=== PATIENT | female | born 1960 ===

== ENCOUNTER 2020-05-13 09:03 | Outpatient (REF) | payer OTHER, SELFPAY ==
--- NOTE | 2020-05-13 | PFT_ITS ---
Forced vital capacity, FEV1, ZAB70-49, and MVV are all markedly decreased. Post bronchodilator therapy, there is no significant improvement. Total lung capacity moderately decreased, residual volume is normal. Diffusion capacity slightly decreased. CONCLUSION: These findings are consistent with severe obstructive airway disorder. No significant response to bronchodilator therapy. Also, associated with mild to moderate degree of restrictive pulmonary disorder. MD DANIEL Gregory/KEZIA / [id number]
== END 2020-05-13 09:04 | disposition home or self-care (01) ==
LOC: HO.RESP 09:03
PROVIDERS: PCP Family Medicine; Visit Provider Internal Medicine
DX: J44.9 Chronic obstructive pulmonary disease, unspecified (principal); J45.909 Unspecified asthma, uncomplicated; J30.9 Allergic rhinitis, unspecified
CPT/HCPCS: 94060; 94727; 94729; 99213

== ENCOUNTER 2020-10-16 09:50 | Outpatient (REF) | payer OTHER, SELFPAY | END 2020-10-16 09:51 | disposition home or self-care (01) | LOC: HO.LAB 09:50 | PROVIDERS: Visit Provider Internal Medicine | DX: Z20.822 Contact with and (suspected) exposure to COVID-19 (principal) | CPT/HCPCS: 36415; C9803; U0003; U0005 ==

== ENCOUNTER 2020-10-30 11:42 | Outpatient (REF) | payer OTHER, SELFPAY ==
--- NOTE | ~2020-10-30 | XR_ITS ---
EXAMINATION: XR CHEST CLINICAL INFORMATION: COPD COMPARISON: Chest 04/01/2020 TECHNIQUE: 2 views of the chest were obtained. FINDINGS: The lungs are well-expanded with size left upper lobe pleural-based density measuring 6 cm in craniocaudad length and approximately 2.4 cm wide suspicious for a pleural-based mass or atypical infiltrate. There is increased markings in rest of lungs with no acute process. There is soft tissue mass along the left superior mediastinum question lymph node. No pleural effusion. The heart size and pulmonary vascularity is normal. No gross bony abnormality. XR/XR chest 2V IMPRESSION: Left upper lobe pleural-based masslike density. There is a left paramediastinal soft tissue density question adenopathy. Consider CT chest exam with contrast.
== END 2020-10-30 11:43 | disposition home or self-care (01) ==
LOC: HO.XRAY 11:42
PROVIDERS: PCP Family Medicine; Visit Provider Internal Medicine
DX: J44.9 Chronic obstructive pulmonary disease, unspecified (principal); J30.9 Allergic rhinitis, unspecified; Z79.51 Long term (current) use of inhaled steroids
CPT/HCPCS: 71046; 99212

== ENCOUNTER 2020-11-28 07:56 | Outpatient (REF) | payer OTHER, SELFPAY ==
--- NOTE | ~2020-11-28 | CT_ITS ---
EXAMINATION: CT CHEST WITHOUT CONTRAST CLINICAL INFORMATION: Chronic obstructive pulmonary disease, unspecified. COMPARISON: Radiograph dated 04/01/2020 and 10/30/2020. TECHNIQUE: Multidetector volumetric CT imaging of the chest was done. Axial MIP volume rendering provided. Sagittal and coronal reformatted images were obtained. Additional high resolution images were obtained at the aortic arch, janet, and base of the lung. This CT examination was performed using dose optimization techniques as appropriate, variously including the following: *Automated exposure control. *Adjustment of mA and/or kV according to patient size (this includes techniques or standardized protocols for targeted exams where dose is matched to indication/reason for exam; i.e. extremities or head). *Use of iterative reconstruction technique. DLP: 130 mGy-cm FINDINGS: GAMING CAGE CASHIER: Lungs are borderline hyperexpanded. LUNGS: There is diffuse bronchial wall thickening throughout both lungs with areas of luminal narrowing, more notable in the lower lobes. Superimposed secretions or endoluminal fluid may be present within the bronchi in the left lower lobe, in particular. No areas of dense consolidation are identified. The previously seen pleural-based mass-like density in the left upper lobe on radiograph corresponds to an area of ground-glass attenuation on the current study. Patchy areas of ground-glass attenuation are present in the periphery of the upper lobes most notably, left greater than right. Subtle tree-in-bud clusters of pulmonary micronodules are evident in multiple locations including the left lower lobe and right middle lobe, potentially due to an infectious or inflammatory process. No larger pulmonary nodules are identified. No bronchiectasis. No honeycombing. MEDIASTINUM: Heart is normal in size. No pericardial effusion. Calcific atherosclerosis is present in the coronary arteries. Vascularity is normal in caliber. No appreciable mediastinal or hilar adenopathy on these unenhanced images, though sensitivity is somewhat limited. Thyroid gland is atrophic. PLEURA: No effusion or nodularity. AXILLA: No lymphadenopathy. UPPER ABDOMEN: Unremarkable. OSSEOUS STRUCTURES: Unremarkable. CT/CT chest wo con IMPRESSION: 1. Patchy areas of ground-glass attenuation in both lungs, most notably in the upper lobes, which appear improved relative to the prior radiographs from 10/30/2020. These are nonspecific and may correspond to improving infectious or inflammatory process. Similarly, a few tree-in-bud nodular opacities are noted and also suggests a respiratory infectious or inflammatory process. 2. Diffuse bronchial wall thickening with a few areas of complete endoluminal opacification in the lower lobe, most consistent with changes of reactive airway disease or COPD/chronic bronchitis. A viral/atypical and/or infection could also produce this appearance.
== END 2020-11-28 07:57 | disposition home or self-care (01) ==
LOC: HO.CT 07:56
PROVIDERS: PCP Family Medicine; Visit Provider Internal Medicine
DX: R91.8 Other nonspecific abnormal finding of lung field (principal); J44.9 Chronic obstructive pulmonary disease, unspecified
CPT/HCPCS: 71250

== ENCOUNTER 2021-01-09 12:25 | Outpatient (REF) | payer OTHER, SELFPAY ==
--- NOTE | ~2021-01-09 | CT_ITS ---
EXAMINATION: CT ABDOMEN AND PELVIS WITH CONTRAST CLINICAL INFORMATION: Abnormal weight loss COMPARISON: CT chest noncontrast 11/28/2020 TECHNIQUE: Multidetector volumetric images were obtained from the superior aspect of the liver through the pubic symphysis following administration 85 mL of Omnipaque 350 intravenous contrast. Sagittal and coronal reformatted images were obtained on the technologist's workstation. Oral contrast: No This CT examination was performed using dose optimization techniques as appropriate, variously including the following: *Automated exposure control *Adjustment of mA and/or kV according to patient size (this includes techniques or standardized protocols for targeted exams where dose is matched to indication/reason for exam; i.e. extremities or head) *Use of iterative reconstruction technique DLP: 374 mGy-cm FINDINGS: LUNG BASES: Respiratory motion artifact. There is mild coarsening bronchiolar markings and small patchy airspace opacity versus atelectasis right anterior base. No pleural effusion. LIVER, GALLBLADDER, AND BILIARY TREE: Respiratory motion artifact. Normal in size and smooth in contour. Uniform parenchymal attenuation. No focal hepatic parenchymal lesion or intrahepatic ductal dilatation. The gallbladder is unremarkable with no evidence of radiopaque gallstones, gallbladder wall thickening, or obvious pericholecystic inflammatory changes. PANCREAS: Uniform in attenuation and normal in size. No pancreatic ductal distention or peripancreatic inflammatory changes. SPLEEN: Unremarkable. ADRENAL GLANDS: Unremarkable. KIDNEYS AND URETERS: Respiratory motion artifact. The kidneys enhance symmetrically. There is no hydronephrosis, hydroureter, or visible mass, or perinephric stranding. BLADDER: Unremarkable. GASTROINTESTINAL TRACT: The stomach is dilated and there is retained food contents in the lumen. There is no visible wall thickening or surrounding inflammatory changes. Oral contrast is present in the small and large bowel which are normal caliber and show no obstruction or wall thickening. No ascites or fluid collection. ABDOMINAL WALL: No significant hernia is appreciated. LYMPH NODES: No lymphadenopathy. VASCULAR: Unremarkable. PELVIC VISCERA: Unremarkable. OSSEOUS STRUCTURES: No acute bony abnormality or suspicious bony lesion. Schmorl's node superior endplate T12 with degenerative disc changes T11-T12. CT/CT abdomen pelvis w con IMPRESSION: 1. Gastric dilatation with retained food contents in the lumen. No visible wall thickening or surrounding inflammatory changes. Small and large bowel are unremarkable. No ascites or adenopathy. 2. Liver, pancreas, spleen, and kidneys are unremarkable. 3. Airspace opacity versus atelectasis right anterior base. 4. Respiratory motion artifact.
[2021-01-09 13:39] LABS: Anion Gap 15 (12-20); Blood Urea Nitrogen 17 mg/dL (9-16); Calcium 10.1 mg/dL (8.4-10.2); Carbon Dioxide 29 mmol/L (22-29); Chloride 101 mmol/L (96-108); Estimated Glomerular Filt Rate > 60; Glucose Random 116 mg/dL (60-115); Potassium 4.8 mmol/L (3.3-5.1); Sodium 140 mmol/L (135-145)
[2021-01-09] MEDS: iohexoL 350 MG/ML 100 ML INFUS..BTL IV (15:43)
[2021-01-09] MEDS: Barium Sulfate Oral (Berry) 450 ML ORAL.SUSP 900 ML PO (15:43)
== END 2021-01-09 12:26 | disposition home or self-care (01) ==
LOC: HO.CT 12:25
PROVIDERS: PCP Family Medicine; Visit Provider Family Medicine
DX: R63.4 Abnormal weight loss (principal); R68.81 Early satiety
CPT/HCPCS: 36415; 74177; 80048; Q9967

== ENCOUNTER 2021-02-24 09:33 | Outpatient (REF) | payer OTHER, SELFPAY ==
--- NOTE | ~2021-02-24 | MM_ITS ---
EXAMINATION: MM SCREENING DIGITAL BREAST TOMOSYNTHESIS, BILATERAL CLINICAL INFORMATION: Screening. Asymptomatic. The lifetime risk of breast cancer based on the Tyrer-Cuzick Model is 4%. COMPARISON: Mammography: 08/20/2019, 02/12/2019, 06/02/2018 TECHNIQUE: Digital breast tomosynthesis is performed in both the craniocaudal and mediolateral oblique views along with computer-aided detection (CAD). Synthesized 2D images are generated from the tomosynthesis. Additional left CC view is provided. FINDINGS: There are scattered areas of fibroglandular density (ACR BI-RADS breast composition Category b). There is fine fibronodular parenchymal pattern similar to prior studies. There is no developing density or interval mass or architectural abnormality. There is scattered benign round and rim calcifications. The axilla and skin contours are unremarkable. MM/MM tomosynthesis screening BI IMPRESSION: No mammographic evidence of malignancy. ASSESSMENT: BI-RADS 2: Benign RECOMMENDATION: Routine annual mammography screening. This patient's information was entered into a reminder system with a target due date for their next mammogram.
== END 2021-02-24 09:34 | disposition home or self-care (01) ==
LOC: HO.MAMMO 09:33
PROVIDERS: PCP Family Medicine; Visit Provider Family Medicine
DX: Z12.31 Encounter for screening mammogram for malignant neoplasm of breast (principal)
CPT/HCPCS: 77063; 77067

== ENCOUNTER 2021-03-30 10:31 | Outpatient (REF) | payer OTHER, SELFPAY ==
--- NOTE | ~2021-03-30 | XR_ITS ---
EXAMINATION: XR CHEST CLINICAL INFORMATION: Severe persistent asthma with acute exacerbation. COMPARISON: Chest CT November 28, 2020 and chest x-ray October 30, 2020 TECHNIQUE: 2 views of the chest were obtained. FINDINGS: The cardiac silhouette is normal in size. The lungs are well inflated. There is similar coarsening of the interstitial markings diffusely. No lobar consolidation is present although there is a subtle patchy opacity of the right lung base, nonspecific. No pleural effusion or pneumothorax. Mild degenerative changes of the spine. XR/XR chest 2V IMPRESSION: -Chronic lung changes with possible atelectasis versus early infiltrate of the right lower lung.
== END 2021-03-30 10:32 | disposition home or self-care (01) ==
LOC: HO.XRAY 10:31
PROVIDERS: Absent Provider Family Medicine; PCP Family Medicine; Visit Provider Internal Medicine
DX: J45.51 Severe persistent asthma with (acute) exacerbation (principal)
CPT/HCPCS: 71046

== ENCOUNTER → 2021-03-31 13:26 | Outpatient (BNVA) | payer OTHER, SELFPAY | PROVIDERS: PCP Family Medicine; Visit Provider Internal Medicine | DX: J30.9 Allergic rhinitis, unspecified (principal); J44.9 Chronic obstructive pulmonary disease, unspecified; J45.909 Unspecified asthma, uncomplicated | CPT/HCPCS: 99212 ==

== ENCOUNTER 2021-06-19 13:25 | Outpatient (REF) | payer OTHER, SELFPAY ==
[2021-06-19 14:26] LABS: MANUAL DIFF FLAG NO
[2021-06-19 16:31] LABS: Basophils Absolute Auto 0.1 X10*3/uL (0.0-0.2); Basophils Percent Auto 0.7 % (0-2); Eosinophils Absolute Auto 4.5 X10*3/uL (0.0-0.4); Hematocrit 36.1 % (37.0-47.0); Hemoglobin 11.4 g/dl (12.0-16.0); Imm Gran Abs Auto 0.04 X10*3/uL (0.00-0.03); Imm Gran Pct Auto 0.3 % (0.0-0.4); Lymphocytes Absolute Auto 3.3 X10*3/uL (1.2-4.9); Lymphocytes Percent Auto 23.9 % (20-40); Mean Corpuscular HGB Conc 31.6 g/dl (31.0-35.0); Mean Corpuscular Volume 91.9 fL (80.0-98.0); Mean Platelet Volume 10.5 fL (9.4-12.3); Monocytes Absolute Auto 0.7 X10*3/uL (0.1-1.2); Monocytes Percent Auto 4.8 % (2-11); Neutrophils Absolute Auto 5.1 x10*3/uL (2.0-8.3); Neutrophils Percent Auto 37.3 % (45-73); Platelet Count 411 X10*3/uL (160-400); Red Blood Count 3.93 X10*6/uL (4.20-5.50); Red Cell Distribution Width 13.1 % (11.0-16.0); White Blood Count 13.6 X10*3/uL (4.8-10.8)
[2021-06-19 17:36] LABS: TSH reflex Free T4 0.71 uIU/mL (0.32-4.0)
[2021-06-19 17:43] LABS: Alanine Aminotransferase 13 U/L (0-31); Albumin Level 3.7 g/dL (3.5-5.0); Alkaline Phosphatase 106 U/L (39-117); Anion Gap 11 (12-20); Aspartate Amino Transferase 19 U/L (5-31); Bilirubin Total < 0.2 mg/dL (0.0-1.0); Blood Urea Nitrogen 18 mg/dL (9-16); Calcium 9.3 mg/dL (8.4-10.2); Carbon Dioxide 30 mmol/L (22-29); Chloride 106 mmol/L (96-108); Estimated Glomerular Filt Rate > 60; Glucose Random 65 mg/dL (60-115); Potassium 4.6 mmol/L (3.3-5.1); Sodium 142 mmol/L (135-145); Total Protein 7.8 g/dL (6.5-8.0)
== END 2021-06-19 13:26 | disposition home or self-care (01) ==
LOC: HO.LAB 13:25
PROVIDERS: PCP Family Medicine; Referring Provider Family Medicine; Visit Provider Nurse Practitioner
DX: R63.4 Abnormal weight loss (principal)
CPT/HCPCS: 36415; 80053; 84443; 85025; 99202

== ENCOUNTER 2021-06-28 13:47 | Inpatient (IN) | payer OTHER, SELFPAY ==
--- NOTE | ~2021-06-28 | XR_ITS ---
EXAMINATION: XR CHEST CLINICAL INFORMATION: Dyspnea COMPARISON: 03/30/2021 TECHNIQUE: 2 views of the chest were obtained. FINDINGS: Diffuse mild bronchial wall thickening redemonstrated with likely mucoid impaction within the lower lungs bilaterally as seen on the prior CT. There are patchy airspace opacities as well within the left upper and bilateral lower lungs which may represent a superimposed pneumonitis. Streaky opacity within the middle lobe may represent an infiltrate or subsegmental atelectasis. Normal heart size and pulmonary vascularity. No acute or suspicious osseous abnormalities. XR/XR chest 2V IMPRESSION: * Findings compatible with chronic bronchitis with mucoid impacted bronchioles within the lower lungs bilaterally. * There is a streaky opacity within the middle lobe which isn't a superimposed infiltrate or associated atelectatic changes.
[2021-06-28 13:55] VITALS: BP 151/55; PULSE 119; RESP 18; TEMP 37; O2SAT 91; BMI 18.6
[2021-06-28 14:22] LABS: COVID-19 Test Negative (Negative); IDNOW Serial# 9DD0AD1C
--- NOTE | 2021-06-28 16:31 | ED.SOB ---
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 This episode started 1 week ago Cough Yellow/ Brown phlegm No Fevers Last episode 1 month ago. 2 this year Typical treatment Prednisone. Zithromax No sick contacts vaccinated against covid Related Data Home Medications Medication Instructions Recorded Confirmed albuterol sulfate 90 mcg/actuation 2 puff PO Q4-6H PRN 05/03/20 05/13/20 aerosol inhaler alcohol swabs 0 pad TOPICAL 05/03/20 05/13/20 aspirin 81 mg tablet,delayed 81 mg PO DAILY 05/03/20 05/13/20 release atorvastatin 40 mg tablet mg PO 05/03/20 05/13/20 blood sugar diagnostic #10 ea 05/03/20 05/13/20 cholecalciferol (vitamin D3) 50 50 mcg PO DAILY 05/03/20 05/13/20 mcg (2,000 unit) tablet clonazepam 0.5 mg tablet 0.5 mg PO DAILY PRN 05/03/20 05/13/20 cyanocobalamin (vitamin B-12) 500 500 mcg PO QAM 05/03/20 05/13/20 mcg tablet diltiazem HCl 180 mg 180 mg PO DAILY 05/03/20 05/13/20 capsule,extended release 24 hr fluticasone 250 mcg-salmeterol 50 1 ea PO BID 05/03/20 05/13/20 mcg/dose blistr powdr for inhalation fluticasone propionate 50 0 mcg INTRANASAL 05/03/20 05/13/20 mcg/actuation nasal spray,suspension lancets 33 gauge #100 ea 05/03/20 05/13/20 loratadine 10 mg tablet 10 mg PO DAILY 05/03/20 05/13/20 metformin 500 mg tablet,extended 500 mg PO DAILY 05/03/20 05/13/20 release 24 hr psyllium husk 0.4 gram capsule 0.4 g PO QAM 05/03/20 05/13/20 Previous Rx's Medication Instructions Recorded montelukast 10 mg tablet 10 mg PO DAILY #90 tab 01/23/21 albuterol sulfate 2.5 mg (3 mL) INHALATION Q4-6H PRN 03/25/21 #300 ml umeclidinium 62.5 mcg/actuation 1 inh PO DAILY #30 ea 04/21/21 blister powder for inhalation (Incruse Ellipta) peg 3350-electrolytes 236 240 ml PO Q10M 1 Days #4000 ml 06/19/21 gram-22.74 gram-6.74 gram-5.86 gram solution (Golytely) azithromycin 250 mg tablet 250 mg PO DAILY 4 Days #4 tab 06/28/21 (Zithromax) prednisone 20 mg tablet 40 mg PO DAILY #10 tab 06/28/21 Allergies Allergy/AdvReac Type Severity Reaction Status Date / Time No Known Allergies Allergy Verified 06/28/21 13:55 [No Known Allergies*] Review of Systems Constitutional: Constitutional: Denies fever(s) Cardiovascular: Cardiovascular: Denies chest pain and Reports dyspnea Respiratory: Respiratory: Reports cough, Reports dyspnea and Reports wheezing Gastrointestinal: Gastrointestinal: Denies nausea and Denies vomiting Integumentary/Breasts: Skin/Breast: Denies change in pigmentation Comments: no rash Allergic/Immunologic: Allergic/Immunologic: Reports wheezing [facility] Past Medical History Medical History (Updated 06/28/21 @ 16:36 by Avel Thomas MD) Allergic rhinitis Bronchial asthma COPD (chronic obstructive pulmonary disease) Mass of upper lobe of left lung Surgical History History of tubal ligation Family History Family History Father No problems noted. Mother No problems noted. Social History Social History Alcohol intake: never Patient Tobacco Use Status: Never used Tobacco Use of substances other than those prescribed or required for medical reasons: No Advance Directives: No Patient : No Physical Exam Vital Signs: Vital Signs: Last Vital Signs Temp 98.8 F 06/28/21 18:31 Pulse 148 H 06/28/21 18:31 Resp 18 06/28/21 18:31 BP 118/71 06/28/21 17:21 Pulse Ox 90 L 06/28/21 18:31 Body Mass Index 18.6 Const: Other: Awake No acute distress Resp: Other: no resp distress. Coarse rhochi bilat good air entry Cardio: Other: rrr/ no MRG GI: Other: soft/ NT Skin: Other: no rash Extrem: Other: no calf TTP Course Course Course Narrative: asthma Bronchitis Pneumonia CXR c/w bronchitis Covid 19 negative Prednisone Zithromax Albuterol, Atrovent. 6:55 p.m.. After treatment patient is tachycardic to 146 beats per minute. Will do 12 lead and lab work. IV fluids 8:17 p.m.. Patient still with room air saturation of 88% after treatment. Will hospitalized for further treatment. MDM - SOB/Dyspnea Lab Data Result diagrams: 06/28/21 19:31 06/28/21 19:31 Labs: Lab Results 06/28/21 06/28/21 06/28/21 Range/Units 14:01 19:31 19:31 WBC 15.6 H (4.8-10.8) X10*3/uL RBC 3.93 L (4.20-5.50) X10*6/uL Hgb 11.8 L (12.0-16.0) g/dl Hct 35.3 L (37.0-47.0) % MCV 89.8 (80.0-98.0) fL MCH 30.0 (27.0-33.0) pg MCHC 33.4 (31.0-35.0) g/dl RDW 12.9 (11.0-16.0) % Plt Count 310 (160-400) X10*3/uL MPV 9.7 (9.4-12.3) fL Immature Gran % (Auto) 0.3 (0.0-0.4) % Neut % (Auto) 66.0 (45-73) % Lymph % (Auto) 13.3 L (20-40) % [place] % (Auto) 2.3 (2-11) % Eos % (Auto) 17.6 H (0-4) % Baso % (Auto) 0.5 (0-2) % Lymph # (Auto) 2.1 (1.2-4.9) X10*3/uL [place] # (Auto) 0.4 (0.1-1.2) X10*3/uL Eos # (Auto) 2.7 H (0.0-0.4) X10*3/uL Baso # (Auto) 0.1 (0.0-0.2) X10*3/uL Abs Immat Gran (auto) 0.05 H (0.00-0.03) X10*3/uL Absolute Neuts (auto) 10.3 H (2.0-8.3) x10*3/uL Absolute Nucleated RBC 0.000 (0.0-0.012) X10*3/uL Nucleated RBC % (auto) 0.0 (0.0-0.2) /100WBC Smear Tech's Comments VERIFIED Sodium 137 (135-145) mmol/L Potassium 4.6 (3.3-5.1) mmol/L Chloride 101 (96-108) mmol/L Carbon Dioxide 23 (22-29) mmol/L Anion Gap 18 (12-20) BUN 20 H (9-16) mg/dL Creatinine 0.80 (0.5-1.4) mg/dL Estim Creat Clear Calc 54.1 Estimated GFR > 60 Random Glucose 143 H (60-115) mg/dL Calcium 9.7 (8.4-10.2) mg/dL Total Bilirubin 0.3 (0.0-1.0) mg/dL AST 26 (5-31) U/L ALT 11 (0-31) U/L Alkaline Phosphatase 87 (39-117) U/L Troponin I High Sens (<3.5-17.0) ng/L Total Protein 8.3 H (6.5-8.0) g/dL Albumin 3.5 (3.5-5.0) g/dL COVID-19 (BRIGHT) Negative (Negative) COVID-19 Clin Com See Note 06/28/21 Range/Units 19:31 WBC (4.8-10.8) X10*3/uL RBC (4.20-5.50) X10*6/uL Hgb (12.0-16.0) g/dl Hct (37.0-47.0) % MCV (80.0-98.0) fL MCH (27.0-33.0) pg MCHC (31.0-35.0) g/dl RDW (11.0-16.0) % Plt Count (160-400) X10*3/uL MPV (9.4-12.3) fL Immature Gran % (Auto) (0.0-0.4) % Neut % (Auto) (45-73) % Lymph % (Auto) (20-40) % [place] % (Auto) (2-11) % Eos % (Auto) (0-4) % Baso % (Auto) (0-2) % Lymph # (Auto) (1.2-4.9) X10*3/uL [place] # (Auto) (0.1-1.2) X10*3/uL Eos # (Auto) (0.0-0.4) X10*3/uL Baso # (Auto) (0.0-0.2) X10*3/uL Abs Immat Gran (auto) (0.00-0.03) X10*3/uL Absolute Neuts (auto) (2.0-8.3) x10*3/uL Absolute Nucleated RBC (0.0-0.012) X10*3/uL Nucleated RBC % (auto) (0.0-0.2) /100WBC Smear Tech's Comments Sodium (135-145) mmol/L Potassium (3.3-5.1) mmol/L Chloride (96-108) mmol/L Carbon Dioxide (22-29) mmol/L Anion Gap (12-20) BUN (9-16) mg/dL Creatinine (0.5-1.4) mg/dL Estim Creat Clear Calc Estimated GFR Random Glucose (60-115) mg/dL Calcium (8.4-10.2) mg/dL Total Bilirubin (0.0-1.0) mg/dL AST (5-31) U/L ALT (0-31) U/L Alkaline Phosphatase (39-117) U/L Troponin I High Sens < 3.5 (<3.5-17.0) ng/L Total Protein (6.5-8.0) g/dL Albumin (3.5-5.0) g/dL COVID-19 (BRIGHT) (Negative) COVID-19 Clin Com Discharge Plan Discharge Clinical Impression: Bronchial asthma Patient Disposition: Admitted As Inpatient Interventions: ED Discharge Assessment Last Done: 06/28/21 18:46
[2021-06-28 17:21] VITALS: BP 118/71; PULSE 112; RESP 20; TEMP 37.2; O2SAT 89
[2021-06-28] MEDS: Azithromycin 500 MG TABLET PO (17:28)
[2021-06-28] MEDS: predniSONE 20 MG TABLET 60 MG PO (17:28)
[2021-06-28] MEDS: Albuterol Sulfate (0.083%) 2.5 MG/3 ML VIAL.NEB 7.5 MG INHALE (18:06)
[2021-06-28] MEDS: Albuterol/Iprat 2.5/0.5MG 3 ML AMPUL.NEB INHALE (18:06)
[2021-06-28 18:07] VITALS: PULSE 116; O2SAT 88
[2021-06-28 18:31] VITALS: PULSE 148; RESP 18; TEMP 37.1; O2SAT 90
--- NOTE | 2021-06-28 18:54 | ECG_ITS ---
Test Reason : DYSPENA Blood Pressure : / mmHG Vent. Rate : 133 BPM Atrial Rate : 133 BPM P-R Int : 142 ms QRS Dur : 072 ms QT Int : 284 ms P-R-T Axes : 076 084 049 degrees QTc Int : 422 ms Sinus tachycardia Nonspecific T wave abnormality Abnormal ECG When compared with ECG of 31-MAR-2017 17:08, ST no longer elevated in Inferior leads T wave amplitude has decreased in Inferior leads Referred By: Avel Thomas Electronically Signed By:PEARL MCWILLIAMS MD
[2021-06-28 19:39] LABS: Basophils Absolute Auto 0.1 X10*3/uL (0.0-0.2); Basophils Percent Auto 0.5 % (0-2); Eosinophils Absolute Auto 2.7 X10*3/uL (0.0-0.4); Eosinophils Percent Auto 17.6 % (0-4); Hematocrit 35.3 % (37.0-47.0); Hemoglobin 11.8 g/dl (12.0-16.0); Imm Gran Abs Auto 0.05 X10*3/uL (0.00-0.03); Imm Gran Pct Auto 0.3 % (0.0-0.4); Lymphocytes Absolute Auto 2.1 X10*3/uL (1.2-4.9); Lymphocytes Percent Auto 13.3 % (20-40); MANUAL DIFF FLAG SCAN; Mean Corpuscular HGB Conc 33.4 g/dl (31.0-35.0); Mean Corpuscular Volume 89.8 fL (80.0-98.0); Mean Platelet Volume 9.7 fL (9.4-12.3); Monocytes Absolute Auto 0.4 X10*3/uL (0.1-1.2); Monocytes Percent Auto 2.3 % (2-11); Neutrophils Absolute Auto 10.3 x10*3/uL (2.0-8.3); Platelet Count 310 X10*3/uL (160-400); Red Blood Count 3.93 X10*6/uL (4.20-5.50); Red Cell Distribution Width 12.9 % (11.0-16.0); SCAN SMEAR FLAG 1; White Blood Count 15.6 X10*3/uL (4.8-10.8)
--- NOTE | 2021-06-28 19:42 | PC.NURSE ---
pt a&o, no respiratory distress at this time. labs drawn and Iv placed.
[2021-06-28] MEDS: 0.9 % Sodium Chloride 1,000 ML 999 ML IV (19:47)
[2021-06-28] MEDS: methylPREDNISolone Sod Succ 125 MG/2 ML VIAL 60 MG IVPUSH (19:47)
[2021-06-28 19:56] LABS: SLIDE REVIEW VERIFIED
[2021-06-28 19:57] LABS: Alanine Aminotransferase 11 U/L (0-31); Albumin Level 3.5 g/dL (3.5-5.0); Alkaline Phosphatase 87 U/L (39-117); Anion Gap 18 (12-20); Aspartate Amino Transferase 26 U/L (5-31); Bilirubin Total 0.3 mg/dL (0.0-1.0); Blood Urea Nitrogen 20 mg/dL (9-16); Calcium 9.7 mg/dL (8.4-10.2); Carbon Dioxide 23 mmol/L (22-29); Chloride 101 mmol/L (96-108); Creatinine Clr Calc Pharmacy 54.1; Estimated Glomerular Filt Rate > 60; Glucose Random 143 mg/dL (60-115); Potassium 4.6 mmol/L (3.3-5.1); Sodium 137 mmol/L (135-145); Total Protein 8.3 g/dL (6.5-8.0); Troponin-I High Sensitivity < 3.5 ng/L (<3.5-17.0)
[2021-06-28 20:58] VITALS: BP 112/59; PULSE 114; RESP 17; TEMP 36.7; O2SAT 97
--- NOTE | 2021-06-28 21:47 | PM.IMHP ---
History of Present Illness Date of Service: 06/28/21 Chief Complaint: asthma exacerbation 61-year-old female with past medical history of asthma, hypertension, anxiety, hyperlipidemia, diabetes who presents to the hospital with complaints of difficulty breathing. Patient reports that her symptoms started about 3 days ago, associated with cough, increased sputum production, no fever no chills, her inhalers at home did not improve her symptoms. She is also complaining of left upper quadrant abdominal pain that has now resolved. She denies any chest pain, no nausea or vomiting, no diarrhea constipation, no urinary symptoms and no lower extremity edema. No numbness tingling or weakness. On arrival to the ED patient hemodynamically stable found to be hypoxic with an O2 level of 88-89% on room air. And per ED physician dropped although a to 80% at some point Labs are significant for WBC count of 13.6, hemoglobin of 11.4, labs otherwise unremarkable. Chest x-ray showed chronic bronchitis with mucoid impacted bronchial within the lower lungs bilaterally, a streaky opacity within the middle lobe which isn't a superimposed infection or associated atelectasis changes. Patient will be admitted for further management Review of Systems Review of Systems: Yes all other systems are reviewed and are negative [facility] Medical History (Updated 06/29/21 @ 05:01 by Rosanne Fernandez MD) Allergic rhinitis Anxiety Asthma with COPD with exacerbation Bronchial asthma COPD (chronic obstructive pulmonary disease) Diabetes Hyperlipidemia Hypertension Mass of upper lobe of left lung Family History Father No problems noted. Mother No problems noted. Surgical History (Updated 06/29/21 @ 05:00 by Rosanne Fernandez MD) History of cataract surgery History of tubal ligation Social History Household Members: None Housing: Apartment Do you presently have visiting nurse or other home services: No Alcohol intake: never Patient Tobacco Use Status: Never used Tobacco Use of substances other than those prescribed or required for medical reasons: No Have you been hit, kicked, punched, or otherwise hurt by someone within the past year? If so, by whom?: No Do you feel safe in your current relationship?: No Current Relationship Is there a partner from a previous relationship who is making you feel unsafe now?: No Are you made to feel afraid or neglected: No Advance Directives: No Do you have thoughts of harming others: None Do you have a plan to hurt others: No Plan Recently lost weight without trying: Yes How much weight loss: 34pounds or more Eating poorly because of decreased appetite: Yes Nutrition screen score: 7 Nutrition Risks: No Nutritional Risk Patient : No : No Poor oral hygiene: No Meds Allergies Allergy/AdvReac Type Severity Reaction Status Date / Time No Known Allergies Allergy Verified 06/28/21 13:55 [No Known Allergies*] Active Medications: Current Medications Pharmacy Consult (Consult Rx Perform Med Rec) 1 each MISCELLANE ONCE PRN PRN Reason: Consult order Home Medications Medication Instructions Recorded Confirmed Last Taken Type albuterol sulfate 90 mcg/actuation 2 puff PO Q4-6H PRN 05/03/20 05/13/20 Unknown History aerosol inhaler alcohol swabs 0 pad TOPICAL 05/03/20 05/13/20 Unknown History aspirin 81 mg tablet,delayed 81 mg PO DAILY 05/03/20 06/28/21 06/28/21 History release atorvastatin 40 mg tablet mg PO 05/03/20 05/13/20 Unknown History blood sugar diagnostic #10 ea 05/03/20 05/13/20 Unknown History cholecalciferol (vitamin D3) 50 50 mcg PO DAILY 05/03/20 05/13/20 Unknown History mcg (2,000 unit) tablet clonazepam 0.5 mg tablet 0.5 mg PO DAILY 05/03/20 06/28/21 06/28/21 21:08 History cyanocobalamin (vitamin B-12) 500 500 mcg PO QAM 05/03/20 05/13/20 06/28/21 21:02 History mcg tablet diltiazem HCl 180 mg 180 mg PO DAILY 05/03/20 06/28/21 06/28/21 21:06 History capsule,extended release 24 hr fluticasone 250 mcg-salmeterol 50 1 ea PO BID 05/03/20 05/13/20 Unknown History mcg/dose blistr powdr for inhalation fluticasone propionate 50 0 mcg INTRANASAL 05/03/20 05/13/20 Unknown History mcg/actuation nasal spray,suspension lancets 33 gauge #100 ea 09/26/20 10/06/20 Unknown History loratadine 10 mg tablet 10 mg PO DAILY 05/03/20 06/28/21 06/28/21 21:07 History metformin 500 mg tablet,extended 500 mg PO DAILY 05/03/20 06/28/21 06/28/21 21:07 History release 24 hr psyllium husk 0.4 gram capsule 0.4 g PO QAM 05/03/20 05/13/20 Unknown History Lipitor 40 mcg 06/28/21 06/28/21 History Ventolin HFA 90 mcg 06/28/21 Unknown History baclofen 10 mg PO 06/28/21 06/28/21 21:16 History fluticasone 250 mcg-salmeterol 50 1 puff INHALATION BID 06/28/21 06/28/21 Unknown History mcg/dose blistr powdr for inhalation (Teetee De La Cruz) Physical Exam Vital Signs and Narrative: Vital Signs: Last Vital Signs Temp 98.1 F 06/28/21 20:58 Pulse 114 H 06/28/21 20:58 Resp 17 06/28/21 20:58 BP 112/59 L 06/28/21 20:58 Pulse Ox 97 06/28/21 20:58 Body Mass Index 18.6 Const: General: cooperative and no acute distress Orientation/consciousness: patient oriented x3 Eyes: General: appearance normal, both eyes and all related structures Resp: Other: Mild expiratory wheezing Effort & Inspection: normal respiratory effort Cardio: Rate: regular rate Rhythm: regular rhythm GI: Palpation (GI): Soft to palpation Auscultation: normal bowel sounds Skin: General skin exam: no rashes or lesions noted Neuro: General: patient oriented x3 Cognition (Neuro): normal cognition Extrem: General: Yes normal to inspection and Yes no pedal edema Results Labs CBC and Chem 7: 06/28/21 19:31 06/28/21 19:31 Labs: Laboratory Results - last 24 hr 06/28/21 06/28/21 06/28/21 14:01 19:31 19:31 MCV 89.8 MCH 30.0 MCHC 33.4 RDW 12.9 Plt Count 310 MPV 9.7 Immature Gran % (Auto) 0.3 Neut % (Auto) 66.0 Lymph % (Auto) 13.3 L [place] % (Auto) 2.3 Eos % (Auto) 17.6 H Baso % (Auto) 0.5 Lymph # (Auto) 2.1 [place] # (Auto) 0.4 Eos # (Auto) 2.7 H Baso # (Auto) 0.1 Abs Immat Gran (auto) 0.05 H Absolute Neuts (auto) 10.3 H Absolute Nucleated RBC 0.000 Nucleated RBC % (auto) 0.0 Smear Tech's Comments VERIFIED Anion Gap 18 Estim Creat Clear Calc 54.1 Estimated GFR > 60 Random Glucose 143 H Calcium 9.7 Total Bilirubin 0.3 AST 26 ALT 11 Alkaline Phosphatase 87 Troponin I High Sens Total Protein 8.3 H Albumin 3.5 COVID-19 (BRIGHT) Negative COVID-19 Clin Com See Note 06/28/21 19:31 MCV MCH MCHC RDW Plt Count MPV Immature Gran % (Auto) Neut % (Auto) Lymph % (Auto) [place] % (Auto) Eos % (Auto) Baso % (Auto) Lymph # (Auto) [place] # (Auto) Eos # (Auto) Baso # (Auto) Abs Immat Gran (auto) Absolute Neuts (auto) Absolute Nucleated RBC Nucleated RBC % (auto) Smear Tech's Comments Anion Gap Estim Creat Clear Calc Estimated GFR Random Glucose Calcium Total Bilirubin AST ALT Alkaline Phosphatase Troponin I High Sens < 3.5 Total Protein Albumin COVID-19 (BRIGHT) COVID-19 Clin Com Imaging Radiologist's Impressions: Impressions Chest X-Ray 06/28/21 14:12 IMPRESSION: * Findings compatible with chronic bronchitis with mucoid impacted bronchioles within the lower lungs bilaterally. * There is a streaky opacity within the middle lobe which isn't a superimposed infiltrate or associated atelectatic changes. Assessment and Plan (1) Leukocytosis: Status: Acute (2) Acute respiratory failure with hypoxia: Status: Acute (3) Asthma with COPD with exacerbation: Status: Acute 61-year-old female with past medical history of asthma/COPD, diabetes hypertension presents the hospital with asthma/COPD exacerbation found to be hypoxic # acute hypoxic respiratory failure - secondary to asthma/COPD exacerbation - O2 dropping to the 80s, currently on 2 L of oxygen satting 96% - will continue O2 supplement with an O2 saturation level of 92 % - treatment of COPD and asthma as below # acute asthma/COPD exacerbation - there is some evidence of infiltrate on chest x-ray - will start on IV Solu-Medrol, DuoNeb p.r.n. and scheduled - given the increased sputum production and swell as cough and the infiltrate seen on chest x-ray, will start patient on IV antibiotics - monitor respiratory status - COVID-19 negative # leukocytosis - most likely secondary to above - IV antibiotics started - follow CBC # diabetes - hold oral antihyperglycemics - will start low-dose sliding scale insulin - diabetic diet # hypertension - stable - continue home medication DVT prophylaxis: [place] Quality Stroke Does the patient have a stroke diagnosis?: No VTE Prior VTE?: No VTE Risk Level:: Medical - moderate - high VTE Device Contraindication: Treatment Not Indicated VTE Drug Contraindication: N/A - Med Ordered
[2021-06-28 22:44] VITALS: BP 107/55; PULSE 109; RESP 13; O2SAT 96
[2021-06-29] VITALS (10 sets, daily range): BP systolic 106–130; BP diastolic 54–74; PULSE 69–109; RESP 17–20; TEMP 36.3–37; O2SAT 86–99
[2021-06-29] MEDS: Enoxaparin Sodium 40 MG/0.4 ML SYRINGE SUBCUT (02:05)
[2021-06-29] MEDS: 0.9 % Sodium Chloride Flush 3 ML SYRINGE IVFLUSH ×2 (02:06→09:01)
--- NOTE | 2021-06-29 02:08 | PC.NURSE ---
medicated pt per mar, pt reports she is starting to feel much better.
--- NOTE | 2021-06-29 02:23 | PC.NURSE ---
report given to the receiving unit.
[2021-06-29 02:58] LABS: Glucose, Whole Blood 162 mg/dL (60-115)
[2021-06-29] MEDS: cefTRIAXone sodium 1 GM in 0.9 % Sodium Chloride 50 ML IV (05:18)
[2021-06-29 06:27] LABS: MANUAL DIFF FLAG NO
[2021-06-29 06:49] LABS: Basophils Percent Auto 0.2 % (0-2); Eosinophils Percent Auto 0.2 % (0-4); Hematocrit 35.1 % (37.0-47.0); Hemoglobin 11.4 g/dl (12.0-16.0); Imm Gran Abs Auto 0.01 X10*3/uL (0.00-0.03); Imm Gran Pct Auto 0.2 % (0.0-0.4); Lymphocytes Absolute Auto 1.1 X10*3/uL (1.2-4.9); Lymphocytes Percent Auto 22.5 % (20-40); Mean Corpuscular HGB Conc 32.5 g/dl (31.0-35.0); Mean Corpuscular Hemoglobin 29.5 pg (27.0-33.0); Mean Corpuscular Volume 90.7 fL (80.0-98.0); Mean Platelet Volume 10.4 fL (9.4-12.3); Monocytes Absolute Auto 0.1 X10*3/uL (0.1-1.2); Neutrophils Absolute Auto 3.8 x10*3/uL (2.0-8.3); Neutrophils Percent Auto 75.9 % (45-73); Platelet Count 309 X10*3/uL (160-400); Red Blood Count 3.87 X10*6/uL (4.20-5.50); White Blood Count 4.9 X10*3/uL (4.8-10.8)
[2021-06-29 07:15] LABS: Glucose, Whole Blood 121 mg/dL (60-115)
[2021-06-29 07:26] LABS: Anion Gap 15 (12-20); Blood Urea Nitrogen 20 mg/dL (9-16); Calcium 9.2 mg/dL (8.4-10.2); Carbon Dioxide 25 mmol/L (22-29); Chloride 104 mmol/L (96-108); Creatinine Clr Calc Pharmacy 62.7; Estimated Glomerular Filt Rate > 60; Glucose Random 119 mg/dL (60-115); Potassium 4.9 mmol/L (3.3-5.1); Sodium 139 mmol/L (135-145)
[2021-06-29] MEDS: Albuterol/Iprat 2.5/0.5MG 3 ML AMPUL.NEB INHALE ×2 (07:48→11:19)
[2021-06-29] MEDS: dilTIAZem HCL CD 180 MG CAP.ER.24H PO (08:59)
[2021-06-29] MEDS: Aspirin Enteric Coated 81 MG TABLET.DR PO (08:59)
[2021-06-29] MEDS: Loratadine 10 MG TABLET PO (09:00)
[2021-06-29] MEDS: methylPREDNISolone Sod Succ 40 MG/ML VIAL IVPUSH (09:00)
--- NOTE | 2021-06-29 10:13 | MHC.CM.PN ---
with interpertor met with pt who explins that she lives alone is independent and does not expect to need servceis when dcd her sons will transport home
--- NOTE | 2021-06-29 10:17 | PHA.MEDREC ---
Pharmacy Consult ? Medication Reconciliation Pharmacy has reviewed the medication reconciliation completed by Salena. Med rec was uncompleted with more than half the medications unconfirmed. No inhaler were included on the medication list. Patient was able to confirm all mediations. Anita Saleem, PharmD
[2021-06-29 11:15] LABS: Glucose, Whole Blood 158 mg/dL (60-115)
--- NOTE | 2021-06-29 11:29 | P.DS_ITS ---
DS: Providers Provider Date of Service: 06/29/21 Date of admission: 06/28/21 21:28 Primary care physician: Carmina Iyer DO DS: Diagnosis Discharge Diagnosis (1) Leukocytosis: Status: Acute (2) Acute respiratory failure with hypoxia: Status: Acute (3) Asthma with COPD with exacerbation: Status: Acute DS: Summary Hospital Course Hospital Course: 61-year-old female with past medical history of asthma, hypertension, anxiety, hyperlipidemia, diabetes who presents to the hospital with complaints of difficulty breathing.? Patient reports that her symptoms started about 3 days ag o, associated with cough, increased sputum production, no fever no chills, her inhalers at home did not improve her symptoms.? She is also complaining of left upper quadrant abdominal pain that has now resolved.? She denies any chest pain, no nausea or vomiting, no diarrhea constipation, no urinary symptoms and no lower extremity edema.? No numbness tingling or weakness.? On arrival to the ED patient hemodynamically stable found to be hypoxic with an O2 level of 88-89% on room air.? And per ED physician dropped although a to 80% at some point Labs are significant for WBC count of 13.6, hemoglobin of 11.4, labs otherwise unremarkable. Chest x-ray showed chronic bronchitis with mucoid impacted bronchial within the lower lungs bilaterally, a streaky opacity within the middle lobe which isn't a superimposed infection or associated atelectasis changes. Hospital course: Patient was admitted for acute hypoxemic respiratory failure secondary to COPD exacerbation: Started on nebs, steroids, antibiotics and oxygen support patient seems to be improved significantly going home with p.o. prednisone and azithromycin. Further management outpatient as per PCP. Patient does not qualify for home oxygen. Above management discussed with the patient in detail length she understand and in agreement with the above plan, time spent 50 minutes and 50% time spent on counseling. Significant findings: As above. Procedures performed: None. Treatment and response: As above. Complications: None. Time Spent with Patient Time attestation: Total time spent providing and/or coordinating discharge services: Discharge coordination time: Greater than 30 minutes Quality: Stroke Does the patient have a stroke diagnosis?: No Physical Exam Vital Signs: Vital Signs: Last Vital Signs Temp 97.3 F 06/29/21 11:24 Pulse 100 06/29/21 11:24 Resp 18 06/29/21 11:24 BP 121/74 06/29/21 11:24 Pulse Ox 99 06/29/21 11:24 Body Mass Index 18.6 Physical exam: Appearance: Alert.? Oriented X3.? not in distress.? Eyes: Pupils equal, round and reactive to light.? Sclera nonicteric.? ENT: Pharynx normal.? Moist mucous membranes. cvs: rrr, [id number] , no murmur res: clear to auscultation ,no rhonchii or wheezing abd: no rebound or guarding ,nt, bs present. ext pulses present , no cyanosis. neuro: axo3 , nonfocal. DS: Data Data Completed and Pending Labs on day of discharge: Laboratory Results - last 24 hr 06/28/21 06/28/21 06/28/21 14:01 19:31 19:31 WBC 15.6 H RBC 3.93 L Hgb 11.8 L Hct 35.3 L MCV 89.8 MCH 30.0 MCHC 33.4 RDW 12.9 Plt Count 310 MPV 9.7 Immature Gran % (Auto) 0.3 Neut % (Auto) 66.0 Lymph % (Auto) 13.3 L [place] % (Auto) 2.3 Eos % (Auto) 17.6 H Baso % (Auto) 0.5 Lymph # (Auto) 2.1 [place] # (Auto) 0.4 Eos # (Auto) 2.7 H Baso # (Auto) 0.1 Abs Immat Gran (auto) 0.05 H Absolute Neuts (auto) 10.3 H Absolute Nucleated RBC 0.000 Nucleated RBC % (auto) 0.0 Smear Tech's Comments VERIFIED Sodium 137 Potassium 4.6 Chloride 101 Carbon Dioxide 23 Anion Gap 18 BUN 20 H Creatinine 0.80 Estim Creat Clear Calc 54.1 Estimated GFR > 60 POC Glucose Random Glucose 143 H Calcium 9.7 Total Bilirubin 0.3 AST 26 ALT 11 Alkaline Phosphatase 87 Troponin I High Sens Total Protein 8.3 H Albumin 3.5 COVID-19 (BRIGHT) Negative COVID-19 Clin Com See Note 06/28/21 06/29/21 06/29/21 19:31 02:52 05:51 WBC 4.9 RBC 3.87 L Hgb 11.4 L Hct 35.1 L MCV 90.7 MCH 29.5 MCHC 32.5 RDW 13.0 Plt Count 309 MPV 10.4 Immature Gran % (Auto) 0.2 Neut % (Auto) 75.9 H Lymph % (Auto) 22.5 [place] % (Auto) 1.0 L Eos % (Auto) 0.2 Baso % (Auto) 0.2 Lymph # (Auto) 1.1 L [place] # (Auto) 0.1 Eos # (Auto) 0.0 Baso # (Auto) 0.0 Abs Immat Gran (auto) 0.01 Absolute Neuts (auto) 3.8 Absolute Nucleated RBC 0.000 Nucleated RBC % (auto) 0.0 Smear Tech's Comments Sodium Potassium Chloride Carbon Dioxide Anion Gap BUN Creatinine Estim Creat Clear Calc Estimated GFR POC Glucose 162 H Random Glucose Calcium Total Bilirubin AST ALT Alkaline Phosphatase Troponin I High Sens < 3.5 Total Protein Albumin COVID-19 (BRIGHT) COVID-19 [employer] 06/29/21 06/29/21 06/29/21 05:51 07:04 10:59 WBC RBC Hgb Hct MCV MCH MCHC RDW Plt Count MPV Immature Gran % (Auto) Neut % (Auto) Lymph % (Auto) [place] % (Auto) Eos % (Auto) Baso % (Auto) Lymph # (Auto) [place] # (Auto) Eos # (Auto) Baso # (Auto) Abs Immat Gran (auto) Absolute Neuts (auto) Absolute Nucleated RBC Nucleated RBC % (auto) Smear Tech's Comments Sodium 139 Potassium 4.9 Chloride 104 Carbon Dioxide 25 Anion Gap 15 BUN 20 H Creatinine 0.69 Estim Creat Clear Calc 62.7 Estimated GFR > 60 POC Glucose 121 H 158 H Random Glucose 119 H Calcium 9.2 Total Bilirubin AST ALT Alkaline Phosphatase Troponin I High Sens Total Protein Albumin COVID-19 (BRIGHT) COVID-19 Clin Com Additional Comments Additional comments: IMPRESSION: *? Findings compatible with chronic bronchitis with mucoid impacted bronchioles within the lower lungs bilaterally. *? There is a streaky opacity within the middle lobe which isn't a superimposed infiltrate or associated atelectatic changes. Discharge Plan Discharge Patient Disposition: Home, Self-Care Discharge Diagnosis: COPD exacerbation. Referrals: Carmina Iyer DO [Primary Care Provider] - 1 Week Discharge Medications: New prednisone 20 mg tablet 40 mg PO BID Qty: 8 RF: 0 azithromycin 250 mg tablet 250 mg PO DAILY 6 Days Qty: 6 RF: 0 cefuroxime axetil 500 mg tablet 500 mg PO BID Qty: 12 RF: 0 Continued montelukast 10 mg tablet 10 mg PO DAILY Qty: 90 RF: 0 albuterol sulfate 2.5 mg /3 mL (0.083 %) solution for nebulization 2.5 mg inhalation Q4-6H PRN (Reason: shortness of breath or wheezing) Qty: 300 RF: 2 Incruse Ellipta 62.5 mcg/actuation blister with device 1 inh PO DAILY Qty: 30 RF: 3 acetaminophen [Mapap Arthritis Pain] 650 mg tablet extended release 1 tab PO Q8H PRN (Reason: fever) RF: 0 psyllium husk [Wal-Mucil Fiber] 0.52 gram capsule 0.52 g PO DAILY RF: 0 clonazepam 0.5 mg tablet 0.5 mg PO DAILY RF: 0 fluticasone propion-salmeterol 250-50 mcg/dose blister with device 1 inh PO BID RF: 0 (DME) lancets 33 gauge misc See Rx Instructions ea .ROUTE .MEDSUPPLY Qty: 100 RF: 0 cholecalciferol (vitamin D3) 50 mcg (2,000 unit) tablet 50 mcg PO DAILY RF: 0 loratadine 10 mg tablet 10 mg PO DAILY RF: 0 metformin 500 mg tablet extended release 24 hr 500 mg PO DAILY RF: 0 aspirin 81 mg tablet,delayed release (DR/EC) 81 mg PO DAILY RF: 0 diltiazem HCl 180 mg capsule,extended release 24hr 180 mg PO DAILY RF: 0 atorvastatin 40 mg tablet 40 mg PO BEDTIME RF: 0 cyanocobalamin (vitamin B-12) 500 mcg tablet 500 mcg PO QAM RF: 0 (DME) blood sugar diagnostic Strip See Rx Instructions strip Not Applicable BID Qty: 10 RF: 0 albuterol sulfate 90 mcg/actuation HFA aerosol inhaler 2 puff PO Q4-6H PRN (Reason: wheezing) RF: 0 Discharge Orders: Discharge Order (Routine); Ordered 06/29/21 Ordered By: Sobeida Nguyen Diet: advance to usual diet Activity on Discharge: As tolerated Stand Alone Forms: Patient Portal Discharge page Care Plan Goals: Patient was admitted for acute hypoxemic respiratory failure secondary to COPD exacerbation: Started on nebs, steroids, antibiotics and oxygen support patient seems to be improved significantly going home with p.o. prednisone and azithromycin. Further management outpatient as per PCP. Patient does not qualify for home oxygen. Health Concerns: As above. Plan of Treatment: As above. Assessment: As above. Patient Instructions: Asthma (ED) Discharge Date/Time: 06/29/21 13:26
--- NOTE | 2021-06-29 11:33 | MHC.CM.PN ---
radames petito skilled servceis ordered by
[2021-06-29] MEDS: Insulin Lispro 100 UNIT/ML 3 ML VIAL SUBCUT (11:37)
== END 2021-06-29 13:26 | disposition home or self-care (01) | DRG 190 ==
LOC: HO.ED 20:19 → HO.EDOVER 21:59 → HO.IMC 06-29 02:03
PROVIDERS: Admitting Provider Internal Medicine; Emergency Provider Emergency Medicine; PCP Family Medicine; Visit Provider Internal Medicine
DX: J44.1 Chronic obstructive pulmonary disease with (acute) exacerbation (principal); J96.01 Acute respiratory failure with hypoxia; J45.901 Unspecified asthma with (acute) exacerbation; D72.829 Elevated white blood cell count, unspecified; E78.5 Hyperlipidemia, unspecified; E11.9 Type 2 diabetes mellitus without complications; I10 Essential (primary) hypertension; F41.9 Anxiety disorder, unspecified; Z20.822 Contact with and (suspected) exposure to COVID-19; Z79.51 Long term (current) use of inhaled steroids; Z79.82 Long term (current) use of aspirin; Z79.84 Long term (current) use of oral hypoglycemic drugs; Z79.899 Other long term (current) drug therapy
CPT/HCPCS: 36415; 71046; 80048; 80053; 82947; 84484; 85025; 87635; 93005; 94640; 94644; 99285; J0696; J1650; J2920; J2930

== ENCOUNTER → 2021-07-22 07:47 | Outpatient (REF) | payer OTHER, SELFPAY ==
--- NOTE | ~2021-07-22 | NM_ITS ---
EXAMINATION: [place] RADIONUCLIDE SOLID FOOD GASTRIC EMPTYING 4-HOUR STUDY CLINICAL INFORMATION: Abnormal weight loss COMPARISON: None TECHNIQUE: A standard meal consisting of 4 oz of Egg Beaters brand tagged with 0.96 microcuries Tc-99m Sulfur Colloid, 8 oz water and 2 slices of toast with jelly was administered orally to the patient. Images were obtained using a dual head gamma camera in the anterior and posterior projections over of the stomach immediately post ingestion and at hourly intervals up to 4 hours post ingestion. The anterior and posterior counts at each time interval were averaged using the geometric mean and expressed as percentage of the immediate post ingestion counts. FINDINGS: There is good visualization of activity in the stomach immediately post ingestion. As the study progresses, there is good clearance of activity from the stomach and visualization of progressively increasing small bowel activity. By the end of the study, there is almost no retention noted in the stomach. Retention in the stomach at each time interval was: 1 hour 82% (normal 37%-90%) 2 hours 46% (normal 30%-60%) 3 hours 10% 4 hours 4% (normal 0%-10%) WA/WA gastric emptying study IMPRESSION: Normal 4-hour solid food gastric emptying study.
== END ==
LOC: HO.NUCMED 07:47
PROVIDERS: Visit Provider Family Medicine
DX: R63.4 Abnormal weight loss (principal)
CPT/HCPCS: 78264; A9541

== ENCOUNTER 2021-10-08 09:33 | Outpatient (REF) | payer OTHER, SELFPAY ==
--- NOTE | ~2021-10-08 | XR_ITS ---
EXAMINATION: XR CHEST CLINICAL INFORMATION: Bronchitis 2 days, cough COMPARISON: Chest radiograph from 06/28/2021 TECHNIQUE: 2 views of the chest were obtained. FINDINGS: Patchy radiopacities throughout the bilateral lung hinson with predominance involving the lateral margins of the bilateral mid to upper lung hinson suggesting infectious/inflammatory etiology, increased from prior imaging. Bronchial wall thickening. Biapical pleural parenchymal scarring. No pneumothorax. Trachea is midline. Cardiac mediastinal silhouette is stable. No large pleural effusion. Degenerative changes of the thoracolumbar spine. Soft tissues are unremarkable. XR/XR chest 2V IMPRESSION: 1. Patchy radiopacities throughout the bilateral lung hinson with predominance involving the lateral margins of the bilateral mid to upper lung hinson suggesting infectious/inflammatory etiology, increased from prior imaging. 2. Bronchial wall thickening. 3. Biapical pleural parenchymal scarring.
== END 2021-10-08 09:34 | disposition home or self-care (01) ==
LOC: HO.XRAY 09:33
PROVIDERS: Absent Provider Family Medicine; PCP Family Medicine; Visit Provider Emergency Medicine
DX: J45.51 Severe persistent asthma with (acute) exacerbation (principal); J40 Bronchitis, not specified as acute or chronic
CPT/HCPCS: 71046

== ENCOUNTER → 2021-12-09 10:50 | Day surgery (SDC) | payer OTHER, SELFPAY ==
[2021-12-04 09:38] VITALS: BMI 18.6
--- NOTE | 2021-12-08 12:44 | P.CONAN_ITS ---
HPI - Anesthesia Eval Consult details Narrative: 61yo F for Upper Endoscopy and Colonoscopy [facility] Active Problems Active Problems: All Active Problems (Updated 07/07/21 @ 00:02 by Background Adam) Abnormal weight loss (Acute) Asthma with COPD with exacerbation (Acute) Mass of upper lobe of left lung (Acute) Allergic rhinitis (Acute) COPD (chronic obstructive pulmonary disease) (Acute) Past Medical History Medical History (Updated 07/07/21 @ 00:02 by Background Adam) Acute respiratory failure with hypoxia Allergic rhinitis Anxiety Asthma with COPD with exacerbation Bronchial asthma COPD (chronic obstructive pulmonary disease) Diabetes Hyperlipidemia Hypertension Leukocytosis Mass of upper lobe of left lung Family History Family History Father No problems noted. Mother No problems noted. Surgical History Surgical History (Updated 12/04/21 @ 09:36 by Richelle Carmona RN) H/O colonoscopy History of cataract surgery History of tubal ligation Social History Social History Household Members: None Housing: Apartment Do you presently have visiting nurse or other home services: No Alcohol intake: never Patient Tobacco Use Status: Never used Tobacco service: No Meds Allergies Allergy/AdvReac Type Severity Reaction Status Date / Time No Known Allergies Allergy Verified 06/28/21 13:55 [No Known Allergies*] Home Medications Medication Instructions Recorded Confirmed Last Taken Type albuterol sulfate 90 mcg/actuation 2 puff PO Q4-6H PRN 05/03/20 06/29/21 Unknown History aerosol inhaler aspirin 81 mg tablet,delayed 81 mg PO DAILY 05/03/20 06/28/21 06/28/21 History release atorvastatin 40 mg tablet 40 mg PO BEDTIME 05/03/20 06/29/21 Unknown History blood sugar diagnostic #10 ea 05/03/20 05/13/20 Unknown History cholecalciferol (vitamin D3) 50 50 mcg PO DAILY 05/03/20 06/29/21 Unknown History mcg (2,000 unit) tablet clonazepam 0.5 mg tablet 0.5 mg PO DAILY 05/03/20 06/28/21 06/28/21 21:08 History cyanocobalamin (vitamin B-12) 500 500 mcg PO QAM 05/03/20 06/29/21 06/28/21 21:02 History mcg tablet diltiazem HCl 180 mg 180 mg PO DAILY 05/03/20 06/28/21 06/28/21 21:06 History capsule,extended release 24 hr lancets 33 gauge #100 ea 05/03/20 05/13/20 Unknown History loratadine 10 mg tablet 10 mg PO DAILY 05/03/20 06/28/21 06/28/21 21:07 History metformin 500 mg tablet,extended 500 mg PO DAILY 05/03/20 06/28/21 06/28/21 21:07 History release 24 hr acetaminophen 650 mg 1 tab PO Q8H PRN 06/29/21 06/29/21 Unknown History tablet,extended release (Mapap Arthritis Pain) psyllium husk 0.52 gram capsule 0.52 g PO DAILY 06/29/21 06/29/21 Unknown History (Wal-Mucil Fiber) Exam Exam Date and Time: December 08, 2021 1244 Height,Weight and Vital Signs: Height 5 ft 3 in Weight 47.627 kg Pertinent Lab Results Pertinent Lab Results: Laboratory Tests 06/29/21 06/29/21 05:51 05:51 WBC 4.9 Hgb 11.4 L Hct 35.1 L Plt Count 309 Sodium 139 Potassium 4.9 Carbon Dioxide 25 BUN 20 H Creatinine 0.69 Narrative Narrative: EKG 06/2021 Vent. Rate : 133 BPM ? ? Atrial Rate : 133 BPM ?? P-R Int : 142 ms? QRS Dur : 072 ms ? ? QT Int : 284 ms ? ? ? P-R-T Axes : 076 084 049 degrees ?? QTc Int : 422 ms ? Sinus tachycardia Nonspecific T wave abnormality Abnormal ECG When compared with ECG of 31-MAR-2017 17:08, ST no longer elevated in Inferior leads T wave amplitude has decreased in Inferior leads Assessment and Plan Assessment Anesthesia Assessment: Chart Reviewed
== END ==
PROVIDERS: PCP Family Medicine; Visit Provider Internal Medicine Gastroenterology
DX: R63.4 Abnormal weight loss (principal); Z53.8 Procedure and treatment not carried out for other reasons

== ENCOUNTER 2022-01-07 08:01 | Emergency (ER) | payer OTHER, SELFPAY ==
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
[2022-01-07 08:05] VITALS: BP 127/70; PULSE 117; RESP 18; TEMP 36.9; O2SAT 91; BMI 19.1
--- NOTE | 2022-01-07 08:08 | PC.NURSE ---
pt sat 90% on ra, sts she has hx of low o2 sat. denies any trouble breathing att. rr even/unlabored.
[2022-01-07 08:26] VITALS: BP 137/79; PULSE 111; RESP 14; O2SAT 90
[2022-01-07] MEDS: Acetaminophen 325 MG TABLET 975 MG PO (08:45)
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
== END 2022-01-07 11:03 | disposition home or self-care (01) ==
PROVIDERS: Emergency Provider Emergency Medicine; PCP Family Medicine
DX: S16.1XXA Strain of muscle, fascia and tendon at neck level, initial encounter (principal); S46.912A Strain of unspecified muscle, fascia and tendon at shoulder and upper arm level, left arm, initial encounter; R51.9 Headache, unspecified; I10 Essential (primary) hypertension; E11.9 Type 2 diabetes mellitus without complications; J44.9 Chronic obstructive pulmonary disease, unspecified; Z99.89 Dependence on other enabling machines and devices; V89.2XXA Person injured in unspecified motor-vehicle accident, traffic, initial encounter; Y93.9 Activity, unspecified; Y92.410 Unspecified street and highway as the place of occurrence of the external cause; Y99.9 Unspecified external cause status
CPT/HCPCS: 70450; 70486; 72125; 73030; 99283; 99284

== ENCOUNTER 2022-02-09 15:17 | Outpatient (REF) | payer OTHER, SELFPAY ==
--- NOTE | ~2022-02-09 | XR_ITS ---
EXAMINATION: XR CHEST CLINICAL INFORMATION: Severe asthma and cough. COMPARISON: Chest 10/08/2021. TECHNIQUE: 2 views of the chest were obtained. FINDINGS: The lungs are well expanded with increased interstitial markings in both lungs. The patchy opacity seen in previous chest x-rays have regressed in size but are still present. No large consolidation, pleural effusion or pneumothorax seen. There is bilateral apical pleural thickening. Heart size and pulmonary vascularity are normal. There is mild bronchial wall thickening. There is mild spondylosis dorsal spine. XR/XR chest 2V IMPRESSION: Persistent prominent bilateral interstitial markings throughout the lungs likely chronic interstitial lung disease, infectious or inflammatory changes. Patchy opacity seen previously have regressed but are still present. Other etiologies such as immune deficiency or autoimmune diseases should be excluded.
== END 2022-02-09 15:18 | disposition home or self-care (01) ==
LOC: HO.XRAY 15:17
PROVIDERS: Absent Provider Family Medicine; PCP Family Medicine; Visit Provider Emergency Medicine
DX: J45.41 Moderate persistent asthma with (acute) exacerbation (principal)
CPT/HCPCS: 71046

== ENCOUNTER 2022-03-01 08:10 | Outpatient (REF) | payer OTHER, SELFPAY ==
--- NOTE | ~2022-03-01 | MM_ITS ---
EXAMINATION: MM SCREENING DIGITAL BREAST TOMOSYNTHESIS, BILATERAL CLINICAL INFORMATION: Screening. Asymptomatic. The lifetime risk of breast cancer based on the Tyrer-Cuzick Model is 6%. COMPARISON: Mammography: 02/24/2021, 08/20/2019, 02/12/2019, 06/02/2018, 05/30/2018 TECHNIQUE: Digital breast tomosynthesis is performed in both the craniocaudal and mediolateral oblique views along with computer-aided detection (CAD). Synthesized 2D images are generated from the tomosynthesis. FINDINGS: There are scattered areas of fibroglandular density (ACR BI-RADS breast composition Category b). Fibronodular parenchymal pattern is similar to prior studies. There is no interval dominant nodularity or developing density or architectural abnormality. Again, there are scattered bilateral round and rim calcifications. The axilla and skin contours are unremarkable. No significant changes. MM/MM tomosynthesis screening BI IMPRESSION: There are no significant changes from prior exams. ASSESSMENT: BI-RADS 2: Benign RECOMMENDATION: Routine annual mammography screening. This patient's information was entered into a reminder system with a target due date for their next mammogram.
== END 2022-03-01 08:11 | disposition home or self-care (01) ==
LOC: HO.MAMMO 08:10
PROVIDERS: PCP Family Medicine; Visit Provider Family Medicine
DX: Z12.31 Encounter for screening mammogram for malignant neoplasm of breast (principal)
CPT/HCPCS: 77063; 77067

== ENCOUNTER 2022-04-26 07:32 | Outpatient (REF) | payer OTHER, SELFPAY ==
--- NOTE | ~2022-04-26 | CT_ITS ---
EXAMINATION: CT CHEST WITHOUT CONTRAST CLINICAL INFORMATION: Persistent asthma. Abnormal weight loss. COMPARISON: Chest x-ray 10/08/2021 and 02/09/2022. TECHNIQUE: Multidetector volumetric CT imaging of the chest was done. Axial MIP volume rendering provided. Sagittal and coronal reformatted images were obtained. This CT examination was performed using dose optimization techniques as appropriate, variously including the following: *Automated exposure control *Adjustment of mA and/or kV according to patient size (this includes techniques or standardized protocols for targeted exams where dose is matched to indication/reason for exam; i.e. extremities or head) *Use of iterative reconstruction technique DLP: 117 mGy-cm FINDINGS: The exam is limited due to breathing artifact throughout the exam. NET WASHER: Well-expanded lungs. LUNGS: The lungs are expanded with increased bilateral reticular interstitial markings throughout both lungs with patchy ground-glass opacities in both upper lobes anterior segments and subpleural ground-glass densities in the right lower lobe, right middle lobe, lingular segments. No distinct pulmonary nodule or mass visualized. There is mild bronchial wall thickening but no bronchiectasis visualized. MEDIASTINUM: The thyroid lobes are symmetrical and normal. The central trachea and the bronchi are widely patent. The heart size and the great vessels are normal caliber. No pericardial effusion seen. There are reactive small mediastinal lymph nodes. The largest pretracheal lymph node measures 1.4 x 1.2 cm. CORONARY ARTERY CALCIFICATION: There are trace coronary artery calcifications. PLEURA: There is no pleural effusion. No pleural mass or thickening. AXILLA: No there are reactive mediastinal lymph nodes with the largest precarinal lymph node measuring 1.4 cm axial image 23/4. Also visualized are small shotty prevascular lymph nodes. UPPER ABDOMEN: The visualized liver, spleen, pancreas, and bilateral adrenal glands are unremarkable. OSSEOUS STRUCTURES: No lytic or sclerotic process seen. There is mild ventral spondylosis mid and lower dorsal spine. CT/CT chest wo IV con IMPRESSION: Diffuse bilateral reticular interstitial markings, subpleural patchy ground-glass opacities and bronchial wall thickening suggestive of chronic parenchymal and small airway disease. There is no acute consolidation. There are abnormal reactive mediastinal lymph nodes. Fleischner guidelines were followed.
== END 2022-04-26 07:33 | disposition home or self-care (01) ==
LOC: HO.CT 07:32
PROVIDERS: Visit Provider Family Medicine
DX: J45.50 Severe persistent asthma, uncomplicated (principal); R63.4 Abnormal weight loss
CPT/HCPCS: 71250

== ENCOUNTER 2022-05-14 12:55 | Outpatient (REF) | payer OTHER, SELFPAY ==
--- NOTE | ~2022-05-14 | MR_ITS ---
EXAMINATION: MR BRAIN WITHOUT CONTRAST CLINICAL INFORMATION: Paresthesia of skin. COMPARISON: None available. TECHNIQUE: Multiplanar, multisequence imaging of the brain was performed without intravenous contrast. FINDINGS: There is no acute infarction, mass, hemorrhage, or extra-axial collection. The ventricles, sulci, and basilar cisterns are normal in size and configuration. Moderate patchy T2/FLAIR hyperintensity is seen throughout the bilateral cerebral white matter which is nonspecific but may reflect sequela of chronic microangiopathy. The flow voids of the major intracranial arteries appear intact. The bones and extracranial soft tissues are unremarkable. There are bilateral lens replacements. The bilateral mastoids are opacified with fluid. There is moderate paranasal sinus mucosal thickening and opacification.. MR/MR head/brain wo con IMPRESSION: No acute infarct, mass lesion, intracranial hemorrhage, or evidence of hydrocephalus. Moderate nonspecific T2/FLAIR hyperintensity seen throughout the cerebral white matter, presumably chronic microangiopathy. Bilateral mastoid effusions and moderate paranasal sinus mucosal thickening.
== END 2022-05-14 12:56 | disposition home or self-care (01) ==
LOC: HO.MRI 12:55
PROVIDERS: Visit Provider Family Medicine
DX: R20.2 Paresthesia of skin (principal)
CPT/HCPCS: 70551

== ENCOUNTER 2022-12-01 10:05 | Outpatient (REF) | payer OTHER, SELFPAY ==
--- NOTE | ~2022-12-01 | XR_ITS ---
EXAMINATION: XR LUMBOSACRAL SPINE CLINICAL INFORMATION: Low back pain with sciatica. COMPARISON: Lumbar spine radiographs dated 07/24/2018. TECHNIQUE: Three views of the lumbosacral spine. FINDINGS: Mild to moderate multilevel degenerative changes are seen most pronounced in the superior lumbar spine with disc space narrowing and marginal osteophyte formation. A mild superior plate compression deformity at T12 is again seen without cement change. No overt acute abnormality. The soft tissues are unremarkable. XR/XR lumbar spine 2-3V IMPRESSION: Multilevel degenerative changes appear mildly increased compared to the 2018 study. T12 superior plate compression deformity without significant change. No overt acute fracture.
--- NOTE | ~2022-12-01 | XR_ITS ---
EXAMINATION: XR CERVICAL SPINE CLINICAL INFORMATION: Neck pain status post fall one month ago. COMPARISON: Cervical spine radiographs dated 09/24/2017. TECHNIQUE: 3 views of the cervical spine were obtained. FINDINGS: There is normal cervical lordosis and spinal alignment. The vertebral bodies are intact. Minimal grade 1 anterolisthesis is seen at C5-6. Minimal multilevel anterior osteophyte formation. The odontoid process is intact. The soft tissues are unremarkable. XR/XR cervical spine 3V IMPRESSION: Mild degenerative changes without acute abnormality. This represents interval increase from the 2018 study.
--- NOTE | ~2022-12-01 | XR_ITS ---
EXAMINATION: XR HIP, RIGHT CLINICAL INFORMATION: Right hip pain status post fall. COMPARISON: None available. TECHNIQUE: Two views of the right hip. FINDINGS: Minimal right hip degenerative joint changes. Mild cam femoral acetabular impingement. The right hemipelvis is intact. The soft tissues are unremarkable. XR/XR hip RT min 2V IMPRESSION: Minimal right hip osteoarthritis and mild cam femoral acetabular impingement. No acute fracture.
--- NOTE | ~2022-12-01 | XR_ITS ---
EXAMINATION: XR HIP, LEFT CLINICAL INFORMATION: Left hip pain status post fall one month ago. COMPARISON: None available. TECHNIQUE: Two views of the left hip. FINDINGS: Minimal left hip degenerative joint changes are seen. Benign sclerotic densities overlie the left femoral neck. There is no acute fracture or dislocation. The soft tissues are unremarkable. XR/XR hip LT min 2V IMPRESSION: Minimal left hip degenerative joint changes suggesting osteoarthritis. No acute fracture.
--- NOTE | ~2022-12-01 | XR_ITS ---
EXAMINATION: XR THORACOLUMBAR SPINE CLINICAL INFORMATION: Low back pain with sciatica. COMPARISON: Thoracic spine radiographs dated 07/24/2018. TECHNIQUE: 3 views of the thoracic spine were obtained. FINDINGS: The vertebral alignment is normal. No intrinsic bony abnormality. The disc heights and neural foramina are well maintained. The endplates and posterior elements are normal. Mild marginal osteophyte formation is seen inferiorly. No fracture or subluxation. The surrounding prevertebral soft tissues are unremarkable. XR/XR thoracic spine 2V IMPRESSION: No significant thoracic spine abnormality or change.
== END 2022-12-01 10:06 | disposition home or self-care (01) ==
LOC: HO.XRAY 10:05
PROVIDERS: PCP Family Medicine; Visit Provider Family Medicine
DX: M54.50 Low back pain, unspecified (principal); M25.551 Pain in right hip; Z91.81 History of falling
CPT/HCPCS: 72040; 72070; 72100; 73502

== ENCOUNTER 2023-03-11 12:07 | Outpatient (REF) | payer OTHER, SELFPAY ==
--- NOTE | ~2023-03-11 | MM_ITS ---
EXAMINATION: MM SCREENING DIGITAL BREAST TOMOSYNTHESIS, BILATERAL CLINICAL INFORMATION: Screening. Asymptomatic. The lifetime risk of breast cancer based on the Tyrer-Cuzick Model is 6%. COMPARISON: Mammography: This study is compared with prior exams dating back to 2018. TECHNIQUE: Digital breast tomosynthesis is performed in both the craniocaudal and mediolateral oblique views along with computer-aided detection (CAD). Synthesized 2D images are generated from the tomosynthesis. FINDINGS: There are scattered areas of fibroglandular density (ACR BI-RADS breast composition Category b). There are no significant masses, abnormal calcifications, or other abnormalities. There are scattered, bilateral, benign calcifications. MM/MM tomosynthesis screening BI IMPRESSION: No mammographic evidence of malignancy. ASSESSMENT: BI-RADS BI-RADS 2 - Benign Findings RECOMMENDATION: Routine annual mammography screening. 1 year F/U This examination should not preclude the clinical evaluation of a suspicious palpable abnormality. This patient's information was entered into a reminder system with a target due date for their next mammogram.
== END 2023-03-11 12:08 | disposition home or self-care (01) ==
LOC: HO.MAMMO 12:07
PROVIDERS: PCP Family Medicine; Visit Provider Family Medicine
DX: Z12.31 Encounter for screening mammogram for malignant neoplasm of breast (principal)
CPT/HCPCS: 77063; 77067

== ENCOUNTER → 2023-03-11 13:15 | Outpatient (BNV) | payer OTHER, SELFPAY | PROVIDERS: PCP Family Medicine; Visit Provider Radiology Diagnostic Radiology | DX: Z12.31 Encounter for screening mammogram for malignant neoplasm of breast (principal) | CPT/HCPCS: 77063; 77067 ==

== ENCOUNTER 2023-05-30 10:02 | Outpatient (REF) | payer OTHER, SELFPAY ==
[2023-05-30 11:36] LABS: MANUAL DIFF FLAG NO
[2023-05-30 11:50] LABS: Basophils Percent Auto 0.4 % (0-2); Hematocrit 41.8 % (37.0-47.0); Hemoglobin 13.5 g/dl (12.0-16.0); Imm Gran Abs Auto 0.02 X10*3/uL (0.00-0.03); Imm Gran Pct Auto 0.3 % (0.0-0.4); Lymphocytes Absolute Auto 2.9 X10*3/uL (1.2-4.9); Lymphocytes Percent Auto 39.6 % (20-40); Mean Corpuscular HGB Conc 32.3 g/dl (31.0-35.0); Mean Corpuscular Volume 89.9 fL (80.0-98.0); Mean Platelet Volume 10.5 fL (9.4-12.3); Monocytes Absolute Auto 0.6 X10*3/uL (0.1-1.2); Monocytes Percent Auto 8.5 % (2-11); Neutrophils Absolute Auto 3.7 x10*3/uL (2.0-8.3); Neutrophils Percent Auto 51.2 % (45-73); Platelet Count 287 X10*3/uL (160-400); Red Blood Count 4.65 X10*6/uL (4.20-5.50); Red Cell Distribution Width 13.2 % (11.0-16.0); White Blood Count 7.3 X10*3/uL (4.8-10.8)
[2023-05-30 11:56] LABS: Estimated Average Glucose 114 mg/dL; Hemoglobin A1c % 5.6 % (<6.0)
[2023-05-30 12:00] LABS: Alanine Aminotransferase 18 U/L (0-31); Albumin Level 3.9 g/dL (3.5-5.0); Alkaline Phosphatase 115 U/L (39-117); Anion Gap 12 (12-20); Aspartate Amino Transferase 23 U/L (5-31); Bilirubin Direct 0.1 mg/dL (0.0-0.5); Bilirubin Total 0.3 mg/dL (0.0-1.0); Blood Urea Nitrogen 17 mg/dL (9-16); Calcium 9.6 mg/dL (8.4-10.2); Carbon Dioxide 27 mmol/L (22-29); Chloride 105 mmol/L (96-108); Cholesterol 249 mg/dL (<200); Estimated Glomerular Filt Rate > 60; Glucose Random 99 mg/dL (60-115); HDL Cholesterol 44 mg/dL (>40); LDL Cholesterol Calculated 167 mg/dL (<100); Potassium 4.4 mmol/L (3.3-5.1); Sodium 140 mmol/L (135-145); Total Protein 7.7 g/dL (6.5-8.0); Triglycerides 190 mg/dL (<150)
[2023-05-30 12:18] LABS: Creatinine Urine 101.04 mg/dL; Microalbum/Creatinine Ratio Ur 7.9 ug/mg cr (<30)
[2023-05-30 12:22] LABS: Free T4 (Free Thyroxine) 0.86 ng/dL (0.71-1.85); Thyroid Stimulating Hormone 2.08 uIU/mL (0.32-4.0); Vitamin D 25-OH Total 42.2 ng/mL (>30)
== END 2023-05-30 10:03 | disposition home or self-care (01) ==
LOC: HO.HHCL 10:02
PROVIDERS: Visit Provider Family Medicine
DX: E11.9 Type 2 diabetes mellitus without complications (principal); E55.9 Vitamin D deficiency, unspecified
CPT/HCPCS: 36415; 80048; 80061; 80076; 82043; 82306; 82570; 83036; 84439; 84443; 85025

== ENCOUNTER 2023-06-16 13:15 | Outpatient (AMB) | payer OTHER, SELFPAY ==
--- NOTE | 2023-06-16 13:19 | MHC.OFFVIS ---
Intake Vital Signs 06/16/23 13:25 Height 5 ft 3 in Weight 160 lb 14.999 oz BMI 28.5 BP 140/66 H Blood Pressure Location Lt brachial Position Sitting Pulse 96 Intake Visit Reasons: Unintentional weight loss Intake Note: Patient returns to in office visit today in follow up of weight loss. CC: Patient reports she is eating well and gaining weight now. She c/o constipation and acid reflux some times. She states she did not have last colonoscopy done because she left. Allergies No Known Allergies [No Known Allergies*] Allergy (Verified 06/16/23 13:33) HPI Unintentional weight loss HPI Details Assessment & Plan (1) Abnormal weight loss: ?Code(s): R63.4 - Abnormal weight loss ?Plan: She says that the problem started after she had the COVID vaccine in September of this year. She feels this is because she has rH negative blood and its not good for my system. She has lost 40.bs since September. She is drinking Boost but its too sweet for me. She plans on asking her primary care provider to get her something more appropriate for her diabetes.? She denies abdominal pain etc as she says simply most of the time she is ?not hungry.? She says she already has a colonoscopy scheduled here next month 07/19 (??). Our records show she has a gastric emptying study scheduled 07/24 by her PCP. We verify with the OR that she has not scopes ordered for this location, so I think she is confused about the studies. She absolutely denies any N/V/D/CIC, abdominal pain, etc. She has very bad COPD on examination, and her last still worker helper was Dr. Hoyt - but she says she was unhappy with him and will be seeing a new provider soon.? She does not remember the name of her new provider or where there office may be located.? This could be a reason for her wt loss, as well as her NIDDM. SHe had a CT that seemed to showed retained food, so this is likely what prompted the gastric emptying study. She denies any trouble with anesthesia or sedation. Her asthma is well controlled and she denies any cardiac problems. No ID problems There is no known FHX of crc or polyps but there is a FHX of esophageaal cancer in sister and father - they were non smokers. She is willing to go to the lab after this appt for basic metabolic functions for appropriate medication via anesthesia. ROV after procedures. ? ? ? Orders:?Orders Comprehensive Met. Panel Today R63.4 - Abnormal w eight loss ? TSH reflex Free T4 Today R63.4 - Abnormal w eight loss ? Complete Blood Cou nt Auto Diff Today R63.4 - Abnormal w eight loss ? Medications:?New peg 3350-electroly alphonso 236-22.74-6.74 -5.86 gram (Golyt colt) ?? until feca l effluent is sofia r; do not exceed a total volume of 2 ,000 mL 240 mL? PO Q10M 1 day 4,000 mL 0RF E Z12.11 - Encounter for screening for malignant neoplas m of colon ? COLONOSCOPY/EGD APPEARS TO HAVE BEEN CANCELED BIOPSY GASTRIC EMPTYING STUDY 07/23/21 IMPRESSION: Normal 4-hour solid food gastric emptying study. ? TODAY'S VISIT Patient has been lost follow-up since 2020 She was struggling with her asthma/copd control and all treatments and inhalers did not help until I started going for allergy shots. She says this is the reason for her prior wt loss. She the is not eating well, but does have episodes of dysphagia with food getting stuck at the sternal notch. THis happens with meats and rice. At times it will go down with water, at times she has to vomit it back up. She denies any trouble with anesthesia or sedation. Her asthma/COPD is well controlled and she denies any cardiac problems. She does not have a still worker helper and only sees her PCP DR. Carmina Garcia at [facility]. No ID problems There is no known FHX of crc or polyps but there is a FHX of esophageaal cancer in sister and father - they were non smokers. PFSH Medical History Acute respiratory failure with hypoxia Asthma with COPD with exacerbation Leukocytosis Hyperlipidemia Anxiety Diabetes Hypertension Mass of upper lobe of left lung Allergic rhinitis Bronchial asthma COPD (chronic obstructive pulmonary disease) Surgical History H/O colonoscopy History of cataract surgery History of tubal ligation Family History Father No problems noted. Mother No problems noted. Social History Household Members: None Housing: Apartment Do you presently have visiting nurse or other home services: No Alcohol intake: never Patient Tobacco Use Status: Never used Tobacco service: No Review of Systems Const Denies fatigue, Denies fever(s), Denies night sweats, Reports poor appetite and Reports weight loss ENT Reports Normal hearing present, Denies dental pain, Denies dysphagia, Denies hearing loss, Denies mouth pain, Denies odynophagia, Denies throat swelling, Denies tongue swelling and Reports other (Dentition adequate) Card Reports no additional complaints Resp Reports no additional complaints GI Denies abdominal pain, Denies melena, Denies bloating, Denies hematochezia, Denies constipation, Denies GI cramping, Denies dysphagia, Denies excessive flatus, Denies early satiety, Reports heartburn, Denies diarrhea, Reports nausea, Denies odynophagia, Denies vomiting and Denies hematemesis Skin/Breast Denies pruritus, Denies lesions, Denies rash and Denies jaundice Neuro Reports Normal hearing present and Denies Abnormal speech present Endo Denies fatigue Aller/Immun Denies throat swelling and Denies tongue swelling Physical Exam Vital Signs: Last Vital Signs Pulse 96 06/16/23 13:25 BP 140/66 H 06/16/23 13:25 BMI result Body Mass Index 28.5 Const General: cooperative, no acute distress, well developed and well groomed Nutritional Appearance: average body habitus and well nourished Orientation/consciousness: oriented to person, oriented to place and oriented to time Limitations: No language barrier HEENT Head: Yes normocephalic and Yes atraumatic Eyes General: appearance normal, both eyes and all related structures Pupils: Equal, round and reactive pupils present Neck Neck: Yes normal visual inspection and Yes no lymphadenopathy Thyroid: Thyroid normal Resp Effort & Inspection: normal respiratory effort and able to speak in complete sentences Auscultation: wheezes inspiratory wheezes and throughout and diminished lung sounds (severely) bilateral throughout Cardio Rate: regular rate Rhythm: regular rhythm Heart sounds: Normal, physiologic split S2 sound present Peripheral pulses: radial pulses present and posterior tibial pulses present GI Inspection: No distended, Yes Abdominal panniculus present, Yes obesity and Yes striae Palpation (GI): Soft to palpation, nontender, no guarding, not rigid and No hepatosplenomegaly present Percussion: Yes normal to percussion Auscultation: normal bowel sounds Rectal Exam - Female: deferred Abdomen image: 1. surgical scars 2. Skin General skin exam: no rashes or lesions noted, turgor normal, skin not dry, no jaundice, No spider nevi and no striae Rashes: no rashes Nails: normal Neuro General: oriented to person, oriented to place and oriented to time Cranial nerves: Yes Equal, round and reactive pupils present and Yes Normal hearing present Speech: No Abnormal speech present Extrem General: Yes normal to inspection, No clubbing, No cyanosis and No edema Psych Appearance: grossly normal and well kempt Mental Status: mental status grossly normal Speech and movement: Normal speech and movement present Affect: normal affect Attitude: cooperative Thought process: Normal thought process present and not confabulating Thought content: Normal thought content present Insight: Limited insight present (Psych) Judgement: Limited judgement present (Psych) Results Reviewed Results Reviewed: Laboratory Tests 01/09/21 05/30/23 05/30/23 12:59 10:04 10:06 WBC 7.3 Hgb 13.5 Hct 41.8 Plt Count 287 Estimated GFR > 60 > 60 Total Bilirubin 0.3 Direct Bilirubin 0.1 AST 23 ALT 18 Alkaline Phosphatase 115 TSH 2.08 Free T4 0.86 Assessment & Plan Assessment & Plan (1) Oropharyngeal dysphagia: Code(s): R13.12 - Dysphagia, oropharyngeal phase (2) Pre-op examination: Code(s): Z01.818 - Encounter for other preprocedural examination (3) Asthma with COPD with exacerbation: Code(s): J44.1 - Chronic obstructive pulmonary disease with (acute) exacerbation; J45.901 - Unspecified asthma with (acute) exacerbation (4) COPD (chronic obstructive pulmonary disease): Comment: THE PATIENT DOES HAVE COPD. SHE PROBABLY HAD A RECENT ACUTE EXACERBATION, WHICH SEEMS TO HAVE IMPROVED WITH THE USE OF PREDNISONE AND Z-SUNSHINE. . SHE IS ADVISED TO CONTINUE THE FOLLOWING MEDS. WIXELA 250-50 1 INHALATION B.I.D.. INCRUSE Ellipta 62.5 HER RESTART 1 INHALATION DAILY. PROAIR 2 PUFFS Q 6 HOURS P.R.N.. PATIENT IS RELUCTANT TO COME OF TO OUR OFFICE FOR REGULAR FOLLOW UPS. I ADVISED HER TO CONTINUE REGULAR FOLLOW UPS WITH THE PCP OFFICE, AND WILL BE GLAD TO SEE HER IN THE PULMONARY OFFICE IF AND WHEN REFERRED BY HER PCP. Code(s): J44.9 - Chronic obstructive pulmonary disease, unspecified Plan She says this is the reason for her prior wt loss. She the is not eating well, but does have episodes of dysphagia with food getting stuck at the sternal notch. THis happens with meats and rice. At times it will go down with water, at times she has to vomit it back up. She denies any trouble with anesthesia or sedation. Her asthma/COPD is well controlled and she denies any cardiac problems. She does not have a still worker helper and only sees her PCP DR. Carmina Garcia at [facility]. No ID problems There is no known FHX of crc or polyps but there is a FHX of esophageaal cancer in sister and father - they were non smokers. COLONOSCOPY/EGD BIOPSY Orders: Orders EGD/Otterbein Combo - GI Use Only 06/16/23 Z01.818 - Encounter for other preprocedural examination, R13.12 - Dysphagia, oropharyngeal phase, J44.1 - Chronic obstructive pulmonary disease with (acute) exacerbation, J45.901 - Unspecified asthma with (acute) exacerbation, J44.9 - Chronic obstructive pulmonary disease, unspecified Medications: New peg 3350-electrolytes 236-22.74-6.74 -5.86 gram (Golytely) until fecal effluent is clear; do not exceed a total volume of 2,000 mL 240 mL PO Q10M 4,000 mL 0RF 1 day Z12.11 - Encounter for screening for malignant neoplasm of colon bisacodyl (Dulcolax (bisacodyl)) 10 mg (2 x 5 mg) PO BEDTIME 4 tabs 0RF 2 days Coding Level of Care Code Est Pt Level 4 (14991) Diagnoses Oropharyngeal dysphagia R13.12 Pre-op examination Z01.818 Asthma with COPD with exacerbation J44.1; J45.901 COPD (chronic obstructive pulmonary disease) J44.9
[2023-06-16 13:25] VITALS: BP 140/66; PULSE 96; BMI 28.5
== END 2023-06-16 13:55 | disposition home or self-care (01) ==
PROVIDERS: PCP Family Medicine; Visit Provider Nurse Practitioner
DX: R13.12 Dysphagia, oropharyngeal phase (principal); Z01.818 Encounter for other preprocedural examination; J44.1 Chronic obstructive pulmonary disease with (acute) exacerbation; J45.901 Unspecified asthma with (acute) exacerbation; J44.9 Chronic obstructive pulmonary disease, unspecified
CPT/HCPCS: 99214

== ENCOUNTER → 2023-06-16 13:15 | Outpatient (BNVA) | payer OTHER, SELFPAY | PROVIDERS: PCP Family Medicine; Visit Provider Nurse Practitioner | DX: Z01.818 Encounter for other preprocedural examination (principal); R13.12 Dysphagia, oropharyngeal phase; J44.1 Chronic obstructive pulmonary disease with (acute) exacerbation; J45.901 Unspecified asthma with (acute) exacerbation | CPT/HCPCS: 99212 ==

== ENCOUNTER 2023-07-15 10:16 | Outpatient (REF) | payer MEDICARE, SELFPAY ==
--- NOTE | 2023-07-15 10:21 | EMG_ITS ---
Chief complaint: Chronic back pain, numbness in her feet and tingling, history of diabetes Reason for referral: Evaluate for neuropathy versus radiculopathy Referred by: Dr. Iyer Procedure done: Bilateral lower extremity NCS/EMG Precautions and/or limitations: None The limb temperature was monitored continuously and remained between 32-36 degrees C during the performance of the NCS. Nerve Conduction Studies Anti Sensory Summary Table ?Stim Site NR Onset (ms) Norm Onset (ms) Peak (ms) Norm Peak (ms) O-P Amp (?V) Norm O-P Amp Site1 Site2 Delta-0 (ms) Dist (cm) Jaylan (m/s) Norm Jaylan (m/s) Left Sural Anti Sensory (Lat Mall) Calf ? 3.1 3.7 <4.0 9.7 >5.0 Calf Lat Mall 3.1 14.0 45 Right Sural Anti Sensory (Lat Mall) Calf ? 2.2 3.5 <4.0 12.9 >5.0 Calf Lat Mall 2.2 14.0 64 Motor Summary Table ?Stim Site NR Onset (ms) Norm Onset (ms) O-P Amp (mV) Norm O-P Amp iAmp (mV) Amp (1st) (%) Site1 Site2 Delta-0 (ms) Dist (cm) Jaylan (m/s) Norm Jaylan (m/s) Right Peroneal Motor (Ext Dig Brev) Ankle ? 3.8 <4.0 6.3 >2.5 7.7 100.0 Ankle Ext Dig Brev 3.8 0.0 B Fib ? 10.7 5.4 6.8 85.7 B Fib Ankle 6.9 33.0 48 >40 Poplt ? 11.5 5.3 6.6 84.1 Poplt B Fib 0.8 5.0 62 >40 Left Tibial Motor (Abd Lee Brev) Ankle ? 3.1 <5 8.7 >2.5 12.5 100.0 Ankle Abd Lee Brev 3.1 0.0 Knee ? 10.6 7.5 11.0 86.2 Knee Ankle 7.5 36.0 48 >40 Right Tibial Motor (Abd Lee Brev) Ankle ? 3.1 <5 4.1 >2.5 5.8 100.0 Ankle Abd Lee Brev 3.1 0.0 Knee ? 9.1 2.6 3.3 63.4 Knee Ankle 6.0 35.0 58 >40 EMG ?Side Muscle Nerve Root Ins Act Fibs Psw Amp Dur Poly Recrt Int Pat Comment Right AbdHallucis MedPlantar S1-2 Nml Nml Nml Nml Nml 0 Nml Complete Right AntTibialis Dp Br Peron L4-5 Nml Nml Nml Nml Nml 0 Nml Complete Right PostTibialis Tibial L5, S1 Nml Nml Nml Nml Nml 0 Nml Complete Right MedGastroc Tibial S1-2 Nml Nml Nml Nml Nml 0 Nml Complete Right VastusMed Femoral L2-4 Nml Nml Nml Nml Nml 0 Nml Complete Left AbdHallucis MedPlantar S1-2 Nml Nml Nml Nml Nml 0 Nml Complete Left AntTibialis Dp Br Peron L4-5 Nml Nml Nml Nml Nml 0 Nml Complete Left PostTibialis Tibial L5, S1 Nml Nml Nml Nml Nml 0 Nml Complete Left MedGastroc Tibial S1-2 Nml Nml Nml Nml Nml 0 Nml Complete Left VastusMed Femoral L2-4 Nml Nml Nml Nml Nml 0 Nml Complete FINDINGS: All motor and sensory nerves tested showed normal latencies, amplitudes and conduction velocities. Concentric needle EMG was performed in selected muscles of the bilateral lower extremity. Study did not reveal signs of electric abnormalities as shown in the table below. IMPRESSION: 1. This is a normal study. 2. There is no electrodiagnostic evidence for peroneal neuropathy, tibial neuropathy, lumbosacral plexopathy, lumbar radiculopathy, or peripheral neuropathy. Thank you for your kind referral. Erika Shaffer MD, KYLE Board Certified, [place] [employer] and [employer] (ABPMR) Board Certified, [place] [employer] Electro[employer]ostic [employer] (ABEM) CODIN 48861 x 2 MTDD
== END 2023-07-15 10:17 | disposition home or self-care (01) ==
LOC: HO.NEURO 10:16
PROVIDERS: PCP Family Medicine; Visit Provider Family Medicine
DX: R20.0 Anesthesia of skin (principal); R20.2 Paresthesia of skin; M54.50 Low back pain, unspecified; G89.29 Other chronic pain
CPT/HCPCS: 95886; 95909

== ENCOUNTER → 2023-07-15 10:21 | Outpatient (BNV) | payer MEDICARE, SELFPAY | PROVIDERS: PCP Family Medicine; Visit Provider Physical Medicine & Rehabilitation | DX: R20.2 Paresthesia of skin (principal); R20.0 Anesthesia of skin; M54.50 Low back pain, unspecified | CPT/HCPCS: 95886; 95909 ==

== ENCOUNTER 2023-09-02 11:25 | Outpatient (REF) | payer MEDICARE, SELFPAY ==
[2023-09-02 13:21] LABS: MANUAL DIFF FLAG NO
[2023-09-02 13:29] LABS: Basophils Percent Auto 0.4 % (0-2); Hematocrit 40.2 % (37.0-47.0); Hemoglobin 12.8 g/dl (12.0-16.0); Imm Gran Abs Auto 0.03 X10*3/uL (0.00-0.03); Imm Gran Pct Auto 0.3 % (0.0-0.4); Lymphocytes Absolute Auto 3.1 X10*3/uL (1.2-4.9); Lymphocytes Percent Auto 30.6 % (20-40); Mean Corpuscular HGB Conc 31.8 g/dl (31.0-35.0); Mean Platelet Volume 11.2 fL (9.4-12.3); Monocytes Absolute Auto 0.7 X10*3/uL (0.1-1.2); Monocytes Percent Auto 6.8 % (2-11); Neutrophils Absolute Auto 6.3 x10*3/uL (2.0-8.3); Neutrophils Percent Auto 61.9 % (45-73); Platelet Count 393 X10*3/uL (160-400); Red Blood Count 4.42 X10*6/uL (4.20-5.50); Red Cell Distribution Width 13.5 % (11.0-16.0); White Blood Count 10.2 X10*3/uL (4.8-10.8)
[2023-09-02 13:56] LABS: Anion Gap 17 (12-20); Blood Urea Nitrogen 21 mg/dL (9-16); Calcium 9.7 mg/dL (8.4-10.2); Carbon Dioxide 23 mmol/L (22-29); Chloride 105 mmol/L (96-108); Estimated Glomerular Filt Rate 58; Glucose Random 87 mg/dL (60-115); Potassium 4.4 mmol/L (3.3-5.1); Sodium 141 mmol/L (135-145)
[2023-09-02 14:16] LABS: Folate 6.1 ng/mL (> or = 4.0); Vitamin B12 1169 pg/mL (200-900)
[2023-09-05 14:03] LABS: RPR Rapid Plasma Reagin NON-REACTIVE (NON-REACTIVE)
[2023-09-05 19:48] LABS: Lyme Abs Screen <0.90 index
== END 2023-09-02 11:26 | disposition home or self-care (01) ==
LOC: HO.HHCL 11:25
PROVIDERS: Visit Provider Emergency Medicine
DX: R20.2 Paresthesia of skin (principal)
CPT/HCPCS: 36415; 80048; 82607; 82746; 84443; 85025; 86592; 86617; 86618

== ENCOUNTER 2023-11-07 19:47 | Inpatient (IN) | payer MEDICARE, OTHER, SELFPAY ==
--- NOTE | ~2023-11-07 | CT_ITS ---
EXAMINATION: CT HEAD WITHOUT CONTRAST CLINICAL INFORMATION: New-onset psychosis. COMPARISON: CT head from 11/09/2023. Brain MRI from 05/24/2022. TECHNIQUE: Contiguous axial imaging was performed from the skull base to vertex without intravenous administration of contrast. This CT examination was performed using dose optimization techniques as appropriate, variously including the following: *Automated exposure control. *Adjustment of mA and/or kV according to patient size (this includes techniques or standardized protocols for targeted exams where dose is matched to indication/reason for exam; i.e. extremities or head). *Use of iterative reconstruction technique. DLP: 584 mGy-cm FINDINGS: There is no evidence of acute intracranial hemorrhage or edematous territorial infarction. Ty-white matter differentiation is preserved. Scattered and partially confluent hypoattenuation in the periventricular and deep white matter are consistent with moderate microangiopathy. The ventricles are normal in morphology and size. No evidence for obstructive hydrocephalus. The suprasellar cistern remains widely patent. Normal positioning of the cerebellar tonsils. No abnormal mass effect or midline shift. No extra-axial fluid collections. Calcific atherosclerotic disease of the intracranial internal carotid and vertebral arteries. No hyperdense vessel sign. No acute soft tissue or osseous abnormalities. Mild mucosal thickening of the paranasal sinuses. The mastoid air cells and middle ear cavities are clear. Bilateral lens extractions. CT/CT head/brain wo IV con IMPRESSION: 1. No evidence of acute intracranial hemorrhage or edematous territorial infarction. 2. Moderate underlying microangiopathy and generalized cerebral volume loss.
--- NOTE | ~2023-11-07 | CT_ITS ---
CT HEAD WITHOUT CONTRAST CLINICAL INFORMATION: Cognitive impairment COMPARISON: Brain MRI 05/14/2022. TECHNIQUE: Contiguous axial imaging was performed from the skull base to vertex without intravenous administration of contrast. This CT examination was performed using dose optimization techniques as appropriate, variously including the following: *Automated exposure control *Adjustment of mA and/or kV according to patient size (this includes techniques or standardized protocols for targeted exams where dose is matched to indication/reason for exam; i.e. extremities or head) *Use of iterative reconstruction technique FINDINGS: There is chronic microangiopathy and atherosclerotic calcification throughout the intracranial arterial vasculature. There is no intracranial hemorrhage, hydrocephalus, extra-axial surface collection, midline shift, or other herniation pattern. Ty to white matter differentiation is diffusely maintained without evidence of an evolved acute territorial infarct. The basilar cisterns are preserved. No significant soft tissue abnormality. No acute osseous abnormality. The paranasal sinuses and the mastoid air cells are well aerated. CT/CT head/brain wo IV con IMPRESSION: No acute intracranial abnormality. There is chronic microangiopathy and atherosclerotic calcification throughout the intracranial arterial vasculature.
[2023-11-07 20:04] VITALS: BP 128/92; BP 132/86; PULSE 112; PULSE 122; RESP 18; TEMP 36.5; O2SAT 92; O2SAT 95; BMI 17.6
[2023-11-07 21:06] LABS: MANUAL DIFF FLAG NO
[2023-11-07 21:07] LABS: Appearance Urine Cloudy; Basophils Absolute Auto 0.1 X10*3/uL (0.0-0.2); Color Urine Yellow; Eosinophils Absolute Auto 1.4 X10*3/uL (0.0-0.4); Eosinophils Percent Auto 17.8 % (0-4); Glucose Urine UA Negative (Negative); Hematocrit 35.5 % (37.0-47.0); Hemoglobin 11.9 g/dl (12.0-16.0); Imm Gran Abs Auto 0.01 X10*3/uL (0.00-0.03); Imm Gran Pct Auto 0.1 % (0.0-0.4); Leukocyte Esterase Urine Small (1+) (Negative); Lymphocytes Absolute Auto 3.1 X10*3/uL (1.2-4.9); Lymphocytes Percent Auto 39.4 % (20-40); Mean Corpuscular HGB Conc 33.5 g/dl (31.0-35.0); Mean Corpuscular Hemoglobin 28.5 pg (27.0-33.0); Mean Corpuscular Volume 84.9 fL (80.0-98.0); Mean Platelet Volume 10.2 fL (9.4-12.3); Monocytes Absolute Auto 0.6 X10*3/uL (0.1-1.2); Monocytes Percent Auto 7.9 % (2-11); Neutrophils Absolute Auto 2.6 x10*3/uL (2.0-8.3); Neutrophils Percent Auto 33.8 % (45-73); Nitrite Urine Negative (Negative); Platelet Count 323 X10*3/uL (160-400); Red Blood Count 4.18 X10*6/uL (4.20-5.50); Red Cell Distribution Width 13.9 % (11.0-16.0); Specific Gravity - Urine >= 1.030 (1.005-1.025); UMIC TRIGGER UA YES; Urine Blood Negative (Negative); Urine Ketones Trace mg/dL (Negative); Urine Protein Negative (Neg-Trace); White Blood Count 7.8 X10*3/uL (4.8-10.8)
[2023-11-07 21:17] LABS: Amphetamine Screen Urine Not Detected (Not Detect); Barbiturates, Urine Not Detected (Not Detect); Benzodiazepines Screen Urine Not Detected (Not Detect); Cannabinoid Screen Urine Not Detected (Not Detect); Cocaine Screen Urine Not Detected (Not Detect); Fentanyl, urine Not Detected (Not Detect); Opiate Screen Urine Not Detected (Not Detect); Phencyclidine Screen Urine Not Detected (Not Detect)
[2023-11-07 21:21] LABS: Alanine Aminotransferase 19 U/L (0-31); Albumin Level 3.7 g/dL (3.5-5.0); Alkaline Phosphatase 78 U/L (39-117); Anion Gap 14 (12-20); Aspartate Amino Transferase 26 U/L (5-31); Bilirubin Total 0.2 mg/dL (0.0-1.0); Blood Urea Nitrogen 24 mg/dL (9-16); Calcium 9.5 mg/dL (8.4-10.2); Carbon Dioxide 27 mmol/L (22-29); Chloride 107 mmol/L (96-108); Creatinine Clr Calc Pharmacy 52.4; Estimated Glomerular Filt Rate > 60; Ethanol < 10 mg/dL; Glucose Random 108 mg/dL (60-115); Potassium 3.4 mmol/L (3.3-5.1); Sodium 145 mmol/L (135-145); Total Protein 7.2 g/dL (6.5-8.0)
[2023-11-07 21:21] LABS: COVID-19 Test Negative (Negative); IDNOW Serial# 152EDE1D
[2023-11-07 21:22] LABS: Acetaminophen LAB 10 mcg/mL (<30); Salicylate < 5.0 mg/dL (15-30)
--- NOTE | 2023-11-07 21:28 | ED.GENADULT ---
HPI - General Adult General Chief complaint: Psychiatric Symptoms Stated complaint: s12 crisis Time Seen by Provider: 11/07/23 21:00 Source: patient and EMS Mode of arrival: EMS Limitations: no limitations History of Present Illness HPI narrative: 63-year-old female presents to the emergency department status post being located by [facility], according to patient N has not seen here in awhile since she has been living out of her car with her dog she was at her son's house however her son had her leave her house because his girlfriend does not like his mom. She also reports she was kicked out of [employer]. Alot of new stressors such as housing instability. She reports she is fine. She was placed on a section 12 for safety by [facility] clinician in the community. She has not suicidal or homicidal. No hallucinations. Denies drugs, alcohol and tobacco. No medical complaints at this time. Denies chest pain, shortness breath, nausea, vomiting, abdominal pain headache, vision changes, dizziness weakness. Related Data Home Medications Medication Instructions Recorded Confirmed albuterol sulfate 90 mcg/actuation 2 puff PO Q4-6H PRN wheezing 05/03/20 06/29/21 aerosol inhaler aspirin 81 mg tablet,delayed 81 mg PO DAILY 05/03/20 06/28/21 release atorvastatin 40 mg tablet 40 mg PO BEDTIME 05/03/20 06/29/21 blood sugar diagnostic #10 ea 05/03/20 05/13/20 cholecalciferol (vitamin D3) 50 50 mcg PO DAILY 05/03/20 06/29/21 mcg (2,000 unit) tablet clonazepam 0.5 mg tablet 0.5 mg PO DAILY 05/03/20 06/28/21 cyanocobalamin (vitamin B-12) 500 500 mcg PO QAM 05/03/20 06/29/21 mcg tablet diltiazem HCl 180 mg 180 mg PO DAILY 05/03/20 06/28/21 capsule,extended release 24 hr lancets 33 gauge #100 ea 05/03/20 05/13/20 metformin 500 mg tablet,extended 500 mg PO DAILY 05/03/20 06/28/21 release 24 hr psyllium husk 0.52 gram capsule 0.52 g PO DAILY 06/29/21 06/29/21 (Wal-Mucil Fiber) Previous Rx's Medication Instructions Recorded montelukast 10 mg tablet 10 mg PO DAILY #90 tabs 01/23/21 albuterol sulfate 2.5 mg/3 mL 2.5 mg (3 mL) inhalation Q4-6H PRN 11/05/21 (0.083 %) solution for nebulization for wheezing #300 mL bisacodyl 5 mg tablet,delayed 10 mg (2 x 5 mg) PO BEDTIME 2 days 06/16/23 release (Dulcolax (bisacodyl)) #4 tabs peg 3350-electrolytes 236 240 ml PO Q10M 1 day #4,000 mL 06/16/23 gram-22.74 gram-6.74 gram-5.86 gram solution (Golytely) cefuroxime axetil 250 mg tablet 250 mg PO BID 7 days #14 tabs 11/07/23 Allergies Allergy/AdvReac Type Severity Reaction Status Date / Time No Known Allergies Allergy Verified 06/16/23 13:33 [No Known Allergies*] Review of Systems Review of Systems: Yes all other systems are reviewed and are negative [facility] Past Medical History Attestation statement: The following information was validated with the patient. Source: old records reviewed and nursing notes reviewed Medical History Acute respiratory failure with hypoxia Asthma with COPD with exacerbation Leukocytosis Hyperlipidemia Anxiety Diabetes Hypertension Mass of upper lobe of left lung Allergic rhinitis Bronchial asthma COPD (chronic obstructive pulmonary disease) Surgical History H/O colonoscopy History of cataract surgery History of tubal ligation Family History Family History Father No problems noted. Mother No problems noted. Social History Social History Household Members: None Housing: Apartment Do you presently have visiting nurse or other home services: No Alcohol intake: never Patient Tobacco Use Status: Never used Tobacco Advance Directives: No Advance Directives Information Provided: No service: No Physical Exam ED Vital Signs: Vital Signs - 24 hr 11/07/23 20:04 Temperature 97.7 F Pulse Rate 122 H Respiratory Rate 18 Blood Pressure 128/92 H Pulse Oximetry 92 Oxygen Delivery Method Room Air BMI result Body Mass Index 17.6 vss Patient 92% on room air history of COPD this appears to be her baseline. Tachycardic likely secondary to anxiety. Appearance: Alert.? Oriented X3.? No acute distress.? Head: Normocephalic, atraumatic, no step-offs or deformities Eyes: Pupils equal, round and reactive to light.? ENT: Pharynx normal.? Neck: Normal inspection.? Neck supple.? CVS: Normal heart rate and rhythm.? Pulses normal.? Respiratory: No respiratory distress.? Breath sounds w/ expiratory wheezing throughout.? Abdomen: Soft and nontender.? Skin: Skin warm and dry.? Normal skin color.? Normal skin turgor.? Extremities: No lower extremity edema.? No calf ttp. 5/5 strength to bilateral upper and lower extremities Neuro: Oriented X 3.? No motor deficit.? No sensory deficit. CN 2-12 intact Course Reevaluation(s) Reevaluation #1: CBC appears to be around patient's baseline with a normocytic anemia. No leukocytosis. Chemistry no acute findings requiring intervention. Salicylates, acetaminophen and ethanol negative. Negative urine toxicology. UA with + leukocyte esterase. Pending remainder of urine. Time: 21:32 Reevaluation #2: UA with leukocyte esterases and trace bacteria. Will treat for UTI. Care team is not here tonight, they will come tomorrow to assess patient in the morning as patient did come in on a section 12. At this time patient to be placed into physician observation to allow more time to be evaluated by care team. At time observation started patient common cooperative no acute distress will continue to monitor Time: 21:53 Medications Administered Discontinued Medications Generic Name Dose Route Start Last Admin Trade Name Freq PRN Reason Stop Dose Admin Cefuroxime Axetil 250 mg 11/07/23 21:54 11/07/23 22:34 Cefuroxime Axetil 250 Mg Tablet PO 11/07/23 21:55 250 mg ONCE ONE Administration Medical Decision Making Medical Decision Making [facility] Narrative: 2128 63-year-old female presents with anxiety, depression, poor living conditions over the past few weeks, has been living at her vehicle with her cat and dog. BHN placed on section 12 Physical exam w/ expiratory wheezing throughout History and physical exam anxiety and depression. Unlikely acute psychosis, bipolar schizophrenia. Unlikely suicidal or homicidal ideation. Low suspicion for metabolic derangements, cardiac etiologies. Will rule out urinary tract infection. Wheezing likely secondary to chronic lung disease, unlikely pneumonia, PE, ACS no signs of acute respiratory distress. Plan at this time- labs, care team Differential Diagnosis Differential Diagnoses: The differential diagnosis associated with the presentation includes History and physical exam anxiety and depression. Unlikely acute psychosis, bipolar schizophrenia. Unlikely suicidal or homicidal ideation. Low suspicion for metabolic derangements, cardiac etiologies. Will rule out urinary tract infection.Wheezing likely secondary to chronic lung disease, unlikely pneumonia, PE, ACS no signs of acute respiratory distress. Admission/Observation Consideration of admission/observation: Escalation of care including admission/observation considered Lab Data MDM Lab Attestation statement: I reviewed the patient's lab results. 11/07/23 20:56 11/07/23 20:55 Labs: Lab Results 11/07/23 11/07/23 11/07/23 Range/Units 20:55 20:56 20:59 WBC 7.8 (4.8-10.8) X10*3/uL RBC 4.18 L (4.20-5.50) X10*6/uL Hgb 11.9 L (12.0-16.0) g/dl Hct 35.5 L (37.0-47.0) % MCV 84.9 (80.0-98.0) fL MCH 28.5 (27.0-33.0) pg MCHC 33.5 (31.0-35.0) g/dl RDW 13.9 (11.0-16.0) % Plt Count 323 (160-400) X10*3/uL MPV 10.2 (9.4-12.3) fL Immature Gran % (Auto) 0.1 (0.0-0.4) % Neut % (Auto) 33.8 L (45-73) % Lymph % (Auto) 39.4 (20-40) % [place] % (Auto) 7.9 (2-11) % Eos % (Auto) 17.8 H (0-4) % Baso % (Auto) 1.0 (0-2) % Lymph # (Auto) 3.1 (1.2-4.9) X10*3/uL [place] # (Auto) 0.6 (0.1-1.2) X10*3/uL Eos # (Auto) 1.4 H (0.0-0.4) X10*3/uL Baso # (Auto) 0.1 (0.0-0.2) X10*3/uL Abs Immat Gran (auto) 0.01 (0.00-0.03) X10*3/uL Absolute Neuts (auto) 2.6 (2.0-8.3) x10*3/uL Absolute Nucleated RBC 0.000 (0.0-0.012) X10*3/uL Nucleated RBC % (auto) 0.0 (0.0-0.2) /100WBC Sodium 145 (135-145) mmol/L Potassium 3.4 D (3.3-5.1) mmol/L Chloride 107 (96-108) mmol/L Carbon Dioxide 27 (22-29) mmol/L Anion Gap 14 (12-20) BUN 24 H (9-16) mg/dL Creatinine 0.76 (0.5-1.4) mg/dL Estim Creat Clear Calc 52.4 Estimated GFR > 60 Random Glucose 108 (60-115) mg/dL Calcium 9.5 (8.4-10.2) mg/dL Total Bilirubin 0.2 (0.0-1.0) mg/dL AST 26 (5-31) U/L ALT 19 (0-31) U/L Alkaline Phosphatase 78 (39-117) U/L Total Protein 7.2 (6.5-8.0) g/dL Albumin 3.7 (3.5-5.0) g/dL Urine Color Yellow Urine Appearance Cloudy Urine pH 5.0 (5.0-9.0) Ur Specific [place] >= 1.030 H (1.005-1.025) Urine Protein Negative (Neg-Trace) mg/dL Urine Glucose (UA) Negative (Negative) mg/dL Urine Ketones Trace (Negative) mg/dL Urine Blood Negative (Negative) Urine Nitrite Negative (Negative) Ur Leukocyte Esterase Small (1+) H (Negative) Urine RBC 3-5 H (0-2) /HPF Urine WBC 6-10 (0-5) /HPF Ur Squamous Epith Cells 3-5 (0-2) /HPF Calcium Oxalate Crystal Present Urine Bacteria Trace (None Seen) Hyaline Casts 0-2 (0-2) /LPF Salicylates < 5.0 L (15-30) mg/dL Urine Opiates Screen Not Detected (Not Detect) Urine Fentanyl Screen Not Detected (Not Detect) Acetaminophen 10 (<30) mcg/mL Ur Barbiturates Screen Not Detected (Not Detect) Ur Phencyclidine Scrn Not Detected (Not Detect) Ur Amphetamines Screen Not Detected (Not Detect) U Benzodiazepines Scrn Not Detected (Not Detect) Urine Cocaine Screen Not Detected (Not Detect) U Marijuana (THC) Screen Not Detected (Not Detect) Ethyl Alcohol < 10 mg/dL COVID-19 (BRIGHT) Negative (Negative) COVID-19 Clin Com See Note Independent Interpretation I performed an independent interpretation of an: EKG (Vent. Rate : 112 BPM Atrial Rate : 112 BPM P-R Int : 166 ms QRS Dur : 076 ms QT Int : 312 ms P-R-T Axes : 083 080 045 degrees QTc Int : 425 ms Sinus tachycardia Otherwise normal ECG When compared with ECG of 28-JUN-2021 19:40, Nonspecific T wave abnormality no longer e) and CT Scan Radiology Impression Discussion of test interpretation with radiology: I have reviewed the radiologist's reading. External Record Review External record reviewed: Inpatient record, Office record, Outpatient record, Prior outpatient labs, Prior outpatient radiology, Primary care record and Outside ED record Chronic Conditions Patient?s care impacted by: Other (COPD, asthma, mass of upper lobe of left lung.) Social Determinants Patient?s care significantly limited by Social Determinants of Health including: Inadequate housing, Low income, Problems related to primary support group, Unemployment, Problems related to employment and Other Social Determinant of Health Critical Care Time Critical Care Time Critical Care Time: Yes Total Critical Care Time: 35 Attestation: I attest to this time spent taking care of the patient, obtaining history, physical, reviewing labs, imaging, speaking to my attending, speaking to specialist. Discharge Plan Discharge Clinical Impression: COPD (chronic obstructive pulmonary disease), Homeless, Acute UTI Patient Disposition: Still a Patient Instructions: Urinary Tract Infection in Women (ED) Additional Instructions: Take your medications as prescribed. If you were prescribed antibiotics today, it is important that you take your medication to their entirety, do not skip any doses, do not finish them early. Follow-up with your primary care provider this week. Return to the emergency department with new or worsening symptoms. Such as fevers, chills, chest pain, shortness of breath, nausea, vomiting, dizziness, headache, vision changes, lethargy In case of emergency call 911 Prescriptions: New cefuroxime axetil 250 mg tablet 250 mg PO BID 7 Days Qty: 14 0RF No Action montelukast 10 mg tablet 10 mg PO DAILY Qty: 90 0RF albuterol sulfate 2.5 mg /3 mL (0.083 %) solution for nebulization 2.5 mg inhalation Q4-6H PRN (Reason: for wheezing) Qty: 300 0RF psyllium husk [Wal-Mucil Fiber] 0.52 gram capsule 0.52 g PO DAILY clonazepam 0.5 mg tablet 0.5 mg PO DAILY (DME) lancets 33 gauge misc See Rx Instructions .ROUTE .MEDSUPPLY Qty: 100 Rx Instructions: As directed cholecalciferol (vitamin D3) 50 mcg (2,000 unit) tablet 50 mcg PO DAILY metformin 500 mg tablet extended release 24 hr 500 mg PO DAILY aspirin 81 mg tablet,delayed release (DR/EC) 81 mg PO DAILY diltiazem HCl 180 mg capsule,extended release 24hr 180 mg PO DAILY atorvastatin 40 mg tablet 40 mg PO BEDTIME cyanocobalamin (vitamin B-12) 500 mcg tablet 500 mcg PO QAM (DME) blood sugar diagnostic Strip See Rx Instructions Not Applicable BID Qty: 10 Rx Instructions: As directed albuterol sulfate 90 mcg/actuation HFA aerosol inhaler 2 puff PO Q4-6H PRN (Reason: wheezing) peg 3350-electrolytes [Golytely] 236-22.74-6.74 -5.86 gram recon soln 240 ml PO Q10M 1 Days Qty: 4000 0RF Rx Instructions: until fecal effluent is clear; do not exceed a total volume of 2,000 mL bisacodyl [Dulcolax (bisacodyl)] 5 mg tablet,delayed release (DR/EC) 10 mg PO BEDTIME 2 Days Qty: 4 0RF Referrals: Carmina Iyer DO [Primary Care Provider] - 1 day
--- NOTE | 2023-11-07 21:31 | ECG_ITS ---
Test Reason : MED CLEAR Blood Pressure : / mmHG Vent. Rate : 112 BPM Atrial Rate : 112 BPM P-R Int : 166 ms QRS Dur : 076 ms QT Int : 312 ms P-R-T Axes : 083 080 045 degrees QTc Int : 425 ms Sinus tachycardia Otherwise normal ECG When compared with ECG of 28-JUN-2021 19:40, Nonspecific T wave abnormality no longer evident in Lateral leads Referred By: Radha Fuller Electronically Signed By:RICCO JACOBSEN MD
[2023-11-07 21:46] LABS: Bacteria Urine Trace (None Seen); Calcium Oxalate Crystals Urine Present; Hyaline Casts Urine 0-2 /LPF (0-2)
[2023-11-07] MEDS: cefuroxime axetiL 250 MG TABLET PO (22:34)
[2023-11-07] MEDS: Albuterol Sulfate 90 MCG 8 GM INHALER 4 PUFF INHALE (23:07)
[2023-11-07] MEDS: dexAMETHasone sod phosphate 4 MG/ML VIAL 8 MG IVPUSH (23:08)
[2023-11-08] MEDS: clonazePAM 0.5 MG TABLET PO ×2 (00:05→22:19)
[2023-11-08 06:41] VITALS: RESP 18
--- NOTE | 2023-11-08 07:30 | PC.NURSE ---
Assumed care of patient at 0700, patient up eating breakfast at this time, offering no complaints to this RN. Pt denies SI/HI/AH. Pt is alert and oriented x4, skin pwd, respirations even and unlabored. Continue plan of care for CARE eval
[2023-11-08 07:42] VITALS: BP 130/80; PULSE 111; RESP 16; TEMP 37; O2SAT 91
[2023-11-08] MEDS: Fluticasone/Vilanterol 200/25 BLST.W.DEV 1 PUFF INHALE (08:25)
--- NOTE | 2023-11-08 09:24 | MHC.CARE ---
Mehrdad is a family contact for this patinet, . Betina Win with co-response [facility] is [phone]
--- NOTE | 2023-11-08 13:59 | PC.NURSE ---
Patient has been resting comfortably on bed and ambulating with steady gait around BH pod. Offers no complaints to this RN. Aware of plan of care for inpatient admission
[2023-11-08 14:00] VITALS: RESP 16
[2023-11-08] MEDS: Acetaminophen 325 MG TABLET 650 MG PO ×2 (14:07→22:08)
[2023-11-08 21:59] VITALS: BP 148/80; PULSE 108; RESP 20; TEMP 37.4; O2SAT 93
[2023-11-09 00:05] VITALS: BP 141/67; PULSE 113; RESP 18; TEMP 36.4; O2SAT 91
--- NOTE | 2023-11-09 03:06 | PC.NURSE ---
Patient is a 63 year old female that was admitted from [facility] Ed pod. Patient brought to the hospital because she was living in her truck with several rescued animals and the truck had become unsanitary with dog urine and feces. Patient reports not taking all of her medications for several weeks. Patient was living with her son, but reports the does not like her so she was living in her truck instead. Patient has a history of COPD and asthma. Patient is reporting some foot pain, no lacerations or wounds were visible and might be muscular or nerve in nature. Patient denies any SI/HI or AH/VH. There appears to be some slight paranoia present. Patient reporting mild anxiety and depression. Patient was Covid negative and UTOX was negative. Patient did not want flu shot at this time. Patient focused on pain management for her feet reporting she takes 1,000 mg twice of Tylenol with good effect. Patient signed in CV and was placed on 15 minute safety checks.
[2023-11-09] MEDS: Albuterol Sulfate 90 MCG 8 GM INHALER 2 PUFF INHALE (04:24)
[2023-11-09] MEDS: Acetaminophen 325 MG TABLET 650 MG PO ×2 (04:24→18:09)
--- NOTE | 2023-11-09 04:30 | PC.NURSE ---
Salena was given Tylenol PO prn for foot pain 3/10 and her albuterol inhaler PO prn for some SOB
--- NOTE | 2023-11-09 08:53 | HO.PSYADMNOT ---
HPI Date of Service: 11/09/23 Chief Complaint: s12 crisis Sources of Information: patient interviewed, chart reviewed and crisis/core team assessment reviewed HPI Subjective Notes: Robbins Warning, Conditional Voluntary and 3 Day Narrative: Mrs. Barlow is a 63 year-old woman with unclear psychiatric hx who was assessed by [facility] in the community due to pt presenting as paranoid, lost housing recently in 08/2023 due to making renovations without consent and also appeared paranoid towards housing office. She apparently then moved in with her son and she also became paranoid towards her [id number] stating that she was not cleaning the house and this was causing her and her grandchildren to be infected with fungi. She reports she locked the daughter in law and confronted her and she was asked to leave the house by both her son and [id number] about 3 weeks ago. In the ED, utox is negative. Pt reports this is her first psychiatric admission. On the unit, pt presents as calm. She is also somewhat guarded. Her gait is very unsteady and she seems to easily lose balance. She reports she is okay physically and mentally. She attributes her unsteady gait to foot pain and fungal infection which she tells this news writer was caused by her [id number]. This news writer examined her foot but there is no signs of infection or fungal infection. She reports pain on touch on heel of left foot. She reports she has lost her housing because people are harassing her. She reports she lost her apartment because housing was sending cars of different colors to follow her. She reports no one directly threatened to hurt her but she is convinced that these cars she was seeing on the streets were sent by [employer] to monitor her. 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 She states that she does not trust her [id number] and she is upset with her son for not beeing on her side. She denies SI/HI. She reports she plans to go initially to a group home and then to [place] with her sister.When asked if we could talk with her sister, she declines. Pr crisis report, there has been concern that due to her paranoid, pt is not attending regular appointment with her PCP. I do see on our records that pulmonology and her PCP have reached out to her but she had declined scheduling appointments despite recent exacerbation of COPD. When asked about this pt states I'll do it later, maybe in [place] but does not provide much explanation as to why she has declined scheduling appointment with her home lighting adviser providers. Past Psychiatric History: Inpt: she denies prior admission OP: none Past medication trials: clonazepam Medical Evaluation Reviewed: Yes [facility] Medical History Acute respiratory failure with hypoxia Asthma with COPD with exacerbation Leukocytosis Hyperlipidemia Anxiety Diabetes Hypertension Mass of upper lobe of left lung Allergic rhinitis Bronchial asthma COPD (chronic obstructive pulmonary disease) Surgical History H/O colonoscopy History of cataract surgery History of tubal ligation Family History: unknown Social History: Pt reports having 2 sons. 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 Substance History: None Trauma History: denies Diagnostics Vital Signs (24Hr): Vital Signs - 24 hr 11/08/23 14:00 11/08/23 21:59 11/09/23 00:05 Temperature 99.4 F 97.5 F Pulse Rate 108 H 113 H Respiratory Rate 16 20 18 Blood Pressure 148/80 H 141/67 H Pulse Oximetry 93 91 L Oxygen Delivery Method Room Air Room Air BMI result Body Mass Index 17.6 Labs 11/07/23 20:56 11/07/23 20:55 Labs: Laboratory Results - last 48 hr 11/07/23 11/07/23 11/07/23 20:55 20:56 20:59 WBC 7.8 RBC 4.18 L Hgb 11.9 L Hct 35.5 L MCV 84.9 MCH 28.5 MCHC 33.5 RDW 13.9 Plt Count 323 MPV 10.2 Immature Gran % (Auto) 0.1 Neut % (Auto) 33.8 L Lymph % (Auto) 39.4 [place] % (Auto) 7.9 Eos % (Auto) 17.8 H Baso % (Auto) 1.0 Lymph # (Auto) 3.1 [place] # (Auto) 0.6 Eos # (Auto) 1.4 H Baso # (Auto) 0.1 Abs Immat Gran (auto) 0.01 Absolute Neuts (auto) 2.6 Absolute Nucleated RBC 0.000 Nucleated RBC % (auto) 0.0 Sodium 145 Potassium 3.4 D Chloride 107 Carbon Dioxide 27 Anion Gap 14 BUN 24 H Creatinine 0.76 Estim Creat Clear Calc 52.4 Estimated GFR > 60 Random Glucose 108 Calcium 9.5 Total Bilirubin 0.2 AST 26 ALT 19 Alkaline Phosphatase 78 Total Protein 7.2 Albumin 3.7 Urine Color Yellow Urine Appearance Cloudy Urine pH 5.0 Ur Specific [place] >= 1.030 H Urine Protein Negative Urine Glucose (UA) Negative Urine Ketones Trace Urine Blood Negative Urine Nitrite Negative Ur Leukocyte Esterase Small (1+) H Urine RBC 3-5 H Urine WBC 6-10 Ur Squamous Epith Cells 3-5 Calcium Oxalate Crystal Present Urine Bacteria Trace Hyaline Casts 0-2 Salicylates < 5.0 L Urine Opiates Screen Not Detected Urine Fentanyl Screen Not Detected Acetaminophen 10 Ur Barbiturates Screen Not Detected Ur Phencyclidine Scrn Not Detected Ur Amphetamines Screen Not Detected U Benzodiazepines Scrn Not Detected Urine Cocaine Screen Not Detected U Marijuana (THC) Screen Not Detected Ethyl Alcohol < 10 COVID-19 (BRIGHT) Negative COVID-19 Clin Com See Note Meds/Allergies Meds Home Medications ?Medication ?Instructions ?Recorded ?Confirmed ?Type albuterol sulfate 90 mcg/actuation 2 puff PO Q4-6H PRN wheezing 05/03/20 11/07/23 History aerosol inhaler budesonide-formoterol HFA 160 2 puff inhalation BID 11/07/23 11/07/23 History mcg-4.5 mcg/actuation aerosol inhaler (Symbicort) clonazepam 0.5 mg tablet 0.5 mg PO BEDTIME 11/07/23 11/07/23 History Allergies Allergies Allergy/AdvReac Type Severity Reaction Status Date / Time No Known Allergies Allergy Verified 06/16/23 13:33 [No Known Allergies*] Mental Status Exam Mental Status Exam Narrative: Appearance: wearing casual clothing, fair hygiene, in NAD Behavior: guarded Psychomotor: no agitation or retardation noted Speech: mostly clear, normal rate/rhythm/volume, spontaneous TP: mostly linear, tangential at times but no loose association TC: wanting to leave, upset with son for not supporting her Mood: good Affect: guarded SI: denies HI: denies VH/AH: no overt psychosis Delusions: paranoid delusions Insight/judgment: impaired x 2. memory/cog: alert, oriented x 3. ACL 5.0 Assessment & Plan Assessment & Plan (1) Paranoid delusion: Status: Acute Code(s): F22 - Delusional disorders Plan Ms. Barlow is a 63 year-old woman who was brought via EMS after family member alerted crisis of her current living situation in a truck due to increase paranoid delusions, including ideas that previous housing was sending random cars to follow her and more recently that her daughter in law has been intentionally letting fungi grow in the home to get her and her grandchildren sick. She reports left foot which she attributes to fungal infection, however, when examined there is no signs of fungal infection or any infection. She does report pain on heel when you touch. She also declines making follow up appointment with her PCP or pulmonology, despite recent exacerbation of COPD. It does show from PCP/pulmonology office from our system that they have reached out to her to schedule appointments but she has declined. Today, again she declines to schedule follow up appointments without clear explanation. We discussed risks, benefits and alternative treatment options. we discussed starting seroquel for sleep/mood/paranoid(although may need higher doses for seroquel to have more antipsychotic properties). Collateral information will also heelp with clarifying dx as it is not clear for how long she has had paranoid delusions. PLAN 1. Admit to S1, CV, 3 day notice 2. d/c clonazepam 3. start seroquel 50mg po qhs 4. obtain collateral information 5. aftercare planning. Patient educated on: diagnosis and medication risk/benefits Reason for continued inpatient stay Substantial Risk for: inability to function Statement Statement: I have reviewed the history and physical and performed a pertinent examination on my patient. No changes have occurred unless specified. If the History and Physical was not performed prior to admission, the Hospitalist's service will be consulted for completing the admission physical. Time Spent With Patient Time: Total time managing care of this patient today ____ minutes.
[2023-11-09 09:30] VITALS: BP 135/66; PULSE 130; RESP 18; TEMP 36.3; O2SAT 92
[2023-11-09 09:35] LABS: Estimated Average Glucose 103 mg/dL; Hemoglobin A1c % 5.2 % (<6.0)
[2023-11-09 09:40] LABS: Cholesterol 193 mg/dL (<200); HDL Cholesterol 46 mg/dL (>40); LDL Cholesterol Calculated 108 mg/dL (<100); Triglycerides 196 mg/dL (<150)
[2023-11-09] MEDS: Metoprolol Succinate ER 25 MG TAB.ER.24H PO (12:06)
[2023-11-09 13:30] VITALS: BMI 17.6
[2023-11-09] MEDS: Fluticasone/Vilanterol 200/25 BLST.W.DEV 1 PUFF INHALE (13:53)
[2023-11-09 18:00] VITALS: BP 116/60; PULSE 102; RESP 16; TEMP 37.3; O2SAT 92
[2023-11-09] MEDS: QUEtiapine Fumarate 50 MG TABLET PO (20:35)
[2023-11-09] MEDS: traZODone HCL 50 MG TABLET PO (20:35)
[2023-11-09] MEDS: Atorvastatin Calcium 40 MG TABLET PO (20:35)
[2023-11-10 07:00] VITALS: BMI 27.9
[2023-11-10 08:05] VITALS: BP 120/65; PULSE 95; RESP 18; TEMP 36.6; O2SAT 95
[2023-11-10] MEDS: Metoprolol Succinate ER 25 MG TAB.ER.24H PO (08:15)
[2023-11-10] MEDS: Fluticasone/Vilanterol 200/25 BLST.W.DEV 1 PUFF INHALE (08:16)
--- NOTE | 2023-11-10 11:54 | P.PNPSI_ITS ---
Subjective Subjective Date of Service: 11/10/23 Reason For Visit: s12 crisis Subjective Notes: Conditional Voluntary and 3 Day Interim History: Pt reports she slept better last night. She denies SI/HI. She continues to present with paranoid ideas towards housing and her son. She continues to ask that she wants to leave soon. She has been taking medications. No behavioral concerns. Diagnostics Vital Signs (24Hr): Vital Signs - 24 hr 11/09/23 18:00 11/10/23 08:05 Temperature 99.1 F 97.8 F Pulse Rate 102 H 95 Respiratory Rate 16 18 Blood Pressure 116/60 120/65 Pulse Oximetry 92 95 Oxygen Delivery Method Room Air Room Air BMI result Body Mass Index 17.6 Labs 11/07/23 20:56 11/07/23 20:55 Labs: Laboratory Results - last 48 hr 11/09/23 08:30 Estimat Average Glucose 103 Hemoglobin A1c % 5.2 Triglycerides 196 H Cholesterol 193 LDL Cholesterol, Calc 108 H HDL Cholesterol 46 Imaging Radiology Impressions: ITS Impressions Head CT 11/09/23 13:09 IMPRESSION: No acute intracranial abnormality. There is chronic microangiopathy and atherosclerotic calcification throughout the intracranial arterial vasculature. Medications Medications Current Medications Acetaminophen (Acetaminophen 325 Mg Tablet) 650 mg PO Q6H PRN PRN Reason: Headache/Pain Mild Scale (1-3) Last Admin: 11/09/23 18:09 Dose: 650 mg Al Hydroxide/Mg Hydroxide (Magnesium Hydrox/Alum Hydrox 30 Ml Oral.Susp) 30 ml PO Q6H PRN PRN Reason: Heartburn/Nausea Albuterol Sulfate (Albuterol Sulfate 90 Mcg 8 Gm Inhaler) 2 puff INHALE Q4H PRN PRN Reason: wheezing Last Admin: 11/09/23 04:24 Dose: 2 puff Atorvastatin Calcium (Atorvastatin Calcium 40 Mg Tablet) 40 mg PO BEDTIME CHRISTOPHER Last Admin: 11/09/23 20:35 Dose: 40 mg Fluticasone/Vilanterol (Fluticasone/Vilanterol 200/25 Blst.W.Dev) 1 puff INHALE DAILY [facility] Last Admin: 11/10/23 08:16 Dose: 1 puff Magnesium Hydroxide (Milk Of Magnesia 30 Ml Oral.Susp) 30 ml PO DAILY PRN PRN Reason: Constipation Metoprolol Succinate (Metoprolol Succinate Er 25 Mg Tab.Er.24h) 25 mg PO DAILY [facility]; Protocol Last Admin: 11/10/23 08:15 Dose: 25 mg Nicotine Polacrilex (Nicotine Polacrilex 2 Mg Gum) 4 mg BUCCAL Q2H PRN PRN Reason: Nicotine Cravings Olanzapine (Olanzapine 2.5 Mg Tablet) 2.5 mg PO TID PRN PRN Reason: agitation Quetiapine Fumarate (Quetiapine Fumarate 50 Mg Tablet) 50 mg PO BEDTIME CHRISTOPHER Last Admin: 11/09/23 20:35 Dose: 50 mg Trazodone HCl (Trazodone Hcl 50 Mg Tablet) 50 mg PO BEDTIME PRN PRN Reason: Insomnia Allergies Allergies Allergy/AdvReac Type Severity Reaction Status Date / Time No Known Allergies Allergy Verified 06/16/23 13:33 [No Known Allergies*] Assessment & Plan Assessment & Plan (1) Paranoid delusion: Status: Acute Code(s): F22 - Delusional disorders Plan Ms. Barlow is a 63 year-old woman who was brought via EMS after family member alerted crisis of her current living situation in a truck due to increase paranoid delusions, including ideas that previous housing was sending random cars to follow her and more recently that her daughter in law has been intentionally letting fungi grow in the home to get her and her grandchildren sick. She reports left foot which she attributes to fungal infection, however, when examined there is no signs of fungal infection or any infection. She does report pain on heel when you touch. She also declines making follow up appointment with her PCP or pulmonology, despite recent exacerbation of COPD. It does show from PCP/pulmonology office from our system that they have reached out to her to schedule appointments but she has declined. Today, again she declines to schedule follow up appointments without clear explanation. We discussed risks, benefits and alternative treatment options. we discussed starting seroquel for sleep/mood/paranoid(although may need higher doses for seroquel to have more antipsychotic properties). Collateral information will also help with clarifying dx as it is not clear for how long she has had paranoid delusions. PLAN 1. Admit to S1, CV, 3 day notice 2. continue seroquel 50mg po qhs. 3. pending collateral information from son. Reason for continued inpatient stay Substantial Risk for: inability to function Time Spent With Patient Time: Total time managing care of this patient today ____ minutes.
--- NOTE | 2023-11-10 15:51 | P.CNNE_ITS ---
History of Present Illness Data of Consult Service Date: 11/10/23 Primary Care Provider: DO ADE Mojica Reason for consult: Tremor 63 years old woman with underlying moderate chronic microvascular ischemic changes type of findings on her previous MRI and recent CT scan of brain, family history of tremor affecting many family members, I was asked to see for bilateral hand tremor. She said that she was not particularly affected by it. There was no pain numbness or tingling in hands Review of Systems 2 Review of Systems: Recent behavioral symptoms bringing her to hospital. [facility] Past Medical History Medical History Acute respiratory failure with hypoxia Asthma with COPD with exacerbation Leukocytosis Hyperlipidemia Anxiety Diabetes Hypertension Mass of upper lobe of left lung Allergic rhinitis Bronchial asthma COPD (chronic obstructive pulmonary disease) Family History Family History Father No problems noted. Mother No problems noted. Surgical History Surgical History H/O colonoscopy History of cataract surgery History of tubal ligation Social History Social History Household Members: None Housing: Homeless Do you presently have visiting nurse or other home services: No Alcohol intake: never Patient Tobacco Use Status: Never used Tobacco Smoked in Last 30 Days: No e-Cigarette/Vaping Use: Never Used Patient Interested in Nicotine Replacement: No Patient Given Instructions on How to Stop Smoking: No Second Hand Smoke Exposure: No Use of substances other than those prescribed or required for medical reasons: No Currently Displaying Signs/Symptoms of Drug Intoxication Withdrawal: No Any prior treatment program specific to substance use: No Have you been hit, kicked, punched, or otherwise hurt by someone within the past year? If so, by whom?: No Do you feel safe in your current relationship?: No Current Relationship Is there a partner from a previous relationship who is making you feel unsafe now?: No Are you made to feel afraid or neglected: No Spiritual Healthcare Practices: none reported Christianity Healthcare Practices: none reported Cultural Healthcare Practices: none reported Advance Directives: No Advance Directives Information Provided: No Do you have thoughts of harming others: None Do you have a plan to hurt others: No Plan Recently lost weight without trying: No Eating poorly because of decreased appetite: No Nutrition Risks: No Nutritional Risk Patient : No : No Poor oral hygiene: Yes service: No Meds Allergies Allergy/AdvReac Type Severity Reaction Status Date / Time No Known Allergies Allergy Verified 06/16/23 13:33 [No Known Allergies*] Active Medications: Current Medications Acetaminophen (Acetaminophen 325 Mg Tablet) 650 mg PO Q6H PRN PRN Reason: Headache/Pain Mild Scale (1-3) Last Admin: 11/09/23 18:09 Dose: 650 mg Al Hydroxide/Mg Hydroxide (Magnesium Hydrox/Alum Hydrox 30 Ml Oral.Susp) 30 ml PO Q6H PRN PRN Reason: Heartburn/Nausea Albuterol Sulfate (Albuterol Sulfate 90 Mcg 8 Gm Inhaler) 2 puff INHALE Q4H PRN PRN Reason: wheezing Last Admin: 11/09/23 04:24 Dose: 2 puff Atorvastatin Calcium (Atorvastatin Calcium 40 Mg Tablet) 40 mg PO BEDTIME CHRISTOPHER Last Admin: 11/09/23 20:35 Dose: 40 mg Fluticasone/Vilanterol (Fluticasone/Vilanterol 200/25 Blst.W.Dev) 1 puff INHALE DAILY CHRISTOPHER Last Admin: 11/10/23 08:16 Dose: 1 puff Magnesium Hydroxide (Milk Of Magnesia 30 Ml Oral.Susp) 30 ml PO DAILY PRN PRN Reason: Constipation Metoprolol Succinate (Metoprolol Succinate Er 25 Mg Tab.Er.24h) 25 mg PO DAILY [facility]; Protocol Last Admin: 11/10/23 08:15 Dose: 25 mg Nicotine Polacrilex (Nicotine Polacrilex 2 Mg Gum) 4 mg BUCCAL Q2H PRN PRN Reason: Nicotine Cravings Olanzapine (Olanzapine 2.5 Mg Tablet) 2.5 mg PO TID PRN PRN Reason: agitation Quetiapine Fumarate (Quetiapine Fumarate 50 Mg Tablet) 50 mg PO BEDTIME CHRISTOPHER Last Admin: 11/09/23 20:35 Dose: 50 mg Trazodone HCl (Trazodone Hcl 50 Mg Tablet) 50 mg PO BEDTIME PRN PRN Reason: Insomnia Home Medications ?Medication ?Instructions ?Recorded ?Confirmed ?Last Taken ?Type albuterol sulfate 90 mcg/actuation 2 puff PO Q4-6H PRN wheezing 05/03/20 11/07/23 Unknown History aerosol inhaler budesonide-formoterol HFA 160 2 puff inhalation BID 11/07/23 11/07/23 Unknown History mcg-4.5 mcg/actuation aerosol inhaler (Symbicort) clonazepam 0.5 mg tablet 0.5 mg PO BEDTIME 11/07/23 11/07/23 11/06/23 21:00 History Physical Exam 2 Vital Signs: Vital Signs: Last Vital Signs Temp 97.8 F 11/10/23 08:05 Pulse 95 11/10/23 08:05 Resp 18 11/10/23 08:05 BP 120/65 11/10/23 08:05 Pulse Ox 95 11/10/23 08:05 O2 Del Method Room Air 11/10/23 08:05 BMI result Body Mass Index 27.9 Neuro: Other: She is alert and awake with normal spontaneity of speech fluency comprehension and affect. Face is symmetrical. Visual hinson are full. Moderate muscle atrophy is noted in hands. Moderate bilateral hand postural tremor is noted. There was no significant bradykinesia or resting tremor. Speech is normal Results Labs 11/07/23 20:56 11/07/23 20:55 Labs: Noncontrast head CT and previous MRI of brain were reviewed. Moderate amount of microvascular ischemic changes were noted. Assessment and Plan (1) Benign familial tremor: Status: Acute If not impacting her day-to-day life, no medicine is needed. Otherwise a small dose of propranolol 10 mg twice a day or primidone 50 mg a day can be tried. (2) Cerebral microvascular disease: Status: Acute This could impact her balance and walking and cognition. Baby aspirin daily and control of other vascular risk factors is recommended. Procedures Date of Service Date of Service: 11/10/23
[2023-11-10 18:00] VITALS: BP 147/64; PULSE 108; RESP 20; TEMP 36.4; O2SAT 92
[2023-11-10] MEDS: Acetaminophen 325 MG TABLET 650 MG PO (21:08)
[2023-11-10] MEDS: QUEtiapine Fumarate 50 MG TABLET PO (21:09)
[2023-11-10] MEDS: Atorvastatin Calcium 40 MG TABLET PO (21:09)
[2023-11-10] MEDS: Albuterol Sulfate 90 MCG 8 GM INHALER 2 PUFF INHALE (21:21)
[2023-11-11 06:00] VITALS: BP 131/60; PULSE 100; RESP 18; TEMP 36.7; O2SAT 94
[2023-11-11] MEDS: Fluticasone/Vilanterol 200/25 BLST.W.DEV 1 PUFF INHALE (08:46)
[2023-11-11] MEDS: Metoprolol Succinate ER 25 MG TAB.ER.24H PO (08:48)
--- NOTE | 2023-11-11 11:51 | MHC.CLN ---
F/U WEIGHT DISCREPANCY NOTED. NURSING AWARE. REWEIGH PATIENT ABLE. INTAKE APPEARS GOOD. FOLLOW FOR INTAKE AND WEIGHT.
--- NOTE | 2023-11-11 13:14 | P.PNPSI_ITS ---
Subjective Subjective Date of Service: 11/11/23 Reason For Visit: s12 crisis Subjective Notes: Conditional Voluntary Interim History: Discussed pt with team. Pt reports she slept better last night. She denies SI/HI. She continues to present with paranoid ideas towards housing and her son. She continues to ask that she wants to leave soon. She has been taking medications. No behavioral concerns. Ms. Barlow is a 63 year-old woman who was brought via EMS after family member alerted crisis of her current living situation in a truck due to increase paranoid delusions, including ideas that previous housing was sending random cars to follow her and more recently that her daughter in law has been intentionally letting fungi grow in the home to get her and her grandchildren sick. She reports left foot which she attributes to fungal infection, however, when examined there is no signs of fungal infection or any infection. She does report pain on heel when you touch. She also declines making follow up appointment with her PCP or pulmonology, despite recent exacerbation of COPD. It does show from PCP/pulmonology office from our system that they have reached out to her to schedule appointments but she has declined. Today, again she declines to schedule follow up appointments without clear explanation. We discussed risks, benefits and alternative treatment options. we discussed starting seroquel for sleep/mood/paranoid(although may need higher doses for seroquel to have more antipsychotic properties). Collateral information will also help with clarifying dx as it is not clear for how long she has had paranoid delusions. Medication Compliance: Yes Side effects from medications: No Attending Groups: Yes Review of Systems Acute medical concerns: No Medical Review of Systems: unchanged Review of Systems Review of Systems Recent behavioral symptoms bringing her to hospital. Yes all other systems are reviewed and are negative Mental Status Exam Mental Status Exam Narrative: Appearance: wearing casual clothing, fair hygiene, in NAD Behavior: guarded Psychomotor: no agitation or retardation noted Speech: mostly clear, normal rate/rhythm/volume, spontaneous TP: mostly linear, tangential at times but no loose association TC: wanting to leave, upset with son for not supporting her Mood: good Affect: guarded SI: denies HI: denies VH/AH: no overt psychosis Delusions: paranoid delusions Insight/judgment: impaired x 2. memory/cog: alert, oriented x 3. ACL 5.0 Diagnostics Vital Signs (24Hr): Vital Signs - 24 hr 11/10/23 18:00 11/11/23 06:00 Temperature 97.6 F 98.1 F Pulse Rate 108 H 100 Respiratory Rate 20 18 Blood Pressure 147/64 H 131/60 Pulse Oximetry 92 94 Oxygen Delivery Method Room Air Room Air BMI result Body Mass Index 27.9 Labs 11/07/23 20:56 11/07/23 20:55 Imaging Radiology Impressions: ITS Impressions Head CT 11/09/23 13:09 IMPRESSION: No acute intracranial abnormality. There is chronic microangiopathy and atherosclerotic calcification throughout the intracranial arterial vasculature. Head CT 11/10/23 16:22 IMPRESSION: 1. No evidence of acute intracranial hemorrhage or edematous territorial infarction. 2. Moderate underlying microangiopathy and generalized cerebral volume loss. Medications Medications Current Medications Acetaminophen (Acetaminophen 325 Mg Tablet) 650 mg PO Q6H PRN PRN Reason: Headache/Pain Mild Scale (1-3) Last Admin: 11/10/23 21:08 Dose: 650 mg Al Hydroxide/Mg Hydroxide (Magnesium Hydrox/Alum Hydrox 30 Ml Oral.Susp) 30 ml PO Q6H PRN PRN Reason: Heartburn/Nausea Albuterol Sulfate (Albuterol Sulfate 90 Mcg 8 Gm Inhaler) 2 puff INHALE Q4H PRN PRN Reason: wheezing Last Admin: 11/10/23 21:21 Dose: 2 puff Atorvastatin Calcium (Atorvastatin Calcium 40 Mg Tablet) 40 mg PO BEDTIME [facility] Last Admin: 11/10/23 21:09 Dose: 40 mg Fluticasone/Vilanterol (Fluticasone/Vilanterol 200/25 Blst.W.Dev) 1 puff INHALE DAILY [facility] Last Admin: 11/11/23 08:46 Dose: 1 puff Magnesium Hydroxide (Milk Of Magnesia 30 Ml Oral.Susp) 30 ml PO DAILY PRN PRN Reason: Constipation Metoprolol Succinate (Metoprolol Succinate Er 25 Mg Tab.Er.24h) 25 mg PO DAILY [facility]; Protocol Last Admin: 11/11/23 08:48 Dose: 25 mg Nicotine Polacrilex (Nicotine Polacrilex 2 Mg Gum) 4 mg BUCCAL Q2H PRN PRN Reason: Nicotine Cravings Olanzapine (Olanzapine 2.5 Mg Tablet) 2.5 mg PO TID PRN PRN Reason: agitation Quetiapine Fumarate (Quetiapine Fumarate 50 Mg Tablet) 50 mg PO BEDTIME [facility] Last Admin: 11/10/23 21:09 Dose: 50 mg Trazodone HCl (Trazodone Hcl 50 Mg Tablet) 50 mg PO BEDTIME PRN PRN Reason: Insomnia Allergies Allergies Allergy/AdvReac Type Severity Reaction Status Date / Time No Known Allergies Allergy Verified 06/16/23 13:33 [No Known Allergies*] Assessment & Plan Assessment & Plan (1) Benign familial tremor: Status: Acute Code(s): G25.0 - Essential tremor Assessment and Plan: If not impacting her day-to-day life, no medicine is needed. Otherwise a small dose of propranolol 10 mg twice a day or primidone 50 mg a day can be tried. (2) Cerebral microvascular disease: Status: Acute Code(s): I67.89 - Other cerebrovascular disease Assessment and Plan: This could impact her balance and walking and cognition. Baby aspirin daily and control of other vascular risk factors is recommended. 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 CV, 3 day notice signed 11/09 and up on 11/14 2. Increase seroquel 100mg po qhs. 3. monitor for sedation 4. pending collateral information from son. Reason for continued inpatient stay Substantial Risk for: inability to function Reason for continued inpatient stay Substantial Risk for: inability to function Time Spent With Patient Time: Total time managing care of this patient today ____ minutes.
[2023-11-11 18:00] VITALS: BP 139/65; PULSE 100; RESP 18; TEMP 36.2; O2SAT 93
[2023-11-11] MEDS: Atorvastatin Calcium 40 MG TABLET PO (21:27)
[2023-11-11] MEDS: QUEtiapine Fumarate 100 MG TABLET PO (21:27)
[2023-11-11] MEDS: Acetaminophen 325 MG TABLET 650 MG PO (21:38)
[2023-11-11] MEDS: OLANZapine 2.5 MG TABLET PO (21:38)
[2023-11-12 06:00] VITALS: BP 143/69; PULSE 107; RESP 18; TEMP 36.6; O2SAT 93
[2023-11-12] MEDS: Fluticasone/Vilanterol 200/25 BLST.W.DEV 1 PUFF INHALE (08:49)
[2023-11-12] MEDS: Metoprolol Succinate ER 25 MG TAB.ER.24H PO (08:49)
--- NOTE | 2023-11-12 10:27 | HO.PSYCHPN ---
Subjective Subjective Date of Service: 11/12/23 Reason For Visit: s12 crisis Subjective Notes: Conditional Voluntary Interim History: met with patient. Discussed with Nursing. That patient does present as paranoid, stating that social workers here have been talking about her, her asking her and in some way causing her to have inflammation in her feet. Reports medications are helping with her foot pain. Reports he wants to relocate to [facility], where her sister lives. Denies SI. Denies HI. Denies hallucinations. Sleeping okay. Denies medication concerns. Medication Compliance: Yes Side effects from medications: No Attending Groups: Intermittent Review of Systems Acute medical concerns: No Review of Systems Review of Systems Nothing acute Diagnostics Vital Signs (24Hr): Vital Signs - 24 hr 11/11/23 18:00 11/12/23 06:00 Temperature 97.2 F 97.9 F Pulse Rate 100 107 H Respiratory Rate 18 18 Blood Pressure 139/65 143/69 H Pulse Oximetry 93 93 Oxygen Delivery Method Room Air Room Air BMI result Body Mass Index 27.9 Labs 11/07/23 20:56 11/07/23 20:55 Imaging Radiology Impressions: ITS Impressions Head CT 11/09/23 13:09 IMPRESSION: No acute intracranial abnormality. There is chronic microangiopathy and atherosclerotic calcification throughout the intracranial arterial vasculature. Head CT 11/10/23 16:22 IMPRESSION: 1. No evidence of acute intracranial hemorrhage or edematous territorial infarction. 2. Moderate underlying microangiopathy and generalized cerebral volume loss. Medications Medications Current Medications Acetaminophen (Acetaminophen 325 Mg Tablet) 650 mg PO Q6H PRN PRN Reason: Headache/Pain Mild Scale (1-3) Last Admin: 11/11/23 21:38 Dose: 650 mg Al Hydroxide/Mg Hydroxide (Magnesium Hydrox/Alum Hydrox 30 Ml Oral.Susp) 30 ml PO Q6H PRN PRN Reason: Heartburn/Nausea Albuterol Sulfate (Albuterol Sulfate 90 Mcg 8 Gm Inhaler) 2 puff INHALE Q4H PRN PRN Reason: wheezing Last Admin: 11/10/23 21:21 Dose: 2 puff Atorvastatin Calcium (Atorvastatin Calcium 40 Mg Tablet) 40 mg PO BEDTIME [facility] Last Admin: 11/11/23 21:27 Dose: 40 mg Fluticasone/Vilanterol (Fluticasone/Vilanterol 200/25 Blst.W.Dev) 1 puff INHALE DAILY [facility] Last Admin: 11/12/23 08:49 Dose: 1 puff Magnesium Hydroxide (Milk Of Magnesia 30 Ml Oral.Susp) 30 ml PO DAILY PRN PRN Reason: Constipation Metoprolol Succinate (Metoprolol Succinate Er 25 Mg Tab.Er.24h) 25 mg PO DAILY [facility]; Protocol Last Admin: 11/12/23 08:49 Dose: 25 mg Nicotine Polacrilex (Nicotine Polacrilex 2 Mg Gum) 4 mg BUCCAL Q2H PRN PRN Reason: Nicotine Cravings Olanzapine (Olanzapine 2.5 Mg Tablet) 2.5 mg PO TID PRN PRN Reason: agitation Last Admin: 11/11/23 21:38 Dose: 2.5 mg Quetiapine Fumarate (Quetiapine Fumarate 100 Mg Tablet) 100 mg PO BEDTIME [facility] Last Admin: 11/11/23 21:27 Dose: 100 mg Trazodone HCl (Trazodone Hcl 25 Mg Halftab) 25 mg PO BEDTIME PRN PRN Reason: Insomnia Allergies Allergies Allergy/AdvReac Type Severity Reaction Status Date / Time No Known Allergies Allergy Verified 06/16/23 13:33 [No Known Allergies*] Assessment & Plan Assessment & Plan (1) Benign familial tremor: Status: Acute Code(s): G25.0 - Essential tremor Assessment and Plan: If not impacting her day-to-day life, no medicine is needed. Otherwise a small dose of propranolol 10 mg twice a day or primidone 50 mg a day can be tried. (2) Cerebral microvascular disease: Status: Acute Code(s): I67.89 - Other cerebrovascular disease Assessment and Plan: This could impact her balance and walking and cognition. Baby aspirin daily and control of other vascular risk factors is recommended. 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 CV, 3 day notice signed 11/09 and up on 11/14 2. Increase seroquel 100mg po qhs. 3. monitor for sedation 4. pending collateral information from son. Reason for continued inpatient stay Substantial Risk for: inability to function 4/6: no changes Reason for continued inpatient stay Substantial Risk for: inability to function and rapid decompensation Time Spent With Patient Time: Total time managing care of this patient today ____ minutes.
[2023-11-12 18:00] VITALS: BP 125/63; PULSE 100; RESP 16; TEMP 35.8; O2SAT 93
[2023-11-12] MEDS: Acetaminophen 325 MG TABLET 650 MG PO (20:50)
[2023-11-12] MEDS: QUEtiapine Fumarate 100 MG TABLET PO (20:50)
[2023-11-12] MEDS: Atorvastatin Calcium 40 MG TABLET PO (20:51)
[2023-11-13 06:00] VITALS: BP 140/73; PULSE 106; RESP 16; TEMP 34.4; O2SAT 93
[2023-11-13] MEDS: Fluticasone/Vilanterol 200/25 BLST.W.DEV 1 PUFF INHALE (08:40)
[2023-11-13] MEDS: Metoprolol Succinate ER 25 MG TAB.ER.24H PO (08:40)
--- NOTE | 2023-11-13 11:03 | HO.PSYCHPN ---
Subjective Subjective Date of Service: 11/13/23 Reason For Visit: s12 crisis Interim History: met with patient. Discussed with Nursing. Still paranoid. Some irritability. Reports medications are helping with her foot pain. Denies SI. Denies HI. Denies hallucinations. Sleeping okay. Denies medication concerns. Medication Compliance: Yes Side effects from medications: No Attending Groups: Intermittent Review of Systems Acute medical concerns: No Review of Systems Review of Systems Nothing acute Mental Status Exam Mental Status Exam Narrative: Appearance: wearing casual clothing, fair hygiene, in NAD Behavior: guarded Psychomotor: no agitation or retardation noted Speech: mostly clear, normal rate/rhythm/volume, spontaneous TP: mostly linear, tangential at times but no loose association TC: wanting to leave, upset with son for not supporting her Mood: good Affect: guarded some irritability SI: denies HI: denies VH/AH: no overt psychosis Delusions: paranoid delusions Insight/judgment: impaired x 2. memory/cog: alert, oriented x 3. ACL 5.0 Diagnostics Vital Signs (24Hr): Vital Signs - 24 hr 11/12/23 18:00 11/13/23 06:00 Temperature 96.5 F L 94 F L Pulse Rate 100 106 H Respiratory Rate 16 16 Blood Pressure 125/63 140/73 H Pulse Oximetry 93 93 Oxygen Delivery Method Room Air Room Air BMI result Body Mass Index 27.9 Labs 11/07/23 20:56 11/07/23 20:55 Imaging Radiology Impressions: ITS Impressions Head CT 11/09/23 13:09 IMPRESSION: No acute intracranial abnormality. There is chronic microangiopathy and atherosclerotic calcification throughout the intracranial arterial vasculature. Head CT 11/10/23 16:22 IMPRESSION: 1. No evidence of acute intracranial hemorrhage or edematous territorial infarction. 2. Moderate underlying microangiopathy and generalized cerebral volume loss. Medications Medications Current Medications Acetaminophen (Acetaminophen 325 Mg Tablet) 650 mg PO Q6H PRN PRN Reason: Headache/Pain Mild Scale (1-3) Last Admin: 11/12/23 20:50 Dose: 650 mg Al Hydroxide/Mg Hydroxide (Magnesium Hydrox/Alum Hydrox 30 Ml Oral.Susp) 30 ml PO Q6H PRN PRN Reason: Heartburn/Nausea Albuterol Sulfate (Albuterol Sulfate 90 Mcg 8 Gm Inhaler) 2 puff INHALE Q4H PRN PRN Reason: wheezing Last Admin: 11/10/23 21:21 Dose: 2 puff Atorvastatin Calcium (Atorvastatin Calcium 40 Mg Tablet) 40 mg PO BEDTIME [facility] Last Admin: 11/12/23 20:51 Dose: 40 mg Fluticasone/Vilanterol (Fluticasone/Vilanterol 200/25 Blst.W.Dev) 1 puff INHALE DAILY [facility] Last Admin: 11/13/23 08:40 Dose: 1 puff Magnesium Hydroxide (Milk Of Magnesia 30 Ml Oral.Susp) 30 ml PO DAILY PRN PRN Reason: Constipation Metoprolol Succinate (Metoprolol Succinate Er 25 Mg Tab.Er.24h) 25 mg PO DAILY [facility]; Protocol Last Admin: 11/13/23 08:40 Dose: 25 mg Nicotine Polacrilex (Nicotine Polacrilex 2 Mg Gum) 4 mg BUCCAL Q2H PRN PRN Reason: Nicotine Cravings Olanzapine (Olanzapine 2.5 Mg Tablet) 2.5 mg PO TID PRN PRN Reason: agitation Last Admin: 11/11/23 21:38 Dose: 2.5 mg Quetiapine Fumarate (Quetiapine Fumarate 100 Mg Tablet) 100 mg PO BEDTIME [facility] Last Admin: 11/12/23 20:50 Dose: 100 mg Trazodone HCl (Trazodone Hcl 25 Mg Halftab) 25 mg PO BEDTIME PRN PRN Reason: Insomnia Allergies Allergies Allergy/AdvReac Type Severity Reaction Status Date / Time No Known Allergies Allergy Verified 06/16/23 13:33 [No Known Allergies*] Assessment & Plan Assessment & Plan (1) Benign familial tremor: Status: Acute Code(s): G25.0 - Essential tremor Assessment and Plan: If not impacting her day-to-day life, no medicine is needed. Otherwise a small dose of propranolol 10 mg twice a day or primidone 50 mg a day can be tried. (2) Cerebral microvascular disease: Status: Acute Code(s): I67.89 - Other cerebrovascular disease Assessment and Plan: This could impact her balance and walking and cognition. Baby aspirin daily and control of other vascular risk factors is recommended. 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 CV, 3 day notice signed 11/09 and up on 11/14 2. Increase seroquel 100mg po qhs. 3. monitor for sedation 4. pending collateral information from son. Reason for continued inpatient stay Substantial Risk for: inability to function 11/11: no changes 11/12: no changes Reason for continued inpatient stay Substantial Risk for: inability to function and rapid decompensation Time Spent With Patient Time: Total time managing care of this patient today ____ minutes.
[2023-11-13 20:00] VITALS: BP 126/64; PULSE 101; RESP 16; TEMP 37.2; O2SAT 93
[2023-11-13] MEDS: Atorvastatin Calcium 40 MG TABLET PO (20:14)
[2023-11-13] MEDS: QUEtiapine Fumarate 100 MG TABLET PO (20:14)
[2023-11-13] MEDS: Acetaminophen 325 MG TABLET 650 MG PO (20:14)
[2023-11-14 07:45] VITALS: BP 111/64; PULSE 103; RESP 18; TEMP 36.3; O2SAT 92
[2023-11-14] MEDS: Metoprolol Succinate ER 25 MG TAB.ER.24H PO (08:23)
[2023-11-14] MEDS: Fluticasone/Vilanterol 200/25 BLST.W.DEV 1 PUFF INHALE (08:25)
--- NOTE | 2023-11-14 14:01 | P.PNPSI_ITS ---
Subjective Subjective Date of Service: 11/14/23 Reason For Visit: s12 crisis Subjective Notes: Robbins Warning Interim History: somewhat reactive, irritable. says this is not the place for her, she is not crazy, she is leaving on . reviews robbins warning with pt. pt perseverative re her need to leave and her plan to move to [place] to live with her sister. per staff, 3-day notice up . c/o B/L foot pain. eating, sleeping, taking meds. Mental Status Exam Mental Status Exam Narrative: Appearance: wearing casual clothing, fair hygiene, in NAD Behavior: guarded Psychomotor: no agitation or retardation noted Speech: mostly clear, normal rate, incr amount and loudness, spontaneous TP: mostly linear, tangential at times but no loose association TC: wanting to leave Mood: good Affect: irritable, hyper-intense, mod-labile SI: none expressed HI: none expressed VH/AH: none expressed Insight/judgment: impaired x 2. memory/cog: alert, oriented x 3. ACL 5.0 Diagnostics Vital Signs (24Hr): Vital Signs - 24 hr 11/13/23 20:00 11/14/23 07:45 Temperature 99.0 F 97.3 F Pulse Rate 101 H 103 H Respiratory Rate 16 18 Blood Pressure 126/64 111/64 Pulse Oximetry 93 92 Oxygen Delivery Method Room Air Room Air BMI result Body Mass Index 27.9 Labs 11/07/23 20:56 11/07/23 20:55 Imaging Radiology Impressions: ITS Impressions Head CT 11/09/23 13:09 IMPRESSION: No acute intracranial abnormality. There is chronic microangiopathy and atherosclerotic calcification throughout the intracranial arterial vasculature. Head CT 11/10/23 16:22 IMPRESSION: 1. No evidence of acute intracranial hemorrhage or edematous territorial infarction. 2. Moderate underlying microangiopathy and generalized cerebral volume loss. Medications Medications Current Medications Acetaminophen (Acetaminophen 325 Mg Tablet) 650 mg PO Q6H PRN PRN Reason: Headache/Pain Mild Scale (1-3) Last Admin: 11/13/23 20:14 Dose: 650 mg Al Hydroxide/Mg Hydroxide (Magnesium Hydrox/Alum Hydrox 30 Ml Oral.Susp) 30 ml PO Q6H PRN PRN Reason: Heartburn/Nausea Albuterol Sulfate (Albuterol Sulfate 90 Mcg 8 Gm Inhaler) 2 puff INHALE Q4H PRN PRN Reason: wheezing Last Admin: 11/10/23 21:21 Dose: 2 puff Atorvastatin Calcium (Atorvastatin Calcium 40 Mg Tablet) 40 mg PO BEDTIME [facility] Last Admin: 11/13/23 20:14 Dose: 40 mg Fluticasone/Vilanterol (Fluticasone/Vilanterol 200/25 Blst.W.Dev) 1 puff INHALE DAILY [facility] Last Admin: 11/14/23 08:25 Dose: 1 puff Magnesium Hydroxide (Milk Of Magnesia 30 Ml Oral.Susp) 30 ml PO DAILY PRN PRN Reason: Constipation Metoprolol Succinate (Metoprolol Succinate Er 25 Mg Tab.Er.24h) 25 mg PO DAILY [facility]; Protocol Last Admin: 11/14/23 08:23 Dose: 25 mg Nicotine Polacrilex (Nicotine Polacrilex 2 Mg Gum) 4 mg BUCCAL Q2H PRN PRN Reason: Nicotine Cravings Olanzapine (Olanzapine 2.5 Mg Tablet) 2.5 mg PO TID PRN PRN Reason: agitation Last Admin: 11/11/23 21:38 Dose: 2.5 mg Quetiapine Fumarate (Quetiapine Fumarate 100 Mg Tablet) 100 mg PO BEDTIME [facility] Last Admin: 11/13/23 20:14 Dose: 100 mg Trazodone HCl (Trazodone Hcl 25 Mg Halftab) 25 mg PO BEDTIME PRN PRN Reason: Insomnia Allergies Allergies Allergy/AdvReac Type Severity Reaction Status Date / Time No Known Allergies Allergy Verified 06/16/23 13:33 [No Known Allergies*] Assessment & Plan Assessment & Plan (1) Benign familial tremor: Status: Acute Code(s): G25.0 - Essential tremor Assessment and Plan: If not impacting her day-to-day life, no medicine is needed. Otherwise a small dose of propranolol 10 mg twice a day or primidone 50 mg a day can be tried. (2) Cerebral microvascular disease: Status: Acute Code(s): I67.89 - Other cerebrovascular disease Assessment and Plan: This could impact her balance and walking and cognition. Baby aspirin daily and control of other vascular risk factors is recommended. 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 CV, 3 day notice signed 11/09 and up on 4/9 2. Increase seroquel 100mg po qhs. 3. monitor for sedation 4. pending collateral information from son. Reason for continued inpatient stay Substantial Risk for: inability to function 11/11: no changes 11/12: no changes 11/13: 3-day notice up 11/15. continue current mgmt. robbins warning provided. irritable, labile, unclear if able to attend to her own needs outside the hospital. Reason for continued inpatient stay Substantial Risk for: inability to function and rapid decompensation Time Spent With Patient Time: Total time managing care of this patient today ____ minutes.
[2023-11-14 19:30] VITALS: BP 134/63; PULSE 105; RESP 18; TEMP 36.5; O2SAT 92
[2023-11-14] MEDS: Atorvastatin Calcium 40 MG TABLET PO (20:05)
[2023-11-14] MEDS: QUEtiapine Fumarate 100 MG TABLET PO (20:05)
[2023-11-15 08:00] VITALS: BP 130/62; PULSE 100; RESP 18; TEMP 36.3; O2SAT 93
[2023-11-15] MEDS: Metoprolol Succinate ER 25 MG TAB.ER.24H PO (08:38)
[2023-11-15] MEDS: Fluticasone/Vilanterol 200/25 BLST.W.DEV 1 PUFF INHALE (09:09)
[2023-11-15] MEDS: Albuterol Sulfate 90 MCG 8 GM INHALER 2 PUFF INHALE (09:49)
--- NOTE | 2023-11-15 15:21 | PM.PSYDC ---
DS: Providers Provider Date of Service: 11/15/23 Date of admission: 11/08/23 18:43 Primary care physician: Carmina Iyer DO Consults: 11/10/23 08:54 Consult to Neurology Routine Consulting Provider: [facility] Reason for consultation: resting/action bilatUE tremors Has provider been notified: Yes DS: Diagnosis Discharge Diagnosis (1) Benign familial tremor: Status: Acute (2) Cerebral microvascular disease: Status: Acute (3) Paranoid delusion: Status: Acute DS: Medications Discharge Medications Home Medications: Previous Rx's ?Medication ?Instructions ?Recorded albuterol sulfate 90 mcg/actuation 2 puff PO Q4-6H PRN wheezing 30 11/15/23 aerosol inhaler days #8.5 grams atorvastatin 40 mg tablet 40 mg PO BEDTIME 30 days #30 tabs 11/15/23 budesonide-formoterol HFA 160 2 puff inhalation BID 30 days #1 11/15/23 mcg-4.5 mcg/actuation aerosol inhaler inhaler (Symbicort) metoprolol succinate 25 mg 25 mg PO DAILY 30 days #30 tabs 11/15/23 tablet,extended release 24 hr quetiapine 100 mg tablet 100 mg PO BEDTIME 30 days #30 tabs 11/15/23 Mental Status Exam Mental Status Exam Narrative: Appearance: wearing casual clothing, fair hygiene, in NAD Behavior: guarded Psychomotor: no agitation or retardation noted Speech: mostly clear, normal rate, nml amount and loudness, spontaneous TP: mostly linear TC: wanting to leave Mood: i'm fine Affect: normo-intense, non-labile, constricted SI: none HI: none VH/AH: none Insight/judgment: impaired x 2. memory/cog: alert, oriented x 3. ACL 5.0 Data Data Completed and Pending Completed studies during hospitalization [Text1]: 11/09/23 08:30 Estimat Average Glucose 103 Hemoglobin A1c % 5.2 Triglycerides 196 H Cholesterol 193 LDL Cholesterol, Calc 108 H HDL Cholesterol 46 Imaging Diagnostic Imaging Impressions Head CT 11/09/23 13:09 IMPRESSION: No acute intracranial abnormality. There is chronic microangiopathy and atherosclerotic calcification throughout the intracranial arterial vasculature. Head CT 11/10/23 16:22 IMPRESSION: 1. No evidence of acute intracranial hemorrhage or edematous territorial infarction. 2. Moderate underlying microangiopathy and generalized cerebral volume loss. DS: Summary Hospital Course Hospital Course: per 11/08 admission note: Mrs. Barlow is a 63 year-old woman with unclear psychiatric hx who was assessed by [facility] in the community due to pt presenting as paranoid, lost housing recently in 08/2023 due to making renovations without consent and also appeared paranoid towards housing office. She apparently then moved in with her son and she also became paranoid towards her [id number] stating that she was not cleaning the house and this was causing her and her grandchildren to be infected with fungi. She reports she locked the daughter in law and confronted her and she was asked to leave the house by both her son and [id number] about 3 weeks ago. In the ED, utox is negative. Pt reports this is her first psychiatric admission. On the unit, pt presents as calm. She is also somewhat guarded. Her gait is very unsteady and she seems to easily lose balance. She reports she is okay physically and mentally. She attributes her unsteady gait to foot pain and fungal infection which she tells this typewriter assembler was caused by her [id number]. This typewriter assembler examined her foot but there is no signs of infection or fungal infection. She reports pain on touch on heel of left foot. She reports she has lost her housing because people are harassing her. She reports she lost her apartment because housing was sending cars of different colors to follow her. She reports no one directly threatened to hurt her but she is convinced that these cars she was seeing on the streets were sent by housing to monitor her. 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 She states that she does not trust her [id number] and she is upset with her son for not beeing on her side. She denies SI/HI. She reports she plans to go initially to a jail and then to [place] with her sister.When asked if we could talk with her sister, she declines. Pr crisis report, there has been concern that due to her paranoid, pt is not attending regular appointment with her PCP. I do see on our records that pulmonology and her PCP have reached out to her but she had declined scheduling appointments despite recent exacerbation of COPD. 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 Past Psychiatric History: Inpt: she denies prior admission OP: none Past medication trials: clonazepam Medical Evaluation Reviewed: Yes [facility] Medical History Acute respiratory failure with hypoxia Asthma with COPD with exacerbation Leukocytosis Hyperlipidemia Anxiety Diabetes Hypertension Mass of upper lobe of left lung Allergic rhinitis Bronchial asthma COPD (chronic obstructive pulmonary disease) Surgical History H/O colonoscopy History of cataract surgery History of tubal ligation Family History: unknown Social History: Pt reports having 2 sons. 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 Substance History: None Trauma History: denies Precis: 11/08: Admit to S1, CV. d/c clonazepam. start seroquel 50mg po qhs. obtain collateral information. aftercare planning. 11/09: continue seroquel 50mg po qhs. pending collateral information from son. 11/10: Increase seroquel 100mg po qhs. monitor for sedation. 11/11: no changes 11/12: no changes 11/13: 3-day notice up 11/15. continue current mgmt. rios warning provided. irritable, labile, unclear if able to attend to her own needs outside the hospital. 11/14: calm, cooperative. per nursing report, tending to ADLs. ACL 5.0. 3-day notice up tomorrow. pt does not appear to be committable. meds reviewed, reconciled, prescribed. pt's plan is to stay in a hotel and then drive to [place] to live with her sister. 11/15: stable, no notable events or behaviors. discharged as per plan. Time Spent with Patient Time attestation: Total time managing care of this patient today __45__ minutes. Discharge Plan Discharge Anticipated Discharge Date/Time: 11/16/23 11:00 Patient Disposition: Custodial Discharge Diagnosis: Paranoid Delusions COPD Referrals: Carmina Iyer DO [Primary Care Provider] - 11/29/23 9:15 am (Your follow up appointment has been scheduled for Tuesday11/29/23 at 9:15am.) Discharge Medications: New atorvastatin 40 mg Tablet 40 mg PO BEDTIME 30 Days Qty: 30 0RF quetiapine 100 mg Tablet 100 mg PO BEDTIME 30 Days Qty: 30 0RF metoprolol succinate 25 mg Tablet Extended Release 24 Hr 25 mg PO DAILY 30 Days Qty: 30 0RF Protocol: Hold for SBP/HR < HOLD for SBP < : 90 HOLD for HR < : 60 Continued budesonide-formoterol [Symbicort] 160-4.5 mcg/actuation HFA aerosol inhaler 2 puff INHALATION BID 30 Days Qty: 1 0RF albuterol sulfate 90 mcg/actuation HFA aerosol inhaler 2 puff PO Q4-6H PRN (Reason: wheezing) 30 Days Qty: 8.5 0RF Discontinued clonazepam 0.5 mg tablet 0.5 mg PO BEDTIME Discharge Orders: Discharge Order (Routine); Ordered 11/16/23 Ordered By: Reuben Hernandez Diet: Advance to usual diet Activity on Discharge: As tolerated Stand Alone Forms: Patient Portal Discharge page Print Language: Stateless Activity Restrictions/Additional Instructions: Take your medications as prescribed. If you were prescribed antibiotics today, it is important that you take your medication to their entirety, do not skip any doses, do not finish them early. Follow-up with your primary care provider this week. Return to the emergency department with new or worsening symptoms. Such as fevers, chills, chest pain, shortness of breath, nausea, vomiting, dizziness, headache, vision changes, lethargy In case of emergency call 911 Care Plan Goals: remain safe and stable in the outpatient treatment setting Health Concerns: COPD Hyperlipidemia HTN Plan of Treatment: take medications as prescribed. arrange for mental health care in your area within one month of discharge. Assessment: not at imminent risk of harm to self or others Patient Instructions: Urinary Tract Infection in Women (ED) Discharge Date/Time: 11/16/23 10:52
[2023-11-15 19:30] VITALS: BP 123/60; PULSE 98; RESP 16; TEMP 36.8; O2SAT 94
[2023-11-15] MEDS: QUEtiapine Fumarate 100 MG TABLET PO (20:30)
[2023-11-15] MEDS: Atorvastatin Calcium 40 MG TABLET PO (20:30)
[2023-11-16 07:30] VITALS: BP 136/51; PULSE 102; RESP 16; TEMP 36.1; O2SAT 94
[2023-11-16] MEDS: Metoprolol Succinate ER 25 MG TAB.ER.24H PO (09:30)
[2023-11-16] MEDS: Fluticasone/Vilanterol 200/25 BLST.W.DEV 1 PUFF INHALE (09:32)
== END 2023-11-16 10:52 | disposition home or self-care (01) | DRG 885 ==
LOC: HO.ED 11-08 18:57 → HO.PGERI 11-08 18:59
PROVIDERS: Internal Medicine; Admitting Provider Psychiatry & Neurology Psychiatry; Emergency Provider Emergency Medicine; PCP Family Medicine; Visit Provider Psychiatry & Neurology Psychiatry
DX: F22 Delusional disorders (principal); N39.0 Urinary tract infection, site not specified; Z59.02 Unsheltered homelessness; I67.89 Other cerebrovascular disease; J44.9 Chronic obstructive pulmonary disease, unspecified; G25.0 Essential tremor; Z20.822 Contact with and (suspected) exposure to COVID-19; Z79.899 Other long term (current) drug therapy
CPT/HCPCS: 36415; 70450; 80053; 80061; 80143; 80179; 80307; 81001; 83036; 85025; 87635; 93005; 99285; J1100

== ENCOUNTER → 2023-11-07 21:31 | Outpatient (BNV) | payer MEDICARE, SELFPAY | PROVIDERS: Emergency Provider Emergency Medicine Emergency Medical Services; PCP Family Medicine; Visit Provider Internal Medicine Cardiovascular Disease | DX: I47.10 Supraventricular tachycardia, unspecified (principal) | CPT/HCPCS: 93010 ==

== ENCOUNTER → 2023-11-08 18:43 | Outpatient (BNV) | payer MEDICARE, SELFPAY | PROVIDERS: Admitting Provider Psychiatry & Neurology Psychiatry; Emergency Provider Emergency Medicine; PCP Family Medicine; Visit Provider Psychiatry & Neurology Neurology | DX: G25.0 Essential tremor (principal); I67.89 Other cerebrovascular disease | CPT/HCPCS: 99222 ==

== ENCOUNTER → 2023-11-08 18:43 | Outpatient (BNV) | payer MEDICARE, SELFPAY | PROVIDERS: Admitting Provider Psychiatry & Neurology Psychiatry; Emergency Provider Emergency Medicine; PCP Family Medicine; Visit Provider Social Worker | DX: F22 Delusional disorders (principal); G25.0 Essential tremor; I67.89 Other cerebrovascular disease | CPT/HCPCS: 90792; 99231; 99232; 99239 ==

== ENCOUNTER 2024-01-19 07:24 | Inpatient (IN) | payer MEDICARE, SELFPAY ==
[2024-01-19] VITALS (14 sets, daily range): BP systolic 121–147; BP diastolic 60–68; PULSE 97–150; RESP 14–132; TEMP 36–37; O2SAT 83–99; BMI 23.2
--- NOTE | 2024-01-19 | ECG_ITS ---
Test Reason : HIGH HR Blood Pressure : / mmHG Vent. Rate : 134 BPM Atrial Rate : 134 BPM P-R Int : 142 ms QRS Dur : 074 ms QT Int : 266 ms P-R-T Axes : 000 148 164 degrees QTc Int : 397 ms Sinus tachycardia Left posterior fascicular block (?lead reversal) Abnormal ECG When compared with ECG of 19-JAN-2024 08:00, No significant change was found Referred By: Bhumika Bhagat Electronically Signed By:YANIRA HARDING
--- NOTE | ~2024-01-19 | XR_ITS ---
EXAMINATION: XR CHEST CLINICAL INFORMATION: Dyspnea COMPARISON: 02/09/2022 TECHNIQUE: Frontal view of the chest was obtained. FINDINGS: Extensive fibrotic pattern is observed particularly in the apices. The lungs do appear to be hyperaerated. Heart and pulmonary vessels are normal. XR/XR chest 1V IMPRESSION: Extensive chronic change. No active disease.
--- NOTE | ~2024-01-19 | CT_ITS ---
EXAMINATION: CT ANGIOGRAM OF THE CHEST WITH AND WITHOUT CONTRAST (CT PULMONARY ANGIOGRAM FOR PE) CLINICAL INFORMATION: Reason for Exam dyspnea, hypoxia COMPARISON: Portions of a chest CT performed without contrast TECHNIQUE: Prior to contrast administration, noncontrast localization images were obtained. Subsequently, multidetector volumetric imaging was performed from the thoracic inlet to below the diaphragms following the administration of 65 mL Omnipaque 350 intravenous contrast. No contrast reaction reported Sagittal, coronal, and MIP oblique sagittal reformatted images were obtained on the CT workstation, uploaded to PACS, and reviewed. This CT examination was performed using dose optimization techniques as appropriate, variously including the following: *Automated exposure control *Adjustment of mA and/or kV according to patient size (this includes techniques or standardized protocols for targeted exams where dose is matched to indication/reason for exam; i.e. extremities or head) *Use of iterative reconstruction technique Total exam dose-length product 241 mGy-cm FINDINGS: QUALITY OF STUDY/CONTRAST BOLUS: Suboptimal. PULMONARY ARTERIES: No central pulmonary embolus. Small pulmonary emboli are not detectable due to limited visualization. The midline pulmonary artery is normal caliber THORACIC AORTA: No aneurysm. LUNG: There is tracheomegaly. There is motion artifact. There are numerous scattered poorly defined pulmonary opacities which are peripheral. There is volume loss and minimal. There is some small airway thickening. There could be some tree-in-bud opacities. PLEURA: No pleural effusion or pneumothorax. MEDIASTINUM: There are no enlarged lymph nodes. There is a small hiatal hernia. No evidence of septal bowing or right heart strain. CORONARY ARTERY CALCIFICATION: There is mild coronary calcification CHEST WALL/AXILLA: No axillary or internal mammary lymphadenopathy. OSSEOUS STRUCTURES: No acute or suspicious osseous abnormality. UPPER ABDOMEN: No suspicious abnormality on limited assessment No reflux of contrast into the hepatic veins to suggest elevated right heart pressures. CT/CT angio chest PE protocol IMPRESSION: Limited assessment. No central pulmonary embolus demonstrated. Scattered pulmonary opacities limited secondary to motion. VTE: negative
--- NOTE | 2024-01-19 07:36 | ECG_ITS ---
Test Reason : asthma Blood Pressure : / mmHG Vent. Rate : 106 BPM Atrial Rate : 106 BPM P-R Int : 158 ms QRS Dur : 074 ms QT Int : 350 ms P-R-T Axes : 079 078 065 degrees QTc Int : 464 ms Sinus tachycardia Possible Left atrial enlargement Borderline ECG When compared with ECG of 07-NOV-2023 22:12, No significant change was found Referred By: Virginia Mosher Electronically Signed By:YANIRA HARDING
[2024-01-19] MEDS: Magnesium Sulfate/H2O 2 GM/50 ML PIGGYBACK IV (07:51)
[2024-01-19] MEDS: methylPREDNISolone Sod Succ 125 MG/2 ML VIAL 60 MG IVPUSH (07:51)
--- NOTE | 2024-01-19 07:57 | ED_ITS ---
HPI - Asthma General Chief Complaint: Asthma Stated Complaint: asthma Time Seen by Provider: 01/19/24 07:36 Source: patient, old records reviewed and food order expediter Mode of arrival: ambulatory Limitations: no limitations History of Present Illness ED Provider: SANA BOOKER Narrative: 63 yo female with PMH of asthma, hypertension, anxiety, hyperlipidemia, diabetes not on home O2 who has nebulizer at home but states she uses her pump here with c/o 2 weeks worsening allergy symptoms and wheezing today was much worse and notes she feels very short of breath with cough and overall short of breath. She denies fevers, travels, sick contacts, smoking use. She presented to the ED 83% on RA. MD complaint: asthma attack , shortness of breath and wheezing Onset (ago): week(s) (2) Severity: worse than usual Context: allergen exposure Associated symptoms: dry cough Asthma History: childhood onset Treatments Prior to Arrival: inhaled bronchodilator Related Data Previous Rx's ?Medication ?Instructions ?Recorded albuterol sulfate 90 mcg/actuation 2 puff PO Q4-6H PRN wheezing 30 11/15/23 aerosol inhaler days #8.5 grams atorvastatin 40 mg tablet 40 mg PO BEDTIME 30 days #30 tabs 11/15/23 budesonide-formoterol HFA 160 2 puff inhalation BID 30 days #1 11/15/23 mcg-4.5 mcg/actuation aerosol inhaler inhaler (Symbicort) metoprolol succinate 25 mg 25 mg PO DAILY 30 days #30 tabs 11/15/23 tablet,extended release 24 hr quetiapine 100 mg tablet 100 mg PO BEDTIME 30 days #30 tabs 11/15/23 Allergies Allergy/AdvReac Type Severity Reaction Status Date / Time No Known Allergies Allergy Verified 01/19/24 07:38 [No Known Allergies*] Review of Systems 2 Review of Systems: Constitutional : No Fever, No Chills ENT/Mouth : No Hoarseness, No sore throat, No Rhinorrhea Eyes: No Redness, No Discharge, No Vision Changes Cardiovascular : No Chest Pain, positive SOB, positive Dyspnea on Exertion, No Edema Respiratory : positive Cough, No Sputum, positive Wheezing, Gastrointestinal : No Nausea, No Vomiting, No Diarrhea, No abdominal Pain Genitourinary : No Dysuria, No Hematuria Musculoskeletal : No joint pain, No Myalgias Skin : No rash Neuro : No Weakness, No Numbness, No Headache Psych : No anxiety, depression Heme/Lymph: No Bruising, No Bleeding Endocrine : No Polyuria, No Polydipsia All other systems reviewed and are negative PMFSH Past Medical History Attestation statement: The following information was validated with the patient. Source: old records reviewed Medical History Acute respiratory failure with hypoxia Asthma with COPD with exacerbation Leukocytosis Hyperlipidemia Anxiety Diabetes Hypertension Mass of upper lobe of left lung Allergic rhinitis Bronchial asthma COPD (chronic obstructive pulmonary disease) Surgical History H/O colonoscopy History of cataract surgery History of tubal ligation Family History Family History Father No problems noted. Mother No problems noted. Social History Social History Household Members: None Housing: Homeless Do you presently have visiting nurse or other home services: No Alcohol intake: never Patient Tobacco Use Status: Never used Tobacco Smoked in Last 30 Days: No e-Cigarette/Vaping Use: Never Used Second Hand Smoke Exposure: No Use of substances other than those prescribed or required for medical reasons: No Advance Directives: No Advance Directives Information Provided: Yes Do you have a plan to hurt others: No Plan service: No Sexual orientation: Straight/Heterosexual Physical Exam 2 Vital Signs: Vital Signs: Last Vital Signs Temp 97.7 F 01/19/24 07:33 Pulse 101 H 01/19/24 09:08 Resp 16 01/19/24 09:08 BP 147/66 H 01/19/24 07:33 Pulse Ox 98 01/19/24 07:58 O2 Del Method Nasal Cannula 01/19/24 07:58 O2 Flow Rate 3 01/19/24 07:58 BMI result Body Mass Index 23.2 Appearance: Alert. Oriented X3. Mild acute distress. Eyes: Pupils equal, round and reactive to light. ENT: Pharynx normal. Neck: Normal inspection. Neck supple. CVS: Normal heart rate and rhythm. Pulses normal. Respiratory: Mild respiratory distress - tachypnea and retractions. Breath sounds very diminished and tight Abdomen: Soft and nontender. Skin: Skin warm and dry. Normal skin color. Normal skin turgor. Extremities: No lower extremity edema. No calf ttp Neuro: Oriented X 3. No motor deficit. No sensory deficit. Medications Administered Generic Name Dose Route Start Last Admin Trade Name Freq PRN Reason Stop Dose Admin Magnesium Sulfate 2 gm in 50 mls @ 25 mls/hr 01/19/24 07:44 01/19/24 07:51 Magnesium Sulfate/H2o IV 01/19/24 09:43 25 mls/hr ONCE ONE Administration Discontinued Medications Generic Name Dose Route Start Last Admin Trade Name Freq PRN Reason Stop Dose Admin Albuterol Sulfate 2.5 mg/ 0 mg 01/19/24 09:06 01/19/24 09:08 Albuterol/Ipratropium 3 ml INHALE 01/19/24 09:07 1 dose ONCE ONE Administration Methylprednisolone Sodium Succinate 60 mg 01/19/24 07:36 01/19/24 07:51 Methylprednisolone Sod Succ 125 Mg/2 Ml Vial IVPUSH 01/19/24 07:37 60 mg ONCE ONE Administration Medical Decision Making Medical Decision Making MDM Narrative: 63 yo female with PMH of asthma, hypertension, anxiety, hyperlipidemia, diabetes not on home O2 here with c/o wheezing dyspnea bothered by allergies at this time she is hypoxic and lung sounds are tight I have ordered IV steroids, magnesium, nebs, labs, CXR and labs. She has no chest pain to suggest ACS or VTE. She has hx of same in past with prior admission but no intubation. She is responding to supplemental O2. Likely admission if she does not turn around in ED Differential Diagnosis Differential Diagnoses: The differential diagnosis associated with the presentation includes asthma, hypoxia, viral syndrome and viral bronchitis Admission/Observation Consideration of admission/observation: Escalation of care including admission/observation considered still requiring O2 at this time after repeat nebs and IV therapy 3L NC will admit Consult Healthcare Provider Management of the patient was discussed with: Hospitalist (will admit) Lab Data [facility] Lab Attestation statement: I reviewed the patient's lab results. 01/19/24 07:46 01/19/24 07:46 Labs: Lab Results 01/19/24 01/19/24 Range/Units 07:46 07:49 WBC 13.3 H (4.8-10.8) X10*3/uL RBC 5.09 D (4.20-5.50) X10*6/uL Hgb 14.8 D (12.0-16.0) g/dl Hct 44.9 D (37.0-47.0) % MCV 88.2 (80.0-98.0) fL MCH 29.1 (27.0-33.0) pg MCHC 33.0 (31.0-35.0) g/dl RDW 13.9 (11.0-16.0) % Plt Count 352 (160-400) X10*3/uL MPV 9.8 (9.4-12.3) fL Immature Gran % (Auto) 0.3 (0.0-0.4) % Neut % (Auto) 46.5 (45-73) % Lymph % (Auto) 25.1 (20-40) % Zavala % (Auto) 6.6 (2-11) % Eos % (Auto) 20.5 H (0-4) % Baso % (Auto) 1.0 (0-2) % Lymph # (Auto) 3.3 (1.2-4.9) X10*3/uL [place]ala # (Auto) 0.9 (0.1-1.2) X10*3/uL Eos # (Auto) 2.7 H (0.0-0.4) X10*3/uL Baso # (Auto) 0.1 (0.0-0.2) X10*3/uL Abs Immat Gran (auto) 0.04 H (0.00-0.03) X10*3/uL Absolute Neuts (auto) 6.2 (2.0-8.3) x10*3/uL Absolute Nucleated RBC 0.000 (0.0-0.012) X10*3/uL Nucleated RBC % (auto) 0.0 (0.0-0.2) /100WBC Smear Tech's Comments VERIFIED VBG pH 7.33 (7.32-7.43) VBG pCO2 61 mmHg VBG pO2 37 mmHg VBG HCO3 33 H (22-26) mmol/L VBG O2 Saturation 54.0 % VBG Base Excess 5.3 mmol/L Sodium 144 (135-145) mmol/L Potassium 4.2 D (3.3-5.1) mmol/L Chloride 104 (96-108) mmol/L Carbon Dioxide 30 H (22-29) mmol/L Anion Gap 14 (12-20) BUN 24 H (9-16) mg/dL Creatinine 0.92 (0.5-1.4) mg/dL Estim Creat Clear Calc 50.4 Estimated GFR > 60 Random Glucose 97 (60-115) mg/dL Calcium 9.9 (8.4-10.2) mg/dL Magnesium 1.8 (1.6-2.6) mg/dL Total Bilirubin 0.4 (0.0-1.0) mg/dL Direct Bilirubin 0.1 (0.0-0.5) mg/dL AST 20 (5-31) U/L ALT 16 (0-31) U/L Alkaline Phosphatase 141 H (39-117) U/L Troponin I High Sens < 2.7 (<3.5-17.0) ng/L B-Natriuretic Peptide < 10 (<100) pg/mL Total Protein 8.5 H (6.5-8.0) g/dL Albumin 4.3 (3.5-5.0) g/dL Independent Interpretation I performed an independent interpretation of an: EKG and Plain X-Ray (no pneumonia) Interpretation: Rate: 106 Rhythm: sinus tachycardia [place]: normal Normal P waves. Normal SHERI. Normal QRS complex. ST T wave : normal no TAHIRA qTC: 464 prior studies: no acute ischemia The study has been interpreted contemporaneously by me. . Radiology Impression Discussion of test interpretation with radiology: I have reviewed the radiologist's reading. External Record Review External record reviewed: Inpatient record Critical Care Time Critical Care Time Critical Care Time: Yes Total Critical Care Time: 60 Attestation: repeat neb therapy, IV magnesium, review of records, hypoxia intervention, admission I attest to this time spent taking care of the patient Discharge Plan Discharge Clinical Impression: Asthma with acute exacerbation Patient Disposition: Admitted As Inpatient Prescriptions: No Action atorvastatin 40 mg Tablet 40 mg PO BEDTIME 30 Days Qty: 30 0RF quetiapine 100 mg Tablet 100 mg PO BEDTIME 30 Days Qty: 30 0RF metoprolol succinate 25 mg Tablet Extended Release 24 Hr 25 mg PO DAILY 30 Days Qty: 30 0RF Protocol: Hold for SBP/HR < HOLD for SBP < : 90 HOLD for HR < : 60 budesonide-formoterol [Symbicort] 160-4.5 mcg/actuation HFA aerosol inhaler 2 puff INHALATION BID 30 Days Qty: 1 0RF albuterol sulfate 90 mcg/actuation HFA aerosol inhaler 2 puff PO Q4-6H PRN (Reason: wheezing) 30 Days Qty: 8.5 0RF Print Language: [place]guillan
[2024-01-19 07:58] LABS: VBG Base Excess 5.3 mmol/L; VBG HCO3 33 mmol/L (22-26); VBG pCO2 61 mmHg; VBG pH 7.33 (7.32-7.43); VBG pO2 37 mmHg
[2024-01-19 07:58] LABS: Venous Blood Gas Refer to POC result
--- NOTE | 2024-01-19 08:01 | PC.NURSE ---
pt is alert and oriented, skin appropriate for ethnicity, respirations even but slighly labored at this time, ls wheezing through out all hinson, pt reports feeling sob all week,m using her inhaler without any improvement, pt is reporting a headache pain at 5/10, sinus tack on the monitor
[2024-01-19 08:04] LABS: Basophils Absolute Auto 0.1 X10*3/uL (0.0-0.2); Eosinophils Absolute Auto 2.7 X10*3/uL (0.0-0.4); Eosinophils Percent Auto 20.5 % (0-4); Hematocrit 44.9 % (37.0-47.0); Hemoglobin 14.8 g/dl (12.0-16.0); Imm Gran Abs Auto 0.04 X10*3/uL (0.00-0.03); Imm Gran Pct Auto 0.3 % (0.0-0.4); Lymphocytes Absolute Auto 3.3 X10*3/uL (1.2-4.9); Lymphocytes Percent Auto 25.1 % (20-40); MANUAL DIFF FLAG SCAN; Mean Corpuscular Hemoglobin 29.1 pg (27.0-33.0); Mean Corpuscular Volume 88.2 fL (80.0-98.0); Mean Platelet Volume 9.8 fL (9.4-12.3); Monocytes Absolute Auto 0.9 X10*3/uL (0.1-1.2); Monocytes Percent Auto 6.6 % (2-11); Neutrophils Absolute Auto 6.2 x10*3/uL (2.0-8.3); Neutrophils Percent Auto 46.5 % (45-73); Platelet Count 352 X10*3/uL (160-400); Red Blood Count 5.09 X10*6/uL (4.20-5.50); Red Cell Distribution Width 13.9 % (11.0-16.0); SCAN SMEAR FLAG 1; White Blood Count 13.3 X10*3/uL (4.8-10.8)
[2024-01-19 08:13] LABS: Alanine Aminotransferase 16 U/L (0-31); Albumin Level 4.3 g/dL (3.5-5.0); Alkaline Phosphatase 141 U/L (39-117); Anion Gap 14 (12-20); Aspartate Amino Transferase 20 U/L (5-31); Bilirubin Direct 0.1 mg/dL (0.0-0.5); Bilirubin Total 0.4 mg/dL (0.0-1.0); Blood Urea Nitrogen 24 mg/dL (9-16); Calcium 9.9 mg/dL (8.4-10.2); Carbon Dioxide 30 mmol/L (22-29); Chloride 104 mmol/L (96-108); Creatinine Clr Calc Pharmacy 50.4; Estimated Glomerular Filt Rate > 60; Glucose Random 97 mg/dL (60-115); Magnesium 1.8 mg/dL (1.6-2.6); Potassium 4.2 mmol/L (3.3-5.1); Sodium 144 mmol/L (135-145); Total Protein 8.5 g/dL (6.5-8.0)
[2024-01-19 08:20] LABS: Troponin-I High Sensitivity < 2.7 ng/L (<3.5-17.0)
[2024-01-19 08:35] LABS: SLIDE REVIEW VERIFIED
[2024-01-19 08:40] LABS: B Type Natriuretic Peptide < 10 pg/mL (<100)
[2024-01-19] MEDS: Albuterol Sulfate 2.5 MG, Albuterol/Iprat 2.5/0.5MG 3 ML 3 ML INHALE (09:08)
--- NOTE | 2024-01-19 10:22 | PC.NURSE ---
pt sleeping but easily arousable, pt reports feeling better but ls still wheezy through out but moving air better
--- NOTE | 2024-01-19 11:15 | P.HPHOSP_ITS ---
History of Present Illness Date of Service: 01/19/24 Attending physician on admission: Doroteo Posada Chief Complaint: SOB Pt is a 63-year-old [place] Islander-speaking female with a PMH significant for?HTN, HLD, asthma, allergic rhinitis, arthritis, and chronic lower back pain who presents to the ED with?worsening SOB, RIDDLE, and cough. Cough has been occasionally productive of yellowish-greenish sputum. Patient has felt fatigued and tired. Denies fever. No chest pain/pressure, palpitations. Symptoms began approximately 1 month ago and patient initially presented to [facility] where she was prescribed a prednisone taper and amoxicillin on 12/23/2023. [place] better for a week and then symptoms returned. Patient reports to the ED today due to the persistence and return of symptoms. Patient has been seen by pulmonology in the past and started on Symbicort and rescue inhaler, but patient states inhalers have not helped and she has been lost to follow-up. Last seen by Dr. Hoyt in pulmonology on 03/31/2021. Denies history of smoking. Not on home O2. In the ED pt was tachycardic to 108, tachypneic up to 22, and hypoxic as low as 83% on RA. Labs were significant for leukocytosis of 13.3 and alk-phos 141, otherwise grossly unremarkable. Stable H& H. No significant electrolyte abnormalities. Renal function WNL. Troponin and BNP negative. VBG with normal pH and no evidence of retaining. CXR showed showing extensive chronic change with no active disease. EKG demonstrated sinus tachycardia of 106 without evidence of significant ischemic changes. Pt was treated with DuoNebs, Mag sulfate, and Solu-Medrol. Pt will be admitted to the hospital for treatment further evaluation of acute hypoxic respiratory failure in the setting of acute asthma exacerbation. Review of Systems 2 Review of Systems: Shortness of breath, RIDDLE Cough occasionally productive of greenish-yellowish sputum Wheezing Fatigue Denies fever No nausea, vomiting, abdominal pain Denies chest pain/pressure, palpitations [facility] Medical History Acute respiratory failure with hypoxia Asthma with COPD with exacerbation Leukocytosis Hyperlipidemia Anxiety Diabetes Hypertension Mass of upper lobe of left lung Allergic rhinitis Bronchial asthma COPD (chronic obstructive pulmonary disease) Family History Father No problems noted. Mother No problems noted. Surgical History H/O colonoscopy History of cataract surgery History of tubal ligation Social History Household Members: None Housing: Homeless Do you presently have visiting nurse or other home services: No Alcohol intake: never Patient Tobacco Use Status: Never used Tobacco Smoked in Last 30 Days: No e-Cigarette/Vaping Use: Never Used Second Hand Smoke Exposure: No Use of substances other than those prescribed or required for medical reasons: No Advance Directives: No Advance Directives Information Provided: Yes Do you have a plan to hurt others: No Plan service: No Sexual orientation: Straight/Heterosexual Meds Allergies Allergy/AdvReac Type Severity Reaction Status Date / Time No Known Allergies Allergy Verified 01/19/24 07:38 [No Known Allergies*] Home Medications ?Medication ?Instructions ?Recorded ?Confirmed ?Last Taken ?Type albuterol sulfate 90 mcg/actuation 2 puff PO Q4H PRN wheezing 01/19/24 01/19/24 Unknown History aerosol inhaler triamcinolone acetonide 55 mcg 2 spray intranasal DAILY 01/19/24 01/19/24 01/18/24 History nasal spray aerosol Physical Exam 2 Vital Signs and Narrative: Vital Signs: Last Vital Signs Temp 98.2 F 01/19/24 11:00 Pulse 108 H 01/19/24 11:00 Resp 19 01/19/24 11:00 BP 122/60 01/19/24 11:00 Pulse Ox 97 01/19/24 10:18 O2 Del Method Nasal Cannula 01/19/24 10:18 O2 Flow Rate 2 01/19/24 10:18 BMI result Body Mass Index 23.2 Constitutional: Alert, in no acute distress. Mental Status: Oriented to person, place and time. Eyes: Pupils are equal, round, and reactive to light. Ear, Nose, and Throat: Oropharynx clear, mucous membranes moist. Ears and nose without deformities. Trachea midline. Respiratory: Significant diffuse expiratory wheezing bilaterally. Cardiovascular: S1, S2 regular. No murmurs, rubs, or gallops. Gastrointestinal: Abdomen soft, non-tender, non-distended. Normal bowel sounds. Neurologic: Cranial nerves II-XII are grossly intact bilaterally. No focal neurological deficits. Moves all extremities spontaneously. Skin: Warm, dry. Extremities: No edema. Psychiatric: Normal mood and affect. Results Labs 01/19/24 07:46 01/19/24 07:46 Labs: Laboratory Results - last 24 hr 01/19/24 01/19/24 07:46 07:49 MCV 88.2 MCH 29.1 MCHC 33.0 RDW 13.9 Plt Count 352 MPV 9.8 Immature Gran % (Auto) 0.3 Neut % (Auto) 46.5 Lymph % (Auto) 25.1 Benzie % (Auto) 6.6 Eos % (Auto) 20.5 H Baso % (Auto) 1.0 Lymph # (Auto) 3.3 Benzie # (Auto) 0.9 Eos # (Auto) 2.7 H Baso # (Auto) 0.1 Abs Immat Gran (auto) 0.04 H Absolute Neuts (auto) 6.2 Absolute Nucleated RBC 0.000 Nucleated RBC % (auto) 0.0 Smear Tech's Comments VERIFIED VBG pH 7.33 VBG pCO2 61 VBG pO2 37 VBG HCO3 33 H VBG O2 Saturation 54.0 VBG Base Excess 5.3 Anion Gap 14 Estim Creat Clear Calc 50.4 Estimated GFR > 60 Random Glucose 97 Calcium 9.9 Magnesium 1.8 Total Bilirubin 0.4 Direct Bilirubin 0.1 AST 20 ALT 16 Alkaline Phosphatase 141 H Troponin I High Sens < 2.7 B-Natriuretic Peptide < 10 Total Protein 8.5 H Albumin 4.3 Imaging Radiologist's Impressions: Impressions Chest X-Ray 01/19/24 08:10 IMPRESSION: Extensive chronic change. No active disease. Assessment and Plan (1) Asthma with acute exacerbation: Qualifiers: Asthma persistence: persistent Asthma severity: severe Qualified Code(s): J45.51 - Severe persistent asthma with (acute) exacerbation Status: Acute (2) Hypoxia: Status: Acute Plan Pt is a 63-year-old [place] Islander-speaking female with a PMH significant for?HTN, HLD, asthma, allergic rhinitis, arthritis, and chronic lower back pain who presents to the ED with?worsening SOB, RIDDLE, and cough. Pt will be admitted to the hospital for treatment and further evaluation of acute hypoxic respiratory failure in the setting of acute asthma exacerbation. Acute hypoxic respiratory failure in the setting of asthma exacerbation Patient with SOB, RIDDLE, fatigue, cough, desatting as low as 83% on RA in the ED, currently desatting 88% RA CXR showing no active disease but extensive fibrotic pattern; previous CXRs also show ?Interstitial lung disease Pt does not meet SIRS criteria: no CXR evidence of pneumonia, tachycardia secondary to albuterol use, leukocytosis secondary to prednisone use No indication for antibiotic treatment at this time Will treat with DuoNebs, Solu-Medrol, loratadine, guaifenesin Patient last saw Dr. Hoyt in pulmonology on 03/31/2021, lost to follow-up Pulmonology consult to reestablish care Titrate supplemental O2 >92, wean as tolerated Monitor respiratory status HTN Continue metoprolol HLD Continue statin Full Code Attending:?Dr. Posada DVT Prophylaxis: Lovenox Pt will require a hospitalization of at least two nights for treatment of?acute hypoxic respiratory failure in the setting asthma exacerbation. Patient will require continued care due to administration of supplemental oxygen, IV steroids, and breathing treatments. Quality Stroke Does the patient have a stroke diagnosis?: No VTE Prior VTE?: No VTE Risk Level:: Medical - moderate - high VTE Device Contraindication: Treatment Not Indicated VTE Drug Contraindication: N/A - Med Ordered
--- NOTE | 2024-01-19 11:16 | PHA.MEDREC ---
Pharmacy Consult ? Medication Reconciliation Pharmacy has completed the medication reconciliation. Confirmed meds with help from rock crusher. patient said theyre no longer taking the Quetiapine or Clonazepam due to dizziness while taking them.
[2024-01-19] MEDS: Loratadine 10 MG TABLET PO (12:36)
[2024-01-19] MEDS: Enoxaparin Sodium 40 MG/0.4 ML SYRINGE SUBCUT (12:36)
--- NOTE | 2024-01-19 14:46 | P.CONPL_ITS ---
History of Present Illness History of Present Illness Consult date: 01/19/24 Chief complaint: asthma exacerbation w/hypoxia Narrative: 63-year-old lady, smoker, with underlying history of asthma / COPD, previously followed by Dr. Hoyt, but lost to follow-up since 2020, now admitted for dyspnea and hypoxia and deemed to be secondary to exacerbation of underlying asthma/COPD. Patient is started on nebulized bronchodilators and systemic glucocorticoids. Patient's x-ray demonstrated what was read as chronic interstitial changes in pulmonary evaluation was requested. Review of Systems 2 Constitutional: Constitutional: Denies daytime sleepiness, Denies excessive sweating, Denies fatigue, Denies fever(s), Denies lethargy, Denies malaise, Denies night sweats, Denies snoring and Denies weight loss Eyes: Eyes: Denies blurry vision and Denies itchy eyes ENT: Denies nasal congestion, Denies post nasal drip, Denies sinus pain, Denies sinus pressure and Denies other ( Thrush) Cardiovascular: Cardiovascular: Denies chest pain, Denies pedal edema, Reports dyspnea, Reports dyspnea on exertion, Denies orthopnea and Denies paroxysmal nocturnal dyspnea Respiratory: Respiratory: Denies cough, Denies hemoptysis, Denies excessive phlegm production, Reports dyspnea, Reports dyspnea on exertion, Denies snoring and Denies wheezing Gastrointestinal: Gastrointestinal: Denies abdominal pain and Denies heartburn Musculoskeletal: Musculoskeletal: Denies myalgias, Denies arthralgias and Denies joint swelling Integumentary/Breasts: Skin/Breast: Denies rash Neurologic: Denies memory loss and Denies seizure-like activity Psychiatric: Psychiatric: Denies abnormal sleep pattern, Denies anxiety and Denies memory loss Endocrine: Endocrine: Denies excessive sweating, Denies fatigue and Denies heat intolerance Hematologic/Lymphatic: Hematologic/Lymphatic: Denies easy bruising Allergic/Immunologic: Allergic/Immunologic: Denies itchy eyes, Denies seasonal rhinorrhea and Denies wheezing PMFSH Past Medical History Medical History (Updated 01/19/24 @ 14:48 by Velasquez Villarreal MD) Acute respiratory failure with hypoxia Asthma with COPD with exacerbation Leukocytosis Hyperlipidemia Anxiety Diabetes Hypertension Mass of upper lobe of left lung Allergic rhinitis Bronchial asthma COPD (chronic obstructive pulmonary disease) Family History Family History Father No problems noted. Mother No problems noted. Surgical History Surgical History H/O colonoscopy History of cataract surgery History of tubal ligation Social History Social History Household Members: None Housing: Homeless Do you presently have visiting nurse or other home services: No Alcohol intake: never Patient Tobacco Use Status: Never used Tobacco Smoked in Last 30 Days: No e-Cigarette/Vaping Use: Never Used Second Hand Smoke Exposure: No Use of substances other than those prescribed or required for medical reasons: No Advance Directives: No Advance Directives Information Provided: Yes Do you have a plan to hurt others: No Plan service: No Sexual orientation: Straight/Heterosexual Meds Allergies Allergy/AdvReac Type Severity Reaction Status Date / Time No Known Allergies Allergy Verified 01/19/24 07:38 [No Known Allergies*] Active Medications: Current Medications Acetaminophen (Acetaminophen 325 Mg Tablet) 650 mg PO Q6H PRN PRN Reason: Pain, Mild (Pain Scale 1-3) Albuterol/Ipratropium (Albuterol/Iprat 2.5/0.5mg 3 Ml Ampul.Neb) 3 ml INHALE RQ4H WHILE AWAKE [facility] Docusate Sodium (Docusate Sodium 100 Mg Capsule) 100 mg PO DAILY PRN PRN Reason: Constipation Enoxaparin Sodium (Enoxaparin Sodium 40 Mg/0.4 Ml Syringe) 40 mg SUBCUT Q24H [facility] Last Admin: 01/19/24 12:36 Dose: 40 mg Guaifenesin/Dextromethorphan (Guaifenesin Dm 200/20/10 Ml 10 Ml Syrup) 10 ml PO Q6H PRN PRN Reason: Cough Loratadine (Loratadine 10 Mg Tablet) 10 mg PO DAILY [facility] Last Admin: 01/19/24 12:36 Dose: 10 mg Melatonin (Melatonin 3 Mg Tablet) 6 mg PO BEDTIME PRN PRN Reason: Insomnia Methylprednisolone Sodium Succinate (Methylprednisolone Sod Succ 40 Mg/Ml Vial) 40 mg IVPUSH Q12H CHRISTOPHER Ondansetron HCl (Ondansetron Hcl 4 Mg/2 Ml Vial) 4 mg IVPUSH Q8H PRN PRN Reason: Nausea and Vomiting Sodium Chloride (0.9 % Sodium Chloride Flush 3 Ml Syringe) 3 ml IVFLUSH QSHIFT [facility] Home Medications ?Medication ?Instructions ?Recorded ?Confirmed ?Last Taken ?Type albuterol sulfate 90 mcg/actuation 2 puff PO Q4H PRN wheezing 01/19/24 01/19/24 Unknown History aerosol inhaler triamcinolone acetonide 55 mcg 2 spray intranasal DAILY 01/19/24 01/19/24 01/18/24 History nasal spray aerosol Physical Exam 2 Vital Signs: Vital Signs: Last Vital Signs Temp 98.5 F 01/19/24 14:41 Pulse 97 01/19/24 14:41 Resp 21 H 01/19/24 14:41 BP 121/68 01/19/24 14:41 Pulse Ox 97 01/19/24 14:41 O2 Del Method Nasal Cannula 01/19/24 14:41 O2 Flow Rate 2 01/19/24 14:41 BMI result Body Mass Index 23.2 Const: General: no acute distress and alert Nutritional Appearance: not obese Orientation/consciousness: Other orientation findings ( oriented) HEENT: Head: Yes atraumatic Eyes: General: appearance normal, both eyes and all related structures S clerae: sclerae normal EOM: EOMs intact bilaterally Neck: Neck: Yes supple Lymphatic: no lymphadenopathy noted Resp: Effort & Inspection: normal respiratory effort and no use of accessory muscles Auscultation: clear to auscultation bilaterally Cardio: Rate: regular rate Rhythm: regular rhythm Heart sounds: no gallops, no murmurs and no rubs Skin: General skin exam: other ( warm) Extrem: General: No clubbing, No cyanosis and No edema Results Laboratory Findings 01/19/24 07:46 01/19/24 07:46 Abnormal lab findings: Abnormal Labs 01/19/24 01/19/24 07:46 07:49 WBC 13.3 H Eos % (Auto) 20.5 H Eos # (Auto) 2.7 H Abs Immat Gran (auto) 0.04 H VBG HCO3 33 H Carbon Dioxide 30 H BUN 24 H Alkaline Phosphatase 141 H Total Protein 8.5 H Assessment and Plan (1) Asthma-COPD overlap syndrome: Status: Acute (2) Acute respiratory failure with hypoxia: Status: Acute Plan Impression: 63-year-old lady with underlying asthma / COPD overlap syndrome lost to follow-up for 3 years admitted with subacute dyspnea and hypoxia treated for asthma exacerbation. Recommendations: Agree with current treatment with nebulized bronchodilators and systemic glucocorticoids. Possible underlying ILD, also need to rule out pulmonary embolism, thus will change CT chest to CT angio chest. Procedures Date of Service Date of Service: 01/19/24
[2024-01-19] MEDS: Albuterol/Iprat 2.5/0.5MG 3 ML AMPUL.NEB INHALE ×2 (15:31→19:47)
[2024-01-19] MEDS: iohexoL 350 MG/ML 100 ML INFUS..BTL IV (16:16)
[2024-01-19] MEDS: 0.9 % Sodium Chloride Flush 3 ML SYRINGE IVFLUSH ×2 (17:54→23:10)
--- NOTE | 2024-01-19 20:00 | PC.NURSE ---
This clinical writer assumed care of this Pt at 1900. Pt A&Ox3, laying in bed, RT at bedside, Pt receiving breathing tx.
--- NOTE | 2024-01-19 20:53 | PC.NURSE ---
Pt HR in the 150s, Pt denies chest pain. Sinus tach on EKG, copy sent to provider Dr. Luan Bhagat. New order give PO Metoprolol.
[2024-01-19] MEDS: Atorvastatin Calcium 40 MG TABLET PO (20:56)
[2024-01-19] MEDS: methylPREDNISolone Sod Succ 40 MG/ML VIAL IVPUSH (20:56)
[2024-01-19] MEDS: Metoprolol Succinate ER 25 MG TAB.ER.24H PO (21:21)
--- NOTE | 2024-01-19 22:15 | PC.NURSE ---
Report complete, Pt will be transported to room 386. Pt aware of plan.
[2024-01-19 23:01] LABS: Glucose, Whole Blood 150 mg/dL (60-115)
[2024-01-20 03:38] VITALS: BP 124/66; PULSE 96; RESP 16; TEMP 36.1; O2SAT 97
[2024-01-20 07:29] VITALS: BP 137/61; PULSE 81; RESP 16; TEMP 36.1; O2SAT 95
[2024-01-20 07:39] LABS: Glucose, Whole Blood 118 mg/dL (60-115)
[2024-01-20 08:00] VITALS: BP 137/61; PULSE 81
[2024-01-20] MEDS: Metoprolol Succinate ER 25 MG TAB.ER.24H PO (08:00)
[2024-01-20] MEDS: Loratadine 10 MG TABLET PO (08:01)
[2024-01-20] MEDS: methylPREDNISolone Sod Succ 40 MG/ML VIAL IVPUSH ×2 (08:01→20:16)
[2024-01-20] MEDS: 0.9 % Sodium Chloride Flush 3 ML SYRINGE IVFLUSH ×2 (08:01→20:17)
[2024-01-20] MEDS: Fluticasone/Vilanterol 200/25 BLST.W.DEV 1 PUFF INHALE (08:15)
[2024-01-20 08:16] VITALS: PULSE 98; RESP 16; O2SAT 95
--- NOTE | 2024-01-20 09:11 | HO.PM.IMPN ---
Subjective Subjective Date of Service: 01/20/24 Interval History: f/u on acute hypoxic resp failur d/t asthma exacerbation persistent wheeze, Physical Exam Vital Signs: Vital Signs: Last Vital Signs Temp 96.9 F 01/20/24 07:29 Pulse 98 01/20/24 08:16 Resp 16 01/20/24 08:16 BP 137/61 01/20/24 08:00 Pulse Ox 95 01/20/24 07:29 O2 Del Method Nasal Cannula 01/20/24 07:29 O2 Flow Rate 2.0 01/20/24 07:29 BMI result Body Mass Index 23.2 General: AO X 3, no acute distress Resp: diffuse wheeze bilt CVS: S1,S2,RRR GI: +BS, NT, no distention Skin: No rash Neuro: motor grossly intact Psych: appropriate affect Objective Data Active Medications Acetaminophen (Acetaminophen 325 Mg Tablet) 650 mg PO Q6H PRN PRN Reason: Pain, Mild (Pain Scale 1-3) Atorvastatin Calcium (Atorvastatin Calcium 40 Mg Tablet) 40 mg PO BEDTIME [facility] Last Admin: 01/19/24 20:56 Dose: 40 mg Documented By: SERRANYury Docusate Sodium (Docusate Sodium 100 Mg Capsule) 100 mg PO DAILY PRN PRN Reason: Constipation Enoxaparin Sodium (Enoxaparin Sodium 40 Mg/0.4 Ml Syringe) 40 mg SUBCUT Q24H [facility] Last Admin: 01/19/24 12:36 Dose: 40 mg Documented By: CHRISTOPHER Fluticasone/Vilanterol (Fluticasone/Vilanterol 200/25 Blst.W.Dev) 1 puff INHALE RDAILY [facility] Last Admin: 01/20/24 08:15 Dose: 1 puff Documented By: AIDEE Guaifenesin/Dextromethorphan (Guaifenesin Dm 200/20/10 Ml 10 Ml Syrup) 10 ml PO Q6H PRN PRN Reason: Cough Levalbuterol HCl (Levalbuterol Hcl 1.25 Mg/3 Ml Vial.Neb) 1.25 mg INHALE Q4H PRN PRN Reason: Shortness of Breath/Wheezing Loratadine (Loratadine 10 Mg Tablet) 10 mg PO DAILY [facility] Last Admin: 01/20/24 08:01 Dose: 10 mg Documented By: MAR Melatonin (Melatonin 3 Mg Tablet) 6 mg PO BEDTIME PRN PRN Reason: Insomnia Methylprednisolone Sodium Succinate (Methylprednisolone Sod Succ 40 Mg/Ml Vial) 40 mg IVPUSH Q12H [facility] Last Admin: 01/20/24 08:01 Dose: 40 mg Documented By: MAR Metoprolol Succinate (Metoprolol Succinate Er 25 Mg Tab.Er.24h) 25 mg PO DAILY [facility]; Protocol Last Admin: 01/20/24 08:00 Dose: 25 mg Documented By: MAR Ondansetron HCl (Ondansetron Hcl 4 Mg/2 Ml Vial) 4 mg IVPUSH Q8H PRN PRN Reason: Nausea and Vomiting Sodium Chloride (0.9 % Sodium Chloride Flush 3 Ml Syringe) 3 ml IVFLUSH QSHIFT [facility] Last Admin: 01/20/24 08:01 Dose: 3 ml Documented By: MAR Labs 01/19/24 07:46 01/19/24 07:46 Labs: Laboratory Results - last 24 hr 01/19/24 01/20/24 22:56 07:34 POC Glucose 150 H 118 H Assessment and Plan (1) Acute respiratory failure with hypoxia: Status: Acute (2) Hypoxia: Status: Acute Plan 63-year-old Citizen Of [place]-speaking female with a PMH significant for?HTN, HLD, asthma, allergic rhinitis, arthritis, and chronic lower back pain who presents to the ED with?worsening SOB, RIDDLE, and cough. Pt will be admitted to the hospital for treatment and further evaluation of acute hypoxic respiratory failure in the setting of acute asthma exacerbation. Acute hypoxic respiratory failure in the setting of asthma exacerbation with underlying ILD, persistent wheeze, CTA negative for pe, pulmonology input noted, O2 to keep sat >92 or better HTN, controlled Continue metoprolol HLD Continue statin Diet controlled DM--SSI, watch for hyperglycemia on steroid Full Code DVT Prophylaxis: Lovenox need for inpatient: Asthma ex with persistent wheeze and needing O2 and on IV steroid Quality Stroke Does the patient have a stroke diagnosis?: No VTE Prior VTE?: No VTE Risk Level:: Medical - moderate - high VTE Device Contraindication: Treatment Not Indicated VTE Drug Contraindication: N/A - Med Ordered
[2024-01-20 11:26] LABS: Glucose, Whole Blood 110 mg/dL (60-115)
[2024-01-20] MEDS: Enoxaparin Sodium 40 MG/0.4 ML SYRINGE SUBCUT (11:59)
[2024-01-20 15:29] VITALS: BP 117/59; PULSE 80; RESP 14; TEMP 36.4; O2SAT 95
[2024-01-20 16:21] LABS: Glucose, Whole Blood 108 mg/dL (60-115)
[2024-01-20 19:54] LABS: Glucose, Whole Blood 113 mg/dL (60-115)
[2024-01-20 19:59] VITALS: BP 127/61; PULSE 72; RESP 14; TEMP 36; O2SAT 97
[2024-01-20] MEDS: Atorvastatin Calcium 40 MG TABLET PO (20:15)
--- NOTE | 2024-01-20 21:00 | PC.NURSE ---
This RN assumed care at 1900, Pt AOX4, speech appropriate for patient, Respirations are even and unlabored, inspiratory/expiratory wheezing heard through, Meds given per OCT. BSx4, no pain with palpation. ROM intact, Pt denies pain at this time. Pt is calm, cooperative and, no apparent distress noted. Call [facility] within reach.
[2024-01-21] VITALS (8 sets, daily range): BP systolic 144–159; BP diastolic 65–69; PULSE 61–104; RESP 16–18; TEMP 36.1–36.3; O2SAT 92–97
[2024-01-21 07:31] LABS: Glucose, Whole Blood 108 mg/dL (60-115)
[2024-01-21] MEDS: Fluticasone/Vilanterol 200/25 BLST.W.DEV 1 PUFF INHALE (07:32)
[2024-01-21] MEDS: Loratadine 10 MG TABLET PO (08:03)
[2024-01-21] MEDS: 0.9 % Sodium Chloride Flush 3 ML SYRINGE IVFLUSH ×3 (08:03→21:51)
[2024-01-21] MEDS: methylPREDNISolone Sod Succ 40 MG/ML VIAL IVPUSH ×2 (08:03→19:31)
[2024-01-21] MEDS: Metoprolol Succinate ER 25 MG TAB.ER.24H PO (08:03)
[2024-01-21] MEDS: guaiFENesin LA 600 MG TAB.ER.12H PO ×2 (08:03→19:31)
--- NOTE | 2024-01-21 08:54 | MHC.CM.PN ---
PT REPORTS SHE LIVES ALONE AND IS INDEPENDENT WITH CARE AND MOBILITY SHE HAS NO DME AND NO SERVICES PT DECLINES TO COMPLETE A HCP PCP: CURTIS SUNG DCP: HOME NO SERVICES VIA PRIVATE TRANSPORT
--- NOTE | 2024-01-21 09:26 | P.PNPL_ITS ---
Subjective Subjective Date of Service: 01/21/24 Interval history: Respiratory status improved essentially to baseline. Objective Data Labs 01/19/24 07:46 01/19/24 07:46 Labs: Laboratory Results - last 24 hr 01/20/24 01/20/24 01/20/24 11:17 16:17 19:45 POC Glucose 110 108 113 01/21/24 07:27 POC Glucose 108 Physical Exam 2 Vital Signs: Vital Signs: Last Vital Signs Temp 97.1 F 01/21/24 07:22 Pulse 78 01/21/24 07:32 Resp 18 01/21/24 07:32 BP 155/67 H 01/21/24 07:22 Pulse Ox 92 01/21/24 08:42 O2 Del Method Room Air 01/21/24 08:42 O2 Flow Rate 2 01/21/24 07:22 BMI result Body Mass Index 23.2 Const: General: no acute distress, alert and awake Eyes: Sclerae: sclerae normal EOM: EOMs intact bilaterally Neck: Neck: Yes no lymphadenopathy, Yes trachea midline and Yes supple Resp: Effort & Inspection: normal respiratory effort and no respiratory distress Auscultation: clear to auscultation bilaterally Cardio: Rate: regular rate Rhythm: regular rhythm Heart sounds: no gallops, no murmurs and no rubs GI: Palpation (GI): Soft to palpation and Other GI palpation findings present ( Nontender) Auscultation: normal bowel sounds Extrem: General: Yes no pedal edema, No clubbing and No cyanosis Procedures Date of Service Date of Service: 01/21/24 Assessment and Plan Assessment and plan (1) Asthma-COPD overlap syndrome: Status: Acute (2) Acute respiratory failure with hypoxia: Status: Acute Plan Impression: 63-year-old lady with underlying asthma / COPD overlap syndrome lost to follow-up for 3 years admitted with subacute dyspnea and hypoxia treated for asthma exacerbation. Results of CTA chest reviewed, no evidence pulmonary emboli or interstitial lung disease. Respiratory status is improving significantly with systemic glucocorticoids. Recommendations: Agree with current treatment with nebulized bronchodilators and systemic glucocorticoids. Time Spent With Patient Time: Total time managing care of this patient today ____ minutes. Progress Note: Quality Stroke Does the patient have a stroke diagnosis?: No
--- NOTE | 2024-01-21 09:56 | P.PNIM_ITS ---
Subjective Subjective Date of Service: 01/21/24 Interval History: f/u on acute hypoxic resp failur d/t asthma exacerbation Sshe is feels better, but feels congested in the chest Physical Exam 2 Vital Signs: Vital Signs: Last Vital Signs Temp 97.1 F 01/21/24 07:22 Pulse 78 01/21/24 07:32 Resp 18 01/21/24 07:32 BP 155/67 H 01/21/24 07:22 Pulse Ox 92 01/21/24 08:42 O2 Del Method Room Air 01/21/24 08:42 O2 Flow Rate 2 01/21/24 07:22 BMI result Body Mass Index 23.2 General: AO X 3, no acute distress Resp: no wheeze, rhonchi, no increase wob CVS: S1,S2,RRR GI: +BS, NT, no distention Skin: No rash Neuro: motor grossly intact Psych: appropriate affect Objective Data Active Medications Acetaminophen (Acetaminophen 325 Mg Tablet) 650 mg PO Q6H PRN PRN Reason: Pain, Mild (Pain Scale 1-3) Atorvastatin Calcium (Atorvastatin Calcium 40 Mg Tablet) 40 mg PO BEDTIME [facility] Last Admin: 01/20/24 20:15 Dose: 40 mg Documented By: BRAD Docusate Sodium (Docusate Sodium 100 Mg Capsule) 100 mg PO DAILY PRN PRN Reason: Constipation Enoxaparin Sodium (Enoxaparin Sodium 40 Mg/0.4 Ml Syringe) 40 mg SUBCUT Q24H [facility] Last Admin: 01/20/24 11:59 Dose: 40 mg Documented By: MAR Fluticasone/Vilanterol (Fluticasone/Vilanterol 200/25 Blst.W.Dev) 1 puff INHALE RDAILY [facility] Last Admin: 01/21/24 07:32 Dose: 1 puff Documented By: ADE Glucose (Glucose Gel 15 Gm Gel..Gram.) 15 gm PO Q15M PRN; Protocol PRN Reason: per Hypoglycemia Standing Ord. Guaifenesin (Guaifenesin La 600 Mg Tab.Er.12h) 600 mg PO BID [facility] Last Admin: 01/21/24 08:03 Dose: 600 mg Documented By: RAMAKRISHNA Guaifenesin/Dextromethorphan (Guaifenesin Dm 200/20/10 Ml 10 Ml Syrup) 10 ml PO Q6H PRN PRN Reason: Cough Dextrose (D10) 250 mls @ 750 mls/hr IV Q15M PRN; Protocol PRN Reason: per Hypoglycemia Standing Ord. Insulin Human Lispro (Insulin Lispro 100 Unit/Ml 3 Ml Vial) 0 unit SUBCUT QIDACHS [facility]; Protocol Last Admin: 01/21/24 08:02 Dose: Not Given Documented By: RAMAKRISHNA Non-Admin Reason: No Insulin Coverage Levalbuterol HCl (Levalbuterol Hcl 1.25 Mg/3 Ml Vial.Neb) 1.25 mg INHALE Q4H PRN PRN Reason: Shortness of Breath/Wheezing Loratadine (Loratadine 10 Mg Tablet) 10 mg PO DAILY [facility] Last Admin: 01/21/24 08:03 Dose: 10 mg Documented By: RAMAKRISHNA Melatonin (Melatonin 3 Mg Tablet) 6 mg PO BEDTIME PRN PRN Reason: Insomnia Methylprednisolone Sodium Succinate (Methylprednisolone Sod Succ 40 Mg/Ml Vial) 40 mg IVPUSH Q12H [facility] Last Admin: 01/21/24 08:03 Dose: 40 mg Documented By: RAMAKRISHNA Metoprolol Succinate (Metoprolol Succinate Er 25 Mg Tab.Er.24h) 25 mg PO DAILY [facility]; Protocol Last Admin: 01/21/24 08:03 Dose: 25 mg Documented By: RAMAKRISHNA Ondansetron HCl (Ondansetron Hcl 4 Mg/2 Ml Vial) 4 mg IVPUSH Q8H PRN PRN Reason: Nausea and Vomiting Sodium Chloride (0.9 % Sodium Chloride Flush 3 Ml Syringe) 3 ml IVFLUSH QSHIFT [facility] Last Admin: 01/21/24 08:03 Dose: 3 ml Documented By: RAMAKRISHNA Labs 01/19/24 07:46 01/19/24 07:46 Labs: Laboratory Results - last 24 hr 01/20/24 01/20/24 01/20/24 11:17 16:17 19:45 POC Glucose 110 108 113 01/21/24 07:27 POC Glucose 108 Assessment and Plan (1) Acute respiratory failure with hypoxia: Status: Acute (2) Hypoxia: Status: Acute Plan 63-year-old Malay-speaking female with a PMH significant for?HTN, HLD, asthma, allergic rhinitis, arthritis, and chronic lower back pain who presents to the ED with?worsening SOB, RIDDLE, and cough. Pt will be admitted to the hospital for treatment and further evaluation of acute hypoxic respiratory failure in the setting of acute asthma exacerbation. Acute hypoxic respiratory failure in the setting of asthma exacerbation with underlying ILD, improved CTA negative for pe, pulmonology input noted. wean off O2, add Mucinex HTN, Continue metoprolol HLD Continue statin Diet controlled DM--SSI, watch for hyperglycemia on steroid Full Code DVT Prophylaxis: Lovenox need for inpatient: Asthma ex with persistent wheeze and needing O2 and on IV steroid try off O2 and if does ok, discharge home Quality Stroke Does the patient have a stroke diagnosis?: No VTE Prior VTE?: No VTE Risk Level:: Medical - moderate - high VTE Device Contraindication: Treatment Not Indicated VTE Drug Contraindication: N/A - Med Ordered
[2024-01-21] MEDS: Enoxaparin Sodium 40 MG/0.4 ML SYRINGE SUBCUT (11:23)
[2024-01-21 11:29] LABS: Glucose, Whole Blood 99 mg/dL (60-115)
[2024-01-21 16:17] LABS: Glucose, Whole Blood 121 mg/dL (60-115)
[2024-01-21] MEDS: levalbuterol HCL 1.25 MG/3 ML VIAL.NEB INHALE (19:30)
[2024-01-21] MEDS: Atorvastatin Calcium 40 MG TABLET PO (19:31)
[2024-01-21 21:23] LABS: Glucose, Whole Blood 138 mg/dL (60-115)
[2024-01-22 04:00] VITALS: BP 139/65; PULSE 77; RESP 16; TEMP 36; O2SAT 93
[2024-01-22 07:32] VITALS: BP 155/76; PULSE 74; RESP 14; TEMP 37.1; O2SAT 95
[2024-01-22 07:38] LABS: Glucose, Whole Blood 119 mg/dL (60-115)
[2024-01-22 07:53] VITALS: PULSE 108; RESP 16; O2SAT 91
[2024-01-22] MEDS: Fluticasone/Vilanterol 200/25 BLST.W.DEV 1 PUFF INHALE (07:53)
--- NOTE | 2024-01-22 07:53 | P.DS_ITS ---
DS: Providers Provider Date of Service: 01/22/24 Date of admission: 01/19/24 12:10 Primary care physician: Carmina Iyer DO Consults: 01/19/24 12:06 Consult to Pulmonology Routine Consulting Provider: [facility] Reason for consultation: Asthma exacerbation, pt lost to f/u, CXR ?interstitial lung disease DS: Diagnosis Discharge Diagnosis (1) Acute respiratory failure with hypoxia: Status: Acute (2) Hypoxia: Status: Acute DS: Summary Hospital Course Hospital Course: admission hpi Chief Complaint: SOB Pt is a 63-year-old [place] Islander-speaking female with a PMH significant for?HTN, HLD, asthma, allergic rhinitis, arthritis, and chronic lower back pain who presents to the ED with?worsening SOB, RIDDLE, and cough. Cough has been occasionally productive of yellowish-greenish sputum. Patient has felt fatigued and tired. Denies fever. No chest pain/pressure, palpitations. Symptoms began approximately 1 month ago and patient initially presented to [facility] where she was prescribed a prednisone taper and amoxicillin on 12/23/2023. [place] better for a week and then symptoms returned. Patient reports to the ED today due to the persistence and return of symptoms. Patient has been seen by pulmonology in the past and started on Symbicort and rescue inhaler, but patient states inhalers have not helped and she has been lost to follow-up. Last seen by Dr. Hoyt in pulmonology on 03/31/2021. Denies history of smoking. Not on home O2. In the ED pt was tachycardic to 108, tachypneic up to 22, and hypoxic as low as 83% on RA. Labs were significant for leukocytosis of 13.3 and alk-phos 141, otherwise grossly unremarkable. Stable H& H. No significant electrolyte abnormalities. Renal function WNL. Troponin and BNP negative. VBG with normal pH and no evidence of retaining. CXR showed showing extensive chronic change with no active disease. EKG demonstrated sinus tachycardia of 106 without eviden ce of significant ischemic changes. Pt was treated with DuoNebs, Mag sulfate, and Solu-Medrol. Pt will be admitted to the hospital for treatment further evaluation of acute hypoxic respiratory failure in the setting of acute asthma exacerbation. Hospital course: The patient, with moderate persistent asthma, presented with an acute exacerbation associated with hypoxia. She was treated with intravenous steroids, nebulized bronchodilators, and initially required supplemental oxygen, which has now been discontinued. Her symptoms have significantly improved, and her lung examination is now clear. She wishes to go home and will be discharged with a 1- week taper of prednisone. Final diagnoses: Acute hypoxic respiratory failure Moderate Persistent asthma with copd overlapwith acute exacerbation Time Attestation Discharge Coordination Time (in mins): 45 Quality: Safe Use of Opioids Does Pt have an Active Cancer Diagnosis on the Problem List?: No Quality: Stroke Does the patient have a stroke diagnosis?: No Physical Exam Vital Signs: Vital Signs: Last Vital Signs Temp 98.7 F 01/22/24 07:32 Pulse 74 01/22/24 07:32 Resp 14 01/22/24 07:32 BP 155/76 H 01/22/24 07:32 Pulse Ox 95 01/22/24 07:32 O2 Del Method Room Air 01/22/24 07:32 O2 Flow Rate 2 01/21/24 07:22 BMI result Body Mass Index 23.2 Const: Other: General: AO X 3, no acute distress Resp: CTA bilateral CVS: S1,S2,RRR GI: +BS, NT, no distention Skin: No rash Neuro: motor grossly intact Psych: appropriate affect DS: Data Data Completed and Pending Labs on day of discharge: Laboratory Results - last 24 hr 01/21/24 01/21/24 01/21/24 11:25 16:09 19:23 POC Glucose 99 121 H 138 H 01/22/24 07:34 POC Glucose 119 H Discharge Plan Discharge Anticipated Discharge Date/Time: 01/22/24 07:44 Patient Disposition: Home, Self-Care Discharge Diagnosis: Acute exacerbation of moderate persistent asthma Referrals: Carmina Iyer DO [Primary Care Provider] - 1 Week Discharge Medications: New prednisone 10 mg tablet See Taper PO DAILY Qty: 20 0RF Taper: Prednisone 40 mg daily for 2 Days and 0 Hour 30 mg daily for 2 Days and 0 Hour 20 mg daily for 2 Days and 0 Hour 10 mg daily for 2 Days and 0 Hour guaifenesin [Mucinex] 600 mg Tablet Extended Release 12hr 600 mg PO BID Qty: 8 0RF Continued atorvastatin 40 mg Tablet 40 mg PO BEDTIME 30 Days Qty: 30 0RF metoprolol succinate 25 mg Tablet Extended Release 24 Hr 25 mg PO DAILY 30 Days Qty: 30 0RF Protocol: Hold for SBP/HR < HOLD for SBP < : 90 HOLD for HR < : 60 budesonide-formoterol [Symbicort] 160-4.5 mcg/actuation HFA aerosol inhaler 2 puff INHALATION BID 30 Days Qty: 1 0RF triamcinolone acetonide 55 mcg aerosol,spray 2 spray intranasal DAILY albuterol sulfate 90 mcg/actuation HFA aerosol inhaler 2 puff PO Q4H PRN (Reason: wheezing) Discharge Orders: Discharge Order (Routine); Ordered 01/22/24 Ordered By: Ramo Viveros Diet: Advance to usual diet Activity on Discharge: As tolerated Stand Alone Forms: Patient Portal Discharge page Print Language: [place] Islander Care Plan Goals: Recovery from asthma exacerbation, brething comfortably and prevent hospitalization Health Concerns: asthma with acute exacerbation Plan of Treatment: Take Prednisone as directed, continue using your inhalers as before and follow up with your Doctor in a week, call for appointment Assessment: see above
[2024-01-22] MEDS: methylPREDNISolone Sod Succ 40 MG/ML VIAL IVPUSH (08:28)
[2024-01-22] MEDS: 0.9 % Sodium Chloride Flush 3 ML SYRINGE IVFLUSH (08:28)
[2024-01-22] MEDS: guaiFENesin LA 600 MG TAB.ER.12H PO (08:28)
[2024-01-22] MEDS: Loratadine 10 MG TABLET PO (08:29)
[2024-01-22] MEDS: Metoprolol Succinate ER 25 MG TAB.ER.24H PO (08:29)
--- NOTE | 2024-01-22 08:47 | MHC.CM.PN ---
pt dcd home self care
== END 2024-01-22 11:34 | disposition home or self-care (01) | DRG 191 ==
LOC: HO.ED 09:38 → HO.EDOVER 12:11 → HO.S3 20:35
PROVIDERS: Family Medicine; Admitting Provider Student in an Organized Health Care Education/Training Program; Emergency Provider Emergency Medicine; PCP Family Medicine; Visit Provider Internal Medicine
DX: J44.1 Chronic obstructive pulmonary disease with (acute) exacerbation (principal); J45.51 Severe persistent asthma with (acute) exacerbation; F41.9 Anxiety disorder, unspecified; I10 Essential (primary) hypertension; E78.5 Hyperlipidemia, unspecified; Z79.899 Other long term (current) drug therapy
CPT/HCPCS: 36415; 71045; 71275; 80048; 80076; 82803; 82947; 83735; 83880; 84484; 85025; 93005; 94640; 99285; J1650; J2919; J3475; Q9967

== ENCOUNTER → 2024-01-19 07:36 | Outpatient (BNV) | payer MEDICARE, SELFPAY | PROVIDERS: Admitting Provider Student in an Organized Health Care Education/Training Program; Emergency Provider Emergency Medicine; PCP Family Medicine; Visit Provider Internal Medicine | DX: R00.0 Tachycardia, unspecified (principal) | CPT/HCPCS: 93010 ==

== ENCOUNTER → 2024-01-19 12:10 | Outpatient (BNV) | payer MEDICARE, SELFPAY | PROVIDERS: Admitting Provider Student in an Organized Health Care Education/Training Program; Emergency Provider Emergency Medicine; PCP Family Medicine; Visit Provider Internal Medicine | DX: J45.51 Severe persistent asthma with (acute) exacerbation (principal); R09.02 Hypoxemia | CPT/HCPCS: 99223; 99232; 99239 ==

== ENCOUNTER → 2024-01-19 12:10 | Outpatient (BNV) | payer MEDICARE, SELFPAY | PROVIDERS: Admitting Provider Student in an Organized Health Care Education/Training Program; Emergency Provider Emergency Medicine; PCP Family Medicine; Visit Provider Internal Medicine Pulmonary Disease | DX: J44.89 Other specified chronic obstructive pulmonary disease (principal); J96.01 Acute respiratory failure with hypoxia | CPT/HCPCS: 99222; 99232 ==

== ENCOUNTER 2024-02-22 09:44 | Inpatient (IN) | payer MEDICARE, SELFPAY ==
[2024-02-22] VITALS (8 sets, daily range): BP systolic 106–135; BP diastolic 56–66; PULSE 58–131; RESP 14–20; TEMP 36.3–37.8; O2SAT 90–97; BMI 23.1
--- NOTE | 2024-02-22 | ECG_ITS ---
Test Reason : TACHYCARDIA Blood Pressure : / mmHG Vent. Rate : 125 BPM Atrial Rate : 125 BPM P-R Int : 142 ms QRS Dur : 066 ms QT Int : 290 ms P-R-T Axes : 074 069 076 degrees QTc Int : 418 ms Sinus tachycardia Otherwise normal ECG When compared with ECG of 19-JAN-2024 20:56, Nonspecific T wave abnormality no longer evident in Inferior leads Nonspecific T wave abnormality no longer evident in Lateral leads Referred By: Generic ED Physician Electronically Signed By:RICCO JACOBSEN MD
--- NOTE | ~2024-02-22 | XR_ITS ---
EXAMINATION: XR CHEST CLINICAL INFORMATION: Cough. COMPARISON: 01/19/2024 TECHNIQUE: 2 views of the chest were obtained. FINDINGS: The lungs are well expanded. Stable biapical scarring. There is patchy airspace disease in the upper lobes possibly on a chronic basis. Central bronchial wall thickening. No pleural effusion. Cardiac silhouette is unchanged. XR/XR chest 2V IMPRESSION: Bilateral upper lobe predominant airspace disease possibly on a chronic basis. Pneumonia cannot be excluded. Advise clinical correlation and short interval follow-up imaging.
[2024-02-22 10:21] LABS: MANUAL DIFF FLAG NO
[2024-02-22 10:22] LABS: Basophils Absolute Auto 0.1 X10*3/uL (0.0-0.2); Basophils Percent Auto 0.8 % (0-2); Eosinophils Percent Auto 0.2 % (0-4); Hematocrit 42.1 % (37.0-47.0); Imm Gran Abs Auto 0.07 X10*3/uL (0.00-0.03); Imm Gran Pct Auto 0.6 % (0.0-0.4); Lymphocytes Absolute Auto 1.7 X10*3/uL (1.2-4.9); Lymphocytes Percent Auto 13.1 % (20-40); Mean Corpuscular HGB Conc 33.3 g/dl (31.0-35.0); Mean Corpuscular Hemoglobin 28.8 pg (27.0-33.0); Mean Corpuscular Volume 86.6 fL (80.0-98.0); Mean Platelet Volume 9.7 fL (9.4-12.3); Monocytes Absolute Auto 1.5 X10*3/uL (0.1-1.2); Monocytes Percent Auto 11.8 % (2-11); Neutrophils Absolute Auto 9.3 x10*3/uL (2.0-8.3); Neutrophils Percent Auto 73.5 % (45-73); Platelet Count 265 X10*3/uL (160-400); Red Blood Count 4.86 X10*6/uL (4.20-5.50); Red Cell Distribution Width 14.6 % (11.0-16.0); White Blood Count 12.6 X10*3/uL (4.8-10.8)
[2024-02-22 10:47] LABS: Alanine Aminotransferase 13 U/L (0-31); Albumin Level 3.9 g/dL (3.5-5.0); Alkaline Phosphatase 87 U/L (39-117); Anion Gap 19 (12-20); Aspartate Amino Transferase 24 U/L (5-31); Bilirubin Total 0.6 mg/dL (0.0-1.0); Blood Urea Nitrogen 33 mg/dL (9-16); Calcium 9.4 mg/dL (8.4-10.2); Carbon Dioxide 21 mmol/L (22-29); Chloride 101 mmol/L (96-108); Creatinine Clr Calc Pharmacy 51.5; Estimated Glomerular Filt Rate > 60; Glucose Random 111 mg/dL (60-115); Potassium 4.6 mmol/L (3.3-5.1); Sodium 136 mmol/L (135-145); Total Protein 8.2 g/dL (6.5-8.0)
[2024-02-22 10:48] LABS: Troponin-I High Sensitivity 3.7 ng/L (<3.5-17.0)
[2024-02-22 10:59] LABS: Influenza A PCR NEGATIVE (Negative); Influenza B PCR NEGATIVE (Negative); Resp Syncy Virus RNA Qual PCR NEGATIVE (Negative); SARS COV2 PCR INHOUSE POSITIVE (Negative)
[2024-02-22] MEDS: Acetaminophen 325 MG TABLET 650 MG PO (11:21)
--- NOTE | 2024-02-22 12:34 | ED_ITS ---
HPI - URI/Sore Throat General Chief Complaint: Upper Respiratory Symptoms Stated Complaint: bronchitis Time Seen by Provider: 02/22/24 12:34 Source: patient, RN notes reviewed, old records reviewed and automotive parts interpreter (HAITIAN) Mode of arrival: ambulatory Limitations: language barrier (HAITIAN) History of Present Illness ED Provider: RAMON LONG PA-C HPI Narrative: 63-year-old Haitian-speaking female with past medical history significant for hypertension, HDL, asthma, allergic rhinitis, arthritis, and chronic lower back pain presents to the ED today for evaluation of shortness of breath and cough productive of yellow/green sputum x5 days. Denies known sick contacts. Denies fevers, chills, sore throat, N/V. Of note, patient admitted for acute hypoxic respiratory failure in the setting of acute asthma exacerbation approximately 1 month ago. Related Data Home Medications ?Medication ?Instructions ?Recorded ?Confirmed albuterol sulfate 90 mcg/actuation 2 puff PO Q4H PRN wheezing 01/19/24 02/22/24 aerosol inhaler triamcinolone acetonide 55 mcg 2 spray intranasal DAILY 01/19/24 02/22/24 nasal spray aerosol Previous Rx's ?Medication ?Instructions ?Recorded atorvastatin 40 mg tablet 40 mg PO BEDTIME 30 days #30 tabs 11/15/23 budesonide-formoterol HFA 160 2 puff inhalation BID 30 days #1 11/15/23 mcg-4.5 mcg/actuation aerosol inhaler inhaler (Symbicort) metoprolol succinate 25 mg 25 mg PO DAILY 30 days #30 tabs 11/15/23 tablet,extended release 24 hr Allergies Allergy/AdvReac Type Severity Reaction Status Date / Time No Known Allergies Allergy Unverified 02/22/24 10:01 [No Known Allergies*] Review of Systems 2 Review of Systems: Constitutional: No fever, chills, fatigue, night sweats, weight changes ENT/Mouth: No ear pain, hearing loss, nasal congestion, sinus pain, rhinorrhea, sore throat Eyes: No eye pain, swelling, redness, vision changes, discharge Cardio: No chest pain, palpitations, RIDDLE, orthopnea, peripheral edema Pulm: No wheezing, dyspnea, hemoptysis, +sob, +cough, +sputum production GI: No nausea, vomiting, hematemesis, abdominal pain, diarrhea, constipation, hematochezia, melena : No irregular bleeding, dysuria, frequency, urgency, hesitancy, hematuria, flank pain, urinary flow changes, urinary incontinence or retention MSK: No back pain, neck pain, joint pain, myalgias Skin: No lesions, rashes Neuro: No weakness, numbness, paresthesias, LOC, dizziness, headache Psych: No anxiety/panic, depression, SI/HI, AH/VH All other systems reviewed and are negative. [facility] Past Medical History Attestation statement: The following information was validated with the patient. Source: old records reviewed and nursing notes reviewed Medical History Acute respiratory failure with hypoxia Asthma with COPD with exacerbation Leukocytosis Hyperlipidemia Anxiety Diabetes Hypertension Mass of upper lobe of left lung Allergic rhinitis Bronchial asthma COPD (chronic obstructive pulmonary disease) Surgical History H/O colonoscopy History of cataract surgery History of tubal ligation Family History Family History Father No problems noted. Mother No problems noted. Social History Social History Household Members: None Housing: Apartment Do you presently have visiting nurse or other home services: No Alcohol intake: never Patient Tobacco Use Status: Never used Tobacco e-Cigarette/Vaping Use: Never Used Second Hand Smoke Exposure: No service: No Sexual orientation: Straight/Heterosexual Physical Exam 2 Vital Signs: Vital Signs: Last Vital Signs Temp 97.6 F 02/23/24 12:00 Pulse 62 02/23/24 12:00 Resp 20 02/23/24 12:00 BP 138/61 02/23/24 12:00 Pulse Ox 92 02/23/24 12:00 O2 Del Method Nasal Cannula 02/23/24 12:00 O2 Flow Rate 1 02/23/24 12:00 BMI result Body Mass Index 23.1 Vital signs stable Const: General: cooperative, no acute distress and ill appearing O rientation/consciousness: patient oriented x3 Limitations: no limitations HEENT: Head: Yes normal to inspection, Yes No palpable skull fracture present, Yes normocephalic and Yes atraumatic Mouth: Normal oral and palatal mucosa present Eyes: General: appearance normal, both eyes and all related structures P upils: Equal, round and reactive pupils present Neck: Neck: Yes normal visual inspection, Yes full ROM, Yes no lymphadenopathy and Yes no JVD Resp: Other: + no respiratory distress. diffuse rhonc hi Cardio: Rate: regular rate Rhythm: regular rhythm Skin: General skin exam: no rashes or lesions noted Neuro: General: patient oriented x3, gait normal and moves all extremities Cranial nerves: Yes Equal, round and reactive pupils present Extrem: General: Yes normal to inspection Course Course Course Narrative: 1236-- CBC with leukocytosis to 12.6. No anemia. H&H stable. Chemistry without acute electrolyte abnormality requiring intervention. BUN elevated to 33. She has tested positive for COVID. initial troponin 3.7. delta trop flat. ekg showing sinus tachycardia at a rate of 125 bmp, no acute ischemic changes or st elevations. Chest x-ray showing bilateral upper lobe predominant airspace disease possibly on a chronic basis however pneumonia can not be excluded. > ED bronch protocol, IV mag, and IV solumedrol ordered. > patient currently satting 89% on RA, now 94% on 2L O2. will discuss with hospitalist for admission. 1600-- Dr. Chaudhari has accepted admission to medicine for acute hypoxic respiratory failure secondary to covid infection. Medications Administered Generic Name Dose Route Start Last Admin Trade Name Freq PRN Reason Stop Dose Admin Azithromycin 500 mg 02/22/24 17:00 02/22/24 21:26 Azithromycin 500 Mg Tablet PO 500 mg Q24H CHRISTOPHER Administration Enoxaparin Sodium 40 mg 02/23/24 09:00 02/23/24 11:03 Enoxaparin Sodium 40 Mg/0.4 Ml Syringe SUBCUT 40 mg Q24H CHRISTOPHER Administration Fluticasone/Vilanterol 1 puff 02/23/24 08:00 02/23/24 08:10 Fluticasone/Vilanterol 200/25 Blst.W.Dev INHALE Not Given RDAILY CHRISTOPHER Ceftriaxone Sodium 1 gm/ 50 mls @ 100 mls/hr 02/22/24 17:00 02/22/24 21:51 Sodium Chloride IV Infused Q24H CHRISTOPHER Infusion Methylprednisolone Sodium Succinate 40 mg 02/23/24 09:00 02/23/24 11:02 Methylprednisolone Sod Succ 40 Mg/Ml Vial IVPUSH 40 mg Q12H CHRISTOPHER Administration Metoprolol Succinate 25 mg 02/23/24 09:00 02/23/24 11:04 Metoprolol Succinate Er 25 Mg Tab.Er.24h PO 25 mg DAILY CHRISTOPHER Administration Protocol Sodium Chloride 3 ml 02/23/24 00:00 02/23/24 11:02 0.9 % Sodium Chloride Flush 3 Ml Syringe IVFLUSH 3 ml QSHIFT CHRISTOPHER Administration Discontinued Medications Generic Name Dose Route Start Last Admin Trade Name Roxane PRN Reason Stop Dose Admin Acetaminophen 650 mg 02/22/24 11:10 02/22/24 11:21 Acetaminophen 325 Mg Tablet PO 02/22/24 11:11 650 mg ONCE ONE Administration Albuterol Sulfate 2.5 mg/ 0 mg 02/22/24 13:05 02/22/24 13:12 Albuterol/Ipratropium 3 ml INHALE 02/22/24 13:06 5 dose ONCE ONE Administration Magnesium Sulfate 2 gm in 50 mls @ 150 mls/hr 02/22/24 12:52 02/22/24 21:52 Magnesium Sulfate/H2o IV 02/22/24 13:11 Infused ONCE ONE Infusion Methylprednisolone Sodium Succinate 125 mg 02/22/24 12:52 02/22/24 16:04 Methylprednisolone Sod Succ 125 Mg/2 Ml Vial IVPUSH 02/22/24 12:53 125 mg ONCE ONE Administration Medical Decision Making Medical Decision Making [facility] Narrative: 63-year-old Haitian-speaking female with past medical history significant for hypertension, HDL, asthma, allergic rhinitis, arthritis, and chronic lower back pain presents to the ED today for evaluation of shortness of breath and cough productive of yellow/green sputum x5 days. vss. ill appearing. no respiratory distress. diffuse rhonchi. no JVD or peripheral edema. Differential diagnosis includes asthma exacerbation, viral syndrome, pneumonia, acs, arrhythmia, anemia, electrolyte abnormality Plan for labs, viral swabs, cxr, ekg, bronch protocol, re-evaluation Differential Diagnosis Differential Diagnoses: The differential diagnosis associated with the presentation includes as above Admission/Observation Consideration of admission/observation: Escalation of care including admission/observation considered Patient to be admitted to medicine for acute hypoxic respiratory failure secondary to covid infection. Consult Healthcare Provider Management of the patient was discussed with: Hospitalist (Dr. Chaudhari) Lab Data [facility] Lab Attestation statement: I reviewed the patient's lab results. as above 02/23/24 06:15 02/23/24 06:15 Labs: Lab Results 02/22/24 02/22/24 02/22/24 Range/Units 10:15 15:16 15:18 WBC 12.6 H (4.8-10.8) X10*3/uL RBC 4.86 (4.20-5.50) X10*6/uL Hgb 14.0 (12.0-16.0) g/dl Hct 42.1 (37.0-47.0) % MCV 86.6 (80.0-98.0) fL MCH 28.8 (27.0-33.0) pg MCHC 33.3 (31.0-35.0) g/dl RDW 14.6 (11.0-16.0) % Plt Count 265 (160-400) X10*3/uL MPV 9.7 (9.4-12.3) fL Immature Gran % (Auto) 0.6 H (0.0-0.4) % Neut % (Auto) 73.5 H (45-73) % Lymph % (Auto) 13.1 L (20-40) % [place] % (Auto) 11.8 H (2-11) % Eos % (Auto) 0.2 (0-4) % Baso % (Auto) 0.8 (0-2) % Lymph # (Auto) 1.7 (1.2-4.9) X10*3/uL [place] # (Auto) 1.5 H (0.1-1.2) X10*3/uL Eos # (Auto) 0.0 (0.0-0.4) X10*3/uL Baso # (Auto) 0.1 (0.0-0.2) X10*3/uL Abs Immat Gran (auto) 0.07 H (0.00-0.03) X10*3/uL Absolute Neuts (auto) 9.3 H (2.0-8.3) x10*3/uL Absolute Nucleated RBC 0.000 (0.0-0.012) X10*3/uL Nucleated RBC % (auto) 0.0 (0.0-0.2) /100WBC VBG pH 7.36 (7.32-7.43) VBG pCO2 43 mmHg VBG pO2 39 mmHg VBG HCO3 24 (22-26) mmol/L VBG O2 Saturation 58.0 % VBG Base Excess -0.6 mmol/L Sodium 136 (135-145) mmol/L Potassium 4.6 (3.3-5.1) mmol/L Chloride 101 (96-108) mmol/L Carbon Dioxide 21 L (22-29) mmol/L Anion Gap 19 (12-20) BUN 33 H (9-16) mg/dL Creatinine 0.90 (0.5-1.4) mg/dL Estim Creat Clear Calc 51.5 Estimated GFR > 60 Random Glucose 111 (60-115) mg/dL Calcium 9.4 (8.4-10.2) mg/dL Total Bilirubin 0.6 (0.0-1.0) mg/dL AST 24 (5-31) U/L ALT 13 (0-31) U/L Alkaline Phosphatase 87 (39-117) U/L Troponin I High Sens 3.7 4.1 (<3.5-17.0) ng/L Total Protein 8.2 H (6.5-8.0) g/dL Albumin 3.9 (3.5-5.0) g/dL Influenza Type A (PCR) NEGATIVE (Negative) Influenza Type B (PCR) NEGATIVE (Negative) RSV RNA Qual (PCR) NEGATIVE (Negative) SARS-CoV-2 RNA (RT-PCR) POSITIVE A (Negative) Independent Interpretation I performed an independent interpretation of an: EKG and Plain X-Ray Interpretation: EKG showing sinus tachycardia at a rate of 125 bmp, no acute ischemic changes or st elevations. CXR without effusion, agree with radiologist's interpretation. Radiology Impression Discussion of test interpretation with radiology: I have reviewed the radiologist's reading. Radiologist Impression: XR chest 2V IMPRESSION: Bilateral upper lobe predominant airspace disease possibly on a chronic basis. Pneumonia cannot be excluded. Advise clinical correlation and short interval follow-up imaging. Critical Care Time Critical Care Time Critical Care Time: Yes Total Critical Care Time: 33 Attestation: Critical care time in the amount of 33 minutes has been provided to the patient in terms of direct patient care, frequent reevaluation, consultation with hospitalist, review and interpretation of medical data and results, and management of potentially life-threatening conditions. This is all outside of any medical procedures. Discharge Plan Discharge Clinical Impression: Acute hypoxemic respiratory failure due to COVID-19 Patient Disposition: Admitted As Inpatient Interventions: Admission Worksheet (ED) Last Done: 02/22/24 19:13 Discharge Date/Time: 02/22/24 19:00
[2024-02-22] MEDS: Albuterol Sulfate 2.5 MG, Albuterol/Iprat 2.5/0.5MG 3 ML 3 ML INHALE (13:12)
--- NOTE | 2024-02-22 15:09 | MHC.EDTECH ---
this tech took over care at this time, upon rounding on the pt they requested a drink, and appears to be in no apparent distress
[2024-02-22 15:25] LABS: VBG Base Excess -0.6 mmol/L; VBG HCO3 24 mmol/L (22-26); VBG pCO2 43 mmHg; VBG pH 7.36 (7.32-7.43); VBG pO2 39 mmHg
[2024-02-22 15:26] LABS: Venous Blood Gas Refer to POC result
[2024-02-22 15:47] LABS: Troponin-I High Sensitivity 4.1 ng/L (<3.5-17.0)
[2024-02-22] MEDS: Magnesium Sulfate/H2O 2 GM/50 ML PIGGYBACK IV (16:04)
[2024-02-22] MEDS: methylPREDNISolone Sod Succ 125 MG/2 ML VIAL IVPUSH (16:04)
--- NOTE | 2024-02-22 16:45 | P.HPHOSP_ITS ---
History of Present Illness Date of Service: 02/22/24 Chief Complaint: cough, sob 63F PMH?HTN, HLD, severe persistent asthma, allergic rhinitis, arthritis, and chronic lower back pain who presented to the ED with?worsening SOB. Patient reports about 5 days of worsening shortness of breath, associated with a productive cough with green-yellow sputum. Denies any fevers or chills. Denies sick contacts. In ED found to be hypoxic to 89% and COVID positive. Chest x- ray with bilateral opacities. Patient denies chest pain, nausea vomiting, diarrhea Review of Systems 2 Review of Systems: Yes all other systems are reviewed and are negative [facility] Medical History Acute respiratory failure with hypoxia Asthma with COPD with exacerbation Leukocytosis Hyperlipidemia Anxiety Diabetes Hypertension Mass of upper lobe of left lung Allergic rhinitis Bronchial asthma COPD (chronic obstructive pulmonary disease) Family History Father No problems noted. Mother No problems noted. Surgical History H/O colonoscopy History of cataract surgery History of tubal ligation Social History Household Members: Family Housing: Apartment Do you presently have visiting nurse or other home services: No Alcohol intake: never Patient Tobacco Use Status: Never used Tobacco e-Cigarette/Vaping Use: Never Used Second Hand Smoke Exposure: No Advance Directives: No service: No Sexual orientation: Straight/Heterosexual Meds Allergies Allergy/AdvReac Type Severity Reaction Status Date / Time No Known Allergies Allergy Unverified 02/22/24 10:01 [No Known Allergies*] Home Medications ?Medication ?Instructions ?Recorded ?Confirmed ?Last Taken ?Type albuterol sulfate 90 mcg/actuation 2 puff PO Q4H PRN wheezing 01/19/24 01/19/24 Unknown History aerosol inhaler triamcinolone acetonide 55 mcg 2 spray intranasal DAILY 01/19/24 01/19/24 01/18/24 History nasal spray aerosol Physical Exam 2 Vital Signs and Narrative: Vital Signs: Last Vital Signs Temp 99.0 F 02/22/24 16:09 Pulse 104 H 07/17/24 16:09 Resp 18 02/22/24 16:09 BP 126/62 02/22/24 16:09 Pulse Ox 95 02/22/24 16:09 O2 Del Method Nasal Cannula 02/22/24 16:09 O2 Flow Rate 2 02/22/24 16:09 BMI result Body Mass Index 23.1 General: AO X 3, no acute distress Resp: wheezing bilateral, no accessory muscles used CVS: S1,S2,RRR GI: soft, non tender, non distended Neuro: motor grossly intact, alert Psych: appropriate affect, appropriate insight Results Labs 02/22/24 10:15 02/22/24 10:15 Labs: Laboratory Results - last 24 hr 02/22/24 02/22/24 02/22/24 10:15 15:16 15:18 MCV 86.6 MCH 28.8 MCHC 33.3 RDW 14.6 Plt Count 265 MPV 9.7 Immature Gran % (Auto) 0.6 H Neut % (Auto) 73.5 H Lymph % (Auto) 13.1 L [place] % (Auto) 11.8 H Eos % (Auto) 0.2 Baso % (Auto) 0.8 Lymph # (Auto) 1.7 [place] # (Auto) 1.5 H Eos # (Auto) 0.0 Baso # (Auto) 0.1 Abs Immat Gran (auto) 0.07 H Absolute Neuts (auto) 9.3 H Absolute Nucleated RBC 0.000 Nucleated RBC % (auto) 0.0 VBG pH 7.36 VBG pCO2 43 VBG pO2 39 VBG HCO3 24 VBG O2 Saturation 58.0 VBG Base Excess -0.6 Anion Gap 19 Estim Creat Clear Calc 51.5 Estimated GFR > 60 Random Glucose 111 Calcium 9.4 Total Bilirubin 0.6 AST 24 ALT 13 Alkaline Phosphatase 87 Troponin I High Sens 3.7 4.1 Total Protein 8.2 H Albumin 3.9 Influenza Type A (PCR) NEGATIVE Influenza Type B (PCR) NEGATIVE RSV RNA Qual (PCR) NEGATIVE SARS-CoV-2 RNA (RT-PCR) POSITIVE A Imaging Radiologist's Impressions: Impressions Chest X-Ray 02/22/24 10:40 IMPRESSION: Bilateral upper lobe predominant airspace disease possibly on a chronic basis. Pneumonia cannot be excluded. Advise clinical correlation and short interval follow-up imaging. Assessment and Plan (1) Acute hypoxemic respiratory failure due to COVID-19: Status: Acute Plan 63F PMH?HTN, HLD, asthma, allergic rhinitis, arthritis, and chronic lower back pain who presented with?worsening SOB Acute hypoxic respiratory failure secondary to severe persistent asthma with acute decompensation due to COVID-19 with possible superimposed bacterial pneumonia IV steroids, bronchodilators, azithromycin, ceftriaxone Wean O2 as tolerated Hyperlipidemia Continue statin DVT prophylaxis with Lovenox Full Code Patient with acute hypoxia and severe wheezing and shortness of breath, expected to require at least 2 midnights inpatient Quality Stroke Does the patient have a stroke diagnosis?: No VTE Prior VTE?: No VTE Risk Level:: Medical - moderate - high VTE Device Contraindication: Treatment Not Indicated VTE Drug Contraindication: N/A - Med Ordered
[2024-02-22] MEDS: cefTRIAXone sodium 1 GM in 0.9 % Sodium Chloride 50 ML IV (18:12)
--- NOTE | 2024-02-22 21:22 | PHA.MEDREC ---
Pharmacy Consult ? Medication Reconciliation Pharmacy has completed the medication reconciliation. Spoke to patient via outlet manager and confirmed medication list.
[2024-02-22] MEDS: Azithromycin 500 MG TABLET PO (21:26)
[2024-02-22] MEDS: 0.9 % Sodium Chloride Flush 3 ML SYRINGE IVFLUSH (23:13)
[2024-02-23 03:53] VITALS: BP 140/69; PULSE 93; RESP 19; TEMP 36.4; O2SAT 94
[2024-02-23 07:07] LABS: Hematocrit 38.6 % (37.0-47.0); Mean Corpuscular HGB Conc 33.7 g/dl (31.0-35.0); Mean Corpuscular Hemoglobin 28.8 pg (27.0-33.0); Mean Corpuscular Volume 85.6 fL (80.0-98.0); Mean Platelet Volume 10.5 fL (9.4-12.3); Platelet Count 294 X10*3/uL (160-400); Red Blood Count 4.51 X10*6/uL (4.20-5.50); Red Cell Distribution Width 14.5 % (11.0-16.0); White Blood Count 9.7 X10*3/uL (4.8-10.8)
[2024-02-23 07:16] LABS: Anion Gap 16 (12-20); Blood Urea Nitrogen 35 mg/dL (9-16); Calcium 9.6 mg/dL (8.4-10.2); Carbon Dioxide 23 mmol/L (22-29); Chloride 103 mmol/L (96-108); Creatinine Clr Calc Pharmacy 55.8; Estimated Glomerular Filt Rate > 60; Glucose Fasting 133 mg/dL (60-99); Magnesium 2.9 mg/dL (1.6-2.6); Potassium 4.2 mmol/L (3.3-5.1); Sodium 138 mmol/L (135-145)
[2024-02-23 08:00] VITALS: BP 123/62; PULSE 77; RESP 20; TEMP 36.2; O2SAT 94
--- NOTE | 2024-02-23 10:18 | MHC.CM.PN ---
IMM 02/23/24, Pt lives with family, no HCP and she declined to complete one. She is independent, no home health services or DME. She said her car is here and she can drive home at DC. PCP confirmed: Carmina Iyer. DCP: home, self care, CM to follow for DC needs.
[2024-02-23 10:59] VITALS: BP 120/61; PULSE 92; RESP 20; TEMP 36.6; O2SAT 91
[2024-02-23] MEDS: methylPREDNISolone Sod Succ 40 MG/ML VIAL IVPUSH ×2 (11:02→23:09)
[2024-02-23] MEDS: 0.9 % Sodium Chloride Flush 3 ML SYRINGE IVFLUSH ×2 (11:02→18:34)
[2024-02-23] MEDS: Enoxaparin Sodium 40 MG/0.4 ML SYRINGE SUBCUT (11:03)
[2024-02-23] MEDS: Metoprolol Succinate ER 25 MG TAB.ER.24H PO (11:04)
--- NOTE | 2024-02-23 11:23 | P.PNIM_ITS ---
Subjective Subjective Date of Service: 02/23/24 Interval History: partly better Physical Exam 2 Vital Signs: Vital Signs: Last Vital Signs Temp 97.9 F 02/23/24 10:59 Pulse 92 02/23/24 10:59 Resp 20 02/23/24 10:59 BP 120/61 02/23/24 10:59 Pulse Ox 91 L 02/23/24 10:59 O2 Del Method Room Air 02/23/24 10:59 O2 Flow Rate 1 02/23/24 08:00 BMI result Body Mass Index 23.1 General: AO X 3, no acute distress Resp: wheezing bilateral, no accessory muscles used CVS: S1,S2,RRR GI: soft, non tender, non distended Neuro: motor grossly intact, alert Psych: appropriate affect, appropriate insight Objective Data Active Medications Acetaminophen (Acetaminophen 325 Mg Tablet) 650 mg PO Q6H PRN PRN Reason: Pain, Mild (Pain Scale 1-3), fever or headache Albuterol/Ipratropium (Albuterol/Iprat 2.5/0.5mg 3 Ml Ampul.Neb) 3 ml INHALE RQ4H WHILE AWAKE PRN PRN Reason: sob Atorvastatin Calcium (Atorvastatin Calcium 40 Mg Tablet) 40 mg PO BEDTIME CHRISTOPHER Azithromycin (Azithromycin 500 Mg Tablet) 500 mg PO Q24H [facility] Last Admin: 02/22/24 21:26 Dose: 500 mg Documented By: MITESH Calcium Carbonate (Calcium Carbonate 750 Mg Tab.Chew) 750 mg PO Q4H PRN PRN Reason: Heartburn Enoxaparin Sodium (Enoxaparin Sodium 40 Mg/0.4 Ml Syringe) 40 mg SUBCUT Q24H [facility] Last Admin: 02/23/24 11:03 Dose: 40 mg Documented By: WIN Fluticasone/Vilanterol (Fluticasone/Vilanterol 200/25 Blst.W.Dev) 1 puff INHALE RDAILY [facility] Last Admin: 02/23/24 08:10 Dose: Not Given Documented By: ADE Non-Admin Reason: Med Not Available Ceftriaxone Sodium 1 gm/ (Sodium Chloride) 50 mls @ 100 mls/hr IV Q24H [facility] Last Infusion: 02/22/24 21:51 Dose: Infused Documented By: MITESH Magnesium Hydroxide (Milk Of Magnesia 30 Ml Oral.Susp) 30 ml PO DAILY PRN PRN Reason: Constipation Melatonin (Melatonin 3 Mg Tablet) 6 mg PO BEDTIME PRN PRN Reason: Insomnia Methylprednisolone Sodium Succinate (Methylprednisolone Sod Succ 40 Mg/Ml Vial) 40 mg IVPUSH Q12H [facility] Last Admin: 02/23/24 11:02 Dose: 40 mg Documented By: WIN Metoprolol Succinate (Metoprolol Succinate Er 25 Mg Tab.Er.24h) 25 mg PO DAILY [facility]; Protocol Last Admin: 02/23/24 11:04 Dose: 25 mg Documented By: WIN Sodium Chloride (0.9 % Sodium Chloride Flush 3 Ml Syringe) 3 ml IVFLUSH QSHIFT [facility] Last Admin: 02/23/24 11:02 Dose: 3 ml Documented By: WIN Labs 02/23/24 06:15 02/23/24 06:15 Labs: Laboratory Results - last 24 hr 02/22/24 02/22/24 02/23/24 15:16 15:18 06:15 MCV 85.6 MCH 28.8 MCHC 33.7 RDW 14.5 Plt Count 294 MPV 10.5 Absolute Nucleated RBC 0.000 Nucleated RBC % (auto) 0.0 VBG pH 7.36 VBG pCO2 43 VBG pO2 39 VBG HCO3 24 VBG O2 Saturation 58.0 VBG Base Excess -0.6 Anion Gap 16 Estim Creat Clear Calc 55.8 Estimated GFR > 60 Fasting Glucose 133 H Calcium 9.6 Magnesium 2.9 H Troponin I High Sens 4.1 Assessment and Plan (1) Acute hypoxemic respiratory failure due to COVID-19: Status: Acute Plan 63F PMH?HTN, HLD, asthma, allergic rhinitis, arthritis, and chronic lower back pain who presented with?worsening SOB Acute hypoxic respiratory failure secondary to severe persistent asthma with acute decompensation due to COVID-19 with possible superimposed bacterial pneumonia continue IV steroids, bronchodilators, azithromycin, ceftriaxone now on room air satting low 90s Hyperlipidemia Continue statin DVT prophylaxis with Lovenox Full Code reason for continued hospitalization:still sob and wheezy Quality Stroke Does the patient have a stroke diagnosis?: No VTE Prior VTE?: No VTE Risk Level:: Medical - moderate - high VTE Device Contraindication: Treatment Not Indicated VTE Drug Contraindication: N/A - Med Ordered
[2024-02-23 12:00] VITALS: BP 138/61; PULSE 62; RESP 20; TEMP 36.4; O2SAT 92
[2024-02-23 16:00] VITALS: BP 122/60; PULSE 84; RESP 20; TEMP 36.7; O2SAT 92
[2024-02-23] MEDS: Azithromycin 500 MG TABLET PO (18:34)
[2024-02-23] MEDS: cefTRIAXone sodium 1 GM in 0.9 % Sodium Chloride 50 ML IV (18:34)
[2024-02-23 20:00] VITALS: BP 142/55; PULSE 84; RESP 16; TEMP 36.6; O2SAT 92
[2024-02-23] MEDS: Atorvastatin Calcium 40 MG TABLET PO (23:10)
[2024-02-24] VITALS (7 sets, daily range): BP systolic 133–149; BP diastolic 63–71; PULSE 63–87; RESP 14–18; TEMP 36.5–36.7; O2SAT 92–93
[2024-02-24] MEDS: 0.9 % Sodium Chloride Flush 3 ML SYRINGE IVFLUSH ×2 (00:37→11:42)
[2024-02-24] MEDS: Fluticasone/Vilanterol 200/25 BLST.W.DEV 1 PUFF INHALE (08:13)
--- NOTE | 2024-02-24 10:14 | P.DS_ITS ---
DS: Providers Provider Date of Service: 02/24/24 Date of admission: 02/22/24 16:51 Primary care physician: Carmina Iyer DO DS: Diagnosis Discharge Diagnosis (1) Acute hypoxemic respiratory failure due to COVID-19: Status: Acute DS: Summary Hospital Course Hospital Course: from initial hpi: 63F PMH?HTN, HLD, severe persistent asthma, allergic rhinitis, arthritis, and chronic lower back pain who presented to the ED with?worsening SOB. Patient reports about 5 days of worsening shortness of breath, associated with a productive cough with green-yellow sputum. Denies any fevers or chills. Denies sick contacts. In ED found to be hypoxic to 89% and COVID positive. Chest x- ray with bilateral opacities. Patient denies chest pain, nausea vomiting, diarrhea hospital course: Patient was admitted for acute hypoxic respiratory failure secondary to severe persistent asthma with acute decompensation due to COVID-19 with possible superimposed bacterial pneumonia. She was treated with ceftriaxone and azithromycin as well as IV steroids and bronchodilators. She was able to be weaned off oxygen and her shortness of breath significantly improved. She will be discharged home on 5 more days of prednisone, cefuroxime, azithromycin. For hyperlipidemia was continue on statin. She is still having some wheezes but feels significantly better. Time Attestation Discharge Coordination Time (in mins): 32 Quality: Safe Use of Opioids Does Pt have an Active Cancer Diagnosis on the Problem List?: No Quality: Stroke Does the patient have a stroke diagnosis?: No Physical Exam Vital Signs: Vital Signs: Last Vital Signs Temp 97.7 F 02/24/24 08:00 Pulse 73 02/24/24 08:15 Resp 15 02/24/24 08:15 BP 136/63 02/24/24 08:00 Pulse Ox 92 02/24/24 08:00 O2 Del Method Room Air 02/24/24 08:00 O2 Flow Rate 1 02/24/24 04:00 BMI result Body Mass Index 23.1 General: AO X 3, no acute distress Resp: wheeizing bilateral, no accessory muscles used CVS: S1,S2,RRR GI: soft, non tender, non distended Neuro: motor grossly intact, alert Psych: appropriate affect, appropriate insight Discharge Plan Discharge Anticipated Discharge Date/Time: 02/24/24 10:12 Patient Disposition: Home, Self-Care Discharge Diagnosis: covid, copd, pna Referrals: Carmina Iyer DO [Primary Care Provider] - 1 Week Discharge Medications: New azithromycin 500 mg Tablet 500 mg PO Q24H Qty: 5 0RF prednisone 20 mg tablet 40 mg PO DAILY Qty: 10 0RF cefuroxime axetil 500 mg tablet 500 mg PO BID Qty: 10 0RF Continued atorvastatin 40 mg Tablet 40 mg PO BEDTIME 30 Days Qty: 30 0RF metoprolol succinate 25 mg Tablet Extended Release 24 Hr 25 mg PO DAILY 30 Days Qty: 30 0RF Protocol: Hold for SBP/HR < HOLD for SBP < : 90 HOLD for HR < : 60 budesonide-formoterol [Symbicort] 160-4.5 mcg/actuation HFA aerosol inhaler 2 puff INHALATION BID 30 Days Qty: 1 0RF triamcinolone acetonide 55 mcg aerosol,spray 2 spray intranasal DAILY albuterol sulfate 90 mcg/actuation HFA aerosol inhaler 2 puff PO Q4H PRN (Reason: wheezing) Discharge Orders: Discharge Order (Routine); Ordered 02/24/24 Ordered By: Robbie Chaudhari Diet: Advance to usual diet Activity on Discharge: As tolerated Stand Alone Forms: Patient Portal Discharge page Print Language: Icelandic Care Plan Goals: recovery Health Concerns: covid, copd, pna Plan of Treatment: ceftin azithro, prednisone Assessment: see above
--- NOTE | 2024-02-24 10:51 | MHC.CM.PN ---
Pt has been medically cleared for DC, she will go home via private transport, plan is self care.
[2024-02-24] MEDS: Enoxaparin Sodium 40 MG/0.4 ML SYRINGE SUBCUT (11:40)
[2024-02-24] MEDS: methylPREDNISolone Sod Succ 40 MG/ML VIAL IVPUSH (11:40)
[2024-02-24] MEDS: Metoprolol Succinate ER 25 MG TAB.ER.24H PO (11:42)
== END 2024-02-24 16:45 | disposition home or self-care (01) | DRG 177 ==
LOC: HO.ED 16:42 → HO.EDOVER 16:54 → HO.IMC 17:50
PROVIDERS: Physician Assistant Medical; Admitting Provider Internal Medicine; Emergency Provider Student in an Organized Health Care Education/Training Program; PCP Family Medicine; Visit Provider Internal Medicine
DX: U07.1 COVID-19 (principal); J15.9 Unspecified bacterial pneumonia; J96.01 Acute respiratory failure with hypoxia; J44.1 Chronic obstructive pulmonary disease with (acute) exacerbation; J45.51 Severe persistent asthma with (acute) exacerbation; J44.0 Chronic obstructive pulmonary disease with (acute) lower respiratory infection; M54.59 Other low back pain; G89.29 Other chronic pain; E78.5 Hyperlipidemia, unspecified; Z79.899 Other long term (current) drug therapy
CPT/HCPCS: 0241U; 36415; 71046; 80048; 80053; 82803; 83735; 84484; 85025; 85027; 93005; 94640; 99284; J0696; J1650; J2919; J3475

== ENCOUNTER → 2024-02-22 10:01 | Outpatient (BNV) | payer MEDICARE, SELFPAY | PROVIDERS: Emergency Provider Student in an Organized Health Care Education/Training Program; PCP Family Medicine; Visit Provider Internal Medicine Cardiovascular Disease | DX: R00.0 Tachycardia, unspecified (principal) | CPT/HCPCS: 93010 ==

== ENCOUNTER → 2024-02-22 16:51 | Outpatient (BNV) | payer MEDICARE, SELFPAY | PROVIDERS: Admitting Provider Internal Medicine; Emergency Provider Student in an Organized Health Care Education/Training Program; PCP Family Medicine; Visit Provider Internal Medicine | DX: U07.1 COVID-19 (principal); J96.01 Acute respiratory failure with hypoxia | CPT/HCPCS: 99223; 99232; 99239 ==

== ENCOUNTER 2024-03-12 12:54 | Outpatient (REF) | payer MEDICARE, SELFPAY ==
--- NOTE | ~2024-03-12 | MM_ITS ---
EXAMINATION: MM SCREENING DIGITAL BREAST TOMOSYNTHESIS, BILATERAL CLINICAL INFORMATION: Screening. Asymptomatic. COMPARISON: Mammography: This study is compared with prior exams dating back to 2019. TECHNIQUE: Digital breast tomosynthesis is performed in both the craniocaudal and mediolateral oblique views along with computer-aided detection (CAD). Synthesized 2D images are generated from the tomosynthesis. FINDINGS: There are scattered areas of fibroglandular density (ACR BI-RADS breast composition Category b). There are no significant masses, abnormal calcifications, or other abnormalities. There are scattered, bilateral benign calcifications. MM/MM tomosynthesis screening BI IMPRESSION: No mammographic evidence of malignancy. ASSESSMENT: BI-RADS BI-RADS 2 - Benign Findings RECOMMENDATION: Routine annual mammography screening. 1 year F/U This examination should not preclude the clinical evaluation of a suspicious palpable abnormality. This patient's information was entered into a reminder system with a target due date for their next mammogram. Electronically signed by: Jennifer Nur MD 04/10/2024 06:34 AM EDT
== END 2024-03-12 12:55 | disposition home or self-care (01) ==
LOC: HO.MAMMO 12:54
PROVIDERS: PCP Family Medicine; Visit Provider Family Medicine
DX: Z12.31 Encounter for screening mammogram for malignant neoplasm of breast (principal)
CPT/HCPCS: 77063; 77067

== ENCOUNTER → 2024-03-12 13:15 | Outpatient (BNV) | payer MEDICARE, SELFPAY | PROVIDERS: PCP Family Medicine; Visit Provider Radiology Diagnostic Radiology | DX: Z12.31 Encounter for screening mammogram for malignant neoplasm of breast (principal) | CPT/HCPCS: 77063; 77067 ==

== ENCOUNTER 2024-04-19 07:01 | Inpatient (IN) | payer MEDICARE, SELFPAY ==
[2024-04-19] VITALS (9 sets, daily range): BP systolic 117–140; BP diastolic 56–71; PULSE 86–122; RESP 15–24; TEMP 36–36.9; O2SAT 92–98; BMI 25.8
--- NOTE | ~2024-04-19 | XR_ITS ---
EXAMINATION: XR CHEST CLINICAL INFORMATION: Cough COMPARISON: Chest radiograph from 02/22/2024 TECHNIQUE: Frontal view of the chest was obtained. FINDINGS: Streaky radiopacities overlying the left mid and upper hemithorax may be external to patient, correlation with physical exam. Chronic interstitial lung markings. Chronic bronchial wall thickening. Biapical pleuroparenchymal scarring. Bilateral upper lung field opacities may reflect chronic changes though underlying fracture/inflammatory etiology not excluded. No pneumothorax. Trachea is midline. Cardiac mediastinal silhouette is not enlarged. Aorta demonstrates atherosclerotic calcifications. No large pleural effusion. Degenerative changes of the thoracolumbar spine. Soft tissues are unremarkable. XR/XR chest 1V IMPRESSION: 1. Streaky radiopacities overlying the left mid and upper hemithorax may be external to patient, correlation with physical exam. 2. Chronic interstitial lung markings. 3. Chronic bronchial wall thickening. 4. Biapical pleuroparenchymal scarring. 5. Bilateral upper lung field opacities may reflect chronic changes though underlying fracture/inflammatory etiology not excluded. Electronically signed by: Gisela Apodaca MD 04/19/2024 09:01 AM EDT
--- NOTE | 2024-04-19 07:06 | ED_ITS ---
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 Today was the worse. She denies improvements with any home therapy. She is not on prednisone at home. She has not had sick contacts. The patient denies sick contacts, travel history, does not use oxygen at home. Patient arrived to the ED 84% on RA MD complaint: asthma attack , shortness of breath and wheezing Onset (ago): day(s) (4) Severity: moderate Context: recent URI Associated symptoms: productive cough Asthma History: adult onset Treatments Prior to Arrival: inhaled bronchodilator Related Data Home Medications ?Medication ?Instructions ?Recorded ?Confirmed albuterol sulfate 90 mcg/actuation 2 puff PO Q4H PRN wheezing 01/19/24 02/22/24 aerosol inhaler triamcinolone acetonide 55 mcg 2 spray intranasal DAILY 01/19/24 02/22/24 nasal spray aerosol Previous Rx's ?Medication ?Instructions ?Recorded atorvastatin 40 mg tablet 40 mg PO BEDTIME 30 days #30 tabs 11/15/23 budesonide-formoterol HFA 160 2 puff inhalation BID 30 days #1 11/15/23 mcg-4.5 mcg/actuation aerosol inhaler inhaler (Symbicort) metoprolol succinate 25 mg 25 mg PO DAILY 30 days #30 tabs 11/15/23 tablet,extended release 24 hr azithromycin 500 mg tablet 500 mg PO Q24H #5 tabs 02/24/24 cefuroxime axetil 500 mg tablet 500 mg PO BID #10 tabs 02/24/24 prednisone 20 mg tablet 40 mg (2 x 20 mg) PO DAILY #10 tabs 02/24/24 Allergies Allergy/AdvReac Type Severity Reaction Status Date / Time No Known Allergies Allergy Unverified 04/19/24 07:17 [No Known Allergies*] Review of Systems 2 Review of Systems: Constitutional : pos Fever, pos Chills ENT/Mouth : No Hoarseness, No sore throat, No Rhinorrhea Eyes: No Redness, No Discharge, No Vision Changes Cardiovascular : No Chest Pain, positive SOB, positive Dyspnea on Exertion, No Edema Respiratory : positive Cough, pos Sputum, positive Wheezing, Gastrointestinal : No Nausea, No Vomiting, No Diarrhea, No abdominal Pain Genitourinary : No Dysuria, No Hematuria Musculoskeletal : No joint pain, No Myalgias Skin : No rash Neuro : No Weakness, No Numbness, No Headache Psych : No anxiety, depression Heme/Lymph: No Bruising, No Bleeding Endocrine : No Polyuria, No Polydipsia All other systems reviewed and are negative [facility] Past Medical History Attestation statement: The following information was validated with the patient. Source: old records reviewed Medical History Acute respiratory failure with hypoxia Asthma with COPD with exacerbation Leukocytosis Hyperlipidemia Anxiety Diabetes Hypertension Mass of upper lobe of left lung Allergic rhinitis Bronchial asthma COPD (chronic obstructive pulmonary disease) Surgical History H/O colonoscopy History of cataract surgery History of tubal ligation Family History Family History Father No problems noted. Mother No problems noted. Social History Social History Household Members: None Housing: Apartment Do you presently have visiting nurse or other home services: No Alcohol intake: never Patient Tobacco Use Status: Never used Tobacco Smoked in Last 30 Days: No e-Cigarette/Vaping Use: Never Used Second Hand Smoke Exposure: No Use of substances other than those prescribed or required for medical reasons: No Advance Directives: No Advance Directives Information Provided: Yes Do you have a plan to hurt others: No Plan service: No Sexual orientation: Straight/Heterosexual Physical Exam 2 Vital Signs: Vital Signs: Last Vital Signs Temp 98.4 F 04/19/24 07:13 Pulse 114 H 04/19/24 07:21 Resp 20 04/19/24 07:21 BP 140/71 H 04/19/24 07:13 Pulse Ox 97 04/19/24 07:13 O2 Del Method Nasal Cannula 04/19/24 07:13 Oxygen Flow Rate 3 04/19/24 07:13 BMI result Body Mass Index 25.8 Appearance: Alert. Oriented X3. mild acute distress. Eyes: Pupils equal, round and reactive to light. ENT: Pharynx normal. Neck: Normal inspection. Neck supple. CVS: Normal heart rate and rhythm. Pulses normal. Respiratory: Mild respiratory distress - labored and tachypneic. Breath sounds diffuse wheezes throughout Abdomen: Soft and nontender. Skin: Skin warm and dry. Normal skin color. Normal skin turgor. Extremities: No lower extremity edema. No calf ttp Neuro: Oriented X 3. No motor deficit. No sensory deficit. Medications Administered Generic Name Dose Route Start Last Admin Trade Name Freq PRN Reason Stop Dose Admin Azithromycin 500 mg/ Sodium 250 mls @ 125 mls/hr 04/19/24 07:13 04/19/24 07:37 Chloride IV 04/19/24 09:12 125 mls/hr ONCE ONE Administration Discontinued Medications Generic Name Dose Route Start Last Admin Trade Name Freq PRN Reason Stop Dose Admin Albuterol Sulfate 7.5 mg/ 0 mg 04/19/24 07:16 04/19/24 07:20 Albuterol/Ipratropium 3 ml INHALE 04/19/24 07:17 10 each ONCE ONE Administration Magnesium Sulfate 2 gm in 50 mls @ 150 mls/hr 04/19/24 07:23 04/19/24 07:34 Magnesium Sulfate/H2o IV 04/19/24 07:42 150 mls/hr ONCE ONE Administration Methylprednisolone Sodium Succinate 60 mg 04/19/24 07:09 04/19/24 07:25 Methylprednisolone Sod Succ 125 Mg/2 Ml Vial IVPUSH 04/19/24 07:10 60 mg ONCE ONE Administration Medical Decision Making Medical Decision Making MDM Narrative: 64 yo female with PMH of asthma, COPD, HLD, HTN here with c/o URI symptoms, cough, wheezing, hypoxia - 84% on RA now on 3L NC up to 97%, will need IV steroids, IV magnesium, CXR, viral panel, empiric abx given sputum production, COPD and fevers at home. Possible asthma, COPD, viral syndrome, pneumonia. Differential Diagnosis Differential Diagnoses: The differential diagnosis associated with the presentation includes asthma, viral syndrome, COPD, pneumonia Admission/Observation Consideration of admission/observation: Escalation of care including admission/observation considered admit given hypoxia and work of breathing after multiple interventions Consult Healthcare Provider Management of the patient was discussed with: Hospitalist (jonathan admit) Lab Data MDM Lab Attestation statement: I reviewed the patient's lab results. 04/19/24 07:32 04/19/24 07:32 Labs: Lab Results 04/19/24 04/19/24 Range/Units 07:32 07:38 WBC 11.4 H (4.8-10.8) X10*3/uL RBC 4.67 (4.20-5.50) X10*6/uL Hgb 14.0 (12.0-16.0) g/dl Hct 41.1 (37.0-47.0) % MCV 88.0 (80.0-98.0) fL MCH 30.0 (27.0-33.0) pg MCHC 34.1 (31.0-35.0) g/dl RDW 14.3 (11.0-16.0) % Plt Count 264 (160-400) X10*3/uL MPV 9.3 L (9.4-12.3) fL Immature Gran % (Auto) 0.3 (0.0-0.4) % Neut % (Auto) 43.1 L (45-73) % Lymph % (Auto) 30.8 (20-40) % [place] % (Auto) 7.3 (2-11) % Eos % (Auto) 17.7 H (0-4) % Baso % (Auto) 0.8 (0-2) % Lymph # (Auto) 3.5 (1.2-4.9) X10*3/uL [place] # (Auto) 0.8 (0.1-1.2) X10*3/uL Eos # (Auto) 2.0 H (0.0-0.4) X10*3/uL Baso # (Auto) 0.1 (0.0-0.2) X10*3/uL Abs Immat Gran (auto) 0.03 (0.00-0.03) X10*3/uL Absolute Neuts (auto) 4.9 (2.0-8.3) x10*3/uL Absolute Nucleated RBC 0.000 (0.0-0.012) X10*3/uL Nucleated RBC % (auto) 0.0 (0.0-0.2) /100WBC Smear Tech's Comments VERIFIED VBG pH 7.52 H (7.32-7.43) VBG pCO2 31 mmHg VBG pO2 49 mmHg VBG HCO3 25 (22-26) mmol/L VBG O2 Saturation 86.0 % VBG Base Excess 3.7 mmol/L Sodium 139 (135-145) mmol/L Potassium 4.4 (3.3-5.1) mmol/L Chloride 101 (96-108) mmol/L Carbon Dioxide 26 (22-29) mmol/L Anion Gap 16 (12-20) BUN 15 (9-16) mg/dL Creatinine 0.87 (0.5-1.4) mg/dL Estim Creat Clear Calc 58.1 Estimated GFR > 60 Random Glucose 87 (60-115) mg/dL Lactic Acid 1.5 (0.5-2.0) mmol/L Calcium 10.0 (8.4-10.2) mg/dL Magnesium 1.9 (1.6-2.6) mg/dL Total Bilirubin 0.7 (0.0-1.0) mg/dL Direct Bilirubin 0.2 (0.0-0.5) mg/dL AST 28 (5-31) U/L ALT 19 (0-31) U/L Alkaline Phosphatase 88 (39-117) U/L Troponin I High Sens < 2.7 (<3.5-17.0) ng/L B-Natriuretic Peptide < 10 (<100) pg/mL Total Protein 7.7 (6.5-8.0) g/dL Albumin 4.1 (3.5-5.0) g/dL Influenza Type A (PCR) NEGATIVE (Negative) Influenza Type B (PCR) NEGATIVE (Negative) RSV RNA Qual (PCR) NEGATIVE (Negative) SARS-CoV-2 RNA (RT-PCR) NEGATIVE (Negative) Independent Interpretation I performed an independent interpretation of an: EKG and Plain X-Ray (chronic markings noted) Interpretation: Rate: 121 Rhythm: sinus tachycardia [place]: normal Normal P waves. Normal SHERI. Normal QRS complex. ST T wave : nonspecific lateral and inf segments no TAHIRA qTC: 434 prior studies: no acute ischemia The study has been interpreted contemporaneously by me. . Radiology Impression Discussion of test interpretation with radiology: I have reviewed the radiologist's reading. External Record Review External record reviewed: Inpatient record Critical Care Time Critical Care Time Critical Care Time: Yes Total Critical Care Time: 60 Attestation: IV magnesium, repeat nebs, review of records, IV steroids, hypoxia intervention I attest to this time spent taking care of the patient Discharge Plan Discharge Clinical Impression: Acute exacerbation of chronic obstructive airways disease, Hypoxia Patient Disposition: Admitted As Inpatient Prescriptions: No Action azithromycin 500 mg Tablet 500 mg PO Q24H Qty: 5 0RF prednisone 20 mg tablet 40 mg PO DAILY Qty: 10 0RF cefuroxime axetil 500 mg tablet 500 mg PO BID Qty: 10 0RF atorvastatin 40 mg Tablet 40 mg PO BEDTIME 30 Days Qty: 30 0RF metoprolol succinate 25 mg Tablet Extended Release 24 Hr 25 mg PO DAILY 30 Days Qty: 30 0RF Protocol: Hold for SBP/HR < HOLD for SBP < : 90 HOLD for HR < : 60 budesonide-formoterol [Symbicort] 160-4.5 mcg/actuation HFA aerosol inhaler 2 puff INHALATION BID 30 Days Qty: 1 0RF triamcinolone acetonide 55 mcg aerosol,spray 2 spray intranasal DAILY albuterol sulfate 90 mcg/actuation HFA aerosol inhaler 2 puff PO Q4H PRN (Reason: wheezing) Print Language: Portuguese
--- NOTE | 2024-04-19 07:10 | ECG_ITS ---
Test Reason : dyspnea Blood Pressure : / mmHG Vent. Rate : 121 BPM Atrial Rate : 121 BPM P-R Int : 152 ms QRS Dur : 070 ms QT Int : 306 ms P-R-T Axes : 075 074 079 degrees QTc Int : 434 ms Sinus tachycardia Nonspecific T wave abnormality Abnormal ECG When compared with ECG of 22-FEB-2024 10:01, Nonspecific T wave abnormality now evident in Lateral leads Referred By: Virginia Mosher Electronically Signed By:JUVENAL TUBBS
[2024-04-19] MEDS: Albuterol Sulfate 7.5 MG, Albuterol/Iprat 2.5/0.5MG 3 ML 3 ML INHALE (07:20)
[2024-04-19] MEDS: methylPREDNISolone Sod Succ 125 MG/2 ML VIAL 60 MG IVPUSH (07:25)
[2024-04-19] MEDS: Magnesium Sulfate/H2O 2 GM/50 ML PIGGYBACK IV (07:34)
[2024-04-19] MEDS: Azithromycin 500 MG in 0.9 % Sodium Chloride 250 ML 125 MG IV (07:37)
[2024-04-19 07:42] LABS: Venous Blood Gas Refer to POC result
[2024-04-19 07:43] LABS: VBG Base Excess 3.7 mmol/L; VBG HCO3 25 mmol/L (22-26); VBG pCO2 31 mmHg; VBG pH 7.52 (7.32-7.43); VBG pO2 49 mmHg
[2024-04-19 07:43] LABS: Basophils Absolute Auto 0.1 X10*3/uL (0.0-0.2); Basophils Percent Auto 0.8 % (0-2); Eosinophils Percent Auto 17.7 % (0-4); Hematocrit 41.1 % (37.0-47.0); Imm Gran Abs Auto 0.03 X10*3/uL (0.00-0.03); Imm Gran Pct Auto 0.3 % (0.0-0.4); Lymphocytes Absolute Auto 3.5 X10*3/uL (1.2-4.9); Lymphocytes Percent Auto 30.8 % (20-40); MANUAL DIFF FLAG SCAN; Mean Corpuscular HGB Conc 34.1 g/dl (31.0-35.0); Mean Platelet Volume 9.3 fL (9.4-12.3); Monocytes Absolute Auto 0.8 X10*3/uL (0.1-1.2); Monocytes Percent Auto 7.3 % (2-11); Neutrophils Absolute Auto 4.9 x10*3/uL (2.0-8.3); Neutrophils Percent Auto 43.1 % (45-73); Platelet Count 264 X10*3/uL (160-400); Red Blood Count 4.67 X10*6/uL (4.20-5.50); Red Cell Distribution Width 14.3 % (11.0-16.0); SCAN SMEAR FLAG 1; White Blood Count 11.4 X10*3/uL (4.8-10.8)
[2024-04-19 07:54] LABS: Lactic Acid 1.5 mmol/L (0.5-2.0)
[2024-04-19 08:00] LABS: SLIDE REVIEW VERIFIED
[2024-04-19 08:04] LABS: B Type Natriuretic Peptide < 10 pg/mL (<100)
[2024-04-19 08:06] LABS: Troponin-I High Sensitivity < 2.7 ng/L (<3.5-17.0)
[2024-04-19 08:07] LABS: Alanine Aminotransferase 19 U/L (0-31); Albumin Level 4.1 g/dL (3.5-5.0); Alkaline Phosphatase 88 U/L (39-117); Anion Gap 16 (12-20); Aspartate Amino Transferase 28 U/L (5-31); Bilirubin Direct 0.2 mg/dL (0.0-0.5); Bilirubin Total 0.7 mg/dL (0.0-1.0); Blood Urea Nitrogen 15 mg/dL (9-16); Carbon Dioxide 26 mmol/L (22-29); Chloride 101 mmol/L (96-108); Creatinine Clr Calc Pharmacy 58.1; Estimated Glomerular Filt Rate > 60; Glucose Random 87 mg/dL (60-115); Magnesium 1.9 mg/dL (1.6-2.6); Potassium 4.4 mmol/L (3.3-5.1); Sodium 139 mmol/L (135-145); Total Protein 7.7 g/dL (6.5-8.0)
[2024-04-19 08:20] LABS: Influenza A PCR NEGATIVE (Negative); Influenza B PCR NEGATIVE (Negative); Resp Syncy Virus RNA Qual PCR NEGATIVE (Negative); SARS COV2 PCR INHOUSE NEGATIVE (Negative)
--- NOTE | 2024-04-19 09:49 | PM.IMHP ---
History of Present Illness Date of Service: 04/19/24 Chief Complaint: sob 64F PMH?HTN, HLD, severe persistent asthma/COPD (never smoker), allergic rhinitis, arthritis, and chronic lower back pain who presented to the ED with?worsening SOB. Patient was discharged after asthma exacerbation from [facility] 02/24/24. In the interim patient was feeling much better. Over the last 4 days prior to presentation patient started to feel worsening shortness of breath, subjective fevers, cough that at 1st was nonproductive but now is reporting green sputum. In ED noted to be hypoxic to 80s and chest x-ray with streaky radial opacities overlying the left mid and upper hemithorax, chronic interstitial lung markings, bilateral upper lung field opacities, unclear how much of the findings are chronic versus acute. Review of Systems Review of Systems: Yes all other systems are reviewed and are negative [facility] Medical History Acute respiratory failure with hypoxia Asthma with COPD with exacerbation Leukocytosis Hyperlipidemia Anxiety Diabetes Hypertension Mass of upper lobe of left lung Allergic rhinitis Bronchial asthma COPD (chronic obstructive pulmonary disease) Family History Father No problems noted. Mother No problems noted. Surgical History H/O colonoscopy History of cataract surgery History of tubal ligation Social History Household Members: None Housing: Apartment Do you presently have visiting nurse or other home services: No Alcohol intake: never Patient Tobacco Use Status: Never used Tobacco Smoked in Last 30 Days: No e-Cigarette/Vaping Use: Never Used Second Hand Smoke Exposure: No Use of substances other than those prescribed or required for medical reasons: No Advance Directives: No Advance Directives Information Provided: Yes Do you have a plan to hurt others: No Plan service: No Sexual orientation: Straight/Heterosexual Meds Allergies Allergy/AdvReac Type Severity Reaction Status Date / Time No Known Allergies Allergy Unverified 04/19/24 07:17 [No Known Allergies*] Active Medications: Current Medications Acetaminophen (Acetaminophen 325 Mg Tablet) 650 mg PO Q6H PRN PRN Reason: Pain, Mild (Pain Scale 1-3), fever or headache Albuterol/Ipratropium (Albuterol/Iprat 2.5/0.5mg 3 Ml Ampul.Neb) 3 ml INHALE RQ4H WHILE AWAKE [facility] Azithromycin (Azithromycin 500 Mg Tablet) 500 mg PO Q24H [facility] Calcium Carbonate (Calcium Carbonate 750 Mg Tab.Chew) 750 mg PO Q4H PRN PRN Reason: Heartburn Enoxaparin Sodium (Enoxaparin Sodium 40 Mg/0.4 Ml Syringe) 40 mg SUBCUT Q24H [facility]RISTOPHER Ceftriaxone Sodium 1 gm/ (Sodium Chloride) 50 mls @ 100 mls/hr IV Q24H [facility] Magnesium Hydroxide (Milk Of Magnesia 30 Ml Oral.Susp) 30 ml PO DAILY PRN PRN Reason: Constipation Melatonin (Melatonin 3 Mg Tablet) 6 mg PO BEDTIME PRN PRN Reason: Insomnia Methylprednisolone Sodium Succinate (Methylprednisolone Sod Succ 40 Mg/Ml Vial) 40 mg IVPUSH Q12H [facility] Sodium Chloride (0.9 % Sodium Chloride Flush 3 Ml Syringe) 3 ml IVFLUSH QSHIFT [facility] Home Medications ?Medication ?Instructions ?Recorded ?Confirmed ?Last Taken ?Type albuterol sulfate 90 mcg/actuation 2 puff PO Q4H PRN wheezing 01/19/24 02/22/24 Unknown History aerosol inhaler triamcinolone acetonide 55 mcg 2 spray intranasal DAILY 01/19/24 02/22/24 02/21/24 History nasal spray aerosol cetirizine 10 mg tablet 10 mg PO DAILY 04/19/24 Unknown History Physical Exam Vital Signs and Narrative: Vital Signs: Last Vital Signs Temp 98.4 F 04/19/24 07:13 Pulse 122 H 04/19/24 08:47 Resp 17 04/19/24 08:47 BP 117/59 L 04/19/24 08:47 Pulse Ox 98 04/19/24 08:47 O2 Del Method Nasal Cannula 04/19/24 08:47 O2 Flow Rate 2 04/19/24 08:47 Oxygen Flow Rate 3 04/19/24 07:13 BMI result Body Mass Index 25.8 General: AO X 3, dyspneic Resp: wheezing bilateral, no accessory muscles used CVS: S1,S2,RRR GI: soft, non tender, non distended Neuro: motor grossly intact, alert Psych: appropriate affect, appropriate insight Results Labs 04/19/24 07:32 04/19/24 07:32 Labs: Laboratory Results - last 24 hr 04/19/24 04/19/24 07:32 07:38 MCV 88.0 MCH 30.0 MCHC 34.1 RDW 14.3 Plt Count 264 MPV 9.3 L Immature Gran % (Auto) 0.3 Neut % (Auto) 43.1 L Lymph % (Auto) 30.8 [place] % (Auto) 7.3 Eos % (Auto) 17.7 H Baso % (Auto) 0.8 Lymph # (Auto) 3.5 [place] # (Auto) 0.8 Eos # (Auto) 2.0 H Baso # (Auto) 0.1 Abs Immat Gran (auto) 0.03 Absolute Neuts (auto) 4.9 Absolute Nucleated RBC 0.000 Nucleated RBC % (auto) 0.0 Smear Tech's Comments VERIFIED VBG pH 7.52 H VBG pCO2 31 VBG pO2 49 VBG HCO3 25 VBG O2 Saturation 86.0 VBG Base Excess 3.7 Anion Gap 16 Estim Creat Clear Calc 58.1 Estimated GFR > 60 Random Glucose 87 Lactic Acid 1.5 Calcium 10.0 Magnesium 1.9 Total Bilirubin 0.7 Direct Bilirubin 0.2 AST 28 ALT 19 Alkaline Phosphatase 88 Troponin I High Sens < 2.7 B-Natriuretic Peptide < 10 Total Protein 7.7 Albumin 4.1 Influenza Type A (PCR) NEGATIVE Influenza Type B (PCR) NEGATIVE RSV RNA Qual (PCR) NEGATIVE SARS-CoV-2 RNA (RT-PCR) NEGATIVE Imaging Radiologist's Impressions: Impressions Chest X-Ray 04/19/24 07:10 IMPRESSION: 1. Streaky radiopacities overlying the left mid and upper hemithorax may be external to patient, correlation with physical exam. 2. Chronic interstitial lung markings. 3. Chronic bronchial wall thickening. 4. Biapical pleuroparenchymal scarring. 5. Bilateral upper lung field opacities may reflect chronic changes though underlying fracture/inflammatory etiology not excluded. Electronically signed by: Gisela Apodaca MD 04/19/2024 09:01 AM EDT Assessment and Plan (1) Acute exacerbation of chronic obstructive airways disease: Status: Acute Plan 64F PMH?HTN, HLD, severe persistent asthma/COPD (never smoker), allergic rhinitis, arthritis, and chronic lower back pain who presented to the ED with?worsening SOB Acute hypoxic respiratory failure secondary to severe persistent asthma/COPD with acute decompensation and possible pneumonia IV steroids, DuoNebs, ceftriaxone and azithromycin, wean O2 as tolerated Hyperlipidemia continue atorvastatin Hypertension Will hold beta-elly for now given bronchospasm and low normal blood pressure DVT prophylaxis with Lovenox Full Code Patient with significant decompensation of asthma/COPD requiring oxygen supplementation and IV steroids therefore expected require at least 2 midnights inpatient Quality Stroke Does the patient have a stroke diagnosis?: No VTE Prior VTE?: No VTE Risk Level:: Medical - moderate - high VTE Device Contraindication: Treatment Not Indicated VTE Drug Contraindication: N/A - Med Ordered
[2024-04-19] MEDS: Albuterol/Iprat 2.5/0.5MG 3 ML AMPUL.NEB INHALE ×3 (11:10→19:49)
--- NOTE | 2024-04-19 11:42 | PHA.MEDREC ---
Addendum entered by [facility] 04/19/24 12:06: Reviewed by [facility], Dr. Chaudhari made aware of last fill dates Original Note: Pharmacy Consult ? Medication Reconciliation Pharmacy has completed the medication reconciliation.Spoke to patient and she confirmed medications that looked like were not filled in a few months at patients pharmacy. The pateint states she is still on Albuterol Sulfate 2 puffs q4h PRN, Atoravastatin 40mg @bedtime, Symbicort 2 puffs BID, Cetirizine 10mg once daily, Metoprolol 36mg and Triamcinolone Acetonide 2 sprays internally daily. I called and confirmed and the last time she filled medications in [facility] and they state she hasn't filled anything since February and that was Cetirizine 10mg once daily. [facility] also states they had other claims for anything previous filled. I called [facility] pharmacy and they confirmed there were no claims for anything recently filled for those. Patient also claims she is taking Clonazepam 0.5mg tab 1 @bedtime and claims she fills that too at [facility]. I went and asked the patient when she last filled her medications since claims and her pharmacy state other block and she told be she has not filled her medication in in a little bit, maybe February? but states she has some of the medications at home and she said she took the medications this morning.
[2024-04-19] MEDS: cefTRIAXone sodium 1 GM in 0.9 % Sodium Chloride 50 ML IV (13:25)
[2024-04-19] MEDS: Enoxaparin Sodium 40 MG/0.4 ML SYRINGE SUBCUT (13:25)
[2024-04-19 17:36] LABS: Appearance Urine Clear; Color Urine Yellow; Glucose Urine UA 500 mg/dL (Negative); Leukocyte Esterase Urine Negative (Negative); Nitrite Urine Negative (Negative); Specific Gravity - Urine 1.025 (1.005-1.025); Urine Blood Negative (Negative); Urine Ketones 40 mg/dL (Negative); Urine Protein Negative (Neg-Trace)
[2024-04-19] MEDS: 0.9 % Sodium Chloride Flush 3 ML SYRINGE IVFLUSH ×2 (17:53→23:55)
[2024-04-19] MEDS: guaiFENesin DM 100/10/5 ML 5 ML SYRUP PO (18:50)
[2024-04-19] MEDS: Melatonin 3 MG TABLET 6 MG PO (20:41)
[2024-04-19] MEDS: Atorvastatin Calcium 40 MG TABLET PO (20:41)
[2024-04-19] MEDS: clonazePAM 0.5 MG TABLET PO (20:41)
[2024-04-19] MEDS: methylPREDNISolone Sod Succ 40 MG/ML VIAL IVPUSH (20:41)
[2024-04-20] VITALS (8 sets, daily range): BP systolic 113–136; BP diastolic 56–62; PULSE 60–108; RESP 14–20; TEMP 36–36.3; O2SAT 91–97
[2024-04-20 05:48] LABS: Hematocrit 38.3 % (37.0-47.0); Hemoglobin 12.7 g/dl (12.0-16.0); Mean Corpuscular HGB Conc 33.2 g/dl (31.0-35.0); Mean Corpuscular Hemoglobin 30.1 pg (27.0-33.0); Mean Corpuscular Volume 90.8 fL (80.0-98.0); Mean Platelet Volume 10.2 fL (9.4-12.3); Platelet Count 264 X10*3/uL (160-400); Red Blood Count 4.22 X10*6/uL (4.20-5.50); Red Cell Distribution Width 14.3 % (11.0-16.0); White Blood Count 13.2 X10*3/uL (4.8-10.8)
[2024-04-20 06:04] LABS: Anion Gap 16 (12-20); Blood Urea Nitrogen 24 mg/dL (9-16); Calcium 9.4 mg/dL (8.4-10.2); Carbon Dioxide 26 mmol/L (22-29); Chloride 102 mmol/L (96-108); Creatinine Clr Calc Pharmacy 59.4; Estimated Glomerular Filt Rate > 60; Glucose Fasting 159 mg/dL (60-99); Potassium 4.5 mmol/L (3.3-5.1); Sodium 139 mmol/L (135-145)
[2024-04-20] MEDS: Albuterol/Iprat 2.5/0.5MG 3 ML AMPUL.NEB INHALE ×4 (07:43→19:40)
--- NOTE | 2024-04-20 09:04 | P.PNIM_ITS ---
Subjective Subjective Date of Service: 04/20/24 Interval History: sob somewhat improved Physical Exam 2 Vital Signs: Vital Signs: Last Vital Signs Temp 96.8 F 04/20/24 06:56 Pulse 63 04/20/24 07:43 Resp 18 04/20/24 07:43 BP 113/56 L 04/20/24 06:56 Pulse Ox 97 04/20/24 06:56 O2 Del Method Nasal Cannula 04/20/24 06:56 O2 Flow Rate 2 04/20/24 06:56 Oxygen Flow Rate 3 04/19/24 07:13 BMI result Body Mass Index 25.8 General: AO X 3, no acute distress Resp: wheezing bilateral, no accessory muscles used CVS: S1,S2,RRR GI: soft, non tender, non distended Neuro: motor grossly intact, alert Psych: appropriate affect, appropriate insight Objective Data Active Medications Acetaminophen (Acetaminophen 325 Mg Tablet) 650 mg PO Q6H PRN PRN Reason: Pain, Mild (Pain Scale 1-3), fever or headache Albuterol/Ipratropium (Albuterol/Iprat 2.5/0.5mg 3 Ml Ampul.Neb) 3 ml INHALE RQ4H WHILE AWAKE [facility] Last Admin: 04/20/24 07:43 Dose: 3 ml Documented By: ZACHARY Atorvastatin Calcium (Atorvastatin Calcium 40 Mg Tablet) 40 mg PO BEDTIME CHRISTOPHER Last Admin: 04/19/24 20:41 Dose: 40 mg Documented By: ROBBIE Azithromycin (Azithromycin 500 Mg Tablet) 500 mg PO Q24H [facility] Calcium Carbonate (Calcium Carbonate 750 Mg Tab.Chew) 750 mg PO Q4H PRN PRN Reason: Heartburn Clonazepam (Clonazepam 0.5 Mg Tablet) 0.5 mg PO BEDTIME [facility] Last Admin: 04/19/24 20:41 Dose: 0.5 mg Documented By: ROBBIE Enoxaparin Sodium (Enoxaparin Sodium 40 Mg/0.4 Ml Syringe) 40 mg SUBCUT Q24H CHRISTOPHER Guaifenesin/Dextromethorphan (Guaifenesin Dm 100/10/5 Ml 5 Ml Syrup) 5 ml PO Q4H PRN PRN Reason: Cough Last Admin: 04/19/24 18:50 Dose: 5 ml Documented By: TRUDI Ceftriaxone Sodium 1 gm/ (Sodium Chloride) 50 mls @ 100 mls/hr IV Q24H [facility] Influenza Virus Vaccine (Flu Vacc [id number](6mos Up)/Pf 0.5 Ml Syringe) 0.5 ml IM .ONCE ONE Stop: 04/20/24 10:01 Loratadine (Loratadine 10 Mg Tablet) 10 mg PO DAILY [facility] Magnesium Hydroxide (Milk Of Magnesia 30 Ml Oral.Susp) 30 ml PO DAILY PRN PRN Reason: Constipation Melatonin (Melatonin 3 Mg Tablet) 6 mg PO BEDTIME PRN PRN Reason: Insomnia Last Admin: 04/19/24 20:41 Dose: 6 mg Documented By: TUMASY Methylprednisolone Sodium Succinate (Methylprednisolone Sod Succ 40 Mg/Ml Vial) 40 mg IVPUSH Q12H [facility] Last Admin: 04/19/24 20:41 Dose: 40 mg Documented By: TUMASY Sodium Chloride (0.9 % Sodium Chloride Flush 3 Ml Syringe) 3 ml IVFLUSH QSHIFT [facility] Last Admin: 04/19/24 23:55 Dose: 3 ml Documented By: MITESH Labs 04/20/24 05:05 04/20/24 05:05 Labs: Laboratory Results - last 24 hr 04/19/24 04/20/24 Unknown 05:05 MCV 90.8 MCH 30.1 MCHC 33.2 RDW 14.3 Plt Count 264 MPV 10.2 Absolute Nucleated RBC 0.000 Nucleated RBC % (auto) 0.0 Anion Gap 16 Estim Creat Clear Calc 59.4 Estimated GFR > 60 Fasting Glucose 159 H Calcium 9.4 Urine Color Yellow Urine Appearance Clear Urine pH 5.0 Ur Specific [place] 1.025 Urine Protein Negative Urine Glucose (UA) 500 H Urine Ketones 40 Urine Blood Negative Urine Nitrite Negative Ur Leukocyte Esterase Negative Assessment and Plan (1) Hypoxia: Status: Acute Plan 64F PMH?HTN, HLD, severe persistent asthma/COPD (never smoker), allergic rhinitis, arthritis, and chronic lower back pain who presented to the ED with?worsening SOB Acute hypoxic respiratory failure secondary to severe persistent asthma/COPD with acute decompensation and possible pneumonia IV steroids, DuoNebs, ceftriaxone and azithromycin, wean O2 as tolerated Hyperlipidemia continue atorvastatin Hypertension Will hold beta-elly for now given bronchospasm and low normal blood pressure DVT prophylaxis with Lovenox Full Code reason for continued hospitalization:still wheezy and sob Quality Stroke Does the patient have a stroke diagnosis?: No VTE Prior VTE?: No VTE Risk Level:: Medical - moderate - high VTE Device Contraindication: Treatment Not Indicated VTE Drug Contraindication: N/A - Med Ordered
[2024-04-20] MEDS: 0.9 % Sodium Chloride Flush 3 ML SYRINGE IVFLUSH ×2 (09:15→17:08)
[2024-04-20] MEDS: Azithromycin 500 MG TABLET PO (09:15)
[2024-04-20] MEDS: cefTRIAXone sodium 1 GM in 0.9 % Sodium Chloride 50 ML IV (09:15)
[2024-04-20] MEDS: Loratadine 10 MG TABLET PO (09:15)
[2024-04-20] MEDS: methylPREDNISolone Sod Succ 40 MG/ML VIAL IVPUSH ×2 (09:15→21:26)
[2024-04-20] MEDS: Flu Vacc TS2024-25(6mos up)/PF 0.5 ML SYRINGE IM (09:16)
[2024-04-20] MEDS: guaiFENesin DM 100/10/5 ML 5 ML SYRUP PO ×3 (09:31→23:58)
--- NOTE | 2024-04-20 11:08 | MHC.CM.PN ---
PT LIVES WITH SON IS INDEPENDENT ,PTS CAR IS IN PARKING LOT [facility] [employer] [facility] [employer]
[2024-04-20] MEDS: Enoxaparin Sodium 40 MG/0.4 ML SYRINGE SUBCUT (13:29)
[2024-04-20] MEDS: clonazePAM 0.5 MG TABLET PO (21:25)
[2024-04-20] MEDS: Atorvastatin Calcium 40 MG TABLET PO (21:25)
[2024-04-20] MEDS: Melatonin 3 MG TABLET 6 MG PO (21:25)
[2024-04-21] VITALS (10 sets, daily range): BP systolic 118–132; BP diastolic 59–74; PULSE 64–120; RESP 14–20; TEMP 36.2–36.8; O2SAT 92–99
[2024-04-21] MEDS: 0.9 % Sodium Chloride Flush 3 ML SYRINGE IVFLUSH ×4 (01:06→20:53)
[2024-04-21] MEDS: guaiFENesin DM 100/10/5 ML 5 ML SYRUP PO ×3 (05:19→20:52)
[2024-04-21 05:34] LABS: Hematocrit 37.6 % (37.0-47.0); Hemoglobin 12.1 g/dl (12.0-16.0); Mean Corpuscular HGB Conc 32.2 g/dl (31.0-35.0); Mean Corpuscular Hemoglobin 29.3 pg (27.0-33.0); Mean Platelet Volume 10.1 fL (9.4-12.3); Platelet Count 273 X10*3/uL (160-400); Red Blood Count 4.13 X10*6/uL (4.20-5.50); Red Cell Distribution Width 14.3 % (11.0-16.0); White Blood Count 18.9 X10*3/uL (4.8-10.8)
[2024-04-21 05:57] LABS: Anion Gap 12 (12-20); Blood Urea Nitrogen 35 mg/dL (9-16); Calcium 9.2 mg/dL (8.4-10.2); Carbon Dioxide 27 mmol/L (22-29); Chloride 103 mmol/L (96-108); Creatinine Clr Calc Pharmacy 59.4; Estimated Glomerular Filt Rate > 60; Glucose Fasting 160 mg/dL (60-99); Potassium 4.8 mmol/L (3.3-5.1); Sodium 137 mmol/L (135-145)
[2024-04-21] MEDS: Albuterol/Iprat 2.5/0.5MG 3 ML AMPUL.NEB INHALE ×3 (07:58→18:39)
[2024-04-21] MEDS: methylPREDNISolone Sod Succ 40 MG/ML VIAL IVPUSH ×2 (08:31→20:54)
[2024-04-21] MEDS: Loratadine 10 MG TABLET PO (08:32)
[2024-04-21] MEDS: Azithromycin 500 MG TABLET PO (10:07)
[2024-04-21] MEDS: cefTRIAXone sodium 1 GM in 0.9 % Sodium Chloride 50 ML IV (10:07)
--- NOTE | 2024-04-21 10:30 | P.PNIM_ITS ---
Subjective Subjective Date of Service: 04/21/24 Interval History: sob somewhat improved Physical Exam 2 Vital Signs: Vital Signs: Last Vital Signs Temp 98.3 F 04/21/24 08:00 Pulse 99 04/21/24 08:00 Resp 16 04/21/24 08:00 BP 118/60 04/21/24 08:00 Pulse Ox 99 04/21/24 08:00 O2 Del Method Room Air 04/21/24 08:00 O2 Flow Rate 2 04/21/24 03:36 Oxygen Flow Rate 3 04/19/24 07:13 BMI result Body Mass Index 25.8 General: AO X 3, no acute distress Resp: wheezing bilateral, no accessory muscles used CVS: S1,S2,RRR GI: soft, non tender, non distended Neuro: motor grossly intact, alert Psych: appropriate affect, appropriate insight Objective Data Active Medications Acetaminophen (Acetaminophen 325 Mg Tablet) 650 mg PO Q6H PRN PRN Reason: Pain, Mild (Pain Scale 1-3), fever or headache Albuterol/Ipratropium (Albuterol/Iprat 2.5/0.5mg 3 Ml Ampul.Neb) 3 ml INHALE RQ4H WHILE AWAKE [facility] Last Admin: 04/21/24 07:58 Dose: 3 ml Documented By: ZACHARY Atorvastatin Calcium (Atorvastatin Calcium 40 Mg Tablet) 40 mg PO BEDTIME [facility]RISTOPHER Last Admin: 04/20/24 21:25 Dose: 40 mg Documented By: SHYANN Azithromycin (Azithromycin 500 Mg Tablet) 500 mg PO Q24H [facility] Last Admin: 04/21/24 10:07 Dose: 500 mg Documented By: NATALYA Calcium Carbonate (Calcium Carbonate 750 Mg Tab.Chew) 750 mg PO Q4H PRN PRN Reason: Heartburn Clonazepam (Clonazepam 0.5 Mg Tablet) 0.5 mg PO BEDTIME [facility]RISTOPHER Last Admin: 04/20/24 21:25 Dose: 0.5 mg Documented By: SHYANN Enoxaparin Sodium (Enoxaparin Sodium 40 Mg/0.4 Ml Syringe) 40 mg SUBCUT Q24H [facility] Last Admin: 04/20/24 13:29 Dose: 40 mg Documented By: TRUDI Guaifenesin/Dextromethorphan (Guaifenesin Dm 100/10/5 Ml 5 Ml Syrup) 5 ml PO Q4H PRN PRN Reason: Cough Last Admin: 04/21/24 05:19 Dose: 5 ml Documented By: SHYANN Ceftriaxone Sodium 1 gm/ (Sodium Chloride) 50 mls @ 100 mls/hr IV Q24H [facility] Last Admin: 04/21/24 10:07 Dose: 100 mls/hr Documented By: NATALYA Loratadine (Loratadine 10 Mg Tablet) 10 mg PO DAILY [facility] Last Admin: 04/21/24 08:32 Dose: 10 mg Documented By: NATALYA Magnesium Hydroxide (Milk Of Magnesia 30 Ml Oral.Susp) 30 ml PO DAILY PRN PRN Reason: Constipation Melatonin (Melatonin 3 Mg Tablet) 6 mg PO BEDTIME PRN PRN Reason: Insomnia Last Admin: 04/20/24 21:25 Dose: 6 mg Documented By: SHYANN Methylprednisolone Sodium Succinate (Methylprednisolone Sod Succ 40 Mg/Ml Vial) 40 mg IVPUSH Q12H [facility] Last Admin: 04/21/24 08:31 Dose: 40 mg Documented By: NATALYA Sodium Chloride (0.9 % Sodium Chloride Flush 3 Ml Syringe) 3 ml IVFLUSH QSHIFT [facility] Last Admin: 04/21/24 08:32 Dose: 3 ml Documented By: NATALYA Labs 04/21/24 05:03 04/21/24 05:03 Labs: Laboratory Results - last 24 hr 04/21/24 05:03 MCV 91.0 MCH 29.3 MCHC 32.2 RDW 14.3 Plt Count 273 MPV 10.1 Absolute Nucleated RBC 0.000 Nucleated RBC % (auto) 0.0 Anion Gap 12 Estim Creat Clear Calc 59.4 Estimated GFR > 60 Fasting Glucose 160 H Calcium 9.2 Microbiology Microbiology Results: Microbiology 04/19/24 07:32 Blood Culture - Preliminary Blood - Venous No growth after 48 hours. 04/19/24 07:22 Blood Culture - Preliminary Blood - Venous No growth after 48 hours. Assessment and Plan (1) Hypoxia: Status: Acute Plan 64F PMH?HTN, HLD, severe persistent asthma/COPD (never smoker), allergic rhinitis, arthritis, and chronic lower back pain who presented to the ED with?worsening SOB Acute hypoxic respiratory failure secondary to severe persistent asthma/COPD with acute decompensation and possible pneumonia IV steroids, DuoNebs, ceftriaxone and azithromycin, wean O2 as tolerated Some improvement but still wheezing bilateral and short of breath Hyperlipidemia continue atorvastatin Hypertension Will hold beta-elly for now given bronchospasm and low normal blood pressure DVT prophylaxis with Lovenox Full Code reason for continued hospitalization:still wheezy and sob Quality Stroke Does the patient have a stroke diagnosis?: No VTE Prior VTE?: No VTE Risk Level:: Medical - moderate - high VTE Device Contraindication: Treatment Not Indicated VTE Drug Contraindication: N/A - Med Ordered
[2024-04-21] MEDS: Enoxaparin Sodium 40 MG/0.4 ML SYRINGE SUBCUT (14:00)
[2024-04-21] MEDS: Atorvastatin Calcium 40 MG TABLET PO (20:52)
[2024-04-21] MEDS: clonazePAM 0.5 MG TABLET PO (20:52)
[2024-04-22] VITALS (9 sets, daily range): BP systolic 127–166; BP diastolic 76–83; PULSE 64–118; RESP 12–18; TEMP 36.1–36.6; O2SAT 91–99
[2024-04-22] MEDS: guaiFENesin DM 100/10/5 ML 5 ML SYRUP PO ×2 (07:34→21:44)
[2024-04-22] MEDS: Albuterol/Iprat 2.5/0.5MG 3 ML AMPUL.NEB INHALE ×3 (07:41→19:57)
--- NOTE | 2024-04-22 08:39 | HO.PM.IMPN ---
Subjective Subjective Date of Service: 04/22/24 Interval History: sob somewhat improved, still wheezy Physical Exam Vital Signs: Vital Signs: Last Vital Signs Temp 97 F 04/22/24 08:00 Pulse 110 H 04/22/24 08:00 Resp 16 04/22/24 08:00 BP 127/83 04/22/24 08:00 Pulse Ox 91 L 04/22/24 08:00 O2 Del Method Nasal Cannula 04/22/24 08:00 O2 Flow Rate 2 04/22/24 08:00 Oxygen Flow Rate 3 04/19/24 07:13 BMI result Body Mass Index 25.8 General: AO X 3, no acute distress Resp: wheezing bilateral, no accessory muscles used CVS: S1,S2,RRR GI: soft, non tender, non distended Neuro: motor grossly intact, alert Psych: appropriate affect, appropriate insight Objective Data Active Medications Acetaminophen (Acetaminophen 325 Mg Tablet) 650 mg PO Q6H PRN PRN Reason: Pain, Mild (Pain Scale 1-3), fever or headache Albuterol/Ipratropium (Albuterol/Iprat 2.5/0.5mg 3 Ml Ampul.Neb) 3 ml INHALE RQ4H WHILE AWAKE [facility] Last Admin: 04/22/24 07:41 Dose: 3 ml Documented By: ZACHARY Atorvastatin Calcium (Atorvastatin Calcium 40 Mg Tablet) 40 mg PO BEDTIME [facility]STOP[facility] Last Admin: 04/21/24 20:52 Dose: 40 mg Documented By: JACOB Azithromycin (Azithromycin 500 Mg Tablet) 500 mg PO Q24H [facility] Last Admin: 04/21/24 10:07 Dose: 500 mg Documented By: NATALYA Calcium Carbonate (Calcium Carbonate 750 Mg Tab.Chew) 750 mg PO Q4H PRN PRN Reason: Heartburn Clonazepam (Clonazepam 0.5 Mg Tablet) 0.5 mg PO BEDTIME [facility]STOP[facility] Last Admin: 04/21/24 20:52 Dose: 0.5 mg Documented By: JACOB Enoxaparin Sodium (Enoxaparin Sodium 40 Mg/0.4 Ml Syringe) 40 mg SUBCUT Q24H [facility] Last Admin: 04/21/24 14:00 Dose: 40 mg Documented By: NATALYA Guaifenesin/Dextromethorphan (Guaifenesin Dm 100/10/5 Ml 5 Ml Syrup) 5 ml PO Q4H PRN PRN Reason: Cough Last Admin: 04/22/24 07:34 Dose: 5 ml Documented By: NATALYA Ceftriaxone Sodium 1 gm/ (Sodium Chloride) 50 mls @ 100 mls/hr IV Q24H [facility] Last Infusion: 04/21/24 10:45 Dose: Infused Documented By: NATALYA Loratadine (Loratadine 10 Mg Tablet) 10 mg PO DAILY [facility] Last Admin: 04/21/24 08:32 Dose: 10 mg Documented By: NATALYA Magnesium Hydroxide (Milk Of Magnesia 30 Ml Oral.Susp) 30 ml PO DAILY PRN PRN Reason: Constipation Melatonin (Melatonin 3 Mg Tablet) 6 mg PO BEDTIME PRN PRN Reason: Insomnia Last Admin: 04/20/24 21:25 Dose: 6 mg Documented By: SHYANN Methylprednisolone Sodium Succinate (Methylprednisolone Sod Succ 40 Mg/Ml Vial) 40 mg IVPUSH Q12H [facility] Last Admin: 04/21/24 20:54 Dose: 40 mg Documented By: JACOB Sodium Chloride (0.9 % Sodium Chloride Flush 3 Ml Syringe) 3 ml IVFLUSH QSHIFT [facility] Last Admin: 04/21/24 20:53 Dose: 3 ml Documented By: JACOB Labs 04/21/24 05:03 04/21/24 05:03 Microbiology Microbiology Results: Microbiology 04/19/24 07:32 Blood Culture - Preliminary Blood - Venous No growth after 48 hours. 04/19/24 07:22 Blood Culture - Preliminary Blood - Venous No growth after 48 hours. Assessment and Plan (1) Hypoxia: Status: Acute Plan 64F PMH?HTN, HLD, severe persistent asthma/COPD (never smoker), allergic rhinitis, arthritis, and chronic lower back pain who presented to the ED with?worsening SOB Acute hypoxic respiratory failure secondary to severe persistent asthma/COPD with acute decompensation and possible pneumonia IV steroids, DuoNebs, ceftriaxone and azithromycin, wean O2 as tolerated Some improvement but still wheezing bilateral and short of breath Hyperlipidemia continue atorvastatin Hypertension Will hold beta-elly for now given bronchospasm and low normal blood pressure DVT prophylaxis with Lovenox Full Code reason for continued hospitalization:still wheezy and sob Quality Stroke Does the patient have a stroke diagnosis?: No VTE Prior VTE?: No VTE Risk Level:: Medical - moderate - high VTE Device Contraindication: Treatment Not Indicated VTE Drug Contraindication: N/A - Med Ordered
[2024-04-22] MEDS: Azithromycin 500 MG TABLET PO (09:48)
[2024-04-22] MEDS: 0.9 % Sodium Chloride Flush 3 ML SYRINGE IVFLUSH ×2 (09:48→21:45)
[2024-04-22] MEDS: methylPREDNISolone Sod Succ 40 MG/ML VIAL IVPUSH ×2 (09:48→21:45)
[2024-04-22] MEDS: Loratadine 10 MG TABLET PO (09:48)
[2024-04-22] MEDS: cefTRIAXone sodium 1 GM in 0.9 % Sodium Chloride 50 ML IV (09:50)
[2024-04-22] MEDS: Enoxaparin Sodium 40 MG/0.4 ML SYRINGE SUBCUT (12:23)
[2024-04-22] MEDS: Atorvastatin Calcium 40 MG TABLET PO (21:44)
[2024-04-22] MEDS: clonazePAM 0.5 MG TABLET PO (21:44)
[2024-04-22] MEDS: Melatonin 3 MG TABLET 6 MG PO (21:44)
[2024-04-23 03:29] VITALS: BP 125/71; PULSE 112; RESP 18; TEMP 36.8; O2SAT 95
[2024-04-23] MEDS: guaiFENesin DM 100/10/5 ML 5 ML SYRUP PO (03:54)
[2024-04-23 07:24] LABS: Hematocrit 37.9 % (37.0-47.0); Hemoglobin 12.7 g/dl (12.0-16.0); Mean Corpuscular HGB Conc 33.5 g/dl (31.0-35.0); Mean Corpuscular Hemoglobin 30.3 pg (27.0-33.0); Mean Corpuscular Volume 90.5 fL (80.0-98.0); Mean Platelet Volume 10.4 fL (9.4-12.3); Platelet Count 324 X10*3/uL (160-400); Red Blood Count 4.19 X10*6/uL (4.20-5.50); Red Cell Distribution Width 14.1 % (11.0-16.0); White Blood Count 12.4 X10*3/uL (4.8-10.8)
[2024-04-23 07:29] VITALS: PULSE 112; RESP 18; O2SAT 94
[2024-04-23] MEDS: Albuterol/Iprat 2.5/0.5MG 3 ML AMPUL.NEB INHALE (07:29)
[2024-04-23 07:40] LABS: Anion Gap 14 (12-20); Blood Urea Nitrogen 30 mg/dL (9-16); Calcium 9.2 mg/dL (8.4-10.2); Carbon Dioxide 25 mmol/L (22-29); Chloride 104 mmol/L (96-108); Creatinine Clr Calc Pharmacy 61.6; Estimated Glomerular Filt Rate > 60; Glucose Fasting 198 mg/dL (60-99); Potassium 4.6 mmol/L (3.3-5.1); Sodium 138 mmol/L (135-145)
[2024-04-23 07:47] VITALS: BP 139/69; PULSE 99; RESP 16; TEMP 36.2; O2SAT 100
[2024-04-23] MEDS: methylPREDNISolone Sod Succ 40 MG/ML VIAL IVPUSH (09:04)
[2024-04-23] MEDS: cefTRIAXone sodium 1 GM in 0.9 % Sodium Chloride 50 ML IV (09:04)
[2024-04-23] MEDS: Loratadine 10 MG TABLET PO (09:05)
[2024-04-23] MEDS: 0.9 % Sodium Chloride Flush 3 ML SYRINGE IVFLUSH (09:05)
[2024-04-23] MEDS: Azithromycin 500 MG TABLET PO (09:05)
--- NOTE | 2024-04-23 09:35 | P.DS_ITS ---
DS: Providers Provider Date of Service: 04/23/24 Date of admission: 04/19/24 09:47 Date of discharge: 04/23/24 Primary care physician: Carmina Iyer, DS: Diagnosis Discharge Diagnosis (1) Hypoxia: Status: Acute DS: Summary Hospital Course Hospital Course: from initial hpi: 64F PMH?HTN, HLD, severe persistent asthma/COPD (never smoker), allergic rhinitis, arthritis, and chronic lower back pain who presented to the ED with?worsening SOB. Patient was discharged after asthma exacerbation from [facility] 02/24/24. In the interim patient was feeling much better. Over the last 4 days prior to presentation patient started to feel worsening shortness of breath, subjective fevers, cough that at 1st was nonproductive but now is reporting green sputum. In ED noted to be hypoxic to 80s and chest x-ray with streaky radial opacities overlying the left mid and upper hemithorax, chronic interstitial lung markings, bilateral upper lung field opacities, unclear how much of the findings are chronic versus acute. hospital course: Patient was admitted for acute hypoxic respiratory failure secondary to severe persistent asthma/COPD with acute decompensation and possible pneumonia. She was treated with IV steroids and DuoNebs and ceftriaxone azithromycin. Symptoms significantly improved and on discharge will continue 5 more days of prednisone and 3 more days of azithromycin. Wheezing is now resolved and shortness of breath significantly better. For hyperlipidemia was continued on atorvastatin. For hypertension beta-elly was initially held for low normal blood pressures and bronchospasm, this is now resolved and will be restarted as outpatient. Time Attestation Discharge Coordination Time (in mins): 32 Quality: Safe Use of Opioids Does Pt have an Active Cancer Diagnosis on the Problem List?: No Quality: Stroke Does the patient have a stroke diagnosis?: No Physical Exam Vital Signs: Vital Signs: Last Vital Signs Temp 97.1 F 04/23/24 07:47 Pulse 99 04/23/24 07:47 Resp 16 04/23/24 07:47 BP 139/69 04/23/24 07:47 Pulse Ox 100 04/23/24 07:47 O2 Del Method Room Air 04/23/24 07:47 O2 Flow Rate 2 04/23/24 03:29 Oxygen Flow Rate 3 04/19/24 07:13 BMI result Body Mass Index 25.8 General: AO X 3, no acute distress Resp: CTA bilateral, no accessory muscles used CVS: S1,S2,RRR GI: soft, non tender, non distended Neuro: motor grossly intact, alert Psych: appropriate affect, appropriate insight DS: Data Data Completed and Pending Labs on day of discharge: Laboratory Results - last 24 hr 04/23/24 05:59 WBC 12.4 H RBC 4.19 L Hgb 12.7 Hct 37.9 MCV 90.5 MCH 30.3 MCHC 33.5 RDW 14.1 Plt Count 324 MPV 10.4 Absolute Nucleated RBC 0.000 Nucleated RBC % (auto) 0.0 Sodium 138 Potassium 4.6 Chloride 104 Carbon Dioxide 25 Anion Gap 14 BUN 30 H Creatinine 0.82 Estim Creat Clear Calc 61.6 Estimated GFR > 60 Fasting Glucose 198 H Calcium 9.2 Preliminary micro results at discharge 04/19/24 07:32 Blood Culture - Preliminary Blood - Venous No growth after 48 hours. 04/19/24 07:22 Blood Culture - Preliminary Blood - Venous No growth after 48 hours. Discharge Plan Discharge Anticipated Discharge Date/Time: 04/23/24 09:33 Patient Disposition: Home, Self-Care Discharge Diagnosis: copd Referrals: Carmina Iyer DO [Primary Care Provider] - 1 Week Discharge Medications: New azithromycin 500 mg Tablet 500 mg PO Q24H Qty: 6 0RF prednisone 20 mg tablet 40 mg PO DAILY Qty: 10 0RF Continued cetirizine 10 mg tablet 10 mg PO DAILY clonazepam 0.5 mg tablet 0.5 mg PO BEDTIME atorvastatin 40 mg Tablet 40 mg PO BEDTIME 30 Days Qty: 30 0RF metoprolol succinate 25 mg Tablet Extended Release 24 Hr 25 mg PO DAILY 30 Days Qty: 30 0RF Protocol: Hold for SBP/HR < HOLD for SBP < : 90 HOLD for HR < : 60 budesonide-formoterol [Symbicort] 160-4.5 mcg/actuation HFA aerosol inhaler 2 puff INHALATION BID 30 Days Qty: 1 0RF triamcinolone acetonide 55 mcg aerosol,spray 2 spray intranasal DAILY albuterol sulfate 90 mcg/actuation HFA aerosol inhaler 2 puff PO Q4H PRN (Reason: wheezing) Discharge Orders: Discharge Order (Routine); Ordered 04/23/24 Ordered By: Robbie Chaudhari Diet: Advance to usual diet Activity on Discharge: As tolerated Stand Alone Forms: Patient Portal Discharge page Print Language: Kittitian Care Plan Goals: Recovery Health Concerns: COPD Plan of Treatment: Three more days of azithromycin, 5 more days of prednisone Assessment: See above
--- NOTE | 2024-04-23 10:42 | MHC.CM.PN ---
PT TO DC HOME TODAY WITH NO SERVICES VIA SELF-TRANSPORT
== END 2024-04-23 11:18 | disposition home or self-care (01) | DRG 190 ==
LOC: HO.ED 08:45 → HO.EDOVER 09:50 → HO.S3 11:26
PROVIDERS: Admitting Provider Internal Medicine; Emergency Provider Emergency Medicine; PCP Family Medicine; Visit Provider Internal Medicine
DX: J44.0 Chronic obstructive pulmonary disease with (acute) lower respiratory infection (principal); J18.9 Pneumonia, unspecified organism; J96.01 Acute respiratory failure with hypoxia; J45.51 Severe persistent asthma with (acute) exacerbation; J44.1 Chronic obstructive pulmonary disease with (acute) exacerbation; I10 Essential (primary) hypertension; E78.5 Hyperlipidemia, unspecified; Z20.822 Contact with and (suspected) exposure to COVID-19; Z23 Encounter for immunization; Z79.899 Other long term (current) drug therapy
CPT/HCPCS: 0241U; 36415; 71045; 80048; 80076; 81003; 82803; 83605; 83735; 83880; 84484; 85025; 85027; 87040; 90656; 93005; 94640; 99285; J0456; J0696; J1650; J2919; J3475

== ENCOUNTER → 2024-04-19 09:47 | Outpatient (BNV) | payer MEDICARE, SELFPAY | PROVIDERS: Admitting Provider Internal Medicine; Emergency Provider Emergency Medicine; Visit Provider Internal Medicine | DX: J44.1 Chronic obstructive pulmonary disease with (acute) exacerbation (principal); R09.02 Hypoxemia | CPT/HCPCS: 99223; 99231; 99232; 99233; 99239 ==

== ENCOUNTER 2024-06-08 12:08 | Outpatient (REF) | payer MEDICARE, SELFPAY ==
--- NOTE | ~2024-06-08 | XR_ITS ---
EXAMINATION: XR CHEST CLINICAL INFORMATION: Cough and worsening pneumonia. COMPARISON: Most recent chest radiograph dated 04/19/2024. TECHNIQUE: 2 views of the chest were obtained. FINDINGS: Chronic interstitial prominence. Biapical pleural thickening is unchanged. No new airspace opacity. No pleural effusion. No pneumothorax. Stable cardiomediastinal silhouette. XR/XR chest 2V IMPRESSION: No acute cardiopulmonary findings. Electronically signed by: Willie Heard MD 06/08/2024 04:30 PM EDT
== END 2024-06-08 12:09 | disposition home or self-care (01) ==
LOC: HO.HHCX 12:08
PROVIDERS: Visit Provider Family Medicine
DX: J45.51 Severe persistent asthma with (acute) exacerbation (principal)
CPT/HCPCS: 71046

== ENCOUNTER 2024-06-14 12:42 | Outpatient (REF) | payer MEDICARE, SELFPAY ==
[2024-06-14 14:05] LABS: MANUAL DIFF FLAG NO
[2024-06-14 14:30] LABS: Basophils Percent Auto 0.3 % (0-2); Eosinophils Absolute Auto 0.1 X10*3/uL (0.0-0.4); Eosinophils Percent Auto 0.5 % (0-4); Hematocrit 45.1 % (37.0-47.0); Imm Gran Abs Auto 0.07 X10*3/uL (0.00-0.03); Imm Gran Pct Auto 0.5 % (0.0-0.4); Lymphocytes Absolute Auto 2.2 X10*3/uL (1.2-4.9); Lymphocytes Percent Auto 16.1 % (20-40); Mean Corpuscular HGB Conc 33.3 g/dl (31.0-35.0); Mean Corpuscular Hemoglobin 29.3 pg (27.0-33.0); Mean Corpuscular Volume 88.1 fL (80.0-98.0); Mean Platelet Volume 9.8 fL (9.4-12.3); Monocytes Absolute Auto 0.5 X10*3/uL (0.1-1.2); Monocytes Percent Auto 3.4 % (2-11); Neutrophils Absolute Auto 10.9 x10*3/uL (2.0-8.3); Neutrophils Percent Auto 79.2 % (45-73); Platelet Count 380 X10*3/uL (160-400); Red Blood Count 5.12 X10*6/uL (4.20-5.50); Red Cell Distribution Width 12.5 % (11.0-16.0); White Blood Count 13.8 X10*3/uL (4.8-10.8)
[2024-06-20 14:48] LABS: Class Alternaria alternata 0; Class Aspergillus fumigatus 1; Class Bermuda Grass 0; Class Birch 0; Class Cat Dander 0; Class Cladosporium herbarum 0; Class Cockroach 1; Class Common Ragweed 0; Class Cottonwood 0/1; Class Derm. pterony 1; Class Dermatophagoides farinae 1; Class Dog Dander 3; Class Elm 0/1; Class Maple Box Elder 0/1; Class Mountain Cedar 0/1; Class Mouse Urine Protein 0; Class Mugwort 0; Class Oak 0; Class Penicillium crysogenum 1; Class Rough Pigweed 0; Class Sheep Sorrel 0; Class Sycamore 0; Class Timothy Grass 0; Class Walnut Tree 0/1; Class White Ash 0/1; Class White Mulberry 0; D001 IgE D pteronyssinus 0.54 kU/L; D002 - IgE D farinae 0.64 kU/L; E001 - IgE Cat Dander <0.10 kU/L; E005 - IgE Dog Dander 5.42 kU/L; E072-IgE Mouse Urine <0.10 kU/L; G002 IgE Bermuda Grass <0.10 kU/L; G006 - IgE Timothy Grass <0.10 kU/L; I006-IgE Cockroach, German 0.42 kU/L; Immunoglobulin E 1289 kU/L (<OR=114); M001 IgE Penicillium chrysogen 0.57 kU/L; M002 - IgE Cladosporium herbar <0.10 kU/L; M003 - IgE Aspergillus fumigat 0.47 kU/L; M006 - IgE Alternaria alternat <0.10 kU/L; T001 IgE Maple/Box Elder 0.12 kU/L; T003 IgE Common Silver Birch <0.10 kU/L; T006 - IgE Cedar, Mountain 0.12 kU/L; T007 - IgE Oak, White <0.10 kU/L; T008 IgE Elm, American 0.11 kU/L; T010 - IgE Walnut 0.17 kU/L; T011 - IgE Maple Leaf Sycamore <0.10 kU/L; T014 - IgE Cottonwood 0.14 kU/L; T015 - IgE Ash, White 0.18 kU/L; T070 - IgE White Mulberry <0.10 kU/L; W001 - IgE Ragweed, Short <0.10 kU/L; W006 - IgE Mugwort <0.10 kU/L; W014 IgE Pigweed, Common <0.10 kU/L; W018 IgE Sheep Sorrel <0.10 kU/L
== END 2024-06-14 12:43 | disposition home or self-care (01) ==
LOC: HO.LAB 12:42
PROVIDERS: PCP Family Medicine; Visit Provider Internal Medicine Pulmonary Disease
DX: Z91.09 Other allergy status, other than to drugs and biological substances (principal); J44.89 Other specified chronic obstructive pulmonary disease
CPT/HCPCS: 36415; 82785; 85025; 86003; 99212

== ENCOUNTER 2024-06-14 12:42 | Outpatient (AMB) | payer MEDICARE, SELFPAY ==
[2024-06-14 13:13] VITALS: BP 110/62; PULSE 102; O2SAT 92; BMI 22.8
--- NOTE | 2024-06-14 13:13 | MHC.OFFVIS ---
Vital Signs 06/14/24 13:13 Height 5 ft 3 in Weight 128 lb 15.527 oz BMI 22.8 BP 110/62 Blood Pressure Location Rt brachial Position Sitting Pulse 102 H Pulse Source Doppler Pulse Oximetry (%) 92 Oxygen Delivery Method Room Air Intake Visit Reasons: COPD/acute hypoxic resp.failure Research Staff Member Required: Yes Research Staff Member Name: Carmina Herbert Lepe Allergies No Known Allergies [No Known Allergies*] Allergy (Verified 06/14/24 13:16) HPI HPI COPD/acute hypoxic resp.failure: Details: 64-year-old lady, nonsmoker, with underlying asthma/COPD overlap syndrome and environmental allergies presents for evaluation. Patient states that she has been using Symbicort and albuterol MDI with suboptimal control of her symptoms with exacerbations approximately every few months. Currently she is finishing prednisone course prescribe it for an acute exacerbation by her primary care provider. [facility] Medical History Acute respiratory failure with hypoxia Asthma with COPD with exacerbation Leukocytosis Hyperlipidemia Anxiety Diabetes Hypertension Mass of upper lobe of left lung Allergic rhinitis Bronchial asthma COPD (chronic obstructive pulmonary disease) Surgical History H/O colonoscopy History of cataract surgery History of tubal ligation Family History Father No problems noted. Mother No problems noted. Social History (Reviewed 06/14/24 @ 13:17 by Carmina Salinas [facility]) Household Members: Children Household Members Other:: Son Housing: House Do you presently have visiting nurse or other home services: No Alcohol intake: never Patient Tobacco Use Status: Never used Tobacco e-Cigarette/Vaping Use: Never Used Second Hand Smoke Exposure: No service: No Sexual orientation: Straight/Heterosexual Review of Systems Const Denies daytime sleepiness, Denies excessive sweating, Denies fatigue, Denies fever(s), Denies lethargy, Denies malaise, Denies night sweats, Denies snoring and Denies weight loss Eyes Denies blurry vision and Denies itchy eyes ENT Denies nasal congestion, Denies post nasal drip, Denies sinus pain, Denies sinus pressure and Denies other ( Thrush) Card Denies chest pain, Denies pedal edema, Denies dyspnea, Denies orthopnea and Denies paroxysmal nocturnal dyspnea Resp Denies cough, Denies hemoptysis, Denies excessive phlegm production, Denies dyspnea, Denies snoring and Reports wheezing GI Denies abdominal pain and Denies heartburn Musc Denies myalgias, Denies arthralgias and Denies joint swelling Skin/Breast Denies rash Neuro Denies memory loss and Denies seizure-like activity Psych Denies abnormal sleep pattern, Denies anxiety and Denies memory loss Endo Denies excessive sweating, Denies fatigue and Denies heat intolerance Sha/Lymph Denies easy bruising Aller/Immun Denies itchy eyes, Denies seasonal rhinorrhea and Reports wheezing Physical Exam Vital Signs: Last Vital Signs Pulse 102 H 06/14/24 13:13 BP 110/62 06/14/24 13:13 Pulse Ox 92 06/14/24 13:13 Oxygen Delivery Method Room Air 06/14/24 13:13 BMI result Body Mass Index 22.8 Const General: no acute distress and alert Nutritional Appearance: not obese Orientation/consciousness: Other orientation findings ( oriented) HEENT Head: Yes atraumatic Eyes General: appearance normal, both eyes and all related structures Sclerae: sclerae normal EOM: EOMs intact bilaterally Neck Neck: Yes supple Lymphatic: no lymphadenopathy noted Resp Effort & Inspection: normal respiratory effort and no use of accessory muscles Auscultation: clear to auscultation bilaterally Cardio Rate: regular rate Rhythm: regular rhythm Heart sounds: no gallops, no murmurs and no rubs Skin General skin exam: other ( warm) Extrem General: No clubbing, No cyanosis and No edema Assessment & Plan Assessment & Plan (1) Asthma-COPD overlap syndrome: Code(s): J44.89 - Other specified chronic obstructive pulmonary disease Category: Medical Plan: Asthma/COPD overlap syndrome with multiple recurrent exacerbations suboptimally controlled on Symbicort, will switch to BrezTri. Will obtain full PFT. (2) Environmental allergies: Code(s): Z91.09 - Other allergy status, other than to drugs and biological substances Category: Medical Plan: Will obtain IgE level, CBC with differential and RAST panel for further evaluation. Orders: Orders Resp Allergy Profile Region I Today Z91.09 - Other allergy status, other than to drugs and biological substances Complete Blood Count Auto Diff Today Z91.09 - Other allergy status, other than to drugs and biological substances PFT pulmonary function test Today J44.1 - Chronic obstructive pulmonary disease with (acute) exacerbation, J45.901 - Unspecified asthma with (acute) exacerbation Medications: New [id number] 160-9-4.8 mcg/actuation (Breztri Aerosphere) 2 inhalations inhalation BID 1 ea 6RF Z91.09 - Other allergy status, other than to drugs and biological substances Discontinued budesonide-formoterol 160-4.5 mcg/actuation (Symbicort) Discontinued Reason: Doctor's Order 2 puffs inhalation BID 30 days 1 inhaler 0RF Coding Level of Care Code Est Pt Level 4 (94807) Complex EM visit Add On G2211 Diagnoses Asthma-COPD overlap syndrome J44.89 Environmental allergies Z91.09
== END 2024-06-14 13:44 | disposition home or self-care (01) ==
LOC: HO.HPS 12:43
PROVIDERS: PCP Family Medicine; Visit Provider Internal Medicine Pulmonary Disease
DX: J44.89 Other specified chronic obstructive pulmonary disease (principal); Z91.09 Other allergy status, other than to drugs and biological substances
CPT/HCPCS: 99214; G2211

== ENCOUNTER 2024-07-26 | Outpatient (REF) | payer MEDICARE, SELFPAY ==
--- OUTSIDE RECORDS SUMMARY | 2024-07-30 15:10 | XMS_ITS | Continuity of Care Document ---
Author Organization [facility] Address [address] [place] [address] Phone Care Team Providers Care Sound Ranging Crewmember Name Role Phone Bradley Avila MD Unavailable Unavailable Advance Directives Directive Yes / No Effective Date File Name No Information Encounters Encounter Description Practice Location Reason(s) For Visit Diagnoses Date Provider Providers Copied on Encounter [facility], [address], [place], [place], [id number], [place] tel:[phone] [facility] No Information 0 201 5 Austin Huerta. [address] [facility] [address], [place], [place], [id number] , [place]. tel:[phone] Family History Family Member Type Diagnosis Age At Onset No Information Payers Payer name Insurance type Covered republican ID Authoriza tion(s) No Information Social History [...]
== END 2024-07-26 00:01 | disposition home or self-care (01) ==
LOC: CF
PROVIDERS: PCP Family Medicine; Visit Provider Hospitalist
DX: J44.1 Chronic obstructive pulmonary disease with (acute) exacerbation (principal); J45.901 Unspecified asthma with (acute) exacerbation; Z91.09 Other allergy status, other than to drugs and biological substances
CPT/HCPCS: 99212

== ENCOUNTER 2024-07-26 13:32 | Outpatient (AMB) | payer MEDICARE, SELFPAY ==
[2024-07-26 13:42] VITALS: BP 118/62; PULSE 123; O2SAT 88; BMI 23.0
--- NOTE | 2024-07-26 13:42 | A.OFFVIS_ITS ---
Vital Signs 07/26/24 13:42 Height 5 ft 3 in Weight 130 lb BMI 23.0 BP 118/62 Blood Pressure Location Lt brachial Position Sitting Pulse 123 H Pulse Source Doppler Pulse Oximetry (%) 88 L Oxygen Delivery Method Room Air Intake Visit Reasons: COPD/PFT Follow Up Refinery Operator Required: Yes Refinery Operator Name: Carmina Herbert Lepe Allergies No Known Allergies [No Known Allergies*] Allergy (Verified 06/14/24 13:16) HPI HPI COPD/PFT Follow Up: Details: 64-year-old lady, nonsmoker, followed for asthma/COPD overlap syndrome and environmental allergies. At the last office visit patient was switched to Breztri and reports improved symptom control until approximately a week prior when she started developed bronchitic exacerbation symptomatic with productive cough and wheezing. She was not able to complete her PFT secondary to an acute exacerbation, but she did complete her immunologic workup. [facility] Medical History Acute respiratory failure with hypoxia Asthma with COPD with exacerbation Leukocytosis Hyperlipidemia Anxiety Diabetes Hypertension Mass of upper lobe of left lung Allergic rhinitis Bronchial asthma COPD (chronic obstructive pulmonary disease) Surgical History H/O colonoscopy History of cataract surgery History of tubal ligation Family History Father No problems noted. Mother No problems noted. Social History Household Members: Children Household Members Other:: Son Housing: House Do you presently have visiting nurse or other home services: No Alcohol intake: never Patient Tobacco Use Status: Never used Tobacco e-Cigarette/Vaping Use: Never Used Second Hand Smoke Exposure: No service: No Sexual orientation: Straight/Heterosexual Review of Systems Const Denies daytime sleepiness, Denies excessive sweating, Denies fatigue, Denies fever(s), Denies lethargy, Denies malaise, Denies night sweats, Denies snoring and Denies weight loss Eyes Denies blurry vision and Denies itchy eyes ENT Denies nasal congestion, Denies post nasal drip, Denies sinus pain, Denies sinus pressure and Denies other ( Thrush) Card Denies chest pain, Denies pedal edema, Denies dyspnea, Denies orthopnea and Denies paroxysmal nocturnal dyspnea Resp Reports cough, Denies hemoptysis, Reports excessive phlegm production, Denies dyspnea, Denies snoring and Reports wheezing GI Denies abdominal pain and Denies heartburn Musc Denies myalgias, Denies arthralgias and Denies joint swelling Skin/Breast Denies rash Neuro Denies memory loss and Denies seizure-like activity Psych Denies abnormal sleep pattern, Denies anxiety and Denies memory loss Endo Denies excessive sweating, Denies fatigue and Denies heat intolerance Sha/Lymph Denies easy bruising Aller/Immun Denies itchy eyes, Denies seasonal rhinorrhea and Reports wheezing Physical Exam Vital Signs: Last Vital Signs Pulse 123 H 07/26/24 13:42 BP 118/62 07/26/24 13:42 Pulse Ox 88 L 07/26/24 13:42 Oxygen Delivery Method Room Air 07/26/24 13:42 BMI result Body Mass Index 23.0 Const General: no acute distress and alert Nutritional Appearance: not obese Orientation/consciousness: Other orientation findings ( oriented) HEENT Head: Yes atraumatic Eyes General: appearance normal, both eyes and all related structures Sclerae: sclerae normal EOM: EOMs intact bilaterally Neck Neck: Yes supple Lymphatic: no lymphadenopathy noted Resp Effort & Inspection: normal respiratory effort and no use of accessory muscles Auscultation: wheezes (Expiratory bilateral) Cardio Rate: regular rate Rhythm: regular rhythm Heart sounds: no gallops, no murmurs and no rubs Skin General skin exam: other ( warm) Extrem General: No clubbing, No cyanosis and No edema Assessment & Plan Assessment & Plan (1) Asthma with COPD with exacerbation: Code(s): J44.1 - Chronic obstructive pulmonary disease with (acute) exacerbation; J45.901 - Unspecified asthma with (acute) exacerbation Category: Medical Plan: Improved control on Breztri. Continue current regimen of Breztri and albuterol MDI. Will treat bronchitic exacerbation with a course of azithromycin and prednisone. (2) Environmental allergies: Code(s): Z91.09 - Other allergy status, other than to drugs and biological substances Category: Medical Plan: Results of immunologic workup reviewed, patient does have significant allergic component to her symptoms. If fails to be controlled on inhaled corticosteroid, will consider starting Xolair. Medications: New azithromycin For 250 mg dose pack: take 500 mg today (day 1), then 250 mg for 4 days (days 2-5) PO 6 tabs 0RF Refilled prednisone 40 mg (2 x 20 mg) PO DAILY 10 tabs 0RF Discontinued azithromycin Discontinued Reason: Doctor's Order 500 mg PO Q24H 6 tabs 0RF Coding Level of Care Code Est Pt Level 4 (47280) Complex EM visit Add On G2211 Diagnoses Asthma with COPD with exacerbation J44.1; J45.901 Environmental allergies Z91.09
== END 2024-07-26 13:54 | disposition home or self-care (01) ==
PROVIDERS: PCP Family Medicine; Visit Provider Internal Medicine Pulmonary Disease
DX: J44.1 Chronic obstructive pulmonary disease with (acute) exacerbation (principal); J45.901 Unspecified asthma with (acute) exacerbation; Z91.09 Other allergy status, other than to drugs and biological substances
CPT/HCPCS: 99214; G2211

== ENCOUNTER 2024-08-02 07:47 | Outpatient (REF) | payer MEDICARE, SELFPAY ==
[2024-08-02] MEDS: iohexoL 350 MG/ML 75 ML INFUS..BTL 65 ML IV (08:26)
[2024-08-03 07:24] LABS: Creatinine POC 0.8 mg/dL (0.5-1.4); GFR POC > 60
== END 2024-08-02 07:48 | disposition home or self-care (01) ==
LOC: HO.CT 07:47
PROVIDERS: PCP Family Medicine; Visit Provider Family Medicine
DX: R93.89 Abnormal findings on diagnostic imaging of other specified body structures (principal)
CPT/HCPCS: 71260; 82565; Q9967

== ENCOUNTER → 2024-08-02 07:49 | Outpatient (BNV) | payer MEDICARE, SELFPAY | PROVIDERS: PCP Family Medicine; Visit Provider Radiology Diagnostic Radiology | DX: J94.8 Other specified pleural conditions (principal); J47.9 Bronchiectasis, uncomplicated | CPT/HCPCS: 71260 ==

== ENCOUNTER 2024-11-27 11:42 | Outpatient (REF) | payer MEDICARE, SELFPAY ==
--- NOTE | ~2024-11-27 | XR_ITS ---
EXAMINATION: XR CHEST CLINICAL INFORMATION: SOB x 3 weeks, r/o PNA COMPARISON: None available. TECHNIQUE: 2 views of the chest were obtained. FINDINGS: The lungs are expanded with no acute consolidation. There is increased bilateral interstitial markings without patchy reticular nodular changes left upper lobe peripherally based. Heart size and pulmonary vascularity is normal. No gross bony abnormality seen. There is mild spondylosis dorsal spine. No aggressive lytic or sclerotic process seen. XR/XR chest 2V IMPRESSION: Diffuse chronic interstitial lung changes without acute pneumonic process. Reticular nodular changes left upper lobe. Electronically signed by: Mathew Oshea MD 11/27/2024 12:10 PM EDT
--- OUTSIDE RECORDS SUMMARY | 2024-11-27 14:12 | XMS_ITS | Encounter Summary ---
Author Organization [employer] Address [address] [facility] 7[address] [place] [address] Care Team Providers Care Gaming Dealer Name Role Phone Carmina Iyer DO Primary Care Provider + [phone] Carmina Iyer DO Primary Care Provider + [phone] Reason for Visit * Reason Onset Date Comments Results 09/05/2023 Encounter Details Date Type Department Care Team ([facility] st Contact Info) Description 09/05/2023 Telephone [facility]INE [address] [place] [address] Carmina Iyer DO [address] [place] [address] Results Social History Tobacco Use Types Packs/Day Years Used Date Smoking Tobacco: Never Passive Smoke Exposure: Never Smokeless Tobacco: Never Alcohol Use Standard Drinks/Week Comments Never 0 (1 standard drink = 0.6 oz pur e alcohol) Depression Answer Date Recorded Patient Health Questionnaire-9 Score 1 12/01/2022 Housing Stability Answer Date Recorded What is your housing situation today? I have housing today, but I am worried about losing housing in the future 05/19/[address] you li ve. Do you have problems with any of the following? Lead [place] or Pipes 05/19/2023 Food Insecurity Answer Date Recorded Within the past 12 months, y ou worried that your food would run out before you got money to buy more: Never True 05/27/2023 Within the past 12 months,th e food you bought just didn't last and you didn't have enough money to get more: Never True Transportation Answer Date Recorded In the past 12 months, has l ack of transportation kept you from medical appts, meetings, work or from getting things needed for daily living? No 05/27/2023 Utilities Answer Date Recorded In the past 12 months, has t he electric, gas, oil or water company threatened to shut off services in your home? No 05/27/2023 Depression Answer Date Recorded Patient Health Questionnaire-2 Score 1 12/01/2022 Comments Unknown Sex and Gender Information Value Date Recorded Sex Assigned at Female 06/07/2022 10:15 AM EDT Legal Sex Female 10:15 AM EDT Gender Identity Female 06/07/2022 10:15 AM EDT Sexual Orientation Straight 06/07/2022 10 :15 AM EDT documented as of this encounter Miscellaneous Notes * Telephone Encounter - Beth Gómez RN - 09/05/2023 11:08 AM EST TC from pt requesting call back regarding Results. Type of results: labs Date when done: 09/02 Facility: [facility] Please contact pt at [phone] TC returned to pt and a message was left, pt B-12 was elevated unable to speak to pt so contacted pharmacy to check on status of 500 mcg B-12 tablets they were last picked up February of 2023 for a 90 day supply, thyroid and CBC and normal, mildly elevated BUN, pt should be encouraged to stay hydrated.Will forward to ordering provider to advise if any other concerns should be addressed when pt returns call. * Telephone Encounter - Radha Anna - 09/05/2023 9:41 AM EST TC from pt requesting call back regarding Results. Type of results: labs Date when done: 09/02 Facility: [facility] Please contact pt at [phone] documented in this encounter Plan of Treatment Not on file documented as of this encounter Visit Diagnoses Not on filedocumented in this encounter Additional Health Concerns Assessment Noted Time PHQ-9 Depression Total Score: 1 12/02/19 9:05 AM EDT documented as of this encounter Care Teams Gaming Dealer Relationship Specialty Start Date End Date Carmina Iyer DO [address] [place] [address] PCP - General Family Medicine 02/05/13 01/30/24 Carmina Iyer DO [address] [place] [address] PCP - General Family Medicine 05/01/24 documented as of this encounter
--- OUTSIDE RECORDS SUMMARY | 2024-11-27 14:12 | XMS_ITS | Encounter Summary ---
Author Organization [email or web address] Address [address] [place] [address] 7[address] [place] [address] Care Team Providers Care Reserves Clerk Name Role Phone Carmina Iyer DO Primary Care Provider [phone] Reason for Referral * Medications - Closed Specialty Diagnoses / Procedures Referred By Ann-Marie liu Referred To Contact Diagnoses Severe persistent asthma with acute exacerbation Carmina Iyer DO [address] [place] [address] Phone: tel: fax: Referral ID Status Reason Start Date Expiration Date Visits Re quested Visits Authorized [id number] Closed 11/27/2024 11/27/2025 1 1 Reason for Visit * Reason Comments chronic conditions Encounter Details Date Type Department Care Team ([facility] st Contact Info) Description 11/27/2024 9:45 AM EDT Office Visit [facility] [address] [place] [address] Carmina Iyer DO [address] [place] [address] Type 2 diabetes mellitus without complication, without long-term current use of insulin (CMS/HCC) (Primary Dx); Essential hypertension; Other hyperlipidemia; Major depression, recurrent, chronic (CMS/HCC); Obstructive sleep apnea, adult; Severe persistent asthma with acute exacerbation; Chronic allergic rhinitis; Chronic bilateral low back pain without sciatica; Abnormal chest CT; Healthcare maintenance; Anxiety; Severe persistent asthma without complication Social History Tobacco Use Types Packs/Day Years Used Date Smoking Tobacco: Never Passive Smoke Exposure: Never Smokeless Tobacco: Never Alcohol Use Standard Drinks/Week Comments Never 0 (1 standard drink = 0.6 oz pur e alcohol) Depression Answer Date Recorded Patient Health Questionnaire-9 Score 0 06/08/2024 Patient Health Questionnaire-9 Score 0 06/08/2024 Last PHQ-9: Questionnaire Data Not on file 1 08/08/2023 Housing Stability Answer Date Recorded What is your housing situation today? I do not have housing (Staying with others, in a hotel, in a alf, living outside on the street, on a beach, in a car, or in a park 05/01/[address] you li ve. Do you have problems with any of the following? Pests such as bugs, ants, or mice 05/01/2024 Food Insecurity Answer Date Recorded Within the past 12 months, y ou worried that your food would run out before you got money to buy more: Sometimes True 2023 Within the past 12 months,th e food you bought just didn't last and you didn't have enough money to get more: Sometimes True 05/01/2024 Transportation Answer Date Recorded In the past 12 months, has l ack of transportation kept you from medical appts, meetings, work or from getting things needed for daily living? No 05/01/2024 Utilities Answer Date Recorded In the past 12 months, has t he electric, gas, oil or water company threatened to shut off services in your home? I am not sure 05/01/2024 Depression Answer Date Recorded Patient Health Questionnaire-2 Score 0 06/08/2024 Internet Access Answer Date Recorded Internet Access Q1 Yes 05/01/2024 Internet Access Q2 Not on file 05/01/2024 Comments No Sex and Gender Information Value Date Recorded Sex Assigned at Female 06/07/2022 10:15 AM EDT Legal Sex Female 10:15 AM EDT Gender Identity Female 06/07/2022 10:15 AM EDT Sexual Orientation Straight 06/07/2022 10 :15 AM EDT documented as of this encounter Last Filed Vital Signs Vital Sign Reading Time Taken Comments Blood Pressure 123/74 11/27/2024 9:40 AM EDT Pulse 135 11/27/2024 9:40 AM EDT Temperature 36.2 ??C (97.1 ??F) 11/27/2024 9:40 AM ED T Respiratory Rate 20 11/27/2024 9:40 AM EDT Oxygen Saturation 90% 11/27/2024 9:40 AM EDT Inhaled Oxygen Concentration - - Weight 55.2 kg (121 lb 9.6 oz) 11/27/2024 9:40 A M EDT Height 160 cm (5' 3 ) 11/27/2024 9:40 AM EDT Body Mass Index 21.54 11/27/2024 9:40 AM EDT documented in this encounter Plan of Treatment Not on file documented as of this encounter Procedures Procedure Name Priority Date/Time Associated Diagnosis Comments XR CHEST 2 VIEWS STAT 11/27/2024 11:4 2 AM EDT Severe persistent asthma with acute exacerbation POCT GLYCATED HEMOGLOBIN, TOTAL Routine 11/27/2024 11:09 AM EDT Type 2 diabetes mellitus without complication, without long-term current use of insulin ([facility]) POCT GLUCOSE Routine 11/27/2024 11:09 AM EDT Type 2 diabetes mellitus without complication, without long-term current use of insulin ([facility]) documented in this encounter Results * XR Chest 2 Views (11/27/2024 11:42 AM EDT) Anatomical Region Laterality Modality Chest Radiographic Ariadna ging 11/27/2024 11:4 2 AM EDT Narrative 11/27/2024 12:13 PM EDT ?[facility] ?[address] ?[place] [address] ?XRay Report ? Signed ? Patient: Cain,Salena ?MR#: [id number] ?? 9 ? : 1960 ?Acct:[id number] ? Age/Sex: 64 / F ?ADM Date: 04/22/25 ? Loc: HO.HHCX ? Attending Dr: Carmina Iyer DO ? Ordering Physician: Carmina Iyer DO ?? Date of Service: 11/27/24 ?? Procedure(s): XR chest 2V ?? Accession Number(s): [id number] ? cc: Carmina Iyer DO ? EXAMINATION: ?? XR CHEST ? CLINICAL INFORMATION: ?? SOB x 3 weeks, r/o PNA ? COMPARISON: ?? None available. ? TECHNIQUE: ?? 2 views of the chest were obtained. ? FINDINGS: ?? The lungs are expanded with no acute consolidation. There is increased ?? bilateral interstitial markings without patchy reticular nodular ?? changes left upper lobe peripherally based. Heart size and pulmonary ?? vascularity is normal. No gross bony abnormality seen. There is mild ?? spondylosis dorsal spine. No aggressive lytic or sclerotic process seen. ? XR/XR chest 2V ?? IMPRESSION: ?? Diffuse chronic interstitial lung changes without acute pneumonic ?? process. ? Reticular nodular changes left upper lobe. ? Electronically signed by: ??Mathew Oshea MD ??11/27/2024 12:10 PM EDT RP ? Dictated By: ?Mathew Oshea MD ? Signed By: ?<Electronically signed by Mathew Oshea MD in OV> ?11/27/24 1210 ? DD/ 1142 ? TD/TT: 11/27/24 1200 ? [employer] Supervisor: MSM ? Procedure Note Marina, Isaías - 11/27/2024 [place] [address] XRay Report Signed Patient: Callie Barlow#: [id number] 9 : 8Acct:[id number] Age/Sex: 64 / FADM Date: 11/27/24 Loc: .HHCX Attending Dr: Carmina Iyer DO Ordering Physician: Carmina Iyer DO Date of Service: 11/27/24 Procedure(s): XR chest 2V Accession Number(s): [id number] cc: Carmina Iyer DO EXAMINATION: XR CHEST CLINICAL INFORMATION: SOB x 3 weeks, r/o PNA COMPARISON: None available. TECHNIQUE: 2 views of the chest were obtained. FINDINGS: The lungs are expanded with no acute consolidation. There is increased bilateral interstitial markings without patchy reticular nodular changes left upper lobe peripherally based. Heart size and pulmonary vascularity is normal. No gross bony abnormality seen. There is mild spondylosis dorsal spine. No aggressive lytic or sclerotic process seen. XR/XR chest 2V IMPRESSION: Diffuse chronic interstitial lung changes without acute pneumonic process. Reticular nodular changes left upper lobe. Electronically signed by: Mathew Oshea MD 11/27/2024 12:10 PM EDT RP Dictated By: Mathew Oshea MD Signed By: <Electronically signed by Mathew Oshea MD in OV> 11/27/24 1210 DD/ 1142 TD/TT: 11/27/24 1200 [employer] Supervisor: DEYSI Carmina Iyer DO IMG XR PROCEDURES Final Resu lt * POCT HGB A1C (11/27/2024 11:09 AM EDT) Hemoglobin A1C 5.4 4.0 - 6.0 % QC Media Lot # [id number] Lot# Expiration Date Blood 11/27/2024 11:0 9 AM EDT Carmina FreshRealmannmarie DO POINT OF CARE TEST ENTER/YOANNA T ORDERABLES Final Result * POCT Glucose (11/27/2024 11:09 AM EDT) Glucose Blood, POC 105 60 - 200 mg/dL QC Media Lot # [id number] Lot# Expiration Date Blood Capillary blood specimen / Unknown 11/27/2024 11:09 AM EDT Carminagrace Iyer DO POINT OF CARE TEST ENTER/YOANNA T ORDERABLES Final Result documented in this encounter Visit Diagnoses Diagnosis Type 2 diabetes mellitus without complication, without long-term current use of insulin (CMS/[facility])- Primary Essential hypertension Unspecified essential hypertension Other hyperlipidemia Major depression, recurrent, chronic (CMS/HCC) Obstructive sleep apnea, adult Severe persistent asthma with acute exacerbation Chronic allergic rhinitis Chronic bilateral low back pain without sciatica Abnormal chest CT Nonspecific (abnormal) findings on radiological and other examination of other intrathoracic organs Healthcare maintenance Anxiety Anxiety state, unspecified Severe persistent asthma without complication documented in this encounter Additional Health Concerns Assessment Noted Time PHQ-9 Depression Total Score: 0 06/08/20 10:04 AM EDT documented as of this encounter Care Teams Reserves Clerk Relationship Specialty Start Date End Date Carmina Iyer DO [address] [place] [address] PCP - General Family Medicine 05/01/24 documented as of this encounter
--- OUTSIDE RECORDS SUMMARY | 2024-11-27 14:12 | XMS_ITS | Encounter Summary ---
Author Organization [employer] Address [address] [place] [address] 7t [place] [address] Care Team Providers Care Monitor Tech Name Role Phone Carmina Iyer DO Primary Care Provider [phone] Reason for Visit * Reason Comments Med Refill Encounter Details Date Type Department Care Team ([facility] st Contact Info) Description 08/02/2024 Refill [facility]INE [address] [place] [address] Carmina Iyer DO [address] [place] [address] Social History Tobacco Use Types Packs/Day Years [...] with others, in a hotel, in a penitentiary, living outside on the street, on a [...] Access Q2 Not on file 05/01/2024 Comments Unknown Sex and Gender Information Value Date Recorded Sex Assigned at Female 06/07/2022 10:15 AM EDT Legal Sex Female 10:15 AM EDT Gender Identity Female 06/07/2022 10:15 AM EDT Sexual Orientation Straight 06/07/2022 10 :15 AM EDT documented as of this encounter Plan of Treatment Not on file documented as of this encounter Visit Diagnoses Not on filedocumented in this encounter Additional Health Concerns Assessment Noted Time PHQ-9 Depression Total Score: 0 06/08/20 10:04 AM EDT documented as of this encounter Care Teams Monitor Tech Relationship Specialty Start Date End Date Carmina Iyer DO [address] [place] [address] PCP - General Family Medicine 05/01/24 documented as of this encounter
--- OUTSIDE RECORDS SUMMARY | 2024-11-27 14:12 | XMS_ITS | Encounter Summary ---
Author Organization [employer] Address [address] [facility] 7t [place] [address] Care Team Providers Care Solar Manager Name Role Phone Carmina Iyer DO Primary Care Provider + [phone] Carmina Iyer DO Primary Care Provider + [phone] Reason for Visit * Reason Onset Date Comments Durable Medical Equipment 08/30/2023 Encounter Details Date Type Department Care Team ([facility] st Contact Info) Description 08/30/2023 Telephone [facility] MEDICINE [address] [place] [address] Carmina Iyer DO [address] [place] [address] Durable Medical Equipment Social History Tobacco Use Types Packs/Day Years [...] problems with any of the following? Lead [place] or Pipes 05/19/2023 Food Insecurity Answer Date [...] encounter Miscellaneous Notes * Telephone Encounter - Marija Martino - 08/30/2023 10:35 AM EST TC from Pt requesting Will french . documented in this encounter Plan of Treatment Not on file documented as of this encounter Visit Diagnoses Not on filedocumented in this encounter Additional Health Concerns Assessment Noted Time PHQ-9 Depression Total Score: 1 12/02/19 9:05 AM EDT documented as of this encounter Care Teams Solar Manager Relationship Specialty Start Date End Date Carmina Iyer DO [address] [place] [address] PCP - General Family Medicine 02/05/13 01/30/24 Carmina Iyer DO [address] [place] [address] PCP - General Family Medicine 05/01/24 documented as of this encounter
--- OUTSIDE RECORDS SUMMARY | 2024-11-27 14:12 | XMS_ITS | Encounter Summary ---
Author Organization [employer] Address [address] [place] [address] 7[address] [place] [address] Care Team Providers Care Supervisor Alteration Workroom Name Role Phone Carmina Iyer DO Primary Care Provider + [phone] Reason for Visit * Reason Comments Med Refill Encounter Details Date Type Department Care Team ([facility] st Contact Info) Description 08/10/2024 Refill [facility] MED[facility]INE [address] [place] [address] Carmina Iyer DO [address] [place] [address] Anxiety Social History Tobacco Use Types Packs/Day Years [...] with others, in a hotel, in a long-term, living outside on the street, on a [...] documented as of this encounter Visit Diagnoses Diagnosis Anxiety Anxiety state, unspecified documented in this encounter Additional Health Concerns Assessment Noted Time PHQ-9 Depression Total Score: 0 06/08/20 10:04 AM EDT documented as of this encounter Care Teams Supervisor Alteration Workroom Relationship Specialty Start Date End Date Carmina Iyer DO [address] [place] [address] PCP - General Family Medicine 05/01/24 documented as of this encounter
--- OUTSIDE RECORDS SUMMARY | 2024-11-27 14:12 | XMS_ITS | Encounter Summary ---
Author Organization [employer] Address [address] [facility] 7t [place] [address] Care Team Providers Care Shift Supervisor Name Role Phone Carmina Iyer DO Primary Care Provider + [phone] Carmina Iyer DO Primary Care Provider + [phone] Reason for Visit * Reason Comments Med Refill Encounter Details Date Type Department Care Team ([facility] st Contact Info) Description 08/30/2023 Refill [facility]INE [address] [place] [address] Carmina Iyer DO [address] [place] [address] Anxiety Social History Tobacco Use Types Packs/Day [...] problems with any of the following? Lead [place] or Pipes 05/19/2023 Food Insecurity Answer Date [...] Time PHQ-9 Depression Total Score: 1 12/02/19 23 9:05 AM EDT documented as of this encounter Care Teams Shift Supervisor Relationship Specialty Start Date End Date Carmina Iyer DO [address] [place] [address] PCP - General Family Medicine 02/05/13 01/30/24 Carmina Iyer DO [address] [place] [address] PCP - General Family Medicine 05/01/24 documented as of this encounter
--- OUTSIDE RECORDS SUMMARY | 2024-11-27 14:12 | XMS_ITS | Encounter Summary ---
Author Organization [employer] Address [address] [facility] 7t [place] [address] Care Team Providers Care Food Handler Name Role Phone Carmina Iyer DO Primary Care Provider + [phone] Carmina Iyer DO Primary Care Provider + [phone] Encounter Details Date Type Department Care Team ([facility] st Contact Info) Description 08/25/2023 Telephone [facility] [address] [place] [address] Carmina Iyer DO [address] [place] [address] Social History Tobacco Use Types Packs/Day Years [...] problems with any of the following? Lead [place] or Pipes 05/19/2023 Food Insecurity Answer Date [...] documented as of this encounter Care Teams Food Handler Relationship Specialty Start Date End Date Carmina Iyer DO [address] [place] [address] PCP - General Family Medicine 02/05/13 01/30/24 Carmina Iyer DO [address] [place] [address] PCP - General Family Medicine 05/01/24 documented as of this encounter
--- OUTSIDE RECORDS SUMMARY | 2024-11-27 14:12 | XMS_ITS | Clinical Summary ---
Author Organization [employer] Address [address] [place] [address] Care Team Providers Care Momd Teacher Name Role Phone SandraCarmina luna Primary Care Provider [phone] Allergies No known active allergies Medications * This document contains information received from the source organization and may not represent a complete record from that organization. Aspirin Low Dose 81 MG EC tablet Take 81 mg by mouth in the morning. 022 Active acetaminophen (Tylenol 8 Hour) 650 MG ER tabletIndications :Pain take 1 Tablet by oral route every 8 hours as needed for Pain And/Or Fever 90 tablet 2 023 Active atorvastatin (Lipitor) 40 MG tabletIndications :Hyperlipidemia, unspecified hyperlipidemia type Take 1 tablet by mouth once daily 30 tablet 11 023 Active TRUEplus Lancets 33G misc TEST BLOOD SUGAR TWICE DAILY 100 each 11 023 Active Alcohol Swabs (SM Alcohol Prep) 70 % pads USE TWICE DAILY 100 each 11 023 Active glucose blood (FREESTYLE LITE) test strip TEST BLOOD SUGAR TWICE DAILY AND NEEDED 100 strip 11 023 Active baclofen (Lioresal) 10 MG tablet TAKE 1 TABLET BY MOUTH THREE TIMES DAILY IN THE MORNING, AT NOON, AND AT BEDTIME NEEDED FOR MUSCLE SPASMS 60 tablet 1 023 Active metoprolol succinate XL (Toprol-XL) 25 MG 24 hr tablet Take 25 mg by mouth Once per day. 024 Active triamcinolone (Nasacort) 55 MCG/ACT nasal inhaler Administer 2 sprays into each nostril Once per day. 16.5 g 11 05/17/2 024 Active cetirizine (ZyrTEC) 10 MG tablet Take 1 tablet (10 mg) by mouth Once per day. 30 tablet 024 2024 Active albuterol (2.5 MG/3ML) 0.083% nebulizer solution INHALE 1 AMPULE USING A NEBULIZER EVERY 4 TO 6 HOURS NEEDED (for asthma) 90 mL 1 Active albuterol 108 (90 Base) MCG/ACT inhalerIndication s:Asthma with COPD ([facility]) INHALE 2 PUFFS BY MOUTH EVERY 4 HOURS NEEDED FOR WHEEZING OR SHORTNESS OF BREATH 18 g 2 Active clonazePAM (KlonoPIN) 0.5 MG tabletIndications :Anxiety Take 1 tablet (0.5 mg) by mouth at bedtime. 28 tablet Active Symbicort 160-4.5 MCG/ACT inhalerIndication s:Severe persistent asthma without complication Inhale 2 puffs 2 times daily. 1 each Active ipratropium-albut katharine (Duo-Neb) 0.5-2.5 mg/3 mL nebulizer solutionIndicatio ns:Severe persistent asthma with acute exacerbation Take 3 mL by nebulization Every 4-6 hours as needed for wheezing or shortness of breath. 180 mL 2025 Active tiotropium (Spiriva HandiHaler) 18 MCG inhalation capsuleIndication s:Severe persistent asthma with acute exacerbation Place 1 capsule (18 mcg) into inhaler and inhale in the morning. 30 capsule 025 2025 Active predniSONE (Deltasone) 10 MG tablet Take 6 tabs PO daily x 2 days then 5 tabs PO daily x 2 days then 4 tabs PO daily x 2 days then 3 tabs PO daily x 2 days then 2 tabs PO daily x 2 days then 1 tab PO daily x 2 days then 1/2 tab PO daily x 2 days 43 tablet Active azithromycin (Zithromax) 250 MG tablet Take 2 tabs PO today then 1 tab PO daily x 4 days 6 tablet Active Symbicort 160-4.5 MCG/ACT inhalerIndication s:Severe persistent asthma without complication Inhale 2 puffs 2 times daily. 1 each 11 024 2024 Discontinued(R eorder (will not trigger notification to Pharmacy)) tiotropium (Spiriva HandiHaler) 18 MCG inhalation capsuleIndication s:Severe persistent asthma with acute exacerbation Place 1 capsule (18 mcg) into inhaler and inhale in the morning. 30 capsule 11 024 2024 Discontinued(R eorder (will not trigger notification to Pharmacy)) ipratropium-albut katharine (Duo-Neb) 0.5-2.5 mg/3 mL nebulizer solution Take 3 mL by nebulization Every 4-6 hours as needed for wheezing or shortness of breath. 180 mL 3 024 2024 Discontinued(R eorder (will not trigger notification to Pharmacy)) clonazePAM (KlonoPIN) 0.5 MG tabletIndications :Anxiety TAKE 1 TABLET BY MOUTH AT BEDTIME FOR 7 DAYS 7 tablet 025 2024 Discontinued(R eorder (will not trigger notification to Pharmacy)) predniSONE (Deltasone) 20 MG tabletIndications :Asthma with COPD ([facility]) Take 2 tablets (40 mg) by mouth Once per day for 5 days. 10 tablet 025 2024 Hospital, Clinic, or Other Facility Administered Medication Ordered Dose Route Frequency Start Date End Date Status ipratropium-albuterol (Duo-Neb) 0.5-2.5 mg/3 mL nebulizer solution 3 mgIndications:Severe persistent asthma with acute exacerbation 3 mg NEBULIZATION Once 11/27/2024 Acti ve Active Problems Problem Noted Date Diagnosed Date BMI 27.0-27.9,adult 05/30/2023 Allergic rhinitis 11/17/2015 Anemia 11/17/2015 Anxiety 11/17/2015 Severe persistent asthma 11/17/2015 Chronic low back pain 11/17/2015 Hyperlipidemia 11/17/2015 Essential hypertension 11/17/2015 Obstructive sleep apnea 11/17/2015 Osteoarthritis 11/17/2015 Major depression, recurrent, chronic 11/17/2015 Type 2 diabetes mellitus 11/17/2015 Vitamin D deficiency 11/17/2015 Resolved Problems Problem Noted Date Diagnosed Date Resolved Date Pneumonia of left lung due t o infectious organism 04/20/2017 12/01/2022 Obesity 11/17/2015 12/01/2022 Encounters Date Type Department Care Team Description 11/27/2024 9:45 AM EDT Office Visit [facility] [address] [place] [address] Carmina Iyer DO Type 2 diabetes mellitus without complication, without long-term current use of insulin ([place]) (Primary Dx); Essential hypertension; Other hyperlipidemia; Major depression, recurrent, chronic ([facility]); Obstructive sleep apnea, adult; Severe persistent asthma with acute exacerbation; Chronic allergic rhinitis; Chronic bilateral low back pain without sciatica; Abnormal chest CT; Healthcare maintenance; Anxiety; Severe persistent asthma without complication 11/27/2024 Travel 11/16/2024 Patient Outreach [facility] [address] [place] [address] Carmina Iyer DO 11/02/2024 Telephone [facility] [address] [place] [phone] Carmina Iyer DO 10/24/2024 5:40 PM EDT Office Visit [facility] [address] [place] [address] Asthma with COPD ([place]) (Primary Dx); Severe persistent asthma with acute exacerbation 10/23/2024 Telephone [facility] [address] [place] [phone] Carmina Iyer DO 10/12/2024 Telephone [facility] [address] [place] [address] Carmina Iyer DO 10/01/2024 Refill [facility] [address] [place] [phone] Carmina Iyer DO Anxiety 09/27/2024 Refill [facility] [address] [place] [address] Roseann Lobo ANP Asthma with COPD ([facility]) 09/25/2024 Telephone [facility] [address] [place] [address] Carmina Iyer DO Recall Letter 09/25/2024 Telephone [facility] [address] [place] [address] [place] [address] Carmina Iyer DO 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 Initial 11/07/23 09/17/2024 Refill [facility] [address] [place] [address] Brandee Miller MD Anxiety 09/13/2024 Telephone [facility] [address] [place], [place] [phone] Kendal Bustamante RN CT chest results to [facility] pulmonology from Last 3 Months Immunizations Name Administration Dates Next Due Hep B, adult 08/20/2015, 5,04/15/2015,07/10 Influenza injectable quadriv alent IIV4 with preservative 06/08/2018 Influenza injectable quadriv alent preservative free 06/02/2019,03/08/2017 Influenza, IIV3, injectable 03/25/2021,0 04/16/2013,04/14/2012,08/22 Influenza, seasonal, injecta ble, preservative free 04/20/2024,05/04/2016,05/09/2015 Pfizer Covid-19 Vaccine 12+ 06/08/2024, 3 Pneumococcal Conjugate PCV 20 03/10/2023 Pneumococcal Polysaccharide PPSV23 03/31/2017, TD (adult), 2 Lf tetanus tox oid, preservative free, adsorbed 03/31/2000 Tdap 03/10/2023,07/09/2013 Zoster, Recombinant 03/10/2023,05/17/2019 Social History Tobacco Use Types Packs/Day Years Used Date Smoking Tobacco: Never Passive Smoke Exposure: Never Smokeless Tobacco: Never Tobacco Cessation:Counseling Given: Not Answered Alcohol Use Standard Drinks/Week Comments Never 0 [...] with others, in a hotel, in a fdc, living outside on the street, on a [...] Orientation Straight 06/07/2022 10 :15 AM EDT Last Filed Vital Signs Vital Sign Reading [...] Mass Index 21.54 11/27/2024 9:40 AM EDT Plan of Treatment Health Maintenance Due Date Last Done Comments CT Colonography 1958 FIT DNA/Cologuard 1958 FIT 1958 FOBT 1960 Sigmoidoscopy 1958 Eye Exam 1968 Alcohol/Substance Use Screening 1970 Hepatitis C Screening 1976 RSV Patients and Patients Aged 60 years or older (1 - Risk 60-74 years 1-dose series) 2018 Colonoscopy 06/19/2020 06/19/2015 Colorectal Cancer Screening 06/19/2020 Diabetes: Urine Protein Screening 05/30/2024 05/30/2023, 04/02/2022, 02/20/2021 Lipid Panel 05/30/2024 05/30/2023, 03/09, 02/20/2021 Diabetes: Foot Exam 09/02/2024 09/02/2023, 09/02/2023, 09/02/2023, Additional history exists SDOH Screening 05/01/2025 05/01/2024 Diabetes: Hemoglobin A1C 05/29/2025 025, 05/01/2024, 05/30/2023, Additional history exists Depression Screening 06/08/2025 06/08/2024, 06/08/20 24 Tobacco Screening 11/27/2025 11/27/2024 Mammogram 03/12/2026 03/12/2024, 08/0 11/2022, 03/01/2022, Additional history exists DTaP/Tdap/Td Vaccines (3 - Td or Tdap) 03/10/2033 03/10/2023, 07/09/2013, 03/31/2000 Hepatitis B Vaccines Completed 08/20/2015, 05/27/2015, 04/15/2015, Additional history exists Cervical Cancer Screening Discontinued HPV/Cotest Discontinued 02/20/2021, 12/02/2017 Pap Smear Discontinued 02/20/2021 Pneumococcal Vaccine: 50+ Years Completed 03/10/2023, 03/31/2017, 03/12/2009 Zoster Vaccines Completed 03/10/2023, 05/17/2019 Influenza Vaccine Completed 04/20/2024, , 06/02/2019, Additional history exists COVID-19 Vaccine Completed 06/08/2024, , 03/10/2023, Additional history exists HIB Vaccines Aged Out No longer eligi ble based on patient's age to complete this topic HPV Vaccines Aged Out No longer eligi ble based on patient's age to complete this topic Hepatitis A Vaccines Aged Out No long er eligible based on patient's age to complete this topic IPV Vaccines Aged Out No longer eligi ble based on patient's age to complete this topic Meningococcal Vaccine Aged Out No sharita lucila eligible based on patient's age to complete this topic RSV under 20 months Aged Out No longe r eligible based on patient's age to complete this topic Rotavirus Vaccines Aged Out No longer eligible based on patient's age to complete this topic Procedures Procedure Name Priority Date/Time Associated Diagnosis Comments XR CHEST 2 VIEWS STAT 11/27/2024 11:4 2 AM EDT Severe persistent asthma with acute exacerbation POCT GLYCATED HEMOGLOBIN, TOTAL Routine 11/27/2024 11:09 AM EDT Type 2 diabetes mellitus without complication, without long-term current use of insulin (CMS/HCC) POCT GLUCOSE Routine 11/27/2024 11:09 AM EDT Type 2 diabetes mellitus without complication, without long-term current use of insulin (CMS/HCC) BI MAMMOGRAM SCREENING TOMOSYNTHESIS BILATERAL Routine 03/12/2024 1:15 PM EDT ALBUMIN, RANDOM URINE W/CREATININE Routine 05/30/2023 10:06 AM EDT LIPID PANEL, STANDARD Routine 05/30/2023 10:06 AM EDT Type 2 diabetes mellitus without complication, without long-term current use of insulin (CMS/HCC) HPV MRNA E6/E7 REFLEX TO HPV 16, 18/45 Routine 02/20/2021 9:24 AM EDT THINPREP IMAGING SYSTEM PAP Routine 02/20/2021 9:24 AM EDT HM COLONOSCOPY Routine 06/19/2015 2:13 PM EST from Last 3 Months or Most Recently Relevant to Health Maintenance Results * XR Chest 2 Views (11/27/2024 11:42 AM EDT) Anatomical Region Laterality Modality Chest Radiographic Ariadna ging 11/27/2024 11:4 2 AM EDT Narrative 11/27/2024 12:13 PM EDT ?[facility] ?[address] ?[place] [address] ?XRay Report ? Signed ? Patient: Salena Barlow ?MR#: [id number] ?? 9 ? : 1960 ?Acct:[id number] ? Age/Sex: 64 / F ?ADM Date: 11/27/24 ? Loc: HO.HHCX ? Attending Dr: Carmina Iyer DO ? Ordering Physician: Carmina Iyer DO ?? Date of Service: 11/27/24 ?? Procedure(s): XR chest 2V ?? Accession Number(s): [id number] ? cc: Carmina Iyer DO ? EXAMINATION: [...] upper lobe. ? Electronically signed by: ??Mathew Dorie MD ??11/27/2024 12:10 PM EDT RP ? Dictated By: ?Dorie,Mathew S MD ? Signed By: ?<Electronically signed by Mathew S Dorie, MD in OV> ?11/27/24 1210 ? DD/ 1142 ? TD/TT: 11/27/24 1200 ? Channel Manager: MSM ? Procedure Note Marina, Image - 04/22/2025 [facility] [address] [place] [address] XRay Report Signed Patient: Callie Barlow#: [id number] 9 : 8Acct:[id number] Age/Sex: 64 / FADM Date: 11/27/24 Loc: HO.HHCX Attending Dr: Carmina Iyer DO Ordering Physician: Carmina Iyer DO Date of Service: 11/27/24 Procedure(s): XR chest 2V Accession Number(s): [id number] cc: Carmina Iyer DO EXAMINATION: XR CHEST [...] Mathew Oshea MD 11/27/2024 12:10 PM EDT Dictated By: Mathew Oshea MD Signed By: <Electronically signed by Mathew Oshea MD in OV> 11/27/24 1210 DD/ 1142 TD/TT: 11/27/24 1200 Channel Manager: DEYSI Carmina Iyer DO IMG XR PROCEDURES Final Resu lt * POCT HGB A1C (11/27/2024 11:09 AM EDT) Hemoglobin A1C 5.4 4.0 - 6.0 % QC Media Lot # [id number] Lot# Expiration Date Blood 11/27/2024 11:0 9 AM EDT Carmina Jurcsak DO POINT OF CARE TEST ENTER/YOANNA T ORDERABLES Final Result * POCT Glucose (11/27/2024 11:09 AM EDT) Glucose Blood, POC 105 60 - 200 mg/dL QC Media Lot # [id number] Lot# Expiration Date Blood Capillary blood specimen / Unknown 11/27/2024 11:09 AM EDT Carmina Monroydarrynjeremy DO POINT OF CARE TEST ENTER/YOANNA T ORDERABLES Final Result * BI Mammogram Screening Tomosynthesis Bilateral (03/12/2024 1:15 PM EDT) Anatomical Region Laterality Modality Breast Bilateral Mammography 03/12/2024 1:15 PM EDT Narrative 04/10/2024 6:36 AM EDT ? [facility] ? [address] ?[place] [address] ? Mammography Report ? Signed ? Patient: Salena Barlow ?MR#: [id number] ?? 9 ? : 1960 ?Acct:[id number] ? Age/Sex: 63 / F ?ADM Date: 03/12/ ? Loc: HO.MAMMO ? Attending Dr: Carmina Iyer DO ? Ordering Physician: Carmina Iyer DO ?Results: 2B ?? enign Findings ? Date of Service: 03/12/ ?Follow Up: 1 Year From Orig ?? inal Mammogram ? Procedure(s): MM tomosynthesis screening BI ?? Accession Number(s): [id number] ? cc: Carmina Iyer DO ? EXAMINATION: ?? MM SCREENING DIGITAL BREAST TOMOSYNTHESIS, BILATERAL ? CLINICAL INFORMATION: ? Screening. Asymptomatic. ? COMPARISON: ?? Mammography: This study is compared with prior exams dating back to ? 2018. ? TECHNIQUE: ?? Digital breast tomosynthesis is performed in both the craniocaudal and ?? mediolateral oblique views along with computer-aided detection (CAD). ? Synthesized 2D images are generated from the tomosynthesis. ? FINDINGS: ?? There are scattered areas of fibroglandular density (ACR BI-RADS breast ?? composition Category b). ? There are no significant masses, abnormal calcifications, or other ?? abnormalities. ? There are scattered, bilateral benign calcifications. ? MM/MM tomosynthesis screening BI ?? IMPRESSION: ?? No mammographic evidence of malignancy. ? ASSESSMENT: ? BI-RADS BI-RADS 2 - Benign Findings ? RECOMMENDATION: ?? Routine annual mammography screening. ? 1 year F/U ? This examination should not preclude the clinical evaluation of a ?? suspicious palpable abnormality. ? This patient's information was entered into a reminder system with a ?? target due date for their next mammogram. ? Electronically signed by: ??Jennifer Nur MD ??04/10/2024 06:34 AM EDT RP ? Dictated By: ?Jennifer Nur MD ? Signed By: ?<Electronically signed by Jennifer Nur MD in OV> ? 04/10/24 0634 ? DD/ 1315 ? TD/TT: 03/12/24 1327 ? Channel Manager: ? Procedure Note Marina, Isaías - 04/10/2024 [place] [facility] [address] [place], [place] [address] Mammography Report Signed Patient: Callie Barlow#: [id number] 9 : 8Acct:[id number] Age/Sex: 63 / FADM Date: 03/12/24 Loc: BRENDA.MAMMO Attending Dr: Carmina Iyer DO Ordering Physician: Carmina Iyerults: 2B enign Findings Date of Service: 03/12/24Follow Up: 1 Year From Orig ina Mammogram Procedure(s): MM tomosynthesis screening BI Accession Number(s): [id number] cc: Carmina Iyer DO EXAMINATION: MM SCREENING DIGITAL BREAST TOMOSYNTHESIS, BILATERAL CLINICAL INFORMATION: Screening. Asymptomatic. COMPARISON: Mammography: This study is compared with prior exams dating back to 2019. TECHNIQUE: Digital breast tomosynthesis is performed in both the craniocaudal and mediolateral oblique views along with computer-aided detection (CAD). Synthesized 2D images are generated from the tomosynthesis. FINDINGS: There are scattered areas of fibroglandular density (ACR BI-RADS breast composition Category b). There are no significant masses, abnormal calcifications, or other abnormalities. There are scattered, bilateral benign calcifications. MM/MM tomosynthesis screening BI IMPRESSION: No mammographic evidence of malignancy. ASSESSMENT: BI-RADS BI-RADS 2 - Benign Findings RECOMMENDATION: Routine annual mammography screening. 1 year F/U This examination should not preclude the clinical evaluation of a suspicious palpable abnormality. This patient's information was entered into a reminder system with a target due date for their next mammogram. Electronically signed by: Jennifer Nur MD 04/10/2024 06:34 AM EDT Dictated By: Jennifer Nur MD Signed By: <Electronically signed by Jennifer Nur MD in OV> 04/10/24 0634 DD/ 1315 TD/TT: 03/12/24 1327 Channel Manager: Carmina Iyer DO IMG BI PROCEDURES Final Resu lt * Albumin, Random Urine W/Creatinine (05/30/2023 10:06 AM EDT) Creatinine, Urine 101.04 mg/dL [facility] Microalbumin Urine 8.0 mg/L H [facility] Microalbum Creatinine Ratio Ur 7.9 <30 ug/mg cr [facility] Comment:Albumin/Creatinine R atio Reference Ranges: Normal: < 30 ug/mg creatinine Microalbuminuria: 30 - 300 ug/mg creatinineClinical Albuminuria: > 300 ug/mg creatinine 05/30/2023 10:0 6 AM EDT 05/30/2023 11:27 AM EDT us Carmina Iyer DO LAB URINE ORDERABLES Final R esult [facility] [address] [place] [phone] * (ABNORMAL) Lipid Panel, Standard (05/30/2023 10:06 AM EDT) Triglycerides 190(H) <150 mg/dL [facility] Comment:Desirable Triglyceri de: less than 150 mg/dLBorderline High Triglyceride 150-199 mg/dLHigh Triglyceride: 200-499 mg/dLVery High Triglyceride: greater than or equal to 5OO mg/dL Cholesterol 249(H) <200 mg/dL [facility] Comment:Desirable Cholestero l: less than 200 mg/dLBorderline High Cholesterol: 200-239 mg/dLHigh Cholesterol: greater than 239 mg/dL LDL Cholesterol Calculated 167(H) <100 mg/dL [facility] Comment:Desirable LDL: less than 100 mg/dLNear Optimal/Above Optimal LDL: 110- 129 mg/dLBorderline High LDL: 130-159 mg/dLHigh LDL: 160-189 mg/dLVery High LDL: greater than or equal to 190 mg/dL HDL Cholesterol 44 >40 mg/dL [facility] Comment:Desirable HDL: great er than 40 mg/dL Note: This HDL assay may give artificially low results in patients with liver disease. Blood Venous blood specimen / Unknown 05/30/2023 10:06 AM EDT 05/30/2023 11:27 AM EDT us Carmina Iyer DO LAB BLOOD ORDERABLES Final R esult Performing Organization Address [facility] Co de Phone Number [facility] [address] [place] [address] [phone] * THINPREP TIS PAP (02/20/2021 9:24 AM EDT) Clinical Information: None given [facility] COMMENT SEE COMMENT [facility] Comment: EXPLANATORY NOTE: ? The Pap is a screening test for cervical cancer. It is ?? not a diagnostic test and is subject to false negative ?? and false positive results. It is most reliable when a ?? satisfactory sample, regularly obtained, is submitted ?? with relevant clinical findings and history, and when ?? the Pap result is evaluated along with historic and ?? current clinical information. ?? COMMENT: This Pap test has been evaluated with computer assisted technology. [facility] Banquet Cook: SEE COMMENT [facility] Comment: HJP, CT(ASCP) CT screening location: [address] ??[address] Interpretation/Res ult: SEE COMMENT [facility] Comment: Negative for intraepithelial lesion or malignancy. Atrophic pattern; predominantly parabasal cells LMP: NONE [facility]IV[facility] Prev. BX: NONE [facility] Prev. PAP: NONE [facility]IVEN [facility] SOURCE: Cervix [facility] Statement Of Adequacy: SATISFACTORY FOR EVALUATION [facility] 02/20/2021 9:24 AM EDT us Carmina Iyer DO LAB PATHOLOGY ORDERABLES Fin al Result Performing Organization Address City/[facility]/ZIP Co de Phone Number [facility] [address] * HPV mRNA E6/E7 REFLEX TO HPV 16, 18/45 (02/20/2021 9:24 AM EDT) HPV nRNA E6/E7 Not Detected Not Detected [facility] Comment: Methodology: Dive Superintendent-Mediated Amplification This assay detects E6/E7 viral messenger RNA (mRNA) from 14 high-risk HPV types (16,18,31,33,35,39,45,51,52,56,58,59,66,68). ? The analytical performance characteristics of this assay have been determined by [employer]. The modifications have not been cleared or approved by the FDA. This assay has been validated pursuant to the CLIA regulations and is used for clinical purposes. ?? For additional information, please refer to http://education.InsuranceLibrary.com/faq/FNO781v2 (This link if provided for information/ educational purposes only.) 02/20/2021 9:24 AM EDT Carmina Iyer DO LAB CYTOLOGY ORDERABLES Mandy chun Result [facility] [address] * Hm Colonoscopy (06/19/2015 2:13 PM EST) Historical Provider HEALTH MAINTENANCE Final Result from Last 3 Months or Most Recently Relevant to Health Maintenance Insurance [facility] [employer] MEDICARE ADVANTAGE Care Teams Momd Teacher Relationship Specialty Start Date End Date Carmina Iyer DO [address] [place] [phone] PCP - General Family Medicine 05/01/24
--- OUTSIDE RECORDS SUMMARY | 2024-11-27 14:12 | XMS_ITS | Encounter Summary ---
Author Organization [employer] Address [address] [place] [address] 7t [place] [address] Care Team Providers Care Sign Painter Name Role Phone Carmina Iyer DO Primary Care Provider + [phone] Carmina Iyer DO Primary Care Provider + [phone] Reason for Visit * Reason Onset Date Comments Med Refill 01/10/2023 Encounter Details Date Type Department Care Team (Late st Contact Info) Description 01/10/2023 Telephone [facility] MEDICINE [address] [place] [address] Carmina Iyer DO [address] [place] [address] Med Refill Social History Tobacco Use Types Packs/Day Years Used Date Smoking Tobacco: Never Smokeless Tobacco: Never Alcohol Use Standard Drinks/Week Comments Never 0 (1 standard drink = 0.6 oz pur e alcohol) Depression Answer Date Recorded Patient Health Questionnaire-9 Score 1 12/01/2022 Depression Answer Date Recorded Patient Health Questionnaire-2 Score 1 12/01/2022 Comments Unknown Sex and Gender Information Value Date Recorded Sex Assigned at Female 06/07/2022 10:15 AM EDT Legal Sex Female 10:15 AM EDT Gender Identity Female 06/07/2022 10:15 AM EDT Sexual Orientation Straight 06/07/2022 10 :15 AM EDT documented as of this encounter Miscellaneous Notes * Telephone Encounter - Brenda Rdz RN - 01/10/2023 4:28 PM EDT Pended and sent to PCP [phone] 01/10/23 * Telephone Encounter - Radhadesiree Willoughbydoug Flores - 01/10/2023 4:26 PM EDT Tc from pt requesting med refill on clonazePAM (KlonoPIN) 0.5 MG tablet Please sent to [id number] - [place] - [address] [facility] documented in this encounter Plan of Treatment Not on file documented as of this encounter Visit Diagnoses Not on filedocumented in this encounter Additional Health Concerns Assessment Noted Time PHQ-9 Depression Total Score: 1 12/02/19 23 9:05 AM EDT documented as of this encounter Care Teams Sign Painter Relationship Specialty Start Date End Date Carmina Iyer DO [address] [place] [address] PCP - General Family Medicine 02/05/13 01/30/24 Carmina yIer DO [address] [place] [address] PCP - General Family Medicine 05/01/24 documented as of this encounter
--- OUTSIDE RECORDS SUMMARY | 2024-11-27 14:12 | XMS_ITS | Encounter Summary ---
Author Organization [employer] Address [address] [place] [address] 7t [place] [address] Care Team Providers Care Nuclear Control Operator Name Role Phone Carmina Iyer DO Primary Care Provider [phone] Encounter Details Date Type Department Care Team (Latest Contact Info) Description 11/27/2024 Travel Social History Tobacco Use Types Packs/Day Years [...] with others, in a hotel, in a senior care, living outside on the street, on a [...] documented as of this encounter Care Teams Nuclear Control Operator Relationship Specialty Start Date End Date Carmina Iyer DO [address] [place] [address] PCP - General Family Medicine 05/01/24 documented as of this encounter
--- OUTSIDE RECORDS SUMMARY | 2024-11-27 14:13 | XMS_ITS | Encounter Summary ---
Author Organization [employer] Address [address] [facility] [place] 7t [place] [address] Care Team Providers Care Avionics Safety Inspector Name Role Phone Carmina Iyer DO Primary Care Provider + [phone] Carmina Iyer DO Primary Care Provider + [phone] Reason for Visit * Reason Comments Med Refill Encounter Details Date Type Department Care Team ([facility] st Contact Info) Description 05/27/2023 Refill [facility] MEDICINE [address] [place] [address] Carmina Iyer DO [address] [place] [address] Social History Tobacco Use Types Packs/Day Years [...] problems with any of the following? Lead [place] or Pipes 05/19/2023 Food Insecurity Answer Date [...] documented as of this encounter Care Teams Avionics Safety Inspector Relationship Specialty Start Date End Date Carmina Iyer DO [address] [place] [address] PCP - General Family Medicine 02/05/13 01/30/24 Carmina Iyer DO [address] [place] [address] PCP - General Family Medicine 05/01/24 documented as of this encounter
--- OUTSIDE RECORDS SUMMARY | 2024-11-27 14:13 | XMS_ITS | Encounter Summary ---
Author Organization [employer] Address [address] [place] [address] 7 [place] [address] Care Team Providers Care Cinder Block Mason Name Role Phone Carmina Iyre DO Primary Care Provider + [phone] Carmina Iyer DO Primary Care Provider + [phone] Reason for Visit * Reason Onset Date Comments Med Refill 08/16/2022 Encounter Details Date Type Department Care Team (Late st Contact Info) Description 08/16/2022 Refill [facility] MEDICINE [address] [place] [address] Carmina Iyer DO [address] [place] [address] Anxiety Social History Tobacco Use Types Packs/Day Years Used Date Smoking Tobacco: Never Assessed Comments Unknown Sex and Gender Information Value Date Recorded Sex Assigned at Female 06/07/2022 10:15 AM EDT Legal Sex Female 10:15 AM EDT Gender Identity Female 06/07/2022 10:15 AM EDT Sexual Orientation Straight 06/07/2022 10 :15 AM EDT documented as of this encounter Miscellaneous Notes * Telephone Encounter - Jaleel Camejo - 08/16/2022 11:18 AM EST Tc from pt requesting med refill ( Clonazepam 03.5 mg ) documented in this encounter Plan of Treatment Not on file documented as of this encounter Visit Diagnoses Diagnosis Anxiety Anxiety state, unspecified documented in this encounter Care Teams Cinder Block Mason Relationship Specialty Start Date End Date Carmina Iyer DO [address] [place] [address] PCP - General Family Medicine 02/05/13 01/30/24 Carmina Iyer DO [address] [place] [address] PCP - General Family Medicine 05/01/24 documented as of this encounter
--- OUTSIDE RECORDS SUMMARY | 2024-11-27 14:13 | XMS_ITS | Encounter Summary ---
Author Organization [employer] Address [address] [place] [address] 7[address] [place] [address] Care Team Providers Care Asphalt Distributor Tender Name Role Phone Carmina Iyer DO Primary Care Provider + [phone] Carmina Iyer DO Primary Care Provider + [phone] Reason for Visit * Reason Comments Med Refill Encounter Details Date Type Department Care Team (Late st Contact Info) Description 10/15/2022 Refill [facility] MEDICINE [address] [place] [address] Carmina Iyer DO [address] [place] [address] Anxiety Social History Tobacco Use Types Packs/Day [...] unspecified documented in this encounter Care Teams Asphalt Distributor Tender Relationship Specialty Start Date End Date Carmina Iyer DO [address] [place] [address] PCP - General Family Medicine 02/05/13 01/30/24 Carmina Iyer DO [address] [place] [address] PCP - General Family Medicine 05/01/24 documented as of this encounter
--- OUTSIDE RECORDS SUMMARY | 2024-11-27 14:13 | XMS_ITS | Encounter Summary ---
Author Organization [employer] Address [address] [facility] 7t [place] [address] Care Team Providers Care Resort Desk Clerk Name Role Phone Carmina Iyer DO Primary Care Provider + [phone] Carmina Iyer DO Primary Care Provider + [phone] Encounter Details Date Type Department Care Team (Late st Contact Info) Description 11/17/2023 Orders Only [facility] MEDICINE [address] [place] [address] ProviderJosh MD Social History Tobacco Use Types Packs/Day Years [...] problems with any of the following? Lead [place] or Pipes 05/19/2023 Food Insecurity Answer Date [...] Procedure Name Priority Date/Time Associated Diagnosis Comments HM COLONOSCOPY Routine 06/19/2015 2:13 PM EST documented in this encounter Results * Hm Colonoscopy (06/19/2015 2:13 PM EST) us Historical Provider HEALTH MAINTENANCE Final Result documented in this encounter Visit Diagnoses Not on filedocumented in this encounter Additional Health Concerns Assessment Noted Time PHQ-9 Depression Total Score: 1 12/02/19 23 9:05 AM EDT documented as of this encounter Care Teams Resort Desk Clerk Relationship Specialty Start Date End Date Carmina Iyer DO [address] [place] [address] PCP - General Family Medicine 02/05/13 01/30/24 Carmina Iyer DO [address] [place] [address] PCP - General Family Medicine 05/01/24 documented as of this encounter
--- OUTSIDE RECORDS SUMMARY | 2024-11-27 14:13 | XMS_ITS | Encounter Summary ---
Author Organization [employer] Address [address] [place] [address] 7t [place] [address] Care Team Providers Care Irrigating Pump Operator Name Role Phone Carmina Iyer DO Primary Care Provider + [phone] Carmina Iyer DO Primary Care Provider + [phone] Reason for Visit * Reason Onset Date Comments Med Refill 02/10/2023 Encounter Details Date Type Department Care Team (Late st Contact Info) Description 02/10/2023 Telephone [facility] MEDICINE [address] [place] [address] Carmina Iyer DO [address] [place] [address] Med Refill Social History Tobacco Use Types [...] encounter Miscellaneous Notes * Telephone Encounter - Alexandra Larrynez - 02/10/2023 10:06 AM EDT Tc from patient requesting a med refill on medication clonazepam 0.[address] Iyer documented in this encounter Plan of Treatment Not on file documented as of this encounter Visit Diagnoses Not on filedocumented in this encounter Additional Health Concerns Assessment Noted Time PHQ-9 Depression Total Score: 1 12/02/19 23 9:05 AM EDT documented as of this encounter Care Teams Irrigating Pump Operator Relationship Specialty Start Date End Date Carmina Iyer DO [address] [place] [address] PCP - General Family Medicine 02/05/13 01/30/24 Carmina Iyer DO [address] [place] [address] PCP - General Family Medicine 05/01/24 documented as of this encounter
== END 2024-11-27 11:43 | disposition home or self-care (01) ==
LOC: HO.HHCX 11:42
PROVIDERS: Visit Provider Family Medicine
DX: J45.51 Severe persistent asthma with (acute) exacerbation (principal)
CPT/HCPCS: 71046

== ENCOUNTER → 2024-11-27 11:42 | Outpatient (BNV) | payer MEDICARE, SELFPAY | PROVIDERS: Visit Provider Radiology Diagnostic Radiology | DX: R06.02 Shortness of breath (principal) | CPT/HCPCS: 71046 ==

== ENCOUNTER 2024-11-28 12:48 | Outpatient (AMB) | payer MEDICARE, SELFPAY ==
[2024-11-28 13:06] VITALS: BP 102/58; PULSE 134; O2SAT 91; BMI 21.4
--- NOTE | 2024-11-28 13:06 | A.OFFVIS_ITS ---
Vital Signs 11/28/24 13:06 Height 5 ft 3 in Weight 121 lb BMI 21.4 BP 102/58 L Blood Pressure Location Lt brachial Position Sitting Pulse 134 H Pulse Source Doppler Pulse Oximetry (%) 91 L Oxygen Delivery Method Room Air Intake Visit Reasons: Asthma/decreased o2 Deicer Element Winder Machine Required: Yes Deicer Element Winder Machine Name: Carmina Herbert Lepe Allergies No Known Allergies [No Known Allergies*] Allergy (Verified 11/28/24 13:12) HPI HPI Asthma/decreased o2: Details: 64-year-old lady, nonsmoker, followed for asthma/COPD overlap syndrome and environmental allergies. She has been using Symbicort, Spiriva, and albuterol MDI with suboptimal control of urine symptoms. She currently is being treated for an acute exacerbation with a course of prednisone and azithromycin. She does have significant underlying allergic component to her symptoms. [facility] Medical History Acute respiratory failure with hypoxia Asthma with COPD with exacerbation Leukocytosis Hyperlipidemia Anxiety Diabetes Hypertension Mass of upper lobe of left lung Allergic rhinitis Bronchial asthma COPD (chronic obstructive pulmonary disease) Surgical History H/O colonoscopy History of cataract surgery History of tubal ligation Family History Father No problems noted. Mother No problems noted. Social History Household Members: Children Household Members Other:: Son Housing: House Do you presently have visiting nurse or other home services: No Alcohol intake: never Patient Tobacco Use Status: Never used Tobacco e-Cigarette/Vaping Use: Never Used Second Hand Smoke Exposure: No service: No Sexual orientation: Straight/Heterosexual Review of Systems Const Denies daytime sleepiness, Denies excessive sweating, Denies fatigue, Denies fever(s), Denies lethargy, Denies malaise, Denies night sweats, Denies snoring and Denies weight loss Eyes Denies blurry vision and Denies itchy eyes ENT Denies nasal congestion, Denies post nasal drip, Denies sinus pain, Denies sinus pressure and Denies other ( Thrush) Card Denies chest pain, Denies pedal edema, Denies dyspnea, Denies orthopnea and Denies paroxysmal nocturnal dyspnea Resp Denies cough, Denies hemoptysis, Denies excessive phlegm production, Denies dyspnea, Denies snoring and Reports wheezing GI Denies abdominal pain and Denies heartburn Musc Denies myalgias, Denies arthralgias and Denies joint swelling Skin/Breast Denies rash Neuro Denies memory loss and Denies seizure-like activity Psych Denies abnormal sleep pattern, Denies anxiety and Denies memory loss Endo Denies excessive sweating, Denies fatigue and Denies heat intolerance Sha/Lymph Denies easy bruising Aller/Immun Denies itchy eyes, Denies seasonal rhinorrhea and Reports wheezing Physical Exam Vital Signs: Last Vital Signs Pulse 134 H 11/28/24 13:06 BP 102/58 L 11/28/24 13:06 Pulse Ox 91 L 11/28/24 13:06 Oxygen Delivery Method Room Air 11/28/24 13:06 BMI result Body Mass Index 21.4 Const General: no acute distress and alert Nutritional Appearance: not obese Orientation/consciousness: Other orientation findings ( oriented) HEENT Head: Yes atraumatic Eyes General: appearance normal, both eyes and all related structures Sclerae: sclerae normal EOM: EOMs intact bilaterally Neck Neck: Yes supple Lymphatic: no lymphadenopathy noted Resp Effort & Inspection: normal respiratory effort and no use of accessory muscles Auscultation: wheezes (Expiratory bilateral) Cardio Rate: regular rate Rhythm: regular rhythm Heart sounds: no gallops, no murmurs and no rubs Skin General skin exam: other ( warm) Extrem General: No clubbing, No cyanosis and No edema Assessment & Plan Assessment & Plan (1) Severe asthma: Code(s): J45.909 - Unspecified asthma, uncomplicated Category: Medical Plan: Suboptimal control on Symbicort, Spiriva, and albuterol MDI. Will request Xolair approval. (2) Environmental allergies: Code(s): Z91.09 - Other allergy status, other than to drugs and biological substances Category: Medical Plan: Results of immunologic testing reviewed, underlying significant allergic component, expect to improve on Xolair. Coding Level of Care Code Est Pt Level 4 (16996) Diagnoses Severe asthma J45.909 Environmental allergies Z91.09
--- OUTSIDE RECORDS SUMMARY | 2024-11-28 15:04 | XMS_ITS | Encounter Summary ---
Author Organization [email or web address] Address [address] [facility] 7t [place] [address] Care Team Providers Care Charge Rn Name Role Phone Carmina Iyer DO Primary Care Provider + [phone] Reason for Referral * Medications - Closed Specialty Diagnoses / Procedures Referred By Ann-Marie liu Referred To Contact Diagnoses Severe persistent asthma with acute exacerbation Carmina Iyer DO [address] [place] [address] Phone: tel: fax: Referral ID Status Reason Start Date Expiration Date Visits Re quested Visits Authorized [id number] Closed 11/27/2024 11/27/2025 1 1 Reason for Visit * Reason Comments chronic conditions Encounter Details Date Type Department Care Team ([facility] st Contact Info) Description 11/27/2024 9:45 AM EDT Office Visit [facility] [address] [place] [address] Carmina Iyer DO [address] [place] [address] Type 2 diabetes mellitus without complication, without [...] with others, in a hotel, in a group home, living outside on the street, on a [...] documented in this encounter Plan of Treatment Upcoming Encounters Date Type Department Care Team (Late st Contact Info) Description 12/28/2024 9:30 AM EDT Medication Management [facility] [address] [place] [address] Pinky Rankin, PharmD [address] [place] [address] documented as of this encounter Procedures Procedure Name Priority Date/Time Associated Diagnosis Comments XR CHEST 2 VIEWS STAT 11/27/2024 11:4 2 AM EDT Severe persistent asthma with acute exacerbation POCT GLYCATED HEMOGLOBIN, TOTAL Routine 11/27/2024 11:09 AM EDT Type 2 diabetes mellitus without complication, without long-term current use of insulin ([facility]) POCT GLUCOSE Routine 11/27/2024 11:09 AM EDT Type 2 diabetes mellitus without complication, without long-term current use of insulin ([facility]) documented in this encounter Results * XR Chest 2 Views (11/27/2024 11:42 AM EDT) Anatomical Region Laterality Modality Chest Radiographic Ariadna ging 11/27/2024 11:4 2 AM EDT Narrative 11/27/2024 12:13 PM EDT ?[facility] ?[address] ?[place] [address] ?XRay Report ? Signed ? Patient: Cain,Salena ?MR#: [id number] ?? 9 ? : 1960 ?Acct:[id number] ? Age/Sex: 64 / F ?ADM Date: 04/22/25 ? Loc: HO.HHCX ? Attending Dr: Carmina Iyer DO ? Ordering Physician: Carmina Iyer DO ?? Date of Service: 11/27/24 ?? Procedure(s): XR chest 2V ?? Accession Number(s): [id number] ? cc: Carmina Iyer DO ? EXAMINATION: [...] DD/ 1142 ? TD/TT: 11/27/24 1200 ? Nature Photographer: MSM ? Procedure Note Isaías Gray - 11/27/[address] [address] XRay Report Signed Patient: Callie Barlow#: [id number] 9 : 8Acct:[id number] Age/Sex: 64 / FADM Date: 11/27/24 Loc: HO.HHCX Attending Dr: Carmina Iyer DO Ordering Physician: Carmina Iyer DO Date of Service: 11/27/24 Procedure(s): XR chest 2V Accession Number(s): [id number] cc: Carmina Iyer DO EXAMINATION: XR CHEST [...] 11/27/24 1210 DD/ 1142 TD/TT: 11/27/24 1200 Nature Photographer: DEYSI Carmina Iyer DO IMG XR PROCEDURES Final Resu lt * POCT HGB A1C (11/27/2024 11:09 AM EDT) Hemoglobin A1C 5.4 4.0 - 6.0 % QC Media Lot # [id number] Lot# Expiration Date Blood 11/27/2024 11:0 9 AM EDT Carmina Iyer DO POINT OF CARE TEST ENTER/YOANNA T ORDERABLES Final Result * POCT Glucose (11/27/2024 11:09 AM EDT) Glucose Blood, POC 105 60 - 200 mg/dL QC Media Lot # [id number] Lot# Expiration Date Blood Capillary blood specimen / Unknown 11/27/2024 11:09 AM EDT Carmina Iyer DO POINT OF CARE TEST ENTER/YONANA T ORDERABLES Final Result documented in this encounter Visit Diagnoses Diagnosis Type 2 diabetes mellitus without complication, without long-term current use of insulin ([facility])- Primary Essential hypertension Unspecified essential hypertension Other hyperlipidemia Major depression, recurrent, chronic ([facility]) Obstructive sleep apnea, adult Severe persistent asthma with acute exacerbation Chronic allergic rhinitis Chronic bilateral low back pain without sciatica Abnormal chest CT Nonspecific (abnormal) findings on radiological and other examination of other intrathoracic organs Healthcare maintenance Anxiety Anxiety state, unspecified Severe persistent asthma without complication documented in this encounter Administered Medications Inactive Administered Medications - up to 3 most recent administrations Medication Order MAR Action Action Date Dose Rate Site ipratropium-albuterol (Duo-Neb) 0.5-2.5 mg/3 mL nebulizer solution 3 mg 3 mg, Nebulization, Once, On Tue11/27/24 at 1345, For 1 doseIndications:Severe persistent asthma with acute exacerbation Given 11/27/2024 10:45 AM EDT 3 mg documented in this encounter Additional Health Concerns Assessment Noted Time PHQ-9 Depression Total Score: 0 06/08/20 10:04 AM EDT documented as of this encounter Care Teams Charge Rn Relationship Specialty Start Date End Date Carmina Iyer DO [address] [place] [address] PCP - General Family Medicine 05/01/24 documented as of this encounter
--- OUTSIDE RECORDS SUMMARY | 2024-11-28 15:04 | XMS_ITS | Encounter Summary ---
Author Organization [employer] Address [address] [facility] [address] 7t [place] [address] Care Team Providers Care Transitional Care Manager Name Role Phone SandraCarmina luna Primary Care Provider [phone] Encounter Details Date Type Department Care Team [...] with others, in a hotel, in a chcf, living outside on the street, on a [...] as of this encounter Plan of Treatment Upcoming Encounters Date Type Department Care Team (Late st Contact Info) Description 12/28/2024 9:30 AM EDT Medication Management [facility] MEDICINE [address] [place] [address] Pinky Rankin, TexD [address] [place] [address] documented as of this encounter Visit Diagnoses Not on filedocumented in this encounter Additional Health Concerns Assessment Noted Time PHQ-9 Depression Total Score: 0 06/08/20 10:04 AM EDT documented as of this encounter Care Teams Transitional Care Manager Relationship Specialty Start Date End Date Carmina Iyer DO [address] [place] [address] PCP - General Family Medicine 05/01/24 documented as of this encounter
--- OUTSIDE RECORDS SUMMARY | 2024-11-28 15:04 | XMS_ITS | Clinical Summary ---
Author Organization [employer] Address [address] [facility] 7t [place] [address] Care Team Providers Care Belt Measurer Name Role Phone Jaylon Carmina Primary Care Provider [phone] Allergies No known active allergies Medications * [...] nostril Once per day. 16.5 g 11 024 Active cetirizine (ZyrTEC) 10 MG tablet Take 1 tablet (10 mg) by mouth Once per day. 30 tablet 11 024 2024 Active albuterol (2.5 MG/3ML) 0.083% nebulizer solution INHALE 1 AMPULE USING A NEBULIZER EVERY 4 TO 6 HOURS NEEDED (for asthma) 90 mL 1 Active albuterol 108 (90 Base) MCG/ACT inhalerIndication s:Asthma with COPD ([facility]/HCC) INHALE 2 PUFFS BY MOUTH EVERY 4 [...] or shortness of breath. 180 mL 3 2025 Active tiotropium (Spiriva HandiHaler) 18 MCG inhalation capsuleIndication s:Severe persistent asthma with acute exacerbation Place 1 capsule (18 mcg) into inhaler and inhale in the morning. 30 capsule 2025 Active predniSONE (Deltasone) 10 MG tablet [...] (Deltasone) 20 MG tabletIndications :Asthma with COPD ([facility]) Take 2 tablets (40 mg) by mouth Once per day for 5 days. 10 tablet 025 2024 Hospital, Clinic, or Other Facility Administered Medication Ordered Dose Route Frequency Start Date End Date Status ipratropium-albutero l (Duo-Neb) 0.5-2.5 mg/3 mL nebulizer solution 3 mgIndications:Severe persistent asthma with acute exacerbation 3 mg NEBULIZATION Once 11/27/2024 11/27/2024 Ended Active Problems Problem Noted Date Diagnosed Date [...] Description 11/27/2024 9:45 AM EDT Office Visit [facility] [address] [facility] [place] [address] Carmina Iyer DO Type 2 diabetes mellitus without complication, without long-term current use of insulin ([facility]) (Primary Dx); Essential hypertension; Other hyperlipidemia; Major depression, recurrent, chronic ([facility]); Obstructive sleep apnea, adult; Severe persistent asthma with acute exacerbation; Chronic allergic rhinitis; Chronic bilateral low back pain without sciatica; Abnormal chest CT; Healthcare maintenance; Anxiety; Severe persistent asthma without complication 11/27/2024 Travel 11/16/2024 Patient Outreach [facility] [address] [place] [address] Carmina Iyer DO 11/02/2024 Telephone [facility] [address] [place] [address] Carmina Iyer DO 10/24/2024 5:40 PM EDT Office Visit [facility] [address] [place] [address] Asthma with COPD ([facility]) (Primary Dx); Severe persistent asthma with acute exacerbation 10/23/2024 Telephone [facility] [address] [place] [address] Carmina Iyer DO 10/12/2024 Telephone [facility] [address] [place] [address] Carmina Iyer DO 10/01/2024 Refill [facility] [address] [place] [address] Carmina Iyer DO Anxiety 09/27/2024 Refill [facility] [address] [place] [address] Roseann Lobo ANP Asthma with COPD (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 Initial 11/07/23 09/17/2024 Refill [facility] [address] [place], [place] [phone] Brandee Miller MD Anxiety 09/13/2024 Telephone [facility] [address] [place] [address] Kendal Bustamante, NADINE CT chest results to [facility] pulmonology from Last 3 Months Immunizations Name [...] 11/27/2024 9:40 AM EDT Plan of Treatment Upcoming Encounters Date Type Department Care Team (Late st Contact Info) Description 12/28/2024 9:30 AM EDT Medication Management [facility] [address] [place] [address] Pinky Rankin, PharmD [address] [place] [address] Health Maintenance Due Date Last Done Comments [...] 05/30/2023, 04/02/2022, 02/20/2021 Lipid Panel 05/30/2024 05/30/2023, 08/01/2022, 02/20/2021 Diabetes: Foot Exam 09/02/2024 09/02/2023, 09/02/2023, 09/02/2023, Additional history exists SDOH Screening 05/01/2025 05/01/2024 Diabetes: Hemoglobin A1C 05/29/2025 025, 05/01/2024, 05/30/2023, Additional history exists Depression Screening 06/08/2025 06/08/2024, 06/08/20 Tobacco Screening 11/27/2025 11/27/2024 Mammogram 03/12/2026 03/12/2024, [...] complication, without long-term current use of insulin ([facility]) POCT GLUCOSE Routine 11/27/2024 11:09 AM EDT [...] AM EDT Narrative 11/27/2024 12:13 PM EDT ?[facility] ?[address] ?[place] [address] ?XRay Report ? Signed ? Patient: Cain,Salena ?MR#: [id number] ?? 9 ? : 1960 ?Acct:[id number] ? Age/Sex: 64 / F ?ADM Date: 11/27/24 ? Loc: HO.HHCX ? Attending Dr: Carmina Iyer DO ? Ordering Physician: Carmina Iyer DO ?? Date of Service: 11/27/24 ?? Procedure(s): XR chest 2V ?? Accession Number(s): [id number] ? cc: Carmina Iyer DO ? EXAMINATION: [...] DD/ 1142 ? TD/TT: 11/27/24 1200 ? Gaming Floor Supervisor: DEYSI ? Procedure Note Donotfranciinterpreter, Image - 11/27/[address] [address] XRay Report Signed Patient: Callie Barlow#: [id number] 9 : 8Acct:[id number] Age/Sex: 64 / FADM Date: 11/27/24 Loc: HO.HHCX Attending Dr: Carmina Iyer DO Ordering Physician: Carmina Iyer DO Date of Service: 11/27/24 Procedure(s): XR chest 2V Accession Number(s): [id number] cc: Carmina Iyer DO EXAMINATION: XR CHEST [...] 11/27/24 1210 DD/ 1142 TD/TT: 11/27/24 1200 Gaming Floor Supervisor: DEYSI us Carmina Iyer DO IMG XR PROCEDURES Final Resu lt * POCT HGB A1C (11/27/2024 11:09 AM EDT) Hemoglobin A1C 5.4 4.0 - 6.0 % QC Media Lot # [id number] Lot# Expiration Date ,026 Blood 11/27/2024 11:0 9 AM EDT Carmina Jaylon DO POINT OF CARE TEST ENTER/YOANNA T ORDERABLES Final Result * POCT Glucose (11/27/2024 11:09 AM EDT) Glucose Blood, POC 105 60 - 200 mg/dL QC Media Lot # [id number] Lot# Expiration Date , Blood Capillary blood specimen / Unknown 11/27/2024 11:09 AM EDT Carmina Iyer DO POINT OF CARE TEST ENTER/YOANNA T ORDERABLES Final Result * BI Mammogram Screening Tomosynthesis Bilateral (03/12/2024 1:15 PM EDT) Anatomical Region Laterality Modality Breast Bilateral Mammography 03/12/2024 1:15 PM EDT Narrative 04/10/2024 6:36 AM EDT ? [facility] [place] ? [address] ?[place] [address] ? Mammography Report ? Signed ? Patient: Cain,Salena ?MR#: [id number] ?? 9 ? : 1960 ?Acct:[id number] ? Age/Sex: 63 / F ?ADM Date: 08/05/24 ? Loc: HO.MAMMO ? Attending Ebony Iyer DO ? Ordering Physician: Carmina Iyer DO ?Results: 2B ?? enign Findings ? Date of Service: 03/12/24 ?Follow Up: 1 Year From Orig ?? inal Mammogram ? Procedure(s): MM tomosynthesis screening BI ?? Accession Number(s): [id number] ? cc: Carmina Iyer DO ? EXAMINATION: [...] DD/ 1315 ? TD/TT: 03/12/24 1327 ? Gaming Floor Supervisor: ? Procedure Note Donotyuditer, Image - 04/10/2024 [facility] [address] [place], [place] [address] Mammography Report Signed Patient: Callie Barlow#: [id number] 9 : 8Acct:[id number] Age/Sex: 63 / FADM Date: 03/12/24 Loc: HO.MAMMO Attending Dr: Carmina Iyer DO Ordering Physician: Carmina Iyerults: 2B enign Findings Date of Service: 03/12/24Follow Up: 1 Year From Orig inal Mammogram Procedure(s): MM tomosynthesis screening BI Accession Number(s): [id number] cc: Carmina Iyer DO EXAMINATION: MM SCREENING [...] 04/10/24 0634 DD/ 1315 TD/TT: 03/12/24 1327 Gaming Floor Supervisor: us Carmina Iyer DO IMG BI PROCEDURES Final Resu lt * Albumin, Random Urine W/Creatinine (05/30/2023 10:06 AM EDT) Creatinine, Urine 101.04 mg/dL [facility] Microalbumin Urine 8.0 mg/L [facility] Microalbum Creatinine Ratio Ur 7.9 <30 ug/mg cr [facility] Comment:Albumin/Creatinine R atio Reference Ranges: Normal: < 30 ug/mg creatinine Microalbuminuria: 30 - 300 ug/mg creatinineClinical Albuminuria: > 300 ug/mg creatinine 05/30/2023 10:0 6 AM EDT 05/30/2023 11:27 AM EDT us Carmina Iyer DO LAB URINE ORDERABLES Final R esult [facility] [address] [place] [phone] * (ABNORMAL) Lipid Panel, Standard (05/30/2023 10:06 AM EDT) Triglycerides 190(H) <150 mg/dL [facility] Comment:Desirable Triglyceri de: less than 150 mg/dLBorderline High Triglyceride 150-199 mg/dLHigh Triglyceride: 200-499 mg/dLVery High Triglyceride: greater than or equal to 5OO mg/dL Cholesterol 249(H) <200 mg/dL [facility] Comment:Desirable Cholestero l: less than 200 mg/dLBorderline High Cholesterol: 200-239 mg/dLHigh Cholesterol: greater than 239 mg/dL LDL Cholesterol Calculated 167(H) <100 mg/dL [facility] Comment:Desirable LDL: less than 100 mg/dLNear Optimal/Above Optimal LDL: 110- 129 mg/dLBorderline High LDL: 130-159 mg/dLHigh LDL: 160-189 mg/dLVery High LDL: greater than or equal to 190 mg/dL HDL Cholesterol 44 >40 mg/dL [facility] Comment:Desirable HDL: great er than 40 mg/dL Note: This HDL assay may give artificially low results in patients with liver disease. Blood Venous blood specimen / Unknown 05/30/2023 10:06 AM EDT 05/30/2023 11:27 AM EDT us Carmina Iyer DO LAB BLOOD ORDERABLES Final R esult Performing Organization Address [facility] Co de Phone Number [facility] [address] [place] [phone] * THINPREP TIS PAP (02/20/2021 9:24 [...] has been evaluated with computer assisted technology. [facility] Linotypist: SEE COMMENT [facility] Comment: HJP, CT(ASCP) CT screening location: [address] ??[address] Interpretation/Res ult: SEE COMMENT [facility] Comment: Negative for intraepithelial lesion or malignancy. Atrophic pattern; predominantly parabasal cells LMP: NONE [facility] Prev. BX: NONE [facility] Prev. PAP: NONE [facility] SOURCE: Cervix [facility] Statement Of Adequacy: SATISFACTORY FOR EVALUATION [facility] 02/20/2021 9:24 AM EDT us Carmina Iyer DO LAB PATHOLOGY ORDERABLES Fin al Result Performing Organization Address [facility]/ZIP Co de Phone Number [facility] [address] * HPV mRNA E6/E7 REFLEX TO HPV 16, 18/45 (02/20/2021 9:24 AM EDT) HPV nRNA E6/E7 Not Detected Not Detected [facility] Comment: Methodology: It Disaster Recovery Manager-Mediated Amplification This assay detects E6/E7 viral messenger RNA (mRNA) from 14 high-risk HPV types (16,18,31,33,35,39,45,51,52,56,58,59,66,68). ? The analytical performance characteristics of this assay have been determined by [employer]. The modifications have not been cleared or approved by the FDA. This assay has been validated pursuant to the CLIA regulations and is used for clinical purposes. ?? For additional information, please refer to http://education.[employer]/faq/ANE636m5 (This link if provided for information/ educational purposes only.) 02/20/2021 9:24 AM EDT Carmina Iyer DO LAB CYTOLOGY ORDERABLES Mandy l Result Performing Organization Address [facility] de Phone Number [facility] [address] * Hm Colonoscopy (06/19/2015 2:13 PM EST) Historical Provider HEALTH MAINTENANCE Final Result from Last 3 Months or Most Recently Relevant to Health Maintenance Insurance [place] [id number] [employer] [facility] [place] [address] [place] [address] [place] [address] Care Teams Belt Measurer Relationship Specialty Start Date End Date Carmina Iyer DO [address] [place] [address] PCP - General Family Medicine 05/01/24
--- OUTSIDE RECORDS SUMMARY | 2024-11-28 15:05 | XMS_ITS | Encounter Summary ---
Author Organization [employer] Address [address] [facility] 7t [place] [address] Care Team Providers Care Watchmaking Teacher Name Role Phone Carmina Iyer DO Primary Care Provider + [phone] Carmina Iyer DO Primary Care Provider + [phone] Reason for Visit * Reason Comments Med Refill Encounter Details Date Type Department Care Team ([facility] st Contact Info) Description 05/27/2023 Refill [facility] [address] [place] [address] Carmina Iyer DO [address] [place] [address] Social History Tobacco Use Types Packs/Day Years [...] problems with any of the following? Lead [place] or [place]ipes 05/19/2023 Food Insecurity Answer Date [...] Description 12/28/2024 9:30 AM EDT Medication Management [facility] [address] [place] [address] Pinky Rankin, PharmD [address] [place] [address] documented as of this encounter Visit Diagnoses Not on filedocumented in this encounter Additional Health Concerns Assessment Noted Time PHQ-9 Depression Total Score: 1 12/02/19 9:05 AM EDT documented as of this encounter Care Teams Watchmaking Teacher Relationship Specialty Start Date End Date Carmina Iyer DO [address] [place] [address] PCP - General Family Medicine 02/05/13 01/30/24 Carmina Iyer DO [address] [place] [address] PCP - General Family Medicine 05/01/24 documented as of this encounter
--- OUTSIDE RECORDS SUMMARY | 2024-11-28 15:05 | XMS_ITS | Continuity of Care Document ---
Author Organization [facility] Address [address] [place] [address] Phone Care Team Providers Care Senior Geotechnical Engineer Name Role Phone Bradley Avila MD Unavailable Unavailable Advance Directives Directive Yes / No Effective Date File Name No Information Encounters Encounter Description Practice Location Reason(s) For Visit Diagnoses Date Provider Providers Copied on Encounter [facility], [address] [facility], [place], [place], [id number], [place] tel:[phone] [facility] No Information 0 201 5 Austin Huerta. [address] [facility] [address], [place], [place], [id number] , [place]. tel:[phone] Family History Family Member Type Diagnosis Age At Onset No Information Payers Payer name Insurance type Covered libertarian ID Authoriza tion(s) No Information Social History [...]
--- OUTSIDE RECORDS SUMMARY | 2024-11-28 15:05 | XMS_ITS | Encounter Summary ---
Author Organization [employer] [facility] Address [address] [facility] 7t [place] [address] Care Team Providers Care Facility Assistant Name Role Phone Carmina Iyer DO Primary Care Provider + [phone] Carmina Iyer DO Primary Care Provider + [phone] Reason for Visit * Reason Comments Med Refill Encounter Details Date Type Department Care Team (Late st Contact Info) Description 10/15/2022 Refill [facility] [address] [place] [address] Carmina Iyer DO [address] [place] [address] Anxiety Social History Tobacco Use Types Packs/Day [...] Description 12/28/2024 9:30 AM EDT Medication Management [facility] [address] [place] [address] Pinky Rankin, PharmD [address] [place] [address] documented as of this encounter Visit Diagnoses Diagnosis Anxiety Anxiety state, unspecified documented in this encounter Care Teams Facility Assistant Relationship Specialty Start Date End Date Carmina Iyer DO [address] [place] [address] PCP - General Family Medicine 02/05/13 01/30/24 Carmina Iyer DO [address] [place] [address] PCP - General Family Medicine 05/01/24 documented as of this encounter
--- OUTSIDE RECORDS SUMMARY | 2024-11-28 15:05 | XMS_ITS | Encounter Summary ---
Author Organization [employer] Address [address] [facility] 7t [place] [address] Care Team Providers Care Partner Management Consultant Name Role Phone Carmina Iyer DO Primary Care Provider + [phone] Carmina Iyer DO Primary Care Provider + [phone] Reason for Visit * Reason Onset Date Comments Durable Medical Equipment 08/30/2023 Encounter Details Date Type Department Care Team ([facility] st Contact Info) Description 08/30/2023 Telephone [facility] [address] [place] [address] Carmina Iyer DO [address] [place], [place] [phone] Durable Medical Equipment Social History Tobacco Use [...] problems with any of the following? Lead [place] or Pipes 05/19/2023 Food Insecurity Answer Date Recorded Within the past 12 months, y ou worried that your food would run out before you got money to buy more: Never True 05/27/2023 Within the past 12 months,th e food you bought just didn't last and you didn't have enough money to get more: Never True 10/ Transportation Answer Date Recorded In the past [...] Medication Management [facility] [address] [place] [address] Pinky Rankin, PharmD [address] [place] [address] documented as of this encounter Visit Diagnoses Not on filedocumented in this encounter Additional Health Concerns Assessment Noted Time PHQ-9 Depression Total Score: 1 12/02/19 9:05 AM EDT documented as of this encounter Care Teams Partner Management Consultant Relationship Specialty Start Date End Date Carmina Iyer DO [address] [place] [address] PCP - General Family Medicine 02/05/13 01/30/24 Carmina Iyer DO [address] [place] [address] PCP - General Family Medicine 05/01/24 documented as of this encounter
--- OUTSIDE RECORDS SUMMARY | 2024-11-28 15:05 | XMS_ITS | Encounter Summary ---
Author Organization [employer] Address [address] [facility] [address] 7t [place] [address] Care Team Providers Care Project Assistant Name Role Phone Carmina Iyer DO Primary Care Provider + [phone] Carmina Iyer DO Primary Care Provider + [phone] Encounter Details Date Type Department Care Team (Late st Contact Info) Description 11/17/2023 Orders Only [facility] [address] [place] [address] ProviderJosh MD Social History Tobacco Use Types [...] problems with any of the following? Lead [place] or [place]ipes 05/19/2023 Food Insecurity Answer Date [...] 12/28/2024 9:30 AM EDT Medication Management [facility] [address] [place], [place] [phone] Pinky Rankin, TexD [address] [place] [address] documented as of this encounter Procedures Procedure [...] documented as of this encounter Care Teams Project Assistant Relationship Specialty Start Date End Date Carmina Iyer DO [address] [place] [address] PCP - General Family Medicine 02/05/13 01/30/24 Carmina Iyer DO [address] [place] [address] PCP - General Family Medicine 05/01/24 documented as of this encounter
--- OUTSIDE RECORDS SUMMARY | 2024-11-28 15:05 | XMS_ITS | Encounter Summary ---
Author Organization [employer] Address [address] [facility] 7t [place] [address] Care Team Providers Care Oral Surgery Physician Name Role Phone Carmina Iyer DO Primary Care Provider + [phone] Carmina Iyer DO Primary Care Provider + [phone] Reason for Visit * Reason Onset Date Comments Results 09/05/2023 Encounter Details Date Type Department Care Team ([facility] st Contact Info) Description 09/05/2023 Telephone [facility] [address] [place] [address] Carmina Iyer DO [address] [place], [place] [phone] Results Social History Tobacco Use Types Packs/Day [...] problems with any of the following? Lead [place] or Pipes 05/19/2023 Food Insecurity Answer Date [...] results: labs Date when done: 09/02 Facility: [facility] Please contact pt at [phone] TC returned to pt and a message [...] results: labs Date when done: 09/02 Facility: [facility] Please contact pt at [phone] documented in this encounter Plan of Treatment Upcoming Encounters Date Type Department Care Team ([facility] st Contact Info) Description 12/28/2024 9:30 AM EDT Medication Management [address] [address] Pinky Rankin PharmD [address] [place] [address] documented as of this encounter Visit Diagnoses Not on filedocumented in this encounter Additional Health Concerns Assessment Noted Time PHQ-9 Depression Total Score: 1 12/02/19 23 9:05 AM EDT documented as of this encounter Care Teams Oral Surgery Physician Relationship Specialty Start Date End Date Carmina Iyer DO [address] [place] [address] PCP - General Family Medicine 02/05/13 01/30/24 Carmina Iyer DO [address] [place] [address] PCP - General Family Medicine 05/01/24 documented as of this encounter
--- OUTSIDE RECORDS SUMMARY | 2024-11-28 15:05 | XMS_ITS | Encounter Summary ---
Author Organization [employer] Address [address] [facility] [address] 7[address] [place] [address] Care Team Providers Care Strategy Intern Name Role Phone Carmina Iyer DO Primary Care Provider + [phone] Carmina Iyer DO Primary Care Provider + [phone] Encounter Details Date Type Department Care Team ([facility] st Contact Info) Description 08/25/2023 Telephone [facility] [address] [place], [place] [phone] Carmina Iyer DO [address] [place], [place] [phone] Social History Tobacco Use Types Packs/Day Years [...] problems with any of the following? Lead [place] or [place]ipes 05/19/2023 Food Insecurity Answer Date [...] Description 12/28/2024 9:30 AM EDT Medication Management [facility] [address] [place] [address] Pinky Rankin, PharmD [address] [place] [address] documented as of this encounter Visit Diagnoses Not on filedocumented in this encounter Additional Health Concerns Assessment Noted Time PHQ-9 Depression Total Score: 1 12/02/19 9:05 AM EDT documented as of this encounter Care Teams Strategy Intern Relationship Specialty Start Date End Date Carmina Iyer DO [address] [place] [address] PCP - General Family Medicine 02/05/13 01/30/24 Carmina Iyer DO [address] [place] [address] PCP - General Family Medicine 05/01/24 documented as of this encounter
--- OUTSIDE RECORDS SUMMARY | 2024-11-28 15:05 | XMS_ITS | Encounter Summary ---
Author Organization [employer] Address [address] [facility] 7t [place] [address] Care Team Providers Care Licensed [place] Real Estate Appraiser Name Role Phone Carmina Iyer DO Primary Care Provider + [phone] Carmina Iyer DO Primary Care Provider + [phone] Reason for Visit * Reason Onset Date Comments Med Refill 08/16/2022 Encounter Details Date Type Department Care Team (Late st Contact Info) Description 08/16/2022 Refill [facility] MED[facility]INE [address] [place] [address] Carmina Iyer DO [address] [place] [address] Anxiety Social History Tobacco Use Types Packs/Day [...] Description 12/28/2024 9:30 AM EDT Medication Management [facility] [address] [place] [address] Pinky Rankin, PharmD [address] [place] [address] documented as of this encounter Visit Diagnoses Diagnosis Anxiety Anxiety state, unspecified documented in this encounter Care Teams Licensed [place] Real Estate Appraiser Relationship Specialty Start Date End Date Carmina Iyer DO [address] [place] [address] PCP - General Family Medicine 02/05/13 01/30/24 Carmina Iyer DO [address] [place] [address] PCP - General Family Medicine 05/01/24 documented as of this encounter
--- OUTSIDE RECORDS SUMMARY | 2024-11-28 15:05 | XMS_ITS | Encounter Summary ---
Author Organization [employer] Address [address] [facility] 7t [place] [address] Care Team Providers Care Phlebotomy Instructor Name Role Phone Carmina Iyer DO Primary Care Provider + [phone] Carmina Iyer DO Primary Care Provider + [phone] Reason for Visit * Reason Comments Med Refill Encounter Details Date Type Department Care Team ([facility] st Contact Info) Description 08/30/2023 Refill [facility] MED[facility] [address] [place] [address] Carmina Iyer DO 230 [place] [address] Anxiety Social History Tobacco Use Types Packs/Day [...] problems with any of the following? Lead [place] or Pipes 05/19/2023 Food Insecurity Answer Date [...] Description 12/28/2024 9:30 AM EDT Medication Management [facility] MED[facility] [address] [place] [address] Pinky Rankin, PharmD [address] [place] [address] documented as of this encounter Visit Diagnoses Diagnosis Anxiety Anxiety state, unspecified documented in this encounter Additional Health Concerns Assessment Noted Time PHQ-9 Depression Total Score: 1 12/02/19 9:05 AM EDT documented as of this encounter Care Teams Phlebotomy Instructor Relationship Specialty Start Date End Date Carmina Iyer DO 230 [place] [address] PCP - General Family Medicine 02/05/13 01/30/24 Carmina Iyer DO [address] [place] [address] PCP - General Family Medicine 05/01/24 documented as of this encounter
--- OUTSIDE RECORDS SUMMARY | 2024-11-28 15:05 | XMS_ITS | Encounter Summary ---
Author Organization [employer] Address [address] [facility] 7t [place] [address] Care Team Providers Care Nurseryman Assistant Name Role Phone Carmina Iyer DO Primary Care Provider + [phone] Reason for Visit * Reason Comments Med Refill Encounter Details Date Type Department Care Team ([facility] st Contact Info) Description 08/10/2024 Refill [facility] 230 [place] [address] Carmina Iyer DO [address] [place] [address] Anxiety Social History Tobacco Use Types Packs/Day [...] with others, in a hotel, in a longterm, living outside on the street, on a [...] Description 12/28/2024 9:30 AM EDT Medication Management [facility] [address] [place] [address] Pinky Rankin, TexD [address] [place] [address] documented as of this encounter Visit Diagnoses Diagnosis Anxiety Anxiety state, unspecified documented in this encounter Additional Health Concerns Assessment Noted Time PHQ-9 Depression Total Score: 0 06/08/20 10:04 AM EDT documented as of this encounter Care Teams Nurseryman Assistant Relationship Specialty Start Date End Date Carmina Iyer DO 230 [place] [address] PCP - General Family Medicine 05/01/24 documented as of this encounter
--- OUTSIDE RECORDS SUMMARY | 2024-11-28 15:05 | XMS_ITS | Encounter Summary ---
Author Organization [employer] Address [address] [facility] 7t [place] [address] Care Team Providers Care Digital Cartographic Technician Name Role Phone Carmina Iyer DO Primary Care Provider + [phone] Carmina Iyer DO Primary Care Provider + [phone] Reason for Visit * Reason Onset Date Comments Med Refill 02/10/2023 Encounter Details Date Type Department Care Team (Late st Contact Info) Description 02/10/[address] [facility] MEDICINE [address] [place] [address] Carmina Iyer DO 230 [place], [place] [phone] Med Refill Social History Tobacco Use Types [...] Miscellaneous Notes * Telephone Encounter - Alexandra Sheikh - 02/10/2023 10:06 AM EDT Tc from patient requesting a med refill on medication clonazepam [address] Iyer documented in this encounter Plan of Treatment Upcoming Encounters Date Type Department Care Team (Late st Contact Info) Description 12/28/2024 9:30 AM EDT Medication Management [facility] MEDICINE [address] [place] [address] Pinky Rankin, TexD [address] [place] [address] documented as of this encounter Visit Diagnoses Not on filedocumented in this encounter Additional Health Concerns Assessment Noted Time PHQ-9 Depression Total Score: 1 12/02/19 9:05 AM EDT documented as of this encounter Care Teams Digital Cartographic Technician Relationship Specialty Start Date End Date Carmina Iyer DO [address] [place] [address] PCP - General Family Medicine 02/05/13 01/30/24 Carmina Iyer DO [address] [place] [address] PCP - General Family Medicine 05/01/24 documented as of this encounter
--- OUTSIDE RECORDS SUMMARY | 2024-11-28 15:05 | XMS_ITS | Encounter Summary ---
Author Organization [employer] Address 75 [facility] 7t [place] [address] Care Team Providers Care Visual Merchandise Manager Name Role Phone Carmina Iyer DO Primary Care Provider + [phone] Carmina Iyer DO Primary Care Provider + [phone] Reason for Visit * Reason Onset Date Comments Med Refill 01/10/2023 Encounter Details Date Type Department Care Team (Late st Contact Info) Description 01/10/2023 Telephone [facility] MEDICINE 230 [place] [address] Carmina Iyer DO 230 [place], [place] [phone] Med Refill Social History Tobacco Use Types [...] 0959 01/10/23 * Telephone Encounter - Radhadesiree Spencer Mark - 01/10/2023 4:26 PM EDT Tc from pt requesting med refill on clonazePAM (KlonoPIN) 0.5 MG tablet Please sent to [id number] - [place] - [address] [facility] documented in this encounter Plan of Treatment Upcoming Encounters Date Type Department Care Team (Late st Contact Info) Description 12/28/2024 9:30 AM EDT Medication Management [facility] MEDICINE [address] [place] [address] Pinky Rankin, PharmD 230 [place] [address] documented as of this encounter Visit Diagnoses Not on filedocumented in this encounter Additional Health Concerns Assessment Noted Time PHQ-9 Depression Total Score: 1 12/02/19 9:05 AM EDT documented as of this encounter Care Teams Visual Merchandise Manager Relationship Specialty Start Date End Date Carmina Iyer DO [address] [place] [address] PCP - General Family Medicine 02/05/13 01/30/24 Carmina Iyer DO [address] [place] [address] PCP - General Family Medicine 05/01/24 documented as of this encounter
--- OUTSIDE RECORDS SUMMARY | 2024-11-28 15:05 | XMS_ITS | Encounter Summary ---
Author Organization [employer] Address 75 [facility] 7t [place] [address] Care Team Providers Care Farm Laborer Name Role Phone Carmina Iyer DO Primary Care Provider + [phone] Reason for Visit * Reason Comments Med Refill Encounter Details Date Type Department Care Team ([facility] st Contact Info) Description 08/02/2024 Refill [facility] MEDICINE 230 [place] [address] Carmina Iyer DO 230 [place] [address] Social History Tobacco Use Types Packs/Day Years [...] with others, in a hotel, in a usp, living outside on the street, on a [...] Description 12/28/2024 9:30 AM EDT Medication Management [facility] MEDICINE 230 [place] [address] Pinky Rankin, PharmD [address] [place] [address] documented as of this encounter Visit Diagnoses Not on filedocumented in this encounter Additional Health Concerns Assessment Noted Time PHQ-9 Depression Total Score: 0 06/08/20 10:04 AM EDT documented as of this encounter Care Teams Farm Laborer Relationship Specialty Start Date End Date Carmina Iyer DO 230 [place], [place] [phone] PCP - General Family Medicine 05/01/24 documented as of this encounter
== END 2024-11-28 13:36 | disposition home or self-care (01) ==
PROVIDERS: PCP Family Medicine; Visit Provider Internal Medicine Pulmonary Disease
DX: J45.909 Unspecified asthma, uncomplicated (principal); Z91.09 Other allergy status, other than to drugs and biological substances
CPT/HCPCS: 99214

== ENCOUNTER → 2024-11-28 12:48 | Outpatient (BNVA) | payer MEDICARE, SELFPAY | PROVIDERS: Visit Provider Internal Medicine Pulmonary Disease | DX: J44.89 Other specified chronic obstructive pulmonary disease (principal); Z79.52 Long term (current) use of systemic steroids; Z91.09 Other allergy status, other than to drugs and biological substances | CPT/HCPCS: 99212 ==

== ENCOUNTER 2024-12-24 12:42 | Outpatient (AMB) | payer MEDICARE, MEDICAID, SELFPAY ==
--- OUTSIDE RECORDS SUMMARY | 2024-12-24 12:56 | XMS_ITS | Encounter Summary ---
Author Organization [employer] Address 75 [facility] 7t [place] [address] Care Team Providers Care Addiction Counselor Name Role Phone Carmina Iyer DO Primary Care Provider + [phone] Carmina Iyer DO Primary Care Provider + [phone] Encounter Details Date Type Department Care Team ([facility] st Contact Info) Description 08/25/2023 Telephone [facility] MEDICINE 230 [place], [place] [phone] Carmina Iyer DO 230 [place], [place] [phone] Social History Tobacco Use Types Packs/Day Years [...] problems with any of the following? Lead [place] or Pipes 05/19/2023 Food Insecurity Answer Date [...] Description 12/28/2024 9:30 AM EDT Medication Management [facility] MEDICINE [address] [place] [address] Pinky Rankin, PharmD [address] [place] [address] documented as of this encounter Visit Diagnoses Not on filedocumented in this encounter Additional Health Concerns Assessment Noted Time PHQ-9 Depression Total Score: 1 12/02/19 23 9:05 AM EDT documented as of this encounter Care Teams Addiction Counselor Relationship Specialty Start Date End Date Carmina Iyer DO [address] [place] [address] PCP - General Family Medicine 02/05/13 01/30/24 Carmina Iyer DO [address] [place] [address] PCP - General Family Medicine 05/01/24 documented as of this encounter
--- OUTSIDE RECORDS SUMMARY | 2024-12-24 12:56 | XMS_ITS | Encounter Summary ---
Author Organization [employer] Address 75 [facility] 7t [place] [address] Care Team Providers Care Feather Washer Name Role Phone Carmina Iyer DO Primary Care Provider + [phone] Carmina Iyer DO Primary Care Provider + [phone] Reason for Visit * Reason Comments Med Refill Encounter Details Date Type Department Care Team (Late st Contact Info) Description 10/15/2022 Refill [facility] MEDICINE [address] [place] [address] Carmina Iyer DO 230 [place] [address] Anxiety Social History Tobacco Use Types Packs/Day [...] Description 12/28/2024 9:30 AM EDT Medication Management [facility] MEDICINE [address] [place] [address] Pinky Rankin, PharmD 230 [place] [address] documented as of this encounter Visit Diagnoses Diagnosis Anxiety Anxiety state, unspecified documented in this encounter Care Teams Feather Washer Relationship Specialty Start Date End Date Carmina Iyer DO [address] [place] [address] PCP - General Family Medicine 02/05/13 01/30/24 Carmina Iyer DO [address] [place] [address] PCP - General Family Medicine 05/01/24 documented as of this encounter
--- OUTSIDE RECORDS SUMMARY | 2024-12-24 12:56 | XMS_ITS | Encounter Summary ---
Author Organization [employer] Address 75 [facility] 7t [place] [address] Care Team Providers Care Drug Abuse Resistance Education Officer Name Role Phone Carmina Iyer DO Primary Care Provider + [phone] Carmina Iyer DO Primary Care Provider + [phone] Reason for Visit * Reason Onset Date Comments Results 09/05/2023 Encounter Details Date Type Department Care Team ([facility] st Contact Info) Description 09/05/2023 Telephone [facility] MEDICINE 230 [place] [address] Cramina Iyer DO 230 [place] [address] Results Social History Tobacco Use Types Packs/Day [...] problems with any of the following? Lead [place] or Pipes 05/19/2023 Food Insecurity Answer Date [...] results: labs Date when done: 09/02 Facility: [facility] Please contact pt at [phone] TC returned to pt and a message [...] results: labs Date when done: 09/02 Facility: [facility] Please contact pt at [phone] documented in this encounter Plan of Treatment Upcoming Encounters Date Type Department Care Team ([facility] st Contact Info) Description 12/28/2024 9:30 AM EDT Medication Management [address] [address] Pinky Rankin, PharmD [address] [place] [address] documented as of this encounter Visit Diagnoses Not on filedocumented in this encounter Additional Health Concerns Assessment Noted Time PHQ-9 Depression Total Score: 1 12/02/19 23 9:05 AM EDT documented as of this encounter Care Teams Drug Abuse Resistance Education Officer Relationship Specialty Start Date End Date Carmina Iyer DO 230 [place] [address] PCP - General Family Medicine 02/05/13 01/30/24 Carmina Iyer DO [address] [place] [address] PCP - General Family Medicine 05/01/24 documented as of this encounter
--- OUTSIDE RECORDS SUMMARY | 2024-12-24 12:56 | XMS_ITS | Encounter Summary ---
Author Organization [employer] Address 75 [facility] 7t [place] [address] Care Team Providers Care Fructose Loader Name Role Phone Carmina Iyer DO Primary Care Provider [phone] Reason for Visit * Reason Comments Med Refill Encounter Details Date Type Department Care Team ([facility] st Contact Info) Description 08/02/2024 Refill [facility] MEDICINE 230 [place] [address] Carmina Iyer DO 230 [place] [address] Social History Tobacco Use Types Packs/Day Years [...] others, in a hotel, in a senior living, living outside on the street, on a [...] Description 12/28/2024 9:30 AM EDT Medication Management [facility] MEDICINE 230 [place] [address] Pinky Rankin, TexD [address] [place] [address] documented as of this encounter Visit Diagnoses Not on filedocumented in this encounter Additional Health Concerns Assessment Noted Time PHQ-9 Depression Total Score: 0 06/08/20 10:04 AM EDT documented as of this encounter Care Teams Fructose Loader Relationship Specialty Start Date End Date Carmina Iyer DO [address] [place] [address] PCP - General Family Medicine 05/01/24 documented as of this encounter
--- OUTSIDE RECORDS SUMMARY | 2024-12-24 12:56 | XMS_ITS | Clinical Summary ---
Author Organization [employer] Address 75 [facility] 7t [place] [address] Care Team Providers Care Bread Molder Name Role Phone JaylonCarmina Primary Care Provider Allergies No known active allergies Medications * [...] (90 Base) MCG/ACT inhalerIndication s:Asthma with COPD ([facility]) INHALE 2 PUFFS BY MOUTH EVERY 4 [...] eorder (will not trigger notification to Pharmacy)) Hospital, Clinic, or Other Facility Administered Medication [...] Encounters Date Type Department Care Team Description 12/10/2024 Telephone [facility] [address] [place] [address] Carmina Iyer DO 11/30/2024 Telephone [facility] MEDICINE [address] [place] [address] Carmina Iyer DO Status check breathing difficulty 11/27/2024 9:45 AM EDT Office Visit [facility] MEDICINE [address] [place] [address] Carmina Iyer DO Type 2 diabetes mellitus without complication, without long-term current use of insulin ([facility]) (Primary Dx); Essential hypertension; Other hyperlipidemia; Major depression, recurrent, chronic ([facility]); Obstructive sleep apnea, adult; Severe persistent asthma with acute exacerbation; Chronic allergic rhinitis; Chronic bilateral low back pain without sciatica; Abnormal chest CT; Healthcare maintenance; Anxiety; Severe persistent asthma without complication 11/27/2024 Travel 11/16/2024 Patient Outreach [facility] MED[facility]INE [address] [place] [address] Carmina Iyer DO 11/02/2024 Telephone [facility] MEDICINE [address] [place] [address] Carmina Iyer DO 10/24/2024 5:40 PM EDT Office Visit [facility] [address] [place] [address] Asthma with COPD ([facility]) (Primary Dx); Severe persistent asthma with acute exacerbation 10/23/2024 Telephone [facility] MEDICINE [address] [place] [address] Carmina Iyer DO 10/12/2024 Telephone [facility] MED[facility]INE [address] [place] [address] Carmina Iyer DO 10/01/2024 Refill [facility] MEDICINE [address] [place] [address] Carmina Iyer DO Anxiety 09/27/2024 Refill [facility] MEDICINE [address] [place] [address] Roseann Lobo ANP Asthma with COPD ([facility]) from Last 3 Months Immunizations Immunization Administration Dates Next Due Hep B, adult [...] Pressure 123/74 11/27/2024 9:40 AM EDT Pulse 110 12/06/2024 12:33 PM EDT Temperature 36.2 ??C (97.1 ??F) 11/27/2024 [...] Description 12/28/2024 9:30 AM EDT Medication Management [facility] MEDICINE 230 [place] [address] Pinky Rankin, PharmD 230 [place] [address] Health Maintenance Due Date Last Done Comments [...] 09/02/2024 09/02/2023, 09/02/2023, 09/02/2023, Additional history exists COVID-19 Vaccine ( season) 2024 06/08/2024, 05/30/2023, 03/10/2023, Additional history exists SDOH Screening 05/01/2025 05/01/2024 [...] Completed 04/20/2024, , 06/02/2019, Additional history exists HIB Vaccines Aged Out [...] patient's age to complete this topic Meningococcal B Vaccine Aged Out No l onger eligible based on patient's age to complete [...] complication, without long-term current use of insulin ([facility]) POCT GLUCOSE Routine 11/27/2024 11:09 [...] AM EDT Narrative 11/27/2024 12:13 PM EDT ?[facility] ?[address] ?[place] [address] ?XRay Report ? Signed ? Patient: Cain,Salena ?MR#: [id number] ?? 9 ? : 1960 ?Acct:[id number] ? Age/Sex: 64 / F ?ADM Date: 11/27/24 ? Loc: HO.HHCX ? Attending Dr: Carmina Iyer DO ? Ordering Physician: Carmina Iyer DO ?? Date of Service: 11/27/24 ?? Procedure(s): XR chest 2V ?? Accession Number(s): [id number] ? cc: Carmina Iyer DO ? EXAMINATION: [...] DD/ 1142 ? TD/TT: 11/27/24 1200 ? Sliver Lapper: MSM ? Procedure Note Marina, Image - 11/27/2024 [facility] [address] [place] [address] XRay Report Signed Patient: Callie Barlow#: [id number] 9 : 8Acct:[id number] Age/Sex: 64 / FADM Date: 11/27/24 Loc: HO.HHCX Attending Dr: Carmina Iyer DO Ordering Physician: Carmina Iyer DO Date of Service: 11/27/24 Procedure(s): XR chest 2V Accession Number(s): [id number] cc: Carmina Iyer DO EXAMINATION: XR CHEST [...] 11/27/24 1210 DD/ 1142 TD/TT: 11/27/24 1200 Sliver Lapper: DEYSI Carmina Iyer DO IMG XR PROCEDURES [...] EDT Narrative 04/10/2024 6:36 AM EDT ? [facility] [place] ? [address] ?[place] [address] ? Mammography Report ? Signed ? Patient: Salena Barlow ?MR#: [id number] ?? 9 ? : 1960 ?Acct:[id number] ? Age/Sex: 63 / F ?ADM Date: 03/12/24 ? Loc: HO.MAMMO ? Attending Dr: Carmina A Jaylon DO ? Ordering Physician: Jaylon,Carmina A DO ?Results: 2B ?? enign Findings ? Date of Service: 03/12/24 ?Follow Up: 1 Year From Orig ?? inal Mammogram ? Procedure(s): MM tomosynthesis screening BI ?? Accession Number(s): [id number] ? cc: Carmina Iyer DO ? EXAMINATION: [...] DD/ 1315 ? TD/TT: 03/12/24 1327 ? Sliver Lapper: ? Procedure Note Isaías Gray - 04/10/2024 [facility] [address] [place], [place] [address] Mammography Report Signed Patient: Callie Barlow#: [id number] 9 : 8Acct:[id number] Age/Sex: 63 / FADM Date: 03/12/24 Loc: MAMMO Attending Dr: Carmina Iyer DO Ordering Physician: Carmina Iyerults: 2B enign Findings Date of Service: 03/12/24Follow Up: 1 Year From Orig inal Mammogram Procedure(s): MM tomosynthesis screening BI Accession Number(s): [id number] cc: Carmina Iyer DO EXAMINATION: MM SCREENING [...] 04/10/24 0634 DD/ 1315 TD/TT: 03/12/24 1327 Sliver Lapper: Carmina Iyer DO IMG BI PROCEDURES Final Resu lt * Albumin, Random Urine W/Creatinine (05/30/2023 10:06 AM EDT) Creatinine, Urine 101.04 mg/dL [facility] Microalbumin Urine 8.0 mg/L [facility] Microalbum Creatinine Ratio Ur 7.9 <30 ug/mg cr [facility] Comment:Albumin/Creatinine R atio Reference Ranges: Normal: < 30 ug/mg creatinine Microalbuminuria: 30 - 300 ug/mg creatinineClinical Albuminuria: > 300 ug/mg creatinine 05/30/2023 10:0 6 AM EDT 05/30/2023 11:27 AM EDT us Carmina Iyer DO LAB URINE ORDERABLES Final R esult [facility] [address] [place] [phone] * (ABNORMAL) Lipid Panel, Standard (05/30/2023 10:06 AM EDT) Triglycerides 190(H) <150 mg/dL [facility] Comment:Desirable Triglyceri de: less than 150 mg/dLBorderline High Triglyceride 150-199 mg/dLHigh Triglyceride: 200-499 mg/dLVery High Triglyceride: greater than or equal to 5OO mg/dL Cholesterol 249(H) <200 mg/dL [facility] Comment:Desirable Cholestero l: less than 200 mg/dLBorderline High Cholesterol: 200-239 mg/dLHigh Cholesterol: greater than 239 mg/dL LDL Cholesterol Calculated 167(H) <100 mg/dL [facility] Comment:Desirable LDL: less than 100 mg/dLNear Optimal/Above Optimal LDL: 110- 129 mg/dLBorderline High LDL: 130-159 mg/dLHigh LDL: 160-189 mg/dLVery High LDL: greater than or equal to 190 mg/dL HDL Cholesterol 44 >40 mg/dL [facility] Comment:Desirable HDL: great er than 40 mg/dL Note: This HDL assay may give artificially low results in patients with liver disease. Blood Venous blood specimen / Unknown 05/30/2023 10:06 AM EDT 05/30/2023 11:27 AM EDT us Carmina Iyer DO LAB BLOOD ORDERABLES Final R esult Performing Organization Address [facility]/ZIP Co de Phone Number [facility] [address] [place] [address] [phone] * THINPREP TIS PAP (02/20/2021 9:24 [...] has been evaluated with computer assisted technology. [facility] Intertype Operator: SEE COMMENT [facility] Comment: HJP, CT(ASCP) CT screening location: [address] ??[id number] Interpretation/Res ult: SEE COMMENT [facility] Comment: Negative for intraepithelial lesion or malignancy. Atrophic pattern; predominantly parabasal cells LMP: NONE [facility]IV[facility] Prev. BX: NONE [facility] Prev. PAP: NONE [facility]IV[facility] SOURCE: Cervix [facility] Statement Of Adequacy: SATISFACTORY FOR EVALUATION [facility] 02/20/2021 9:24 AM EDT Carmina Iyer DO LAB PATHOLOGY ORDERABLES Fin al Result [facility] [address] * HPV mRNA E6/E7 REFLEX TO HPV 16, 18/45 (02/20/2021 9:24 AM EDT) HPV nRNA E6/E7 Not Detected Not Detected [facility] Comment: Methodology: Hat Forming Machine Feeder-Mediated Amplification This assay detects E6/E7 viral messenger RNA (mRNA) from 14 high-risk HPV types (16,18,31,33,35,39,45,51,52,56,58,59,66,68). ? The analytical performance characteristics of this assay have been determined by [employer]. The modifications have not been cleared or approved by the FDA. This assay has been validated pursuant to the CLIA regulations and is used for clinical purposes. ?? For additional information, please refer to http://education.Peek@[email or web address]/faq/[email or web address] (This link if provided for information/ educational purposes only.) 02/20/2021 9:24 AM EDT Carmina Ieyr DO LAB CYTOLOGY ORDERABLES Mandy chun Result [facility] [address] * Hm Colonoscopy (06/19/2015 2:13 PM EST) Historical Provider HEALTH MAINTENANCE Final Result from Last 3 Months or Most Recently Relevant to Health [place] [address] [employer] MEDICARE REPLACEMENT HSN PARTIAL Care Teams Bread Molder Relationship Specialty Start Date End Date Carmina Iyer DO [address] [place] [phone] PCP - General Family Medicine 05/01/24
--- OUTSIDE RECORDS SUMMARY | 2024-12-24 12:56 | XMS_ITS | Encounter Summary ---
Author Organization [employer] Address [address] [facility] 7t [place] [address] Care Team Providers Care Solid Waste Engineer Name Role Phone Carmina Iyer DO Primary Care Provider + [phone] Carmina Iyer DO Primary Care Provider + [phone] Reason for Visit * Reason Comments Med Refill Encounter Details Date Type Department Care Team ([facility] st Contact Info) Description 08/30/2023 Refill [facility] [address] [place] [address] Carmina Iyer DO 230 [place], [place] [phone] Anxiety Social History Tobacco Use Types Packs/Day [...] problems with any of the following? Lead [place] or Pipes 05/19/2023 Food Insecurity Answer Date [...] Description 12/28/2024 9:30 AM EDT Medication Management [facility] [address] [place] [address] Pinky Rankin, PharmD 230 [place] [address] documented as of this encounter Visit Diagnoses Diagnosis Anxiety Anxiety state, unspecified documented in this encounter Additional Health Concerns Assessment Noted Time PHQ-9 Depression Total Score: 1 12/02/19 9:05 AM EDT documented as of this encounter Care Teams Solid Waste Engineer Relationship Specialty Start Date End Date Carmina Iyer DO 230 [place] [address] PCP - General Family Medicine 02/05/13 01/30/24 Carmina Iyer DO 230 [place] [address] PCP - General Family Medicine 05/01/24 documented as of this encounter
--- OUTSIDE RECORDS SUMMARY | 2024-12-24 12:56 | XMS_ITS | Encounter Summary ---
Author Organization [employer] Address 75 [facility] 7t [place] [address] Care Team Providers Care Floor Tiling Professional Name Role Phone Carmina Iyer DO Primary Care Provider + [phone] Carmina Iyer DO Primary Care Provider + [phone] Reason for Visit * Reason Onset Date Comments Med Refill 01/10/2023 Encounter Details Date Type Department Care Team ([facility] st Contact Info) Description 01/10/2023 Telephone [facility] MED[facility]INE 230 [place] [address] Carmina Iyer DO 230 [place], [place] [phone] Med Refill Social History Tobacco Use Types [...] PCP 0959 01/10/23 * Telephone Encounter - Sujata Spencer Flores - 01/10/2023 4:26 PM EDT Tc from pt requesting med refill on clonazePAM (KlonoPIN) 0.5 MG tablet Please sent to [id number] - [place] - [id number] [facility] documented in this encounter Plan of Treatment Upcoming Encounters Date Type Department Care Team (Late st Contact Info) Description 12/28/2024 9:30 AM EDT Medication Management [facility] [address] [place] [address] Pinky Rankin, PharmD 230 [place] [address] documented as of this encounter Visit Diagnoses Not on filedocumented in this encounter Additional Health Concerns Assessment Noted Time PHQ-9 Depression Total Score: 1 12/02/19 9:05 AM EDT documented as of this encounter Care Teams Floor Tiling Professional Relationship Specialty Start Date End Date Carmina Iyer DO [address] [place] [address] PCP - General Family Medicine 02/05/13 01/30/24 Carmina Iyer DO [address] [place] [address] PCP - General Family Medicine 05/01/24 documented as of this encounter
--- OUTSIDE RECORDS SUMMARY | 2024-12-24 12:56 | XMS_ITS | Encounter Summary ---
Author Organization [employer] Address 75 [facility] 7t [place] [address] Care Team Providers Care Airconditioning Engineer Name Role Phone Carmina Iyer DO Primary Care Provider + [phone] Carmina Iyer DO Primary Care Provider + [phone] Reason for Visit * Reason Onset Date Comments Med Refill 02/10/2023 Encounter Details Date Type Department Care Team ([facility] st Contact Info) Description 02/10/2023 Telephone [facility] MEDICINE 230 [place] [address] Carmina Iyer DO 230 [place], [place] [phone] Med Refill Social History Tobacco Use Types [...] [facility] [address] [place] [address] Pinky Rankin, TexD 230 [place], [place] [phone] documented as of this encounter Visit Diagnoses Not on filedocumented in this encounter Additional Health Concerns Assessment Noted Time PHQ-9 Depression Total Score: 1 12/02/19 9:05 AM EDT documented as of this encounter Care Teams Airconditioning Engineer Relationship Specialty Start Date End Date Carmina Iyer DO [address] [place] [address] PCP - General Family Medicine 02/05/13 01/30/24 Carmina Iyer DO [address] [place] [address] PCP - General Family Medicine 05/01/24 documented as of this encounter
--- OUTSIDE RECORDS SUMMARY | 2024-12-24 12:56 | XMS_ITS | Encounter Summary ---
Author Organization [employer] Address 75 [facility] 7t [place] [address] Care Team Providers Care Boom Operator Name Role Phone Carmina Iyer DO Primary Care Provider + [phone] Carmina Iyer DO Primary Care Provider + [phone] Reason for Visit * Reason Onset Date Comments Durable Medical Equipment 08/30/2023 Encounter Details Date Type Department Care Team ([facility] st Contact Info) Description 08/30/2023 Telephone [facility] 230 [place] [address] Carmina Iyer DO 230 [place], [place] [phone] Durable Medical Equipment Social History Tobacco Use [...] problems with any of the following? Lead [place] or Pipes 05/19/2023 Food Insecurity Answer Date [...] Description 12/28/2024 9:30 AM EDT Medication Management [facility] 230 [place] [address] Pinky Rankin, PharmD 230 [place] [address] documented as of this encounter Visit Diagnoses Not on filedocumented in this encounter Additional Health Concerns Assessment Noted Time PHQ-9 Depression Total Score: 1 12/02/19 9:05 AM EDT documented as of this encounter Care Teams Boom Operator Relationship Specialty Start Date End Date Carmina Iyer DO 230 [place] [address] PCP - General Family Medicine 02/05/13 01/30/24 Carmina Iyer DO 230 [place] [address] PCP - General Family Medicine 05/01/24 documented as of this encounter
--- OUTSIDE RECORDS SUMMARY | 2024-12-24 12:56 | XMS_ITS | Encounter Summary ---
Author Organization [employer] Address 75 [facility] 7t [place] [address] Care Team Providers Care Taping Machine Operator Name Role Phone Carmina Iyer DO Primary Care Provider + [phone] Reason for Visit * Reason Comments Med Refill Encounter Details Date Type Department Care Team ([facility] st Contact Info) Description 08/10/2024 Refill [facility] MED[facility]INE 230 [place] [address] Carmina Iyer DO 230 [place] [address] Anxiety Social History Tobacco Use Types Packs/Day [...] Description 12/28/2024 9:30 AM EDT Medication Management [facility] MEDICINE [address] [place] [address] Pinky Rankin, PharmD 230 [place] [address] documented as of this encounter Visit Diagnoses Diagnosis Anxiety Anxiety state, unspecified documented in this encounter Additional Health Concerns Assessment Noted Time PHQ-9 Depression Total Score: 0 06/08/20 10:04 AM EDT documented as of this encounter Care Teams Taping Machine Operator Relationship Specialty Start Date End Date Carmina Iyer DO 230 [place] [address] PCP - General Family Medicine 05/01/24 documented as of this encounter
--- OUTSIDE RECORDS SUMMARY | 2024-12-24 12:56 | XMS_ITS | Encounter Summary ---
Author Organization [employer] Address 75 [facility] 7t [place] [address] Care Team Providers Care Development Coach Name Role Phone Carmina Iyer DO Primary Care Provider + [phone] Carmina Iyer DO Primary Care Provider + [phone] Reason for Visit * Reason Onset Date Comments Med Refill 08/16/2022 Encounter Details Date Type Department Care Team (Late st Contact Info) Description 08/16/2022 Refill [facility] MED[facility]INE 230 [place] [address] Carmina Iyer DO 230 [place] [address] Anxiety Social History Tobacco Use Types Packs/Day [...] Description 12/28/2024 9:30 AM EDT Medication Management [facility] MED[facility] [address] [place] [address] Pinky Rankin, PharmD 230 [place] [address] documented as of this encounter Visit Diagnoses Diagnosis Anxiety Anxiety state, unspecified documented in this encounter Care Teams Development Coach Relationship Specialty Start Date End Date Carmina Iyer DO 230 [place] [address] PCP - General Family Medicine 02/05/13 01/30/24 Carmina Iyer DO 230 [place] [address] PCP - General Family Medicine 05/01/24 documented as of this encounter
--- OUTSIDE RECORDS SUMMARY | 2024-12-24 12:56 | XMS_ITS | Encounter Summary ---
Author Organization [employer] Address 75 [facility] 7t [place] [address] Care Team Providers Care Lpn Rn Name Role Phone Carmina Iyer DO Primary Care Provider + [phone] Carmina Iyer DO Primary Care Provider + [phone] Reason for Visit * Reason Comments Med Refill Encounter Details Date Type Department Care Team ([facility] st Contact Info) Description 05/27/2023 Refill [facility] MEDICINE [address] [place] [address] Carmina Iyer DO 230 [place] [address] Social History Tobacco Use Types Packs/Day Years [...] problems with any of the following? Lead [place] or Pipes 05/19/2023 Food Insecurity Answer Date [...] Description 12/28/2024 9:30 AM EDT Medication Management [facility] MEDICINE [address] [place] [address] Pinky Rankin, PharmD 230 [place] [address] documented as of this encounter Visit Diagnoses Not on filedocumented in this encounter Additional Health Concerns Assessment Noted Time PHQ-9 Depression Total Score: 1 12/02/19 9:05 AM EDT documented as of this encounter Care Teams Lpn Rn Relationship Specialty Start Date End Date Carmina Iyer DO 230 [place] [address] PCP - General Family Medicine 02/05/13 01/30/24 Carmina Iyer DO 230 [place] [address] PCP - General Family Medicine 05/01/24 documented as of this encounter
--- OUTSIDE RECORDS SUMMARY | 2024-12-24 12:56 | XMS_ITS | Encounter Summary ---
Author Organization [employer] Address [address] [facility] [address] 7t [place] [address] Care Team Providers Care Top Frame Maker Name Role Phone Carmina Iyer DO Primary Care Provider + [phone] Carmina Iyer DO Primary Care Provider + [phone] Encounter Details Date Type Department Care Team (Late st Contact Info) Description 11/17/2023 Orders Only [facility] MEDICINE 230 [place] [address] ProviderJosh MD Social History Tobacco Use Types [...] problems with any of the following? Lead [place] or Pipes 05/19/2023 Food Insecurity Answer Date [...] Description 12/28/2024 9:30 AM EDT Medication Management [facility] 230 [place] [address] Pinky Rankin, TexD 230 [place] [address] documented as of this encounter Procedures Procedure [...] documented as of this encounter Care Teams Top Frame Maker Relationship Specialty Start Date End Date Carmina Iyer DO 230 [place] [address] PCP - General Family Medicine 02/05/13 01/30/24 Carmina Iyer DO 230 [place] [address] PCP - General Family Medicine 05/01/24 documented as of this encounter
[2024-12-24 13:03] VITALS: BP 114/66; PULSE 117; O2SAT 92; BMI 21.8
--- NOTE | 2024-12-24 13:03 | A.OFFVIS_ITS ---
Vital Signs 12/24/24 13:03 Height 5 ft 3 in Weight 123 lb BMI 21.8 BP 114/66 Blood Pressure Location Rt brachial Position Sitting Pulse 117 H Pulse Source Pulse Oximeter Pulse Oximetry (%) 92 Oxygen Delivery Method Room Air Intake Visit Reasons: Asthma Quality Assurance Qa Lab Analyst Required: Yes Quality Assurance Qa Lab Analyst Name: Carmina Herbert Lepe Allergies No Known Allergies [No Known Allergies*] Allergy (Verified 12/24/24 13:16) HPI HPI Asthma: Details: 64-year-old lady, nonsmoker, followed for asthma/COPD overlap syndrome and environmental allergies. She has been using Symbicort, Spiriva, and albuterol MDI with suboptimal control of her pulmonary symptoms. She does complain of an acute exacerbation symptomatic with significant wheezing. [facility] Medical History Acute respiratory failure with hypoxia Asthma with COPD with exacerbation Leukocytosis Hyperlipidemia Anxiety Diabetes Hypertension Mass of upper lobe of left lung Allergic rhinitis Bronchial asthma COPD (chronic obstructive pulmonary disease) Surgical History H/O colonoscopy History of cataract surgery History of tubal ligation Family History Father No problems noted. Mother No problems noted. Social History Household Members: Children Household Members Other:: Son Housing: House Do you presently have visiting nurse or other home services: No Alcohol intake: never Patient Tobacco Use Status: Never used Tobacco e-Cigarette/Vaping Use: Never Used Second Hand Smoke Exposure: No service: No Sexual orientation: Straight/Heterosexual Review of Systems Const Denies daytime sleepiness, Denies excessive sweating, Denies fatigue, Denies fever(s), Denies lethargy, Denies malaise, Denies night sweats, Denies snoring and Denies weight loss Eyes Denies blurry vision and Denies itchy eyes ENT Denies nasal congestion, Denies post nasal drip, Denies sinus pain, Denies sinus pressure and Denies other ( Thrush) Card Denies chest pain, Denies pedal edema, Denies dyspnea, Denies orthopnea and Denies paroxysmal nocturnal dyspnea Resp Denies cough, Denies hemoptysis, Denies excessive phlegm production, Denies dyspnea, Denies snoring and Reports wheezing GI Denies abdominal pain and Denies heartburn Musc Denies myalgias, Denies arthralgias and Denies joint swelling Skin/Breast Denies rash Neuro Denies memory loss and Denies seizure-like activity Psych Denies abnormal sleep pattern, Denies anxiety and Denies memory loss Endo Denies excessive sweating, Denies fatigue and Denies heat intolerance Sha/Lymph Denies easy bruising Aller/Immun Denies itchy eyes, Denies seasonal rhinorrhea and Reports wheezing Physical Exam Vital Signs: Last Vital Signs Pulse 117 H 12/24/24 13:03 BP 114/66 12/24/24 13:03 Pulse Ox 92 12/24/24 13:03 Oxygen Delivery Method Room Air 12/24/24 13:03 BMI result Body Mass Index 21.8 Const General: no acute distress and alert Nutritional Appearance: not obese Orientation/consciousness: Other orientation findings ( oriented) HEENT Head: Yes atraumatic Eyes General: appearance normal, both eyes and all related structures Sclerae: sclerae normal EOM: EOMs intact bilaterally Neck Neck: Yes supple Lymphatic: no lymphadenopathy noted Resp Effort & Inspection: normal respiratory effort and no use of accessory muscles Auscultation: wheezes (Expiratory bilateral) Cardio Rate: regular rate Rhythm: regular rhythm Heart sounds: no gallops, no murmurs and no rubs Skin General skin exam: other ( warm) Extrem General: No clubbing, No cyanosis and No edema Assessment & Plan Assessment & Plan (1) Severe asthma: Code(s): J45.909 - Unspecified asthma, uncomplicated Category: Medical Plan: Suboptimal control on current regimen of Symbicort, Spiriva, and albuterol MDI. Xolair approval is pending. Now with an acute exacerbation, will treat with a course of prednisone. (2) Environmental allergies: Code(s): Z91.09 - Other allergy status, other than to drugs and biological substances Category: Medical Plan: Expect to improve on Xolair. Medications: New prednisone Take 4 tabs daily for 7 days, then go down by 1 tab every 7 days 10 mg PO DIRECTED 70 tabs 0RF Coding Level of Care Code Est Pt Level 4 (11658) Diagnoses Severe asthma J45.909 Environmental allergies Z91.09
== END 2024-12-24 13:31 | disposition home or self-care (01) ==
LOC: HO.HPS 12:43
PROVIDERS: PCP Family Medicine; Visit Provider Internal Medicine Pulmonary Disease
DX: J45.909 Unspecified asthma, uncomplicated (principal); Z91.09 Other allergy status, other than to drugs and biological substances
CPT/HCPCS: 99214

== ENCOUNTER → 2024-12-24 12:42 | Outpatient (BNVA) | payer MEDICARE, MEDICAID, SELFPAY | PROVIDERS: PCP Family Medicine; Visit Provider Internal Medicine Pulmonary Disease | DX: J45.909 Unspecified asthma, uncomplicated (principal); Z91.09 Other allergy status, other than to drugs and biological substances | CPT/HCPCS: 99212 ==

== ENCOUNTER 2024-12-27 08:44 | Outpatient (REF) | payer MEDICARE, MEDICAID, SELFPAY ==
--- OUTSIDE RECORDS SUMMARY | 2024-12-27 08:56 | XMS_ITS | Encounter Summary ---
Author Organization [email or web address] Address 75 [facility] 7t [place] [address] Care Team Providers Care Room Inspector Name Role Phone Carmina Iyer DO Primary Care Provider + [phone] Carmina Iyer DO Primary Care Provider + [phone] Encounter Details Date Type Department Care Team ([facility] st Contact Info) Description 08/25/2023 Telephone [facility] MEDICINE [address] [place] [address] Carmina Iyer DO 230 [place] [address] Social History Tobacco Use Types Packs/Day Years [...] problems with any of the following? Lead [place] or Pipes 05/19/2023 Food Insecurity Answer Date [...] Description 12/28/2024 9:30 AM EDT Medication Management [facility] MEDICINE [address] [place] [address] Pinky Rankin, PharmD 230 [place] [address] documented as of this encounter Visit Diagnoses Not on filedocumented in this encounter Additional Health Concerns Assessment Noted Time PHQ-9 Depression Total Score: 1 12/02/19 9:05 AM EDT documented as of this encounter Care Teams Room Inspector Relationship Specialty Start Date End Date Carmina Iyer DO [address] [place] [address] PCP - General Family Medicine 02/05/13 01/30/24 Carmina Iyer DO [address] [place] [address] PCP - General Family Medicine 05/01/24 documented as of this encounter
--- OUTSIDE RECORDS SUMMARY | 2024-12-27 08:56 | XMS_ITS | Encounter Summary ---
Author Organization [employer] Address [address] [place] [address] 7 [place] [address] Care Team Providers Care Frame Stylist Name Role Phone Carmina Iyer DO Primary Care Provider + [phone] Carmina Iyer DO Primary Care Provider + [phone] Reason for Visit * Reason Onset Date Comments Med Refill 08/16/2022 Encounter Details Date Type Department Care Team (Late st Contact Info) Description 08/16/2022 Refill [facility] MEDICINE [address] [place] [address] Carmina Iyer DO [address] [place] [address] Anxiety Social History Tobacco Use Types Packs/Day [...] Description 12/28/2024 9:30 AM EDT Medication Management [facility] MEDICINE [address] [place] [address] Pinky Rankin, PharmD [address] [place] [address] documented as of this encounter Visit Diagnoses Diagnosis Anxiety Anxiety state, unspecified documented in this encounter Care Teams Frame Stylist Relationship Specialty Start Date End Date Carmina Iyer DO [address] [place] [address] PCP - General Family Medicine 02/05/13 01/30/24 Carmina Iyer DO [address] [place] [address] PCP - General Family Medicine 05/01/24 documented as of this encounter
--- OUTSIDE RECORDS SUMMARY | 2024-12-27 08:56 | XMS_ITS | Encounter Summary ---
Author Organization [employer] Address [address] [facility] [address] 7t [place] [address] Care Team Providers Care Solutions Engineer Name Role Phone Carmina Iyer DO Primary Care Provider + [phone] Carmina Iyer DO Primary Care Provider + [phone] Encounter Details Date Type Department Care Team (Late st Contact Info) Description 11/17/2023 Orders Only [facility] MEDICINE 230 [place] [address] ProviderJosh MD Social History Tobacco Use Types [...] problems with any of the following? Lead [place] or Pipes 05/19/2023 Food Insecurity Answer [...] Description 12/28/2024 9:30 AM EDT Medication Management [facility] MEDICINE [address] [place] [address] Pinky Rankin, PharmD [address] [place] [address] documented as of this encounter Procedures Procedure [...] documented as of this encounter Care Teams Solutions Engineer Relationship Specialty Start Date End Date Carmina Iyer DO [address] [place] [address] PCP - General Family Medicine 02/05/13 01/30/24 Carmina Iyer DO [address] [place] [address] PCP - General Family Medicine 05/01/24 documented as of this encounter
--- OUTSIDE RECORDS SUMMARY | 2024-12-27 08:56 | XMS_ITS | Encounter Summary ---
Author Organization [employer] Address [address] [place] [address] 7 [place] [address] Care Team Providers Care Stucco Worker Name Role Phone Carmina Iyer DO Primary Care Provider [phone] Reason for Visit * Reason Comments Med Refill Encounter Details Date Type Department Care Team ([facility] st Contact Info) Description 08/02/2024 Refill [facility] MEDICINE 230 [place] [address] Carmina Iyer DO [address] [place] [address] Social History Tobacco Use Types Packs/Day Years [...] with others, in a hotel, in a fci, living outside on the street, on a [...] EDT Medication Management [facility] [address] [place] [address] Pinky Rankin, TexD [address] [place] [address] documented as of this encounter Visit Diagnoses Not on filedocumented in this encounter Additional Health Concerns Assessment Noted Time PHQ-9 Depression Total Score: 0 06/08/20 10:04 AM EDT documented as of this encounter Care Teams Stucco Worker Relationship Specialty Start Date End Date Carmina Iyer DO [address] [place] [address] PCP - General Family Medicine 05/01/24 documented as of this encounter
--- OUTSIDE RECORDS SUMMARY | 2024-12-27 08:56 | XMS_ITS | Encounter Summary ---
Author Organization [employer] Address [address] [place] [address] 7t [place] [address] Care Team Providers Care Coal Pulverizing Operator Name Role Phone Carmina Iyer DO Primary Care Provider + [phone] Carmina Iyer DO Primary Care Provider + [phone] Reason for Visit * Reason Onset Date Comments Med Refill 02/10/2023 Encounter Details Date Type Department Care Team (Late st Contact Info) Description 02/10/2023 Telephone [facility] MEDICINE [address] [place] [address] Carmina Iyer DO [address] [place] [address] Med Refill Social History Tobacco Use Types [...] Description 12/28/2024 9:30 AM EDT Medication Management [facility] MEDICINE [address] [place] [address] Pinky Rankin, PharmD [address] [place] [address] documented as of this encounter Visit Diagnoses Not on filedocumented in this encounter Additional Health Concerns Assessment Noted Time PHQ-9 Depression Total Score: 1 12/02/19 9:05 AM EDT documented as of this encounter Care Teams Coal Pulverizing Operator Relationship Specialty Start Date End Date Carmina Iyer DO [address] [place] [address] PCP - General Family Medicine 02/05/13 01/30/24 Carmina Iyer DO [address] [place] [address] PCP - General Family Medicine 05/01/24 documented as of this encounter
--- OUTSIDE RECORDS SUMMARY | 2024-12-27 08:56 | XMS_ITS | Encounter Summary ---
Author Organization [employer] Address [address] [place] [address] 7t [place] [address] Care Team Providers Care Direct Sales Consultant Name Role Phone Carmina Iyer DO Primary Care Provider + [phone] Carmina Iyer DO Primary Care Provider + [phone] Reason for Visit * Reason Onset Date Comments Results 09/05/2023 Encounter Details Date Type Department Care Team ([facility] st Contact Info) Description 09/05/2023 Telephone [facility] MEDICINE [address] [place] [address] Carmina Iyer DO 230 [place] [address] Results Social History Tobacco Use Types Packs/Day [...] problems with any of the following? Lead [place] or Pipes 05/19/2023 Food Insecurity Answer Date [...] results: labs Date when done: 09/02 Facility: [facility] Please contact pt at [phone] TC returned to pt and a message [...] results: labs Date when done: 09/02 Facility: [facility] Please contact pt at [phone] documented in this encounter Plan of Treatment Upcoming Encounters Date Type Department Care Team ([facility] st Contact Info) Description 12/28/2024 9:30 AM EDT Medication Management [facility] MEDICINE [address] [place] [address] Pinky Rankin, PharmD [address] [place] [address] documented as of this encounter Visit Diagnoses Not on filedocumented in this encounter Additional Health Concerns Assessment Noted Time PHQ-9 Depression Total Score: 1 12/02/19 23 9:05 AM EDT documented as of this encounter Care Teams Direct Sales Consultant Relationship Specialty Start Date End Date Carmina Iyer DO [address] [place] [address] PCP - General Family Medicine 02/05/13 01/30/24 Carmina Iyer DO [address] [place] [address] PCP - General Family Medicine 05/01/24 documented as of this encounter
--- OUTSIDE RECORDS SUMMARY | 2024-12-27 08:56 | XMS_ITS | Encounter Summary ---
Author Organization [employer] Address [address] [facility] 7t [place] [address] Care Team Providers Care Early Childhood Specialist Name Role Phone Carmina Iyer DO Primary Care Provider + [phone] Carmina Iyer DO Primary Care Provider + [phone] Reason for Visit * Reason Comments Med Refill Encounter Details Date Type Department Care Team ([facility] st Contact Info) Description 05/27/2023 Refill [facility] MEDICINE [address] [place] [address] Carmina Iyer DO 230 [place] [address] Social History Tobacco Use Types Packs/Day Years [...] problems with any of the following? Lead [place] or Pipes 05/19/2023 Food Insecurity Answer Date [...] Management [facility] MEDICINE [address] [place] [address] Pinky Rankin, PharmD 230 [place] [address] documented as of this encounter Visit Diagnoses Not on filedocumented in this encounter Additional Health Concerns Assessment Noted Time PHQ-9 Depression Total Score: 1 12/02/19 9:05 AM EDT documented as of this encounter Care Teams Early Childhood Specialist Relationship Specialty Start Date End Date Carmina Iyer DO 230 [place] [address] PCP - General Family Medicine 02/05/13 01/30/24 Carmina Iyer DO 230 [place] [address] PCP - General Family Medicine 05/01/24 documented as of this encounter
--- OUTSIDE RECORDS SUMMARY | 2024-12-27 08:56 | XMS_ITS | Encounter Summary ---
Author Organization [employer] Address [address] [place] [address] 7 [place] [address] Care Team Providers Care Greens Picker Name Role Phone Carmina Iyer DO Primary Care Provider [phone] Reason for Visit * Reason Comments Med Refill Encounter Details Date Type Department Care Team ([facility] st Contact Info) Description 12/24/2024 Refill [facility] MEDICINE 230 [place] [address] Carmina Iyer DO 230 [place] [address] Social History Tobacco Use Types Packs/Day Years [...] with others, in a hotel, in a intermediate, living outside on the street, on a [...] 12/28/2024 9:30 AM EDT Medication Management [facility] MEDICINE [address] [place] [address] Pinky Rankin, PharmD [address] [place] [address] documented as of this encounter Visit Diagnoses Not on filedocumented in this encounter Additional Health Concerns Assessment Noted Time PHQ-9 Depression Total Score: 0 06/08/20 10:04 AM EDT documented as of this encounter Care Teams Greens Picker Relationship Specialty Start Date End Date Carmina Iyer DO [address] [place] [address] PCP - General Family Medicine 05/01/24 documented as of this encounter
--- OUTSIDE RECORDS SUMMARY | 2024-12-27 08:56 | XMS_ITS | Encounter Summary ---
Author Organization [employer] Address [address] [place] [address] 7t [place] [address] Care Team Providers Care Inhalation Therapist Name Role Phone Carmina Iyer DO Primary Care Provider + [phone] Carmina Iyer DO Primary Care Provider + [phone] Reason for Visit * Reason Onset Date Comments Durable Medical Equipment 08/30/2023 Encounter Details Date Type Department Care Team (Late st Contact Info) Description 08/30/2023 Telephone [facility] MEDICINE 230 [place] [address] Carmina Iyer DO 230 [place] [address] Durable Medical Equipment Social History Tobacco Use [...] problems with any of the following? Lead [place] or Pipes 05/19/2023 Food Insecurity Answer Date [...] Description 12/28/2024 9:30 AM EDT Medication Management [facility] MEDICINE 230 [place], [place] [phone] Pinky Rankin, PharmD 230 [place] [address] documented as of this encounter Visit Diagnoses Not on filedocumented in this encounter Additional Health Concerns Assessment Noted Time PHQ-9 Depression Total Score: 1 12/02/19 9:05 AM EDT documented as of this encounter Care Teams Inhalation Therapist Relationship Specialty Start Date End Date Carmina Iyer DO [address] [place] [address] PCP - General Family Medicine 02/05/13 01/30/24 Carmina Iyer DO 230 [place] [address] PCP - General Family Medicine 05/01/24 documented as of this encounter
--- OUTSIDE RECORDS SUMMARY | 2024-12-27 08:56 | XMS_ITS | Encounter Summary ---
Author Organization [employer] Address [address] [place] [address] 7t [place] [address] Care Team Providers Care Manufacturer'S Representative Name Role Phone Carmina Iyer DO Primary Care Provider + [phone] Carmina Iyer DO Primary Care Provider + [phone] Reason for Visit * Reason Onset Date Comments Med Refill 01/10/2023 Encounter Details Date Type Department Care Team (Late st Contact Info) Description 01/10/2023 Telephone [facility] MEDICINE 230 [place] [address] Carmina Iyer DO 230 [place] [address] Med Refill Social History Tobacco Use Types [...] (KlonoPIN) 0.5 MG tablet Please sent to [id number] - [place] - [address] [facility] documented in this encounter Plan of Treatment Upcoming Encounters Date Type Department Care Team (Late st Contact Info) Description 12/28/2024 9:30 AM EDT Medication Management [facility] MEDICINE [address] [place] [address] Pinky Rankin, PharmD 230 [place] [address] documented as of this encounter Visit Diagnoses Not on filedocumented in this encounter Additional Health Concerns Assessment Noted Time PHQ-9 Depression Total Score: 1 12/02/19 9:05 AM EDT documented as of this encounter Care Teams Manufacturer'S Representative Relationship Specialty Start Date End Date Carmina Iyer DO [address] [place] [address] PCP - General Family Medicine 02/05/13 01/30/24 Carmina Iyer DO [address] [place] [address] PCP - General Family Medicine 05/01/24 documented as of this encounter
--- OUTSIDE RECORDS SUMMARY | 2024-12-27 08:56 | XMS_ITS | Encounter Summary ---
Author Organization [employer] Address [address] [place] [address] 7 [place] [address] Care Team Providers Care Registry Rn Name Role Phone Carmina Iyer DO Primary Care Provider [phone] Reason for Visit * Reason Comments Med Refill Encounter Details Date Type Department Care Team ([facility] st Contact Info) Description 08/10/2024 Refill [facility] MEDICINE 230 [place] [address] Carmina Iyer DO 230 [place] [address] Anxiety Social History Tobacco Use Types Packs/Day [...] with others, in a hotel, in a assisted, living outside on the street, on a [...] 9:30 AM EDT Medication Management [facility] MEDICINE 230 [place] [address] Pinky Rankin, TexD [address] [place] [address] documented as of this encounter Visit Diagnoses Diagnosis Anxiety Anxiety state, unspecified documented in this encounter Additional Health Concerns Assessment Noted Time PHQ-9 Depression Total Score: 0 06/08/20 10:04 AM EDT documented as of this encounter Care Teams Registry Rn Relationship Specialty Start Date End Date Carmina Iyer DO [address] [place] [address] PCP - General Family Medicine 05/01/24 documented as of this encounter
--- OUTSIDE RECORDS SUMMARY | 2024-12-27 08:56 | XMS_ITS | Clinical Summary ---
Author Organization [employer] Address [address] [facility] 7t [place] [address] Care Team Providers Care Non Acoustic Operator Name Role Phone SandraCarmina luna Primary Care Provider [phone] Allergies No known active allergies Medications * [...] by mouth Once per day. 024 Active cetirizine (ZyrTEC) 10 MG tablet Take 1 tablet (10 mg) by mouth Once per day. 30 tablet 11 024 2024 Active albuterol 108 (90 Base) MCG/ACT inhalerIndication s:Asthma with COPD ([facility]) INHALE 2 PUFFS BY MOUTH EVERY 4 HOURS NEEDED FOR WHEEZING OR SHORTNESS OF BREATH 18 g 2 025 Active clonazePAM (KlonoPIN) 0.5 MG tabletIndications :Anxiety Take 1 tablet (0.5 mg) by mouth at bedtime. 28 tablet 1 Active Symbicort 160-4.5 MCG/ACT inhalerIndication s:Severe persistent asthma without complication Inhale 2 puffs 2 times daily. 1 each Active ipratropium-albut katharine (Duo-Neb) 0.5-2.5 mg/3 mL nebulizer solutionIndicatio ns:Severe persistent asthma with acute exacerbation Take 3 mL by nebulization Every 4-6 hours as needed for wheezing or shortness of breath. 180 mL 3 025 2025 Active tiotropium (Spiriva HandiHaler) 18 MCG [...] daily x 4 days 6 tablet Active albuterol (2.5 MG/3ML) 0.083% nebulizer solution INHALE 1 AMPULE USING A NEBULIZER EVERY 4 TO 6 HOURS NEEDED (for asthma) 90 mL 1 025 Active triamcinolone (Nasacort) 55 MCG/ACT nasal inhaler Administer 2 sprays into each nostril Once per day. 16.5 g 11 025 Active triamcinolone (Nasacort) 55 MCG/ACT nasal inhaler Administer 2 sprays into each nostril Once per day. 16.5 g 11 024 2024 Discontinued(R eorder (will not trigger notification to Pharmacy)) albuterol (2.5 MG/3ML) 0.083% nebulizer solution INHALE 1 AMPULE USING A NEBULIZER EVERY 4 TO 6 HOURS NEEDED (for asthma) 90 mL 1 025 2024 Discontinued Hospital, Clinic, or Other Facility Administered Medication [...] Encounters Date Type Department Care Team Description 12/25/2024 Refill [facility] [address] [place] [address] Carmina Iyer DO 12/24/2024 Refill [facility] MEDICINE 230 [place] [address] Carmina Iyer DO 12/10/2024 Telephone [place] [facility] 230 [place], [place] [phone] Carmina Iyer DO 11/30/2024 Telephone [facility] MEDICINE [address] [place], [place] [phone] Carmina Iyer, Status check breathing difficulty 11/27/2024 9:45 AM EDT Office Visit [facility] [address] [place] [address] Carmina Iyer DO Type 2 diabetes mellitus without complication, without long-term current use of insulin ([facility]) (Primary Dx); Essential hypertension; Other hyperlipidemia; Major depression, recurrent, chronic ([facility]); Obstructive sleep apnea, adult; Severe persistent asthma with acute exacerbation; Chronic allergic rhinitis; Chronic bilateral low back pain without sciatica; Abnormal chest CT; Healthcare maintenance; Anxiety; Severe persistent asthma without complication 11/27/2024 Travel 11/16/2024 Patient Outreach [facility] [address] [place] [address] Carmina Iyer DO 11/02/2024 Telephone [facility] [address] [place] [address] Carmina Iyer DO 10/24/2024 5:40 PM EDT Office Visit [facility] [address] [place] [address] Diana Pang NP Asthma with COPD ([facility]) (Primary Dx); Severe persistent asthma with acute exacerbation 10/23/2024 Telephone [facility] [address] [place] [phone] Carmina Iyer DO 10/12/2024 Telephone [facility] [address] [place] [address] Carmina Iyer DO 10/01/2024 Refill [facility] [address] [place] [address] Carmina Iyer DO Anxiety from Last 3 Months Immunizations Immunization Administration [...] Description 12/28/2024 9:30 AM EDT Medication Management [facility]INE 230 [place] [address] Pinky Rankin, PharmD 230 [place] [address] Health Maintenance Due Date Last Done Comments [...] 05/30/2023, 04/02/2022, 02/20/2021 Lipid Panel 05/30/2024 05/30/2023, 0801/2022, 02/20/2021 Diabetes: Foot Exam 09/02/2024 09/02/2023, 09/02/2023, [...] complication, without long-term current use of insulin ([facility]) POCT GLUCOSE Routine 11/27/2024 11:09 AM EDT Type 2 diabetes mellitus without complication, without long-term current use of insulin ([facility]) BI MAMMOGRAM SCREENING TOMOSYNTHESIS BILATERAL Routine 03/12/2024 1:15 PM EDT ALBUMIN, RANDOM URINE W/CREATININE Routine 05/30/2023 10:06 AM EDT LIPID PANEL, STANDARD Routine 05/30/2023 10:06 AM EDT Type 2 diabetes mellitus without complication, without long-term current use of insulin ([facility]) HPV MRNA E6/E7 REFLEX TO HPV 16, [...] AM EDT Narrative 11/27/2024 12:13 PM EDT ?[facility] ?[address] ?[place] [address] ?XRay Report ? Signed ? Patient: Cain,Salena ?MR#: [id number] ?? 9 ? : 1960 ?Acct:[id number] ? Age/Sex: 64 / F ?ADM Date: 11/27/24 ? Loc: HO.HHCX ? Attending Dr: Carmina Iyer DO ? Ordering Physician: Carmina Iyer DO ?? Date of Service: 11/27/24 ?? Procedure(s): XR chest 2V ?? Accession Number(s): [id number] ? cc: Carmina Iyer DO ? EXAMINATION: [...] DD/ 1142 ? TD/TT: 11/27/24 1200 ? Senior Software Quality Engineer: MSM ? Procedure Note Isaías Gray - 11/27/[address] [address] XRay Report Signed Patient: Callie Barlow#: [id number] 9 : 8Acct:[id number] Age/Sex: 64 / FADM Date: 11/27/24 Loc: HO.HHCX Attending Dr: Carmina Iyer DO Ordering Physician: Carmina Iyer DO Date of Service: 11/27/24 Procedure(s): XR chest 2V Accession Number(s): [id number] cc: Carmina Iyer DO EXAMINATION: XR CHEST [...] 11/27/24 1210 DD/ 1142 TD/TT: 11/27/24 1200 Senior Software Quality Engineer: DEYSI Carmina Iyer DO IMG XR PROCEDURES [...] EDT Narrative 04/10/2024 6:36 AM EDT ? [facility] ? [address] ?[place] [address] ? Mammography Report ? Signed ? Patient: Cain,Salena ?MR#: [id number] ?? 9 ? : 1960 ?Acct:[id number] ? Age/Sex: 63 / F ?ADM Date: 03/12/24 ? Loc: HO.MAMMO ? Attending Dr: Carmina Iyer DO ? Ordering Physician: Carmina Iyer DO ?Results: 2B ?? enign Findings ? Date of Service: 03/12/24 ?Follow Up: 1 Year From Orig ?? inal Mammogram ? Procedure(s): MM tomosynthesis screening BI ?? Accession Number(s): [id number] ? cc: Carmina Iyer DO ? EXAMINATION: [...] DD/ 1315 ? TD/TT: 03/12/24 1327 ? Senior Software Quality Engineer: ? Procedure Note Isaías Gray - 04/10/2024 [facility] [address] [place] [address] [place] [address] Mammography Report Signed Patient: Callie Barlow#: [id number] 9 : 8Acct:[id number] Age/Sex: 63 / FADM Date: 03/12/24 Loc: EMI Attending Dr: Carmina Iyer DO Ordering Physician: Carmina Iyerults: 2B enign Findings Date of Service: 03/12/24Follow Up: 1 Year From Orig inal Mammogram Procedure(s): MM tomosynthesis screening BI Accession Number(s): [id number] cc: Carmina Iyer DO EXAMINATION: MM SCREENING [...] 04/10/24 0634 DD/ 1315 TD/TT: 03/12/24 1327 Senior Software Quality Engineer: Carmina Iyer DO IMG BI PROCEDURES Final Resu lt * Albumin, Random Urine W/Creatinine (05/30/2023 10:06 AM EDT) Creatinine, Urine 101.04 mg/dL [facility] Microalbumin Urine 8.0 mg/L [facility] Microalbum Creatinine Ratio Ur 7.9 <30 ug/mg cr [facility] Comment:Albumin/Creatinine R atio Reference Ranges: Normal: < 30 ug/mg creatinine Microalbuminuria: 30 - 300 ug/mg creatinineClinical Albuminuria: > 300 ug/mg creatinine 05/30/2023 10:0 6 AM EDT 05/30/2023 11:27 AM EDT us Carmina Iyer DO LAB URINE ORDERABLES Final R esult [facility] [address] [place] [address] [phone] * (ABNORMAL) Lipid Panel, Standard (05/30/2023 10:06 AM EDT) Triglycerides 190(H) <150 mg/dL [facility] Comment:Desirable Triglyceri de: less than 150 mg/dLBorderline High Triglyceride 150-199 mg/dLHigh Triglyceride: 200-499 mg/dLVery High Triglyceride: greater than or equal to 5OO mg/dL Cholesterol 249(H) <200 mg/dL [facility] Comment:Desirable Cholestero l: less than 200 mg/dLBorderline High Cholesterol: 200-239 mg/dLHigh Cholesterol: greater than 239 mg/dL LDL Cholesterol Calculated 167(H) <100 mg/dL [facility] Comment:Desirable LDL: less than 100 mg/dLNear Optimal/Above Optimal LDL: 110- 129 mg/dLBorderline High LDL: 130-159 mg/dLHigh LDL: 160-189 mg/dLVery High LDL: greater than or equal to 190 mg/dL HDL Cholesterol 44 >40 mg/dL [facility] Comment:Desirable HDL: great er than 40 mg/dL Note: This HDL assay may give artificially low results in patients with liver disease. Blood Venous blood specimen / Unknown 05/30/2023 10:06 AM EDT 05/30/2023 11:27 AM EDT us Carmina Iyer DO LAB BLOOD ORDERABLES Final R esult [facility] [address] [place] [address] [phone] * THINPREP TIS PAP (02/20/2021 9:24 [...] has been evaluated with computer assisted technology. [facility] Rim Technician: SEE COMMENT [facility] Comment: HJP, CT(ASCP) CT screening location: [address] ??[address] Interpretation/Res ult: SEE COMMENT [facility] Comment: Negative for intraepithelial lesion or malignancy. Atrophic pattern; predominantly parabasal cells LMP: NONE [facility] Prev. BX: NONE [facility] Prev. PAP: NONE [facility] SOURCE: Cervix [facility] Statement Of Adequacy: SATISFACTORY FOR EVALUATION [facility] 02/20/2021 9:24 AM EDT us Carmina Iyer DO LAB PATHOLOGY ORDERABLES Fin al Result [facility] [address] * HPV mRNA E6/E7 REFLEX TO HPV 16, 18/45 (02/20/2021 9:24 AM EDT) HPV nRNA E6/E7 Not Detected Not Detected [facility] Comment: Methodology: Dermatology Technician-Mediated Amplification This assay detects E6/E7 viral messenger RNA (mRNA) from 14 high-risk HPV types (16,18,31,33,35,39,45,51,52,56,58,59,66,68). ? The analytical performance characteristics of this assay have been determined by [employer]. The modifications have not been cleared or approved by the FDA. This assay has been validated pursuant to the CLIA regulations and is used for clinical purposes. ?? For additional information, please refer to http://education.[employer]/faq/YXI649f9 (This link if provided for information/ educational purposes only.) 02/20/2021 9:24 AM EDT Carmina Iyer DO LAB CYTOLOGY ORDERABLES Mandy chun Result [facility] [address] * Hm Colonoscopy (06/19/2015 2:13 PM EST) Historical Provider MD HEALTH MAINTENANCE Final Result from Last 3 Months or Most Recently Relevant to Health Maintenance Insurance [employer] MEDICARE REPLACEMENT [facility] Care Teams Non Acoustic Operator Relationship Specialty Start Date End Date Carmina Iyer DO [address] [place] [address] PCP - General Family Medicine 05/01/24
--- OUTSIDE RECORDS SUMMARY | 2024-12-27 08:56 | XMS_ITS | Encounter Summary ---
Author Organization [employer] Address [address] [place] [address] 7 [place] [address] Care Team Providers Care Senior Clinician Name Role Phone aCrmina Iyer DO Primary Care Provider + [phone] Carmina Iyer DO Primary Care Provider + [phone] Reason for Visit * Reason Comments Med Refill Encounter Details Date Type Department Care Team ([facility] Contact Info) Description 10/15/2022 Refill [facility] MEDICINE [address] [place] [address] Carmina Iyer DO [address] [place] [address] Anxiety Social History Tobacco Use Types Packs/Day [...] Upcoming Encounters Date Type Department Care Team ([facility] Contact Info) Description 12/28/2024 9:30 AM EDT Medication Management [facility] MEDICINE [address] [place] [address] Pinky Rankin, PharmD [address] [place] [address] documented as of this encounter Visit Diagnoses Diagnosis Anxiety Anxiety state, unspecified documented in this encounter Care Teams Senior Clinician Relationship Specialty Start Date End Date Carmina Iyer DO [address] [place] [address] PCP - General Family Medicine 02/05/13 01/30/24 Carmina Iyer DO [address] [place] [address] PCP - General Family Medicine 05/01/24 documented as of this encounter
--- OUTSIDE RECORDS SUMMARY | 2024-12-27 08:56 | XMS_ITS | Encounter Summary ---
Author Organization [employer] Address [address] [facility] 7t [place] [address] Care Team Providers Care Grades 7 8 Tutor Name Role Phone Carmina Iyer DO Primary Care Provider [phone] Reason for Visit * Reason Onset Date Comments Med Refill 12/25/2024 Encounter Details Date Type Department Care Team ([facility] st Contact Info) Description 12/25/2024 Refill [facility] [address] [place] [address] Carmina Iyer DO [address] [place] [address] Social History Tobacco Use Types Packs/Day Years [...] with others, in a hotel, in a residential, living outside on the street, on a [...] encounter Miscellaneous Notes * Telephone Encounter - Malka Olson LPN - 12/25/2024 11:35 AM EDT Last seen 11.27.24 documented in this encounter Plan of Treatment Upcoming Encounters Date Type Department Care Team (Late st Contact Info) Description 12/28/2024 9:30 AM EDT Medication Management [facility] [address] [place] [address] Pinky Rankin, PharmD [address] [place] [address] documented as of this encounter Visit Diagnoses Not on filedocumented in this encounter Additional Health Concerns Assessment Noted Time PHQ-9 Depression Total Score: 0 06/08/20 10:04 AM EDT documented as of this encounter Care Teams Grades 7 8 Tutor Relationship Specialty Start Date End Date Carmina Iyer DO [address] [place] [address] PCP - General Family Medicine 05/01/24 documented as of this encounter
--- OUTSIDE RECORDS SUMMARY | 2024-12-27 08:56 | XMS_ITS | Encounter Summary ---
Author Organization [employer] Address [address] [place] [address] Care Team Providers Care Washtub Worker Name Role Phone Carmina Iyer DO Primary Care Provider + [phone] Carmina Iyer DO Primary Care Provider + [phone] Reason for Visit * Reason Comments Med Refill Encounter Details Date Type Department Care Team (Late st Contact Info) Description 08/30/2023 Refill [facility] [address] [place] [address] Carmina Iyer DO [address] [place] [address] Anxiety Social History Tobacco Use Types Packs/Day [...] problems with any of the following? Lead [place] or [place] 05/19/2023 Food Insecurity Answer Date [...] Description 12/28/2024 9:30 AM EDT Medication Management [facility] [address] [place] [address] Pinky Rankin, PharmD [address] [place] [address] documented as of this encounter Visit Diagnoses Diagnosis Anxiety Anxiety state, unspecified documented in this encounter Additional Health Concerns Assessment Noted Time PHQ-9 Depression Total Score: 1 12/02/19 9:05 AM EDT documented as of this encounter Care Teams Washtub Worker Relationship Specialty Start Date End Date Carmina Iyer DO [address] [place] [address] PCP - General Family Medicine 02/05/13 01/30/24 Carmina Iyer DO [address] [place] [address] PCP - General Family Medicine 05/01/24 documented as of this encounter
[2024-12-27 11:24] LABS: Hematocrit 46.1 % (37.0-47.0); Hemoglobin 14.7 g/dl (12.0-16.0); Mean Corpuscular HGB Conc 31.9 g/dl (31.0-35.0); Mean Corpuscular Hemoglobin 29.3 pg (27.0-33.0); Mean Platelet Volume 10.4 fL (9.4-12.3); Platelet Count 395 X10*3/uL (160-400); Red Blood Count 5.01 X10*6/uL (4.20-5.50); Red Cell Distribution Width 14.2 % (11.0-16.0)
[2024-12-27 11:43] LABS: Creatinine Urine 179.35 mg/dL
[2024-12-27 11:47] LABS: Estimated Average Glucose 114 mg/dL; Hemoglobin A1C 143.0785 umol/L; Hemoglobin A1c % 5.6 % (<6.0); Total Hemoglobin (HGBA1C) 3752.1967 umol/L
[2024-12-27 13:09] LABS: Alanine Aminotransferase 21 U/L (0-31); Albumin Level 4.4 g/dL (3.5-5.0); Alkaline Phosphatase 92 U/L (39-117); Anion Gap 15 (12-20); Aspartate Amino Transferase 26 U/L (5-31); Bilirubin Direct 0.1 mg/dL (0.0-0.5); Bilirubin Total 0.3 mg/dL (0.0-1.0); Blood Urea Nitrogen 29 mg/dL (9-16); Calcium 9.6 mg/dL (8.4-10.2); Carbon Dioxide 29 mmol/L (22-29); Chloride 101 mmol/L (96-108); Cholesterol 338 mg/dL (<200); Estimated Glomerular Filt Rate > 60; Free T4 (Free Thyroxine) 1.04 ng/dL (0.71-1.85); Glucose Random 87 mg/dL (60-115); HDL Cholesterol 68 mg/dL (>40); LDL Cholesterol Calculated 243 mg/dL (<100); Potassium 3.5 mmol/L (3.3-5.1); Sodium 141 mmol/L (135-145); Thyroid Stimulating Hormone 3.32 uIU/mL (0.32-4.0); Triglycerides 137 mg/dL (<150); Vitamin D 25-OH Total 51.9 ng/mL (>30)
== END 2024-12-27 08:45 | disposition home or self-care (01) ==
LOC: HO.HHCL 08:44
PROVIDERS: Visit Provider Family Medicine
DX: E11.9 Type 2 diabetes mellitus without complications (principal)
CPT/HCPCS: 36415; 80048; 80061; 80076; 82043; 82306; 82570; 83036; 84439; 84443; 85027

== ENCOUNTER 2025-02-20 13:27 | Outpatient (AMB) | payer MEDICARE, MEDICAID, SELFPAY ==
[2025-02-20 14:10] VITALS: BP 98/56; PULSE 124; O2SAT 91; BMI 23.0
--- NOTE | 2025-02-20 14:10 | MHC.OFFVIS ---
Vital Signs 02/20/25 14:10 Height 5 ft 3 in Weight 130 lb BMI 23.0 BP 98/56 L Blood Pressure Location Rt brachial Position Sitting Pulse 124 H Pulse Source Pulse Oximeter Pulse Oximetry (%) 91 L Oxygen Delivery Method Room Air Intake Visit Reasons: Asthma Leather Goods Maker Required: Yes Leather Goods Maker Name: Carmina Godinez Sherley Allergies No Known Allergies (No Known Allergies*) Allergy (Verified 12/24/24 13:16) HPI HPI Asthma: Details: 64-year-old lady, nonsmoker, followed for asthma/COPD overlap syndrome and environmental allergies. She has been using Symbicort, Spiriva, and albuterol MDI with suboptimal control of her pulmonary symptoms. After the last office visit she was started on Xolair with slowly improving symptom control, however still with some wheezing. [facility] Medical History Acute respiratory failure with hypoxia Asthma with COPD with exacerbation Leukocytosis Hyperlipidemia Anxiety Diabetes Hypertension Mass of upper lobe of left lung Allergic rhinitis Bronchial asthma COPD (chronic obstructive pulmonary disease) Surgical History H/O colonoscopy History of cataract surgery History of tubal ligation Family History Father No problems noted. Mother No problems noted. Social History Household Members: Children Household Members Other:: Son Housing: House Do you presently have visiting nurse or other home services: No Alcohol intake: never Patient Tobacco Use Status: Never used Tobacco e-Cigarette/Vaping Use: Never Used Second Hand Smoke Exposure: No service: No Sexual orientation: Straight/Heterosexual Review of Systems Const Denies daytime sleepiness, Denies excessive sweating, Denies fatigue, Denies fever(s), Denies lethargy, Denies malaise, Denies night sweats, Denies snoring and Denies weight loss Eyes Denies blurry vision and Denies itchy eyes ENT Denies nasal congestion, Denies post nasal drip, Denies sinus pain, Denies sinus pressure and Denies other ( Thrush) Card Denies chest pain, Denies pedal edema, Denies dyspnea, Denies orthopnea and Denies paroxysmal nocturnal dyspnea Resp Denies cough, Denies hemoptysis, Denies excessive phlegm production, Denies dyspnea, Denies snoring and Denies wheezing GI Denies abdominal pain and Denies heartburn Musc Denies myalgias, Denies arthralgias and Denies joint swelling Skin/Breast Denies rash Neuro Denies memory loss and Denies seizure-like activity Psych Denies abnormal sleep pattern, Denies anxiety and Denies memory loss Endo Denies excessive sweating, Denies fatigue and Denies heat intolerance Sha/Lymph Denies easy bruising Aller/Immun Denies itchy eyes, Denies seasonal rhinorrhea and Denies wheezing Physical Exam Vital Signs: Last Vital Signs Pulse 124 H 02/20/25 14:10 BP 98/56 L 02/20/25 14:10 Pulse Ox 91 L 02/20/25 14:10 Oxygen Delivery Method Room Air 02/20/25 14:10 BMI result Body Mass Index 23.0 Const General: no acute distress and alert Nutritional Appearance: not obese Orientation/consciousness: Other orientation findings ( oriented) HEENT Head: Yes atraumatic Eyes General: appearance normal, both eyes and all related structures Sclerae: sclerae normal EOM: EOMs intact bilaterally Neck Neck: Yes supple Lymphatic: no lymphadenopathy noted Resp Effort & Inspection: normal respiratory effort and no use of accessory muscles Auscultation: rales (Expiratory bilateral) Cardio Rate: regular rate Rhythm: regular rhythm Heart sounds: no gallops, no murmurs and no rubs Skin General skin exam: other ( warm) Extrem General: No clubbing, No cyanosis and No edema Assessment & Plan Assessment & Plan (1) Severe asthma: Code(s): J45.909 - Unspecified asthma, uncomplicated Category: Medical Plan: Improving control on Xolair, Symbicort, Spiriva, and albuterol MDI/nebs. Continue current regimen. (2) Environmental allergies: Code(s): Z91.09 - Other allergy status, other than to drugs and biological substances Category: Medical Plan: Improving control on Xolair and Zyrtec. Continue current regimen. Medications: New prednisone 40 mg (2 x 20 mg) PO DAILY 14 tabs 0RF Coding Level of Care Code Est Pt Level 4 (46153) Diagnoses Severe asthma J45.909 Environmental allergies Z91.09
--- OUTSIDE RECORDS SUMMARY | 2025-02-20 14:17 | XMS_ITS | Clinical Summary ---
Author Organization [employer] Address [address] [place] [address] Care Team Providers Care Cleaning And Washing Equipment Operator Name Role Phone SandraCarmina luna Primary Care Provider Allergies No known active [...] And/Or Fever 90 tablet 2 023 Active TRUEplus Lancets 33G misc TEST [...] (90 Base) MCG/ACT inhalerIndication s:Asthma with COPD (CMS/[facility]) INHALE 2 PUFFS BY MOUTH EVERY 4 HOURS NEEDED FOR WHEEZING OR SHORTNESS OF BREATH 18 g 2 Active Symbicort 160-4.5 MCG/ACT inhalerIndication s:Severe persistent [...] NEEDED (for asthma) 90 mL 1 Active triamcinolone (Nasacort) 55 MCG/ACT nasal inhaler Administer 2 sprays into each nostril Once per day. 16.5 g Active clonazePAM (KlonoPIN) 0.5 MG tabletIndications :Anxiety Take 1 tablet (0.5 mg) by mouth at bedtime for 28 days. Do not start before February 07, 2025. 28 tablet 025 2024 Active atorvastatin (Lipitor) 40 MG tabletIndications :Hyperlipidemia, unspecified hyperlipidemia type Take 1 tablet by mouth once daily 30 tablet 11 07/02/2 025 Active atorvastatin (Lipitor) 40 MG tabletIndications :Hyperlipidemia, unspecified hyperlipidemia type Take 1 tablet by mouth once daily 30 tablet 11 023 2024 Discontinued(R eorder (will not trigger notification to Pharmacy)) clonazePAM (KlonoPIN) 0.5 MG tabletIndications :Anxiety Take 1 tablet (0.5 mg) by mouth at bedtime. 28 tablet 1 025 2024 Discontinued clonazePAM (KlonoPIN) 0.5 MG tabletIndications :Anxiety Take 1 tablet (0.5 mg) by mouth at bedtime for 7 days. 7 tablet 025 2024 Discontinued(R eorder (will not trigger notification to Pharmacy)) clonazePAM (KlonoPIN) 0.5 MG tabletIndications :Anxiety Take 1 tablet (0.5 mg) by mouth at bedtime for 7 days. 7 tablet 025 2024 Discontinued Active Problems Problem Noted Date Diagnosed Date [...] Encounters Date Type Department Care Team Description 02/13/2025 Telephone [facility] [address] [place] [address] Carmina Iyer, Medication Question 02/04/2025 Telephone [facility] [address] [place] [address] Carmina Iyer, DO PHONE CALL - ASSOCIATE PROFESSOR OF PSYCHOLOGY CONTRACT 02/04/2025 Telephone [facility] [address] [place] [address] Carmina Iyer, telephone call 02/04/2025 Refill [facility] [address] [place] [address] Brandee Miller MD Anxiety 02/04/2025 Results Follow-Up [facility] [address] [place] [address] Kendal Bustamante RN T4, Free, Vitamin D, 25-Hydroxy, Total, Immunoassay, Lipid Panel, Standard, Additional followed-up results: 6 02/01/2025 Telephone [facility] [address] [place] [address] Carmina Iyer, Referral 01/31/2025 Telephone [facility] [address] [place] [address] Carmina Iyer, telephone call 01/30/2025 Refill [facility] [address] [place] [address] Carmina Iyer, Anxiety 01/22/2025 Refill [facility] [address] [place] [address] Carmina Iyer, Anxiety 01/14/2025 Refill [facility] [address] [place] [address] Carmina Iyer, Anxiety 12/27/2024 Telephone [facility] [address] [place] [phone] Pinky Rankin, PharmD 12/25/2024 Refill [facility] [address] [place] [address] Carmina Iyer, 12/24/2024 Refill [facility] [address] [place] [address] Carmina Iyer, 12/10/2024 Telephone [facility] [address] [place] [phone] Carmina Iyer, 11/30/2024 Telephone [facility] [address] [place] [phone] Carmina Iyer, Status check breathing difficulty 11/27/2024 9:45 AM EDT Office Visit [facility] [address] [place] [address] Carmina Iyer DO Type 2 diabetes mellitus without complication, without long-term current use of insulin ([facility]) (Primary Dx); Essential hypertension; Other hyperlipidemia; Major depression, recurrent, chronic (CMS/HCC); Obstructive sleep apnea, adult; Severe persistent asthma with acute exacerbation; Chronic allergic rhinitis; Chronic bilateral low back pain without sciatica; Abnormal chest CT; Healthcare maintenance; Anxiety; Severe persistent asthma without complication 11/27/2024 Travel from Last 3 Months Immunizations Immunization Administration [...] with others, in a hotel, in a halfway, living outside on the street, on a [...] 110 12/06/2024 12:33 PM EDT Temperature 36.2 C (97.1 F) 11/27/2024 9:40 AM EDT Respiratory Rate 20 11/27/2024 9:40 AM EDT [...] 06/19/2020 06/19/2015 Colorectal Cancer Screening 06/19/2020 Diabetes: Foot Exam 09/02/2024 09/02/2023, 09/02/2023, 09/02/2023, Additional history exists COVID-19 Vaccine ( season) 2024 06/08/2024, 05/30/2023, 03/10/2023, Additional history exists Influenza Vaccine (#1) 2025 , 03/25/2021, 06/02/2019, Additional history exists SDOH Screening 05/01/2025 05/01/2024 Depression Screening 06/08/2025 06/08/2024, 06/08/20 Diabetes: Hemoglobin A1C 06/29/2025 025, 11/27/2024, 05/01/2024, Additional history exists Tobacco Screening 11/27/2025 11/27/2024 Diabetes: Urine Protein Screening 12/27/2025 12/27/2024, 05/30/2023, 04/02/2022, Additional history exists Lipid Panel 12/27/2025 12/27/2024, 05/09, 04/02/2022, Additional history exists Mammogram 03/12/2026 03/12/2024, 08/0 11/2022, 03/01/2022, Additional history exists DTaP/Tdap/Td Vaccines (3 - Td or Tdap) 03/10/2033 03/10/2023, 07/09/2013, 03/31/2000 Hepatitis B Vaccines Completed 08/20/2015, 05/27/2015, 04/15/2015, Additional history exists Cervical Cancer Screening Discontinued HPV/Cotest Discontinued 02/20/2021, 12/02/2017 Pap Smear Discontinued 02/20/2021 Pneumococcal Vaccine: 50+ Years Completed 03/10/2023, 03/31/2017, 03/12/2009 Zoster Vaccines Completed 03/10/2023, 05/17/2019 HIB Vaccines Aged Out No longer eligi [...] Procedure Name Priority Date/Time Associated Diagnosis Comments ALBUMIN, RANDOM URINE W/CREATININE Routine 12/27/2024 8:46 AM EDT Type 2 diabetes mellitus without complication, without long-term current use of insulin (CMS/HCC) CBC Routine 12/27/2024 8:46 AM EDT Type 2 diabetes mellitus without complication, without long-term current use of insulin (CMS/HCC) BASIC METABOLIC PANEL Routine 12/27/2024 8:46 AM EDT Type 2 diabetes mellitus without complication, without long-term current use of insulin (CMS/HCC) HEMOGLOBIN A1C Routine 12/27/2024 8:46 AM EDT Type 2 diabetes mellitus without complication, without long-term current use of insulin (CMS/HCC) HEPATIC FUNCTION PANEL Routine 12/27/2024 8:46 AM EDT Type 2 diabetes mellitus without complication, without long-term current use of insulin (CMS/HCC) TSH Routine 12/27/2024 8:46 AM EDT Type 2 diabetes mellitus without complication, without long-term current use of insulin (CMS/HCC) LIPID PANEL, STANDARD Routine 12/27/2024 8:46 AM EDT Type 2 diabetes mellitus without complication, without long-term current use of insulin ([facility]/HCC) VITAMIN D,25-OH,TOTAL,IA Routine 12/27/2024 8:46 AM EDT Type 2 diabetes mellitus without complication, without long-term current use of insulin (CMS/HCC) T4, FREE Routine 12/27/2024 8:46 AM EDT Type 2 diabetes mellitus without complication, without long-term current use of insulin (CMS/HCC) XR CHEST 2 VIEWS STAT 11/27/2024 11:4 2 AM EDT Severe persistent asthma with acute exacerbation POCT GLYCATED HEMOGLOBIN, TOTAL Routine 11/27/2024 11:09 AM EDT Type 2 diabetes mellitus without complication, without long-term current use of insulin (CMS/[facility]) POCT GLUCOSE Routine 11/27/2024 11:09 AM EDT Type 2 diabetes mellitus without complication, without long-term current use of insulin ([facility]/HCC) BI MAMMOGRAM SCREENING TOMOSYNTHESIS BILATERAL Routine 03/12/2024 1:15 PM EDT HPV MRNA E6/E7 REFLEX TO HPV 16, 18/45 Routine 02/20/2021 9:24 AM EDT THINPREP IMAGING SYSTEM PAP Routine 02/20/2021 9:24 AM EDT HM COLONOSCOPY Routine 06/19/2015 2:13 PM EST from Last 3 Months or Most Recently Relevant to Health Maintenance Results * Vitamin D, 25-Hydroxy, Total, Immunoassay (12/27/2024 8:46 AM EDT) Vitamin D 25-OH Total 51.9 >30 ng/mL [facility] Comment: Health Based Reference Values*< 20 ng/mL Qutfeifgf09-01 ng/mL Insufficient> 30 ng/mL Sufficient*Elpidio SOLIS. N Engl J Med. 2007;357:266-280There is no well-established upper level of normal vitamin Dlevels. Some laboratories use 50 ng/mL as an upper limit ofnormal. However, toxicity is patient-dependent and may occurat any level. Careful correlation with the patient'spresentation is necessary and, if there is concern forvitamin D toxicity, treatment should be consideredirrespective of the serum level.Care must be taken in interpreting Vitamin D results fromdifferent laboratories and methodologies. Published datademonstrated that results from patients undergoinghemodialysis may show a negative bias when tested withvarious automated 25-OH vitamin D assays when compared toLC-MS/MS.When testing samples from patients whose predominant form ofVitamin D is Vitamin D2, such as patients receiving VitaminD2 supplementation, results that are subtherapeutic shouldbe confirmed with another method such as LC-MS/MS. Blood Venous blood specimen / Unknown 12/27/2024 8:46 AM EDT 12/27/2024 11:04 AM EDT Carmina Iyer DO LAB BLOOD ORDERABLES Final R esult Performing Organization Address City/[facility]/ZIP Co de Phone Number [facility] [address] [place], [place] [phone] * Albumin, Random Urine W/Creatinine (12/27/2024 8:46 AM EDT) Creatinine, Urine 179.35 mg/dL [facility] Microalbumin Urine 9.0 mg/L [facility] Microalbum Creatinine Ratio Ur 5.0 <30 ug/mg cr [facility] Comment:Albumin/Creatinine R atio Reference Ranges: Normal: < 30 ug/mg creatinine Microalbuminuria: 30 - 300 ug/mg creatinineClinical Albuminuria: > 300 ug/mg creatinine Urine (Urine, Random) 12/27/2024 8:46 AM EDT 12/27/2024 11:06 AM EDT Carmina Iyer DO LAB URINE ORDERABLES Final R esult Performing Organization Address City/[facility]/ZIP Co de Phone Number [facility] [address] [place] [address] [phone] * (ABNORMAL) CBC (12/27/2024 8:46 AM EDT) White Blood Count 12.0(H) 4.8 - 10.8 X10*3/uL [facility] Red Blood Count 5.01 4.20 - 5.50 X10*6/uL [facility] Hemoglobin 14.7 12.0 - 16.0 g/dl [facility] Hematocrit 46.1 37.0 - 47.0 % [facility] Mean Corpuscular Volume 92.0 80.0 - 98.0 fL [facility] Mean Corpuscular Hemoglobin 29.3 27.0 - 33.0 pg [facility] Mean Corpuscular HGB Conc 31.9 31.0 - 35.0 g/dl [facility] Red Cell Distribution Width 14.2 11.0 - 16.0 % [facility] Platelet Count 395 160 - 400 X10*3/uL [facility] Mean Platelet Volume 10.4 9.4 - 12.3 fL [facility] NRBC Pct Auto 0.0 0.0 - 0.2 /100WBC [facility] NRBC Abs Auto 0.000 0.0 - 0.012 X10*3/uL [facility] Blood Venous blood specimen / Unknown 12/27/2024 8:46 AM EDT 12/27/2024 11:04 AM EDT us Carmina Iyer DO LAB BLOOD ORDERABLES Final R esult [facility] [address] [place] [address] [phone] * TSH (12/27/2024 8:46 AM EDT) Thyroid Stimulating Hormone 3.32 0.32 - 4.0 uIU/mL [facility] Comment:Note: A sustained TS H level above 2.5 uIU/mL may warrant further investigation. TSH 3rd Generation ([facility]) Blood Venous blood specimen / Unknown 12/27/2024 8:46 AM EDT 12/27/2024 11:04 AM EDT Carmina Iyer DO LAB BLOOD ORDERABLES Final R esult Performing Organization Address City/[facility]/ZIP Co de Phone Number [facility] [address] [place] [phone] * T4, Free (12/27/2024 8:46 AM EDT) Free T4 (Free Thyroxine) 1.04 0.71 - 1.85 ng/dL [facility] Blood Venous blood specimen / Unknown 12/27/2024 8:46 AM EDT 12/27/2024 11:04 AM EDT Carmina Jaylon DO LAB BLOOD ORDERABLES Final R esult Performing Organization Address [facility] Co de Phone Number [facility] [address] [place] [phone] * Hemoglobin A1c (12/27/2024 8:46 AM EDT) Hemoglobin A1c 5.6 <6.0 % [facility] Comment:Hemoglobin A1C Refer ence Range Adults: 4.8 - 6.0 % Non diabetic: < 6.0 % Goal: < 7.0 %Additional Action Suggested: > 8.0 %Note: Hemoglobin A1c results are invalid for patients with abnormal amounts of HbF. Blood transfusions may impact the HbA1c concentration in the patient sample. Estimated Average Glucose 114 mg/dL [facility] Comment:eAG = Estimated ave rage glucose which is %A1C expressed asaverage glucose, using the formula of the [id number]-KobhuauXayxzpx Glucose study (ADAG), Diabetes Care, Vol.31,#8,2007 Blood Venous blood specimen / Unknown 12/27/2024 8:46 AM EDT 12/27/2024 11:04 AM EDT Cramina Iyer DO LAB BLOOD ORDERABLES Final R esult Performing Organization Address City/[facility]/ZIP Co de Phone Number [facility] [address] [place] [phone] * Hepatic Function Panel (12/27/2024 8:46 AM EDT) Bilirubin, Total 0.3 0.0 - 1.0 mg/dL [facility] Bilirubin, Direct 0.1 0.0 - 0.5 mg/dL [facility] Aspartate Amino Transferase 26 5 - 31 U/L [facility] Alanine Aminotransferase 21 0 - 31 U/L [facility] Total Protein 8.0 6.5 - 8.0 g/dL [facility] Albumin Level 4.4 3.5 - 5.0 g/dL [facility] Alkaline Phosphatase 92 39 - 117 U/L [facility] Blood Venous blood specimen / Unknown 12/27/2024 8:46 AM EDT 12/27/2024 11:04 AM EDT Carmina Iyer DO LAB BLOOD ORDERABLES Final R esult Performing Organization Address City/[facility]/ZIP Co de Phone Number [facility] [address] [place] [phone] * (ABNORMAL) Lipid Panel, Standard (12/27/2024 8:46 AM EDT) Triglycerides 137 <150 mg/dL [facility] Comment:Desirable Triglyceri de: less than 150 mg/dLBorderline High Triglyceride 150-199 mg/dLHigh Triglyceride: 200-499 mg/dLVery High Triglyceride: greater than or equal to 5OO mg/dL Cholesterol 338(H) <200 mg/dL [facility] Comment:Desirable Cholestero l: less than 200 mg/dLBorderline High Cholesterol: 200-239 mg/dLHigh Cholesterol: greater than 239 mg/dL LDL Cholesterol Calculated 243(H) <100 mg/dL [facility] Comment:Desirable LDL: less than 100 mg/dLNear Optimal/Above Optimal LDL: 110- 129 mg/dLBorderline High LDL: 130-159 mg/dLHigh LDL: 160-189 mg/dLVery High LDL: greater than or equal to 190 mg/dL HDL Cholesterol 68 >40 mg/dL [facility] Comment:Desirable HDL: great er than 40 mg/dL Note: This HDL assay may give artificially low results in patients with liver disease. Blood Venous blood specimen / Unknown 12/27/2024 8:46 AM EDT 12/27/2024 11:04 AM EDT us Carmina Iyer DO LAB BLOOD ORDERABLES Final R esult [facility] [address] [place], [place] [phone] * (ABNORMAL) Basic Metabolic Panel (12/27/2024 8:46 AM EDT) Sodium 141 135 - 145 mmol/L [facility] Potassium 3.5 3.3 - 5.1 mmol/L [facility] Chloride 101 96 - 108 mmol/L [facility] Carbon Dioxide 29 22 - 29 mmol/L [facility] Anion Gap 15 12 - 20 [facility] Urea Nitrogen (BUN) 29(H) 9 - 16 mg/dL [facility] Creatinine, Serum 0.90 0.5 - 1.4 mg/dL [facility] Estimated Glomerular Filt Rate >60 [facility] Comment:Chronic Kidney Disea se: Estimated GFR < 60 mL/min/[id number] Kidney Disease: Estimated GFR < 15 mL/min/1.73m2 Glucose 87 60 - 115 mg/dL [facility] Calcium 9.6 8.4 - 10.2 mg/dL [facility] Blood Venous blood specimen / Unknown 12/27/2024 8:46 AM EDT 12/27/2024 11:04 AM EDT us Carmina Iyer DO LAB BLOOD ORDERABLES Final R esult [facility] [address] [place] [phone] * XR Chest 2 Views (11/27/2024 11:42 AM EDT) Anatomical Region Laterality Modality Chest Radiographic Ariadna ging 11/27/2024 11:4 2 AM EDT Narrative 11/27/2024 12:13 PM EDT [facility] [address] [place] [address] XRay Report Signed Patient: Salena Barlow MR#: [id number] 9 : 1960 Acct:[id number] Age/Sex: 64 / F ADM Date: 11/27/24 [facility]: Carmina Iyer DO Ordering Physician: Carmina Iyer DO Date of Service: 11/27/24 Procedure(s): XR chest 2V Accession Number(s): [id number] cc: Carmina Iyer DO EXAMINATION: XR CHEST [...] 11/27/24 1210 DD/ 1142 TD/TT: 11/27/24 1200 Thermocouple Tester: MSM Procedure Note Donotuseinterpreter, Image - 11/27/2024 [facility] [address] [place] [address] XRay Report Signed Patient: Callie Barlow#: [id number] 9 : 8Acct:[id number] Age/Sex: 64 / FADM Date: 11/27/24 [facility]: Carmina Iyer DO Ordering Physician: Carmina Iyer DO Date of Service: 11/27/24 Procedure(s): XR chest 2V Accession Number(s): [id number] cc: Carmina Iyer DO EXAMINATION: XR CHEST [...] 11/27/24 1210 DD/ 1142 TD/TT: 11/27/24 1200 Thermocouple Tester: DEYSI us Carmina Iyer DO IMG XR [...] / Unknown 11/27/2024 11:09 AM EDT Carmina Jaylon HAJI POINT OF CARE TEST ENTER/YOANNA T ORDERABLES Final Result * BI Mammogram Screening Tomosynthesis Bilateral (03/12/2024 1:15 PM EDT) Anatomical Region Laterality Modality Breast Bilateral Mammography 03/12/2024 1:15 PM EDT Narrative 04/10/2024 6:36 AM EDT [address] [place] [address] Mammography Report Signed Patient: Salena Barlow MR#: [id number] 9 : 1960 Acct:[id number] Age/Sex: 63 / F ADM Date: 03/12/24 Loc: [facility].MAMMO Attending Dr: Carmina Iyer DO Ordering Physician: Carmina Iyer DO Results: 2B enign Findings Date of Service: 03/12/24 Follow Up: 1 Year From [facility] Mammogram Procedure(s): MM tomosynthesis screening BI Accession Number(s): [id number] cc: Carmina Iyer DO EXAMINATION: MM SCREENING [...] Jennifer Nur MD 04/10/2024 06:34 AM EDT RP Dictated By: Jennifer Nur MD Signed By: <Electronically signed by Jennifer Nur MD in OV> 04/10/24 0634 DD/ 1315 TD/TT: 03/12/24 1327 Thermocouple Tester: Procedure Note Donotuseinterpreter, Image - 04/10/2024 [facility] [address] [place], [place] [address] Mammography Report Signed Patient: Callie Barlow#: [id number] 9 : 8Acct:[id number] Age/Sex: 63 / FADM Date: 03/12/24 Loc: [facility] Attending Dr: Carmina Iyer DO Ordering Physician: Carmina Iyerults: 2B enign Findings Date of Service: 03/12/24Follow Up: 1 Year From Orig ina Mammogram Procedure(s): MM tomosynthesis screening BI Accession Number(s): [id number] cc: Carmina Iyer DO EXAMINATION: MM SCREENING [...] 04/10/24 0634 DD/ 1315 TD/TT: 03/12/24 1327 Thermocouple Tester: us Carmina Iyer DO IMG BI PROCEDURES Final Resu lt * THINPREP TIS PAP (02/20/2021 9:24 AM EDT) Clinical Information: None given [facility] COMMENT SEE COMMENT [facility] Comment: EXPLANATORY NOTE: The Pap is a screening test for cervical cancer. It is not a diagnostic test and is subject to false negative and false positive results. It is most reliable when a satisfactory sample, regularly obtained, is submitted with relevant clinical findings and history, and when the Pap result is evaluated along with historic and current clinical information. COMMENT: This Pap test has been evaluated with computer assisted technology. [facility] Supervisor Phosphorus Processing: SEE COMMENT [facility] Comment: HJP, CT(ASCP) CT screening location: [address] [address] Interpretation/Res ult: SEE COMMENT [facility] [...] SYSTEM 02/20/2021 9:24 AM EDT us Carmina Jurcsak DO LAB PATHOLOGY ORDERABLES Fin al Result Performing Organization Address [facility] de Phone Number [facility] [address] * HPV mRNA E6/E7 REFLEX TO HPV 16, 18/45 (02/20/2021 9:24 AM EDT) HPV nRNA E6/E7 Not Detected Not Detected [facility] Comment: Methodology: Novelty Twister Operator-Mediated Amplification This assay detects E6/E7 viral messenger RNA (mRNA) from 14 high-risk HPV types (16,18,31,33,35,39,45,51,52,56,58,59,66,68). The analytical performance characteristics of this assay have been determined by [employer]. The modifications have not been cleared or approved by the FDA. This assay has been validated pursuant to the CLIA regulations and is used for clinical purposes. For additional information, please refer to http://education.Oximity/faq/LIL789o3 (This link if provided for information/ educational purposes only.) 02/20/2021 9:24 AM EDT Carmina Iyer DO LAB CYTOLOGY ORDERABLES Mandy l Result Performing Organization Address [facility] de Phone Number [facility] [address] * Hm Colonoscopy (06/19/2015 2:13 PM EST) Historical Provider HEALTH MAINTENANCE Final Result from Last 3 Months or Most Recently Relevant to Health Maintenance Insurance [employer] MEDICARE REPLACEMENT N PARTIAL Care Teams Cleaning And Washing Equipment Operator Relationship Specialty Start Date End Date Carmina Iyer DO [address] [place] [phone] PCP - General Family Medicine 05/01/24
== END 2025-02-20 14:32 | disposition home or self-care (01) ==
LOC: HO.HPS 13:28
PROVIDERS: PCP Family Medicine; Visit Provider Internal Medicine Pulmonary Disease
DX: J45.909 Unspecified asthma, uncomplicated (principal); Z91.09 Other allergy status, other than to drugs and biological substances
CPT/HCPCS: 99214

== ENCOUNTER → 2025-02-20 13:27 | Outpatient (BNVA) | payer MEDICARE, MEDICAID, SELFPAY | PROVIDERS: PCP Family Medicine; Visit Provider Internal Medicine Pulmonary Disease | DX: J44.89 Other specified chronic obstructive pulmonary disease (principal); Z91.09 Other allergy status, other than to drugs and biological substances | CPT/HCPCS: 99212 ==

== ENCOUNTER 2025-03-18 12:43 | Outpatient (REF) | payer MEDICARE, MEDICAID, SELFPAY ==
--- OUTSIDE RECORDS SUMMARY | 2025-03-18 12:46 | XMS_ITS | Clinical Summary ---
Author Organization [email or web address] Address [address] [facility] [address] [place] [address] Care Team Providers Care Websphere Portal Developer Name Role Phone SandraCarmina luna Primary Care Provider [phone] Allergies No known active allergies Medications * [...] (90 Base) MCG/ACT inhalerIndication s:Asthma with COPD (CMS/[facility]) INHALE 2 PUFFS BY [...] 6 HOURS NEEDED (for asthma) 90 mL Active triamcinolone (Nasacort) 55 MCG/ACT nasal inhaler Administer 2 sprays into each nostril Once per day. 16.5 g Active atorvastatin (Lipitor) 40 MG tabletIndications :Hyperlipidemia, unspecified hyperlipidemia type Take 1 tablet by mouth once daily 30 tablet Active clonazePAM (KlonoPIN) 0.5 MG tabletIndications :Anxiety Take 1 tablet (0.5 mg) by mouth at bedtime for 28 days. Do not start before March 12, 2025. 28 tablet 025 2024 Active clonazePAM (KlonoPIN) 0.5 MG tabletIndications :Anxiety Take 1 tablet (0.5 mg) by mouth at bedtime for 28 days. Do not start before February 07, 2025. 28 tablet 025 2024 Discontinued(R eorder (will not trigger notification to Pharmacy)) Active Problems Problem Noted Date Diagnosed Date [...] Encounters Date Type Department Care Team Description 03/11/2025 Refill [facility] [address] [place] [address] Carmina Iyer, DO 03/07/2025 Refill [facility] [address] [place] [address] Carmina Iyer, DO Anxiety 03/07/2025 Telephone [facility] [address] [place] [address] Carmina Iyer, DO Med Refill 02/13/2025 Telephone [facility] [address] [place] [address] Carmina Iyer, DO Medication Question 02/04/2025 Telephone [facility] [address] [place] [address] Carmina Iyer, DO PHONE CALL - MANAGER ETHICS CONTRACT 02/04/2025 Telephone [facility] [address] [place] [address] Carmina Iyer, DO telephone call 02/04/2025 Refill [facility] [address] [place] [address] Brandee Miller MD Anxiety 02/04/2025 Results Follow-Up [facility] [address] [place] [address] Kendal Bustamante RN T4, Free, Vitamin D, 25-Hydroxy, Total, Immunoassay, Lipid Panel, Standard, Additional followed-up results: 6 02/01/2025 Telephone [facility] MED[facility] [address] [place] [phone] Carmina Iyer, Referral 01/31/2025 Telephone [facility] [address] [place] [address] Carmina Iyer DO telephone call 01/30/2025 Refill [facility] [address] [place] [address] Carmina Iyer DO Anxiety 01/22/2025 Refill [facility] [address] [place] [address] Carmina Iyer DO Anxiety 01/14/2025 Refill [facility] [address] [place] [address] Carmina Iyer DO Anxiety 12/27/2024 Telephone [facility] [address] [place] [address] Pinky Rankin, PharmD 12/25/2024 Refill [facility] [address] [place], [place] [phone] Carmina Iyer DO 12/24/2024 Refill [facility] [address] [place] [address] Carmina Iyer, from Last 3 Months Immunizations Immunization Administration [...] 04/02/2022, Additional history exists Mammogram 03/12/2026 03/12/2024, 11/2022, 03/01/2022, Additional history exists DTaP/Tdap/Td Vaccines [...] complication, without long-term current use of insulin ([facility]) CBC Routine 12/27/2024 8:46 AM EDT Type [...] of insulin (CMS/HCC) HEPATIC FUNCTION PANEL Routine 8:46 AM EDT Type 2 diabetes mellitus without complication, without long-term current use of insulin (CMS/HCC) TSH Routine 12/27/2024 8:46 AM EDT Type 2 diabetes mellitus without complication, without long-term current use of insulin (CMS/HCC) LIPID PANEL, STANDARD Routine 12/27/2024 8:46 AM EDT Type 2 diabetes mellitus without complication, without long-term current use of insulin (CMS/HCC) VITAMIN D,25-OH,TOTAL,IA Routine 12/27/2024 8:46 AM EDT [...] SYSTEM PAP Routine 02/20/2021 9:24 AM EDT COLONOSCOPY Routine 06/19/2015 2:13 PM EST from Last 3 Months or Most Recently Relevant to Health Maintenance Results * Vitamin D, 25-Hydroxy, Total, Immunoassay (12/27/2024 8:46 AM EDT) Vitamin D 25-OH Total 51.9 >30 ng/mL [facility] Comment: Health Based Reference Values*< 20 ng/mL [id number] ng/mL Insufficient> 30 ng/mL Sufficient*Elpidio SOLIS. N [...] DO LAB BLOOD ORDERABLES Final R esult [facility] [address] [place], [place] [phone] * Albumin, Random Urine W/Creatinine (12/27/2024 8:46 AM EDT) Creatinine, Urine 179.35 mg/dL [facility] Microalbumin Urine 9.0 mg/L [facility] Microalbum Creatinine Ratio Ur 5.0 <30 ug/mg cr [facility] Comment:Albumin/Creatinine R atio Reference Ranges: Normal: < 30 ug/mg creatinine Microalbuminuria: 30 - 300 ug/mg creatinineClinical Albuminuria: > 300 ug/mg creatinine Urine (Urine, Random) 12/27/2024 8:46 AM EDT 12/27/2024 11:06 AM EDT Carmina Iyer DO LAB URINE ORDERABLES Final R esult [facility] [address] [place] [phone] * (ABNORMAL) CBC (12/27/2024 8:46 AM EDT) White Blood Count 12.0(H) 4.8 - 10.8 X10*3/uL [facility] Red Blood Count 5.01 4.20 - 5.50 X10*6/uL [facility] Hemoglobin 14.7 12.0 - 16.0 g/dl [facility] Hematocrit 46.1 37.0 - 47.0 % [facility] Mean Corpuscular Volume 92.0 80.0 - 98.0 fL [facility] Mean Corpuscular Hemoglobin 29.3 27.0 - 33.0 pg [facility] Mean Corpuscular HGB Conc 31.9 31.0 - 35.0 g/dl [facility] Red Cell Distribution Width 14.2 11.0 - 16.0 % [facility] Platelet Count 395 160 - 400 X10*3/uL [facility] Mean Platelet Volume 10.4 9.4 - 12.3 fL [facility] NRBC Pct Auto 0.0 0.0 - 0.2 /100WBC [facility] NRBC Abs Auto 0.000 0.0 - 0.012 X10*3/uL [facility] Blood Venous blood specimen / Unknown 12/27/2024 8:46 AM EDT 12/27/2024 11:04 AM EDT Carmina Iyer DO LAB BLOOD ORDERABLES Final R esult Performing Organization Address [facility] Co de Phone Number [facility] [address] [place] [phone] * TSH (12/27/2024 8:46 AM EDT) Thyroid Stimulating Hormone 3.32 0.32 - 4.0 uIU/mL [facility] Comment:Note: A sustained TS H level above 2.5 uIU/mL may warrant further investigation. TSH 3rd Generation ([facility]) Blood Venous blood specimen / Unknown 12/27/2024 8:46 AM EDT 12/27/2024 11:04 AM EDT Carmina Jaylon LAB BLOOD ORDERABLES Final R esult Performing Organization Address [facility] Co de Phone Number [facility] [address] [place] [phone] * T4, Free (12/27/2024 8:46 AM EDT) Free T4 (Free Thyroxine) 1.04 0.71 - 1.85 ng/dL [facility] Blood Venous blood specimen / Unknown 12/27/2024 8:46 AM EDT 12/27/2024 11:04 AM EDT Carmina Monroydarrynjeremy LAB BLOOD ORDERABLES Final R esult Performing Organization Address [facility] Co de Phone Number [facility] [address] [place] [phone] * Hemoglobin A1c (12/27/2024 8:46 AM EDT) Hemoglobin A1c 5.6 <6.0 % [facility] Comment:Hemoglobin A1C Refer ence Range Adults: 4.8 - 6.0 % Non diabetic: < 6.0 % Goal: < 7.0 %Additional Action Suggested: > 8.0 %Note: Hemoglobin A1c results are invalid for patients with abnormal amounts of HbF. Blood transfusions may impact the HbA1c concentration in the patient sample. Estimated Average Glucose 114 mg/dL [facility] Comment:eAG = Estimated ave rage glucose which is %A1C expressed asaverage glucose, using the formula of the T5W-GqzphjwCmuhvnj Glucose study (ADAG), Diabetes Care, Vol.31,#8,2007 Blood Venous blood specimen / Unknown 12/27/2024 8:46 AM EDT 12/27/2024 11:04 AM EDT us Carmina Iyer DO LAB BLOOD ORDERABLES Final R esult Performing Organization Address [facility] Co de Phone Number [facility] [address] [place] [phone] * Hepatic Function Panel (12/27/2024 8:46 AM EDT) Bilirubin, Total 0.3 0.0 - 1.0 mg/dL [facility] Bilirubin, Direct 0.1 0.0 - 0.5 mg/dL [facility] Aspartate Amino Transferase 26 5 - 31 U/L [facility] Alanine Aminotransferase 21 0 - 31 U/L [facility] Total Protein 8.0 6.5 - 8.0 g/dL [facility] Albumin Level 4.4 3.5 - 5.0 g/dL [facility] Alkaline Phosphatase 92 39 - 117 U/L [facility] Blood Venous blood specimen / Unknown 12/27/2024 8:46 AM EDT 12/27/2024 11:04 AM EDT Carmina Iyer DO LAB BLOOD ORDERABLES Final R esult Performing Organization Address [facility] Co de Phone Number [facility] [address] [place] [phone] * (ABNORMAL) Lipid Panel, Standard (12/27/2024 8:46 AM EDT) Triglycerides 137 <150 mg/dL [facility] Comment:Desirable Triglyceri de: less than 150 mg/dLBorderline High Triglyceride 150-199 mg/dLHigh Triglyceride: 200-499 mg/dLVery High Triglyceride: greater than or equal to 5OO mg/dL Cholesterol 338(H) <200 mg/dL [facility] Comment:Desirable Cholestero l: less than 200 mg/dLBorderline High Cholesterol: 200-239 mg/dLHigh Cholesterol: greater than 239 mg/dL LDL Cholesterol Calculated 243(H) <100 mg/dL [facility] Comment:Desirable LDL: less than 100 mg/dLNear Optimal/Above Optimal LDL: 110- 129 mg/dLBorderline High LDL: 130-159 mg/dLHigh LDL: 160-189 mg/dLVery High LDL: greater than or equal to 190 mg/dL HDL Cholesterol 68 >40 mg/dL [facility] Comment:Desirable HDL: great er than 40 mg/dL Note: This HDL assay may give artificially low results in patients with liver disease. Blood Venous blood specimen / Unknown 12/27/2024 8:46 AM EDT 12/27/2024 11:04 AM EDT us Carmina Iyer DO LAB BLOOD ORDERABLES Final R esult [facility] [address] [place] [phone] * (ABNORMAL) Basic Metabolic Panel (12/27/2024 8:46 AM EDT) Sodium 141 135 - 145 mmol/L [facility] Potassium 3.5 3.3 - 5.1 mmol/L [facility] Chloride 101 96 - 108 mmol/L [facility] Carbon Dioxide 29 22 - 29 mmol/L [facility] Anion Gap 15 12 - 20 [facility] Urea Nitrogen (BUN) 29(H) 9 - 16 mg/dL [facility] Creatinine, Serum 0.90 0.5 - 1.4 mg/dL [facility] Estimated Glomerular Filt Rate >60 [facility] Comment:Chronic Kidney Disea se: Estimated GFR < 60 mL/min/1.71l8Joehcu Kidney Disease: Estimated GFR < 15 mL/min/1.73m2 Glucose 87 60 - 115 mg/dL [facility] Calcium 9.6 8.4 - 10.2 mg/dL [facility] Blood Venous blood specimen / Unknown 12/27/2024 8:46 AM EDT 12/27/2024 11:04 AM EDT us Carmina Iyer DO LAB BLOOD ORDERABLES Final R esult [facility] [address] [place] [phone] * BI Mammogram Screening Tomosynthesis Bilateral (03/12/2024 1:15 PM EDT) Anatomical Region Laterality Modality Breast Bilateral Mammography 03/12/2024 1:15 PM EDT Narrative 04/10/2024 6:36 AM EDT [facility] [address] [place] [address] Mammography Report Signed Patient: Salena Barlow MR#: [id number] 9 : 1960 Acct:[id number] Age/Sex: 63 / F ADM Date: 03/12/24 Loc: HO.MAMMO Attending Dr: Carmina Iyer DO Ordering Physician: Carmina Iyer DO Results: 2B enign Findings Date of Service: 03/12/24 Follow Up: 1 Year From [facility] Mammogram Procedure(s): MM tomosynthesis screening BI Accession Number(s): [id number] cc: Carmina Iyer DO EXAMINATION: MM SCREENING [...] 04/10/24 0634 DD/ 1315 TD/TT: 03/12/24 1327 Revenue Research Analyst: Procedure Note Donotuseinterpreter, Image - 04/10/2024 Vicky [facility] [address] [place], [place] [address] Mammography Report Signed Patient: Callie Barlow#: [id number] 9 : 8Acct:[id number] Age/Sex: 63 / FADM Date: 03/12/24 Loc: HOJARRETTO Attending Dr: Carmina Iyer DO Ordering Physician: Carmina Iyerults: 2B enign Findings Date of Service: 03/12/24Follow Up: 1 Year From Orig ina Mammogram Procedure(s): MM tomosynthesis screening BI Accession Number(s): [id number] cc: Carmina Iyer DO EXAMINATION: MM SCREENING [...] 04/10/24 0634 DD/ 1315 TD/TT: 03/12/24 1327 Revenue Research Analyst: Carmina Iyer DO IMG BI PROCEDURES Final Resu lt * THINPREP TIS PAP (02/20/2021 9:24 AM EDT) Clinical Information: None given [facility] COMMENT SEE COMMENT [facility]OUNDAT[facility] ON [...] has been evaluated with computer assisted technology. [facility] Stitcher Set Up Operator Automatic: SEE COMMENT [facility] Comment: HJP, CT(ASCP) CT screening location: [place] [address] Interpretation/Res ult: SEE COMMENT [facility] Comment: Negative for intraepithelial lesion or malignancy. Atrophic pattern; predominantly parabasal cells LMP: NONE [facility] Prev. BX: NONE [facility] Prev. PAP: NONE [facility] SOURCE: [facility] Statement Of Adequacy: SATISFACTORY FOR EVALUATION [facility] 02/20/2021 9:24 AM EDT Carmina Iyer DO LAB PATHOLOGY ORDERABLES Fin al Result Performing Organization Address [facility] Co de Phone Number [facility] [address] * HPV mRNA E6/E7 REFLEX TO HPV 16, 18/45 (02/20/2021 9:24 AM EDT) HPV nRNA E6/E7 Not Detected Not Detected [facility] Comment: Methodology: Jewelry Mold Maker-Mediated Amplification This assay detects E6/E7 viral messenger RNA (mRNA) from 14 high-risk HPV types (16,18,31,33,35,39,45,51,52,56,58,59,66,68). The analytical performance characteristics of this assay have been determined by [employer]. The modifications have not been cleared or approved by the FDA. This assay has been validated pursuant to the CLIA regulations and is used for clinical purposes. For additional information, please refer to http://education.[employer]/faq/UAS504l7 (This link if provided for information/ educational purposes only.) 02/20/2021 9:24 AM EDT Carmina Iyer DO LAB CYTOLOGY ORDERABLES Mandy l Result Performing Organization Address [facility] de Phone Number [facility] [address] * Hm Colonoscopy (06/19/2015 2:13 PM EST) us Historical Provider HEALTH MAINTENANCE Final Result from Last 3 Months or Most Recently Relevant to Health Maintenance Insurance [employer] MEDICARE REPLACEMENT [facility] Care Teams Websphere Portal Developer Relationship Specialty Start Date End Date Carmina Iyer DO [address] [place] [phone] PCP - General Family Medicine 05/01/24
== END 2025-03-18 12:44 | disposition home or self-care (01) ==
LOC: HO.MAMMO 12:43
PROVIDERS: PCP Family Medicine; Visit Provider Family Medicine
DX: Z12.31 Encounter for screening mammogram for malignant neoplasm of breast (principal)
CPT/HCPCS: 77063; 77067

== ENCOUNTER → 2025-03-18 13:15 | Outpatient (BNV) | payer MEDICARE, MEDICAID, SELFPAY | PROVIDERS: PCP Family Medicine; Visit Provider Internal Medicine | DX: Z12.31 Encounter for screening mammogram for malignant neoplasm of breast (principal) | CPT/HCPCS: 77063; 77067 ==

== ENCOUNTER 2025-04-01 11:21 | Outpatient (AMB) | payer MEDICARE, MEDICAID, SELFPAY ==
--- OUTSIDE RECORDS SUMMARY | 2015-01-09 10:50 | XMS_ITS | Continuity of Care Document ---
Author Organization [facility] Address [address] [place] [address] Phone Care Team Providers Care Clinic Lead Name Role Phone Bradley Avila MD Unavailable Unavailable Advance Directives Directive Yes / No Effective Date File Name No Information Encounters Encounter Description Practice Location Reason(s) For Visit Diagnoses Date Provider Providers Copied on Encounter [facility], [address] [facility], [place], [place], [id number], [place] tel:[phone] [facility] No Information 0 201 5 Austin Huerta. [address] [facility] [address], [place], [place], [id number] , [place]. tel:[phone] Family History Family Member Type Diagnosis Age At Onset No Information Payers Payer name Insurance type Covered alliance party ID Authoriza tion(s) No Information Social History Type Description Quantity Date Captured Comments Sex Female Smoking Status No Information Chief Complaint And Reason For Visit No Information Reason For Referral Reason For Referral No Information History Of Present Illness Encounter Date Complaint History Of Prese nt Illness No Information Functional Status Date Functional Assessmen t No Information Instructions Date Instruction Additional Infor mation No Information Assessments Type Assessment Date No Information Patient Care Teams Name Effective Dates (start - stop) Status Members No Information
--- NOTE | 2025-04-01 11:32 | A.OFFVIS_ITS ---
Vital Signs 04/01/25 11:33 Height 5 ft 3 in Weight 132 lb BMI 23.4 BP 122/60 Blood Pressure Location Rt brachial Position Sitting Pulse 115 H Pulse Source Pulse Oximeter Pulse Oximetry (%) 91 L Oxygen Delivery Method Room Air Intake Visit Reasons: Asthma Bone Char Kiln Operator Required: Yes Bone Char Kiln Operator Name: Carmina Godinez Sherley Allergies No Known Allergies (No Known Allergies*) Allergy (Verified 04/01/25 11:38) HPI HPI Asthma: Details: 64-year-old lady, nonsmoker, followed for asthma/COPD overlap syndrome and environmental allergies. She continues on Xolair, Symbicort, Spiriva, and albuterol MDI was good control of her asthma symptoms. Today she complains of bronchitic symptoms, particularly productive cough. [facility] Medical History (Updated 04/01/25 @ 13:17 by Velasquez Villarreal MD) Acute respiratory failure with hypoxia Asthma with COPD with exacerbation Leukocytosis Hyperlipidemia Anxiety Diabetes Hypertension Mass of upper lobe of left lung Allergic rhinitis Bronchial asthma COPD (chronic obstructive pulmonary disease) Surgical History H/O colonoscopy History of cataract surgery History of tubal ligation Family History Father No problems noted. Mother No problems noted. Social History Household Members: Children Household Members Other:: Son Housing: House Do you presently have visiting nurse or other home services: No Alcohol intake: never Patient Tobacco Use Status: Never used Tobacco e-Cigarette/Vaping Use: Never Used Second Hand Smoke Exposure: No service: No Sexual orientation: Straight/Heterosexual Review of Systems Const Denies daytime sleepiness, Denies excessive sweating, Denies fatigue, Denies fever(s), Denies lethargy, Denies malaise, Denies night sweats, Denies snoring and Denies weight loss Eyes Denies blurry vision and Denies itchy eyes ENT Denies nasal congestion, Denies post nasal drip, Denies sinus pain, Denies sinus pressure and Denies other ( Thrush) Card Denies chest pain, Denies pedal edema, Denies dyspnea, Denies orthopnea and Denies paroxysmal nocturnal dyspnea Resp Denies cough, Denies hemoptysis, Denies excessive phlegm production, Denies dyspnea, Denies snoring and Denies wheezing GI Denies abdominal pain and Denies heartburn Musc Denies myalgias, Denies arthralgias and Denies joint swelling Skin/Breast Denies rash Neuro Denies memory loss and Denies seizure-like activity Psych Denies abnormal sleep pattern, Denies anxiety and Denies memory loss Endo Denies excessive sweating, Denies fatigue and Denies heat intolerance Sha/Lymph Denies easy bruising Aller/Immun Denies itchy eyes, Denies seasonal rhinorrhea and Denies wheezing Physical Exam Vital Signs: Last Vital Signs Pulse 115 H 04/01/25 11:33 BP 122/60 04/01/25 11:33 Pulse Ox 91 L 04/01/25 11:33 Oxygen Delivery Method Room Air 04/01/25 11:33 BMI result Body Mass Index 23.4 Const General: no acute distress and alert Nutritional Appearance: not obese Orientation/consciousness: Other orientation findings ( oriented) HEENT Head: Yes atraumatic Eyes General: appearance normal, both eyes and all related structures Sclerae: sclerae normal EOM: EOMs intact bilaterally Neck Neck: Yes supple Lymphatic: no lymphadenopathy noted Resp Effort & Inspection: normal respiratory effort and no use of accessory muscles Auscultation: clear to auscultation bilaterally Cardio Rate: regular rate Rhythm: regular rhythm Heart sounds: no gallops, no murmurs and no rubs Skin General skin exam: other ( warm) Extrem General: No clubbing, No cyanosis and No edema Assessment & Plan Assessment & Plan (1) Severe asthma: Code(s): J45.909 - Unspecified asthma, uncomplicated Category: Medical Plan: Impulse dental started on Xolair. Continue current regimen Xolair, Spiriva, Symbicort, and albuterol MDI. Now with bronchitic exacerbation, will treat with a course of azithromycin. (2) Environmental allergies: Code(s): Z91.09 - Other allergy status, other than to drugs and biological substances Category: Medical Plan: Improved control on Xolair. Continue current regimen including Xolair in Zyrtec. (3) COPD (chronic obstructive pulmonary disease): Code(s): J44.9 - Chronic obstructive pulmonary disease, unspecified Category: Medical Plan: Impulse control and Spiriva/Symbicort. Continue current management. Coding Level of Care Code Est Pt Level 4 (31593) Complex EM visit Add On G2211 Diagnoses Severe asthma J45.909 Environmental allergies Z91.09 COPD (chronic obstructive pulmonary disease) J44.9
[2025-04-01 11:33] VITALS: BP 122/60; PULSE 115; O2SAT 91; BMI 23.4
--- OUTSIDE RECORDS SUMMARY | 2025-04-01 12:49 | XMS_ITS | Encounter Summary ---
Author Organization [employer] Address [address] [place] [address] [address] [place] [address] Care Team Providers Care Housing Inspector Name Role Phone Carmina Iyer DO Primary Care Provider [phone] Reason for Visit * Reason Onset Date Comments Med Refill 03/27/2025 Encounter Details Date Type Department Care Team ([facility] Contact Info) Description 03/27/2025 Telephone [facility] [address] [place] [address] Carmina Iyer DO [address] [place] [address] Med Refill Social History Tobacco Use Types [...] encounter Miscellaneous Notes * Telephone Encounter - Carmina Graham LPN - 03/27/2025 2:06 PM EDT Medication was sent to [facility] on 12/25/24 with 11 refills. * Telephone Encounter - Lissett Hayes - 03/27/2025 2:02 PM EDT TC from pt requesting medication refill. Medications needing refill : triamcinolone (Nasacort) 55 MCG/ACT nasal inhaler To be sent to: [facility] - [place], [place] - [address] documented in this encounter Plan of Treatment Not on file documented as of this encounter Visit Diagnoses Not on filedocumented in this encounter Additional Health Concerns Assessment Noted Time PHQ-9 Depression Total Score: 0 06/08/20 10:04 AM EDT documented as of this encounter Care Teams Housing Inspector Relationship Specialty Start Date End Date Carmina Iyer DO [address] [place] [address] PCP - General Family Medicine 05/01/24 documented as of this encounter
== END 2025-04-01 11:57 | disposition home or self-care (01) ==
LOC: HO.HPS 11:22
PROVIDERS: PCP Family Medicine; Visit Provider Internal Medicine Pulmonary Disease
DX: J45.909 Unspecified asthma, uncomplicated (principal); Z91.09 Other allergy status, other than to drugs and biological substances; J44.9 Chronic obstructive pulmonary disease, unspecified
CPT/HCPCS: 99214; G2211

== ENCOUNTER → 2025-04-01 11:21 | Outpatient (BNVA) | payer MEDICARE, MEDICAID, SELFPAY | PROVIDERS: PCP Family Medicine; Visit Provider Internal Medicine Pulmonary Disease | DX: J45.909 Unspecified asthma, uncomplicated (principal); Z91.09 Other allergy status, other than to drugs and biological substances; J44.9 Chronic obstructive pulmonary disease, unspecified | CPT/HCPCS: 99212 ==

== ENCOUNTER 2025-04-03 12:45 | Outpatient (RCR) | payer MEDICARE, SELFPAY ==
[2025-01-23 11:54] VITALS: BP 117/57; PULSE 104; RESP 16; TEMP 36.6; O2SAT 95
[2025-02-06 13:10] VITALS: BP 108/62; PULSE 100; RESP 16; TEMP 36.6; O2SAT 96
[2025-02-20 12:52] VITALS: BP 122/68; PULSE 100; RESP 16; TEMP 36.7; O2SAT 96
[2025-03-06 12:06] VITALS: BP 118/73; PULSE 113; RESP 16; TEMP 36.6; O2SAT 95
[2025-03-20 12:53] VITALS: BP 106/66; PULSE 118; RESP 16; TEMP 36.9; O2SAT 92
[2025-04-03 12:14] VITALS: BP 116/64; PULSE 110; RESP 16; TEMP 36.8; O2SAT 94
== END 2025-04-30 11:40 | disposition home or self-care (01) ==
LOC: HO.INF 12:45
PROVIDERS: Visit Provider Internal Medicine Pulmonary Disease
DX: J45.909 Unspecified asthma, uncomplicated (principal)
CPT/HCPCS: 96372; J2357

== ENCOUNTER 2025-04-23 14:19 | Outpatient (REF) | payer MEDICARE, SELFPAY ==
--- OUTSIDE RECORDS SUMMARY | 2015-01-09 10:50 | XMS_ITS | Continuity of Care Document ---
Author Organization [facility] Address [address] [place] [address] Phone Care Team Providers Care Decorating Supervisor Name Role Phone Bradley Avila MD Unavailable Unavailable Advance Directives Directive Yes / No Effective Date File Name No Information Encounters Encounter Description Practice Location Reason(s) For Visit Diagnoses Date Provider Providers Copied on Encounter [facility], [address] [facility], [place], [place], [id number], [place] tel:[phone] [facility] No Information 0 201 5 Austin Huerta. [address] [facility] [address], [place], [place], [id number] , [place]. tel:[phone] Family History Family Member Type Diagnosis Age [...]
--- NOTE | ~2025-04-23 | XR_ITS ---
EXAMINATION: XR CHEST CLINICAL INFORMATION: bronchitis? COMPARISON: November 27, 2024. TECHNIQUE: PA and lateral views FINDINGS: Pulmonary reticular nodular pattern. Hyperinflated lungs. No gross pleural effusion or pneumothorax. Cardiomediastinal silhouette size is normal. Calcified plaque thoracic aortic arch. Multilevel spondylosis. Osteopenia versus osteoporosis. Bilateral apical lung scarring. XR/XR chest 2V IMPRESSION: Chronic interstitial lung disease with possible superimposed acute small airway inflammatory processes. Underlying neoplasm cannot be excluded. Electronically signed by: Garrick Mccullough MD 04/23/2025 03:01 PM EDT
--- OUTSIDE RECORDS SUMMARY | 2025-04-23 13:40 | XMS_ITS | Encounter Summary ---
Author Organization [employer] Address [address] [facility] [address] [place] [address] Care Team Providers Care Molecular Spectroscopist Name Role Phone Carmina Iyer DO Primary Care Provider [phone] Reason for Visit * Reason Comments Earache Cough Headache Nasal Congestion Asthma Encounter Details Date Type Department Care Team ([facility] st Contact Info) Description 04/23/2025 1:40 PM EDT Office Visit [facility] [address] [place] [address] rBandee Miller MD [address] [place] [address] Viral URI; Bronchitis; Otitis of right ear Social History Tobacco Use Types Packs/Day Years [...] with others, in a hotel, in a custodial, living outside on the street, on a [...] the past 12 months, has t he [employer] gas, oil or water company threatened to [...] Sign Reading Time Taken Comments Blood Pressure 125/75 04/23/2025 1:30 PM EDT Pulse 108 04/23/2025 1:30 PM EDT Temperature 36.5 C (97.7 F) 04/23/2025 1:30 PM EDT Respiratory Rate 20 04/23/2025 1:30 PM EDT Oxygen Saturation 90% 04/23/2025 1:30 PM EDT Inhaled Oxygen Concentration - - Weight 59.7 kg (131 lb 9.6 oz) 04/23/2025 1:30 P M EDT Height - - Body Mass Index 23.31 11/27/2024 9:40 AM EDT documented in this encounter Progress Notes * Brandee Patten MD - 04/23/2025 1:40 PM EDT SUBJECTIVE: Salena Barolw is a 65 y.o. year old female who presents for acute visit . Acute Concerns: One month of productive cough, chest tightness, wheezing it was prescribed z pack but she continuesto have symptoms Right ear pain/oitchiness for 2 days diminish hearing and fullness, denies use of pools, lakes, baths, etc no discharge Social History Social History Narrative Not on file Problem List[1] Allergic rhinitis Anemia Anxiety Severe persistent asthma Chronic low back pain Hyperlipidemia Essential hypertension Obstructive sleep apnea Osteoarthritis Major depression, recurrent, chronic ([facility]) Type 2 diabetes mellitus ([facility]) Vitamin D deficiency BMI 27.0-27.9,adult Bronchitis Otitis of right ear Family History[2] Review of Systems Constitutional: Positive for fatigue. HENT: Positive for congestion and ear pain. Negative for dental problem, drooling, ear discharge, facial swelling, hearing loss, mouth sores, nosebleeds, postnasal drip, rhinorrhea, sinus pressure, sinus pain, sneezing, sore throat, tinnitus, trouble swallowing and voice change. Respiratory: Positive for cough, chest tightness, shortness of breath and wheezing. Negative for apnea, choking and stridor. Cardiovascular: Negative. OBJECTIVE: Vitals: 04/23/25 1330 BP: 125/75 BP Location: Right arm Patient Position: Sitting BP Cuff Size: Adult Pulse: 108 Resp: 20 Temp: 97.7 ??F (36.5 ??C) TempSrc: Temporal SpO2: 90% Weight: 131 lb 9.6 oz (59.7 kg) Physical Exam Constitutional: Appearance: Normal appearance. HENT: Ears: Comments: Erythematous ear canal in the right ear Cardiovascular: Rate and Rhythm: Normal rate and regular rhythm. Pulmonary: Effort: Pulmonary effort is normal. Breath sounds: Wheezing and rhonchi present. Abdominal: General: Abdomen is flat. Palpations: Abdomen is soft. Musculoskeletal: Right lower leg: No edema. Left lower leg: No edema. Neurological: Mental Status: She is alert. Follow Up: No follow-ups on file. Medications Ordered Prior to Encounter[3] Problem List Items Addressed This Visit Bronchitis In light that patient recently received azithromycin and did not respond to treatment I will prescribe today levofloxacin 500 mg for 5 days plus prednisone 60 mg for 5 days I also ordered an x-ray patient will be contacted with results If symptoms persist or worsen patient was instructed to reach back to us or go to the emergency room Relevant Medications levoFLOXacin (Levaquin) 250 MG tablet predniSONE (Deltasone) 20 MG tablet Other Relevant Orders XR Chest 2 Views Otitis of right ear Relevant Medications ucnblpqm-pxgiqpzwx-wxckpvdtzjeiul (Cortisporin) 3.5-26540-5 otic suspension Other Visit Diagnoses Viral URI Relevant Medications bpumsvrx-lctjawegh-jjtvxngzmyhvku (Cortisporin) 3.5-18125-8 otic suspension Other Relevant Orders POCT Rapid COVID Ag (Completed) Influenza A (ID NOW Rapid Molecular) (Completed) Influenza B (ID NOW Rapid Molecular) (Completed) [1] Patient Active Problem List Diagnosis Allergic rhinitis Anemia Anxiety Severe persistent asthma Chronic low back pain Hyperlipidemia Essential hypertension Obstructive sleep apnea Osteoarthritis Major depression, recurrent, chronic (CMS/HCC) Type 2 diabetes mellitus ([facility]) Vitamin D deficiency BMI 27.0-27.9,adult Bronchitis Otitis of right ear [2] No family history on file. [3] Current Outpatient Medications on File Prior to Visit Medication Sig Dispense Refill acetaminophen (Tylenol 8 Hour) 650 MG ER tablet take 1 Tablet by oral route every 8 hours as neededfor Pain And/Or Fever 90 tablet 2 albuterol (2.5 MG/3ML) 0.083% nebulizer solution INHALE 1 AMPULE USING A NEBULIZER EVERY 4 TO 6 HOURS NEEDED (for asthma) 90 mL 1 albuterol 108 (90 Base) MCG/ACT inhaler INHALE 2 PUFFS BY MOUTH EVERY 4 HOURS NEEDED FOR WHEEZING OR SHORTNESS OF BREATH 18 g 2 Alcohol Swabs (SM Alcohol Prep) 70 % pads USE TWICE DAILY 100 each 11 Aspirin Low Dose 81 MG EC tablet Take 81 mg by mouth in the morning. atorvastatin (Lipitor) 40 MG tablet Take 1 tablet by mouth once daily 30 tablet 11 azithromycin (Zithromax) 250 MG tablet Take 2 tabs PO today then 1 tab PO daily x 4 days 6 tablet 0 baclofen (Lioresal) 10 MG tablet TAKE 1 TABLET BY MOUTH THREE TIMES DAILY IN THE MORNING, AT NOON, AND AT BEDTIME NEEDED FOR MUSCLE SPASMS 60 tablet 1 cetirizine (ZyrTEC) 10 MG tablet Take 1 tablet (10 mg) by mouth Once per day. 30 tablet 11 clonazePAM (KlonoPIN) 0.5 MG tablet Take 1 tablet (0.5 mg) by mouth at bedtime for 28 days. 28 tablet 0 glucose blood (FREESTYLE LITE) test strip TEST BLOOD SUGAR TWICE DAILY AND NEEDED 100 strip 11 ipratropium-albuterol (Duo-Neb) 0.5-2.5 mg/3 mL nebulizer solution INHALE 1 AMPULE USING A NEBULIZER EVERY 4 TO 6 HOURS NEEDED FOR WHEEZING OR SHORTNESS OF BREATH 180 mL 3 metoprolol succinate XL (Toprol-XL) 25 MG 24 hr tablet Take 25 mg by mouth Once per day. predniSONE (Deltasone) 10 MG tablet Take 6 tabs PO daily x 2 days then 5 tabs PO daily x 2 days then 4 tabs PO daily x 2 days then 3 tabs PO daily x 2 days then 2 tabs PO daily x 2 days then 1 tab POdaily x 2 days then 1/2 tab PO daily x 2 days 43 tablet 0 Symbicort 160-4.5 MCG/ACT inhaler Inhale 2 puffs 2 times daily. 1 each 11 tiotropium (Spiriva HandiHaler) [address] 1 capsule (18 mcg) into inhaler andinhale in the morning. 30 capsule 11 triamcinolone (Nasacort) 55 MCG/ACT nasal inhaler Administer 2 sprays into each nostril Once per day. 16.5 g 11 TRUEplus Lancets 33G misc TEST BLOOD SUGAR TWICE DAILY 100 each 11 No current facility-administered medications on file prior to visit. documented in this encounter Miscellaneous Notes * Assessment & Plan Note - Brandee Patten MD - 04/23/2025 2:39 PM EDT Associated Problem(s): Bronchitis In light that patient recently received azithromycin and did not respond to treatment I will prescribe today levofloxacin 500 mg for 5 days plus prednisone 60 mg for 5 days I also ordered an x-ray patient will be contacted with results If symptoms persist or worsen patient was instructed to reach back to us or go to the emergency room documented in this encounter Plan of Treatment Not on file documented as of this encounter Procedures Procedure Name Priority Date/Time Associated Diagnosis Comments XR CHEST 2 VIEWS Routine 04/23/2025 2:56 PM EDT Bronchitis POCT INFLUENZA B (ID NOW RAPID MOLECULAR) Routine 04/23/2025 1:52 PM EDT Viral URI POCT INFLUENZA A (ID NOW RAPID MOLECULAR) Routine 04/23/2025 1:52 PM EDT Viral URI POCT RAPID COVID ANTIGEN Routine 04/23/2025 1:52 PM EDT Viral URI documented in this encounter Results * XR Chest 2 Views (04/23/2025 2:56 PM EDT) Anatomical Region Laterality Modality Chest Radiographic Airadna ging 04/23/2025 2:56 PM EDT Narrative 04/23/2025 3:03 PM EDT [address] [address] XRay Report Signed Patient: Salena Barlow MR#: [id number] 9 : 1960 Acct:[id number] Age/Sex: 65 / F ADM Date: 04/23/25 Loc: .[facility] Attending Dr: Brandee Patten MD Ordering Physician: Brandee Miller MD Date of Service: 04/23/25 Procedure(s): XR chest 2V Accession Number(s): [id number] cc: Brandee Miller MD Reason for Exam: bronchitis? EXAMINATION: XR CHEST CLINICAL INFORMATION: bronchitis? COMPARISON: November 27, 2024. TECHNIQUE: PA and lateral views FINDINGS: Pulmonary reticular nodular pattern. Hyperinflated lungs. No gross pleural effusion or pneumothorax. Cardiomediastinal silhouette size is normal. Calcified plaque thoracic aortic arch. Multilevel spondylosis. Osteopenia versus osteoporosis. Bilateral apical lung scarring. XR/XR chest 2V IMPRESSION: Chronic interstitial lung disease with possible superimposed acute small airway inflammatory processes. Underlying neoplasm cannot be excluded. Electronically signed by: Garrick Mccullough MD 04/23/2025 03:01 PM EDT RP Dictated By: Garrick Méndez MD Signed By: <Electronically signed by Garrick Gonzalez MD in OV> 04/23/25 1501 DD/ 1456 TD/TT: 04/23/251456 Commercial Estimator: Procedure Note Donotuseinterpreter, Image - 04/23/2025 [facility] [address] [place] [address] XRay Report Signed Patient: Callie Barlow#: [id number] 9 : 8Acct:[id number] Age/Sex: 65 / FADM Date: 04/23/25 Loc: HO.[facility]X Attending Dr: Brandee Patten MD Ordering Physician: Brandee Miller MD Date of Service: 04/23/25 Procedure(s): XR chest 2V Accession Number(s): [id number] cc: Brandee Miller MD Reason for Exam: bronchitis? EXAMINATION: XR CHEST CLINICAL INFORMATION: bronchitis? COMPARISON: November 27, 2024. TECHNIQUE: PA and lateral views FINDINGS: Pulmonary reticular nodular pattern. Hyperinflated lungs. No gross pleural effusion or pneumothorax. Cardiomediastinal silhouette size is normal. Calcified plaque thoracic aortic arch. Multilevel spondylosis. Osteopenia versus osteoporosis. Bilateral apical lung scarring. XR/XR chest 2V IMPRESSION: Chronic interstitial lung disease with possible superimposed acute small airway inflammatory processes. Underlying neoplasm cannot be excluded. Electronically signed by: Garrick Mccullough MD 04/23/2025 03:01 PM EDT Dictated By: Garrick Méndez MD Signed By: <Electronically signed by Garrick Gonzalez MDin OV> 04/23/25 1501 DD/ 1456 TD/TT: 04/23/251456 Commercial Estimator: us Brandee Patten MD IMG XR PROCEDURES David sánchez Result - Final * Influenza B (ID NOW Rapid Molecular) (04/23/2025 1:52 PM EDT) Influenza B Negative Negative, Indeterminate [facility] Swab 04/23/2025 1:52 PM EDT us Brandee Patten MD POINT OF CARE TEST EN TER/EDIT ORDERABLES Final Result Performing Organization Address [facility] Co de Phone Number [facility] [address] [place] [phone] * Influenza A (ID NOW Rapid Molecular) (04/23/2025 1:52 PM EDT) Influenza A Negative Negative, Indeterminate [facility] Swab 04/23/2025 1:52 PM EDT Brandee Patten MD POINT OF CARE TEST EN TER/EDIT ORDERABLES Final Result Performing Organization Address [facility] [address] [facility] Co de Phone Number [facility] [address] [place] [phone] * POCT Rapid COVID Ag (04/23/2025 1:52 PM EDT) Rapid COVID Ag Negative [facility] Swab 04/23/2025 1:52 PM EDT us Brandee Patten MD POINT OF CARE TEST EN TER/EDIT ORDERABLES Final Result Performing Organization Address [facility] [address] [facility] Co de Phone Number [facility] [address] [place] [phone] documented in this encounter Visit Diagnoses Diagnosis Viral URI Acute upper respiratory infections of unspecified site Bronchitis Bronchitis, not specified as acute or chronic Otitis of right ear documented in this encounter Additional Health Concerns Assessment Noted Time PHQ-9 Depression Total Score: 0 06/08/20 24 10:04 AM EDT documented as of this encounter Care Teams Molecular Spectroscopist Relationship Specialty Start Date End Date Carmina Iyer DO [address] [place] [phone] PCP - General Family Medicine 05/01/24 documented as of this encounter
--- OUTSIDE RECORDS SUMMARY | 2025-04-23 18:06 | XMS_ITS | Encounter Summary ---
Author Organization [employer] Address [address] [facility] [address] [place] [address] Care Team Providers Care Lead Software Qa Engineer Name Role Phone Carmina Iyer DO Primary Care Provider [phone]- [phone] Reason for Visit * Reason Onset Date Comments Med Refill 03/27/2025 Encounter Details Date Type Department Care Team ([facility] st Contact Info) Description 03/27/[address] [facility] [address] [place] [address] Carmina Iyer DO [address] [place] [address] Med Refill Social History Tobacco Use Types [...] 2:06 PM EDT Medication was sent to [facility] on 12/25/24 with 11 refills. * Telephone Encounter - Lissett Hayes - 03/27/2025 2:02 PM EDT TC from pt requesting medication refill. Medications needing refill : triamcinolone (Nasacort) 55 MCG/ACT nasal inhaler To be sent to: [facility] [place] - [address] documented in this encounter Plan of Treatment Not on file documented as of this encounter Visit Diagnoses Not on filedocumented in this encounter Additional Health Concerns Assessment Noted Time PHQ-9 Depression Total Score: 0 06/08/20 10:04 AM EDT documented as of this encounter Care Teams Lead Software Qa Engineer Relationship Specialty Start Date End Date Carmina Iyer DO [address] [place] [address] PCP - General Family Medicine 05/01/24 documented as of this encounter
--- OUTSIDE RECORDS SUMMARY | 2025-04-23 18:07 | XMS_ITS | Clinical Summary ---
Author Organization [employer] Address [address] [facility] 7t [place] [address] Care Team Providers Care Arborer Name Role Phone Carmina Iyer DO Primary Care Provider Allergies No known active [...] day. 30 tablet 11 024 2024 Active Symbicort 160-4.5 MCG/ACT inhalerIndication s:Severe persistent asthma without complication Inhale 2 puffs 2 times daily. 1 each Active tiotropium (Spiriva HandiHaler) 18 MCG inhalation [...] daily x 4 days 6 tablet Active triamcinolone (Nasacort) 55 MCG/ACT nasal inhaler Administer 2 sprays into each nostril Once per day. 16.5 g Active atorvastatin (Lipitor) 40 MG tabletIndications :Hyperlipidemia, unspecified hyperlipidemia type Take 1 tablet by mouth once daily 30 tablet Active ipratropium-albut katharine (Duo-Neb) 0.5-2.5 mg/3 mL nebulizer solutionIndicatio ns:Severe persistent asthma with acute exacerbation INHALE 1 AMPULE USING A NEBULIZER EVERY 4 TO 6 HOURS NEEDED FOR WHEEZING OR SHORTNESS OF BREATH 180 mL 3 Active albuterol (2.5 MG/3ML) 0.083% nebulizer solution INHALE 1 AMPULE USING A NEBULIZER EVERY 4 TO 6 HOURS NEEDED (for asthma) 90 mL 1 Active albuterol 108 (90 Base) MCG/ACT inhalerIndication s:Asthma with COPD ([facility]) INHALE 2 PUFFS BY MOUTH EVERY 4 HOURS NEEDED FOR WHEEZING OR SHORTNESS OF BREATH 18 g 2 Active clonazePAM (KlonoPIN) 0.5 MG tabletIndications :Anxiety Take 1 tablet (0.5 mg) by mouth at bedtime for 28 days. 28 tablet 025 2024 Active levoFLOXacin (Levaquin) 250 MG tabletIndications :Bronchitis Take 2 tablets (500 mg) by mouth Once per day for 5 days. 10 tablet 025 2024 Active predniSONE (Deltasone) 20 MG tabletIndications :Bronchitis Take 3 tablets (60 mg) by mouth Once per day for 5 days. 15 tablet 025 2024 Active neomycin-polymyxi n-hydrocortisone (Cortisporin) 3.5-07474-7 otic suspensionIndicat ions:Otitis of right ear Administer 3-4 drops into affected ear(s) 4 times daily for 10 days. 10 mL 025 2024 Active albuterol 108 (90 Base) MCG/ACT inhalerIndication s:Asthma with COPD ([facility]) INHALE 2 PUFFS BY MOUTH EVERY 4 HOURS NEEDED FOR WHEEZING OR SHORTNESS OF BREATH 18 g 2 025 2024 Discontinued(R eorder (will not trigger notification to Pharmacy)) ipratropium-albut katharine (Duo-Neb) 0.5-2.5 mg/3 mL nebulizer solutionIndicatio ns:Severe persistent asthma with acute exacerbation Take 3 mL by nebulization Every 4-6 hours as needed for wheezing or shortness of breath. 180 mL 3 025 2024 Discontinued albuterol (2.5 MG/3ML) 0.083% nebulizer solution INHALE 1 AMPULE USING A NEBULIZER EVERY 4 TO 6 HOURS NEEDED (for asthma) 90 mL 1 025 2024 Discontinued(R eorder (will not trigger notification to Pharmacy)) clonazePAM (KlonoPIN) 0.5 MG tabletIndications :Anxiety Take 1 tablet (0.5 mg) by mouth at bedtime for 28 days. Do not start before March 12, 2025. 28 tablet 025 2024 Discontinued(R eorder (will not trigger notification to Pharmacy)) Active Problems Problem Noted Date Diagnosed Date Bronchitis 04/23/2025 Assessment & Plan (04/23/2025 2:39 PM EDT): In light that patient recently received azithromycin and did not respond to treatment I will prescribe today levofloxacin 500 mg for 5 days plus prednisone 60 mg for 5 days I also ordered an x-ray patient will be contacted with results If symptoms persist or worsen patient was instructed to reach back to us or go to the emergency room Otitis of right ear 04/23/2025 BMI 27.0-27.9,adult 05/30/2023 Allergic rhinitis 11/17/2015 Anemia [...] Encounters Date Type Department Care Team Description 04/23/2025 1:40 PM EDT Office Visit [facility] [address] [place] [phone] Brandee Miller MD Viral URI; Bronchitis; Otitis of right ear 04/23/2025 Results Follow-Up [facility] [address] [place] [address] Brandee Miller MD XR Chest 2 Views 04/23/2025 Travel 04/16/2025 Telephone [facility] [address] [place] [address] Carmina Iyer, Medication Question 04/10/2025 Refill [facility] [address] [place] [address] Carmina Iyer, DO Asthma with COPD ([facility]) 04/10/2025 Refill [facility] [address] [place] [address] Carmina Iyer, Anxiety 03/27/2025 Telephone [facility] [address] [place] [address] Carmina Iyer, DO Med Refill 03/24/2025 Refill [facility] [address] [place], [place] [address], [place] [address] Carmina Iyer, Severe persistent asthma with acute exacerbation 03/18/2025 Orders Only [facility] [address] [facility] [place] [address] Carmina Iyer, DO 03/11/2025 Refill [facility] [address] [place] [address] Carmina Iyer, DO 03/07/2025 Refill [facility] [place] [address] Carmina Iyer, DO Anxiety 03/07/2025 Telephone [facility] [address] [place] [address] Carmina Iyer, Med Refill 02/13/2025 Telephone [facility] [address] [place] [address] Carmina Iyer, DO Medication Question 02/04/2025 Telephone [facility] [address] [place] [address] Carmina Iyer, PHONE CALL - SURGEON ASSISTANT CONTRACT 02/04/2025 Telephone [facility] [address] [place] [address] Carmina Iyer, telephone call 02/04/2025 Refill [facility] [address] [place] [address] Brandee Miller MD Anxiety 02/04/2025 Results Follow-Up [facility] [address] [place] [address] Kendal Bustamante RN T4, Free, Vitamin D, 25-Hydroxy, Total, Immunoassay, Lipid Panel, Standard, Additional followed-up results: 6 02/01/2025 Telephone [facility] [address] [place] [address] Carmina Iyer, Referral 01/31/2025 Telephone [facility] [address] [place] [address] Carmina Iyer, telephone call 01/30/2025 Refill [facility] [address] [place] [address] Carmina Iyer, DO Anxiety 01/22/2025 Refill [facility] [address] [place] [address] Carmina Iyer, DO Anxiety from Last 3 Months Immunizations [...] with others, in a hotel, in a nursing home, living outside on the street, on [...] the past 12 months, has t he [employer], gas, oil or water company threatened to [...] oz) 04/23/2025 1:30 P M EDT Height 160 cm (5' 3 ) 11/27/2024 9:40 AM EDT Body Mass Index 23.31 11/27/2024 9:40 AM EDT Plan of Treatment [...] Additional history exists COVID-19 Vaccine ( season) 2025 06/08/2024, 05/30/2023, 03/10/2023, Additional history exists Influenza Vaccine (#1) 2025 , 03/25/2021, 06/02/2019, Additional history exists SDOH Screening 05/01/2025 05/01/2024 Depression Screening 06/08/2025 06/08/2024, 06/08/20 Diabetes: Hemoglobin A1C 06/29/2025 025, 11/27/2024, 05/01/2024, Additional history exists Tobacco Screening 11/27/2025 11/27/2024 Diabetes: Urine Protein Screening 12/27/2025 12/27/2024, 05/30/2023, 04/02/2022, Additional history exists Lipid Panel 12/27/2025 12/27/2024, 05/09, 04/02/2022, Additional history exists Mammogram 03/18/2027 03/18/2025, 0812/2023, 03/11/2023, Additional history exists DTaP/Tdap/Td Vaccines (3 - [...] Routine 04/23/2025 1:52 PM EDT Viral URI BI MAMMOGRAM SCREENING TOMOSYNTHESIS BILATERAL Routine 03/18/2025 12:46 PM EDT ALBUMIN, RANDOM URINE W/CREATININE Routine 12/27/2024 8:46 AM EDT Type 2 diabetes mellitus without complication, without long-term current use of insulin ([facility]) HEMOGLOBIN A1C Routine 12/27/2024 8:46 AM EDT [...] Maintenance Results * XR Chest 2 Views (04/23/2025 2:56 PM EDT) Anatomical Region Laterality Modality Chest Radiographic Ariadna ging 04/23/2025 2:56 PM EDT Narrative 04/23/2025 3:03 PM EDT [facility] [address] [place] [address] XRay Report Signed Patient: Salena Barlow MR#: [id number] 9 : 1960 Acct:[id number] Age/Sex: 65 / F ADM Date: 04/23/25 [facility]: Brandee Patten MD Ordering Physician: Brandee Miller MD Date of Service: 04/23/25 Procedure(s): XR chest 2V Accession Number(s): [id number] cc: Brandee Miller MD Reason for Exam: [...] in OV> 04/23/25 1501 DD/ 1456 TD/TT: 04/23/25 1457 Commercial Baker Helper: Procedure Note Donotuseinterpreter, Image - 04/23/2025 [facility] [address] [place] [address] XRay Report Signed Patient: Callie Barlow#: [id number] 9 : 8Acct:[id number] Age/Sex: 65 / FADM Date: 04/23/25 Loc: .HHX Attending Dr: Brandee Patten MD Ordering Physician: Brandee Miller MD Date of Service: 04/23/25 Procedure(s): XR chest 2V Accession Number(s): [id number] cc: Brandee Miller MD Reason for Exam: [...] MDin OV> 04/23/25 1501 DD/ 1456 TD/TT: 04/23/25 1457 Commercial Baker Helper: us Brandee Patten MD IMG XR PROCEDURES David sánchez Result - Final * Influenza B (ID NOW Rapid Molecular) (04/23/2025 1:52 PM EDT) Influenza B Negative Negative, Indeterminate [facility] Swab 04/23/2025 1:52 PM EDT us Brandee Patten MD POINT OF CARE TEST EN TER/EDIT ORDERABLES Final Result [facility] [address] [place] [address] [phone] * Influenza A (ID NOW Rapid Molecular) (04/23/2025 1:52 PM EDT) Influenza A Negative Negative, Indeterminate [facility] Swab 04/23/2025 1:52 PM EDT us Brandee Patten MD POINT OF CARE TEST EN TER/EDIT ORDERABLES Final Result Performing Organization Address [facility] Co de Phone Number [facility] [address] [place] [address] [phone] * POCT Rapid COVID Ag (04/23/2025 1:52 PM EDT) Rapid COVID Ag Negative [facility] Swab 04/23/2025 1:52 PM EDT us Brandee Patten MD POINT OF CARE TEST EN TER/EDIT ORDERABLES Final Result Performing Organization Address [facility] Co de Phone Number [facility] [address] [place] [phone] * BI Mammogram Screening Tomosynthesis Bilateral (03/18/2025 12:46 PM EDT) Anatomical Region Laterality Modality Breast Bilateral Mammography 03/18/2025 12:4 6 PM EDT Narrative 03/26/2025 9:04 AM EDT [facility] [address] [place] [address] Mammography Report Signed Patient: Salena Barlow MR#: [id number] 9 : 1960 Acct:[id number] Age/Sex: 64 / F ADM Date: 03/18/25 Loc: HO.MAMMO Attending Dr: Carmina Iyer DO Ordering Physician: Carmina Iyer DO Results: 1N egative Date of Service: 03/18/25 Follow Up: 1 Year From Orig inal Mammogram Procedure(s): MM tomosynthesis screening BI Accession Number(s): [id number] cc: Carmina Iyer DO EXAMINATION: MM SCREENING DIGITAL BREAST TOMOSYNTHESIS, BILATERAL CLINICAL INFORMATION: Screening. Asymptomatic. COMPARISON: Mammography: Comparison is made with available priors TECHNIQUE: Digital breast mammography with tomosynthesis is performed in both the craniocaudal and mediolateral oblique views along with computer-aided detection (CAD). FINDINGS: There are scattered areas of fibroglandular density (ACR BI-RADS breast composition Category b). There are no significant masses, abnormal calcifications, or other abnormalities. MM/MM tomosynthesis screening BI IMPRESSION: No mammographic evidence of malignancy. ASSESSMENT: BI-RADS BI-RADS 1 - Negative RECOMMENDATION: Routine annual mammography screening. 1 year F/U This examination should not preclude the clinical evaluation of a suspicious palpable abnormality. This patient's information was entered into a reminder system with a target due date for their next mammogram. Electronically signed by: Tiny Bates DO 03/26/2025 09:01 AM EDT Dictated By: Tiny Bates DO Signed By: <Electronically signed by Tiny Bates DO in OV> 03/26/25 0901 DD/ 1246 TD/TT: 03/18/25 1315 Commercial Baker Helper: Procedure Note Donotuseinterpreter, Image - 03/26/2025 [facility] [address] [place], [place] [address] Mammography Report Signed Patient: Callie Barlow#: [id number] 9 : 8Acct:[id number] Age/Sex: 64 / FADM Date: 03/18/25 Loc: HO.MAMMO Attending Dr: Carmina Iyer DO Ordering Physician: Carmina Iyerults: 1N egative Date of Service: 03/18/25Follow Up: 1 Year From Orig inal Mammogram Procedure(s): MM tomosynthesis screening BI Accession Number(s): [id number] cc: Carmina Iyer DO EXAMINATION: MM SCREENING DIGITAL BREAST TOMOSYNTHESIS, BILATERAL CLINICAL INFORMATION: Screening. Asymptomatic. COMPARISON: Mammography: Comparison is made with available priors TECHNIQUE: Digital breast mammography with tomosynthesis is performed in both the craniocaudal and mediolateral oblique views along with computer-aided detection (CAD). FINDINGS: There are scattered areas of fibroglandular density (ACR BI-RADS breast composition Category b). There are no significant masses, abnormal calcifications, or other abnormalities. MM/MM tomosynthesis screening BI IMPRESSION: No mammographic evidence of malignancy. ASSESSMENT: BI-RADS BI-RADS 1 - Negative RECOMMENDATION: Routine annual mammography screening. 1 year F/U This examination should not preclude the clinical evaluation of a suspicious palpable abnormality. This patient's information was entered into a reminder system with a target due date for their next mammogram. Electronically signed by: Tiny Bates DO 03/26/2025 09:01 AM EDT Dictated By: Tiny Bates DO Signed By: <Electronically signed by Tiny Bates DO in OV> 03/26/25 0901 DD/ 1246 TD/TT: 03/18/25 1315 Commercial Baker Helper: us Carmina Iyer DO IMG BI PROCEDURES Final Resu lt * Albumin, Random Urine W/Creatinine (12/27/2024 8:46 AM EDT) Creatinine, Urine 179.35 mg/dL [facility] Microalbumin Urine 9.0 mg/L [facility] Microalbum Creatinine Ratio Ur 5.0 <30 ug/mg cr [facility] Comment:Albumin/Creatinine R atio Reference Ranges: Normal: < 30 ug/mg creatinine Microalbuminuria: 30 - 300 ug/mg creatinineClinical Albuminuria: > 300 ug/mg creatinine Urine (Urine, Random) 12/27/2024 8:46 AM EDT 12/27/2024 11:06 AM EDT us Carmina Jaylon DO LAB URINE ORDERABLES Final R esult Performing Organization Address City/[facility]/ZIP Co de Phone Number [facility] [address] [place] [address] [phone] * Hemoglobin A1c (12/27/2024 8:46 AM EDT) Hemoglobin A1c 5.6 <6.0 % [facility] Comment:Hemoglobin A1C Refer ence Range Adults: 4.8 - 6.0 % Non diabetic: < 6.0 % Goal: < 7.0 %Additional Action Suggested: > 8.0 %Note: Hemoglobin A1c results are invalid for patients with abnormal amounts of HbF. Blood transfusions may impact the HbA1c concentration in the patient sample. Estimated Average Glucose 114 mg/dL [facility] Comment:eAG = Estimated ave rage glucose which is %A1C expressed asaverage glucose, using the formula of the [id number] Glucose study (ADAG), Diabetes Care, Vol.31,#8,Mar. 2007 Blood Venous blood specimen / Unknown 12/27/2024 8:46 AM EDT 12/27/2024 11:04 AM EDT us Carmina Monroydarrynjeremy DO LAB BLOOD ORDERABLES Final R esult Performing Organization Address City/[facility]/ZIP Co de Phone Number [facility] [address] [place] [phone] * (ABNORMAL) Lipid Panel, Standard (12/27/2024 8:46 AM EDT) Triglycerides 137 <150 mg/dL [facility] Comment:Desirable Triglyceri de: less than 150 mg/dLBorderline High Triglyceride 150-199 mg/dLHigh Triglyceride: 200-499 mg/dLVery High Triglyceride: greater than or equal to 5OO mg/dL Cholesterol 338(H) <200 mg/dL [facility] Comment:Desirable Cholestero l: less than 200 mg/dLBorderline High Cholesterol: 200-239 mg/dLHigh Cholesterol: greater than 239 mg/dL LDL Cholesterol Calculated 243(H) <100 mg/dL [facility] Comment:Desirable LDL: less than 100 mg/dLNear Optimal/Above Optimal LDL: 110- 129 mg/dLBorderline High LDL: 130-159 mg/dLHigh LDL: 160-189 mg/dLVery High LDL: greater than or equal to 190 mg/dL HDL Cholesterol 68 >40 mg/dL [facility] Comment:Desirable HDL: great er than 40 mg/dL Note: This HDL assay may give artificially low results in patients with liver disease. Blood Venous blood specimen / Unknown 12/27/2024 8:46 AM EDT 12/27/2024 11:04 AM EDT Carmina Iyer DO LAB BLOOD ORDERABLES Final R esult [facility] [address] [place] [phone] * THINPREP TIS PAP (02/20/2021 9:24 [...] has been evaluated with computer assisted technology. [facility] Inner Diameter Grinder Tool: SEE COMMENT [facility] Comment: HJP, CT(ASCP) CT screening location: [address] [address] Interpretation/Res ult: SEE COMMENT [facility] Comment: Negative for intraepithelial lesion or malignancy. Atrophic pattern; predominantly parabasal cells LMP: [facility]ONE [facility] Prev. BX: NONE [facility] Prev. PAP: NONE [facility] SOURCE: [employer] [facility] Statement Of Adequacy: SATISFACTORY FOR EVALUATION [facility] 02/20/2021 9:24 AM EDT Carmina Jaylon DO LAB PATHOLOGY ORDERABLES Fin al Result Performing Organization Address [facility] de Phone Number [facility] [address] * HPV mRNA E6/E7 REFLEX TO HPV 16, 18/45 (02/20/2021 9:24 AM EDT) HPV nRNA E6/E7 Not Detected Not Detected [facility] Comment: Methodology: [employer] Clocks Repairer-Mediated Amplification This assay detects E6/E7 viral messenger RNA (mRNA) from 14 high-risk HPV types (16,18,31,33,35,39,45,51,52,56,58,59,66,68). The analytical performance characteristics of this assay have been determined by [employer]. The modifications have not been cleared or approved by the FDA. This assay has been validated pursuant to the CLIA regulations and is used for clinical purposes. For additional information, please refer to http://education.[employer]/faq/QUS705x0 (This link if provided for information/ educational purposes only.) 02/20/2021 9:24 AM EDT Carmina Jaylon HAJI LAB CYTOLOGY ORDERABLES Mandy l Result Performing Organization Address [facility] de Phone Number [facility] [address] * Hm Colonoscopy (06/19/2015 2:13 PM EST) Historical Provider HEALTH MAINTENANCE Final Result from Last 3 Months or Most Recently Relevant to Health Maintenance Insurance [employer] MEDICARE REPLACEMENT N PARTIAL Care Teams Arborer Relationship Specialty Start Date End Date Carmina Iyer DO [address] [place] [phone] PCP - General Family Medicine 05/01/24
--- OUTSIDE RECORDS SUMMARY | 2025-04-23 18:07 | XMS_ITS | Encounter Summary ---
Author Organization [employer] Address [address] [facility] [facility] [address] [facility] [address] [place] [address] Care Team Providers Care Instrumentation Technician Name Role Phone Arely Iyerfer Primary Care Provider [phone] Encounter Details Date Type Department Care Team ([facility] st Contact Info) Description 04/23/2025 Results Follow-Up [facility] [address] [place] [address] Brandee Miller MD [address] [place] [address] XR Chest 2 Views Social History Tobacco Use Types Packs/Day Years [...] with others, in a hotel, in a skilled nursing, living outside on the street, on a [...] documented as of this encounter Care Teams Instrumentation Technician Relationship Specialty Start Date End Date Carmina Iyer DO [address] [place] [phone] PCP - General Family Medicine 05/01/24 documented as of this encounter
--- OUTSIDE RECORDS SUMMARY | 2025-04-23 18:07 | XMS_ITS | Encounter Summary ---
Author Organization [employer] Address [address] [facility] [address] [place] [address] Care Team Providers Care Business Analysis Specialist Name Role Phone Carmina Iyer DO Primary Care Provider + [phone] Carmina Iyer DO Primary Care Provider + [phone] Reason for Visit * Reason Onset Date Comments Results 09/05/2023 Encounter Details Date Type Department Care Team ([facility] st Contact Info) Description 09/05/2023 Telephone [facility] [address] [place] [address] Carmina Iyer DO [address] [place], [place] [phone] Results Social History Tobacco Use Types Packs/Day [...] problems with any of the following? Lead [place] or P[employer] 05/19/2023 Food Insecurity Answer Date [...] results: labs Date when done: 09/02 Facility: [facility] Please contact pt at [phone] TC returned to pt and a message [...] results: labs Date when done: 09/02 Facility: [facility] Please contact pt at [phone] documented in this encounter Plan of Treatment Not on file documented as of this encounter Visit Diagnoses Not on filedocumented in this encounter Additional Health Concerns Assessment Noted Time PHQ-9 Depression Total Score: 1 12/02/19 23 9:05 AM EDT documented as of this encounter Care Teams Business Analysis Specialist Relationship Specialty Start Date End Date Carmina Iyer DO [address] [place] [address] PCP - General Family Medicine 02/05/13 01/30/24 Carmina Iyer DO [address] [place] [address] PCP - General Family Medicine 05/01/24 documented as of this encounter
--- OUTSIDE RECORDS SUMMARY | 2025-04-23 18:07 | XMS_ITS | Encounter Summary ---
Author Organization [employer] Address [address] [facility] 7t [place] [address] Care Team Providers Care General Laborer Name Role Phone Carmina Iyer DO Primary Care Provider [phone] Reason for Visit * Reason Comments Med Refill Encounter Details Date Type Department Care Team ([facility] Contact Info) Description 08/02/2024 Refill [facility] [address] [place] [address] Carmina Iyer DO [address] [place] [address] Social History Tobacco Use Types Packs/Day Years [...] documented as of this encounter Care Teams General Laborer Relationship Specialty Start Date End Date Carmina Iyer DO [address] [place] [phone] PCP - General Family Medicine 05/01/24 documented as of this encounter
--- OUTSIDE RECORDS SUMMARY | 2025-04-23 18:07 | XMS_ITS | Encounter Summary ---
Author Organization [employer] Address [address] [facility] 7t [place] [address] Care Team Providers Care Carport Erector Name Role Phone Carmina Iyer DO Primary Care Provider [phone] Reason for Visit * Reason Comments Med Refill Encounter Details Date Type Department Care Team ([facility] st Contact Info) Description 08/10/2024 Refill [facility] [address] [place] [address] Carmina Iyer DO [address] [place] [address] Anxiety Social History Tobacco Use Types Packs/Day [...] documented as of this encounter Care Teams Carport Erector Relationship Specialty Start Date End Date Carmina Iyer DO [address] [place] [address] PCP - General Family Medicine 05/01/24 documented as of this encounter
--- OUTSIDE RECORDS SUMMARY | 2025-04-23 18:07 | XMS_ITS | Encounter Summary ---
Author Organization [employer] Address [address] 7[address] [place] [address] Care Team Providers Care Farmer Vegetable Name Role Phone Carmina Iyer DO Primary Care Provider + [phone] Carmina Iyer DO Primary Care Provider + [phone] Encounter Details Date Type Department Care Team ([facility] st Contact Info) Description 08/25/2023 Telephone [facility] MEDICINE [address] [place] [address] Carmina Iyer DO [address] [place] [address] Social History Tobacco Use Types Packs/Day Years [...] problems with any of the following? Lead [place] or Pipes 05/19/2023 Food Insecurity Answer Date [...] documented as of this encounter Care Teams Farmer Vegetable Relationship Specialty Start Date End Date Carmina Iyer DO [address] [place] [address] PCP - General Family Medicine 02/05/13 01/30/24 Carmina Iyer DO [address] [place] [address] PCP - General Family Medicine 05/01/24 documented as of this encounter
--- OUTSIDE RECORDS SUMMARY | 2025-04-23 18:07 | XMS_ITS | Encounter Summary ---
Author Organization [employer] Address [address] [facility] 7t [place] [address] Care Team Providers Care Floor Layer Apprentice Name Role Phone Carmina Iyer DO Primary Care Provider + [phone] Carmina Iyer DO Primary Care Provider + [phone] Reason for Visit * Reason Onset Date Comments Med Refill 02/10/2023 Encounter Details Date Type Department Care Team (Late st Contact Info) Description 02/10/2023 Telephone [facility] MEDICINE [address] [place] [address] Carmina Iyer DO [address] [place], [place] [phone] Med Refill Social History Tobacco Use Types [...] as of this encounter Care Teams Floor Layer Apprentice Relationship Specialty Start Date End Date Carmina Iyer DO [address] [place] [address] PCP - General Family Medicine 02/05/13 01/30/24 Carmina Iyer DO [address] [place] [address] PCP - General Family Medicine 05/01/24 documented as of this encounter
--- OUTSIDE RECORDS SUMMARY | 2025-04-23 18:07 | XMS_ITS | Encounter Summary ---
Author Organization [employer] Address [address] 7[address] [place] [address] Care Team Providers Care Deputy Coroner Investigator Name Role Phone Carmina Iyer DO Primary Care Provider + [phone] Carmina Iyer DO Primary Care Provider + [phone] Encounter Details Date Type Department Care Team (Late st Contact Info) Description 11/17/2023 Orders Only [facility] MEDICINE [address] [place] [address] ProviderJosh MD Social History Tobacco Use Types [...] problems with any of the following? Lead [place] or Pipes 05/19/2023 Food Insecurity Answer Date [...] documented as of this encounter Care Teams Deputy Coroner Investigator Relationship Specialty Start Date End Date Carmina Iyer DO [address] [place] [address] PCP - General Family Medicine 02/05/13 01/30/24 Carmina Iyer DO [address] [place] [address] PCP - General Family Medicine 05/01/24 documented as of this encounter
--- OUTSIDE RECORDS SUMMARY | 2025-04-23 18:07 | XMS_ITS | Encounter Summary ---
Author Organization [employer] Address [address] [facility] 7t [place] [address] Care Team Providers Care Loader Operator/Ground Leader Name Role Phone Carmina Iyer DO Primary Care Provider +[phone]- [phone] Reason for Visit * Reason Comments Med Refill Encounter Details Date Type Department Care Team ([facility] Contact Info) Description 01/14/2025 Refill [facility] MEDICINE [address] [place] [address] Carmina Iyer DO [address] [place] [address] Anxiety Social History Tobacco Use Types Packs/Day [...] documented as of this encounter Care Teams Loader Operator/Ground Leader Relationship Specialty Start Date End Date Carmina Iyer DO [address] [place] [address] PCP - General Family Medicine 05/01/24 documented as of this encounter
--- OUTSIDE RECORDS SUMMARY | 2025-04-23 18:07 | XMS_ITS | Encounter Summary ---
Author Organization [employer] Address [address] [facility] [facility] [address] 7t [place] [address] Care Team Providers Care Wharf Operator Name Role Phone Carmina Iyer DO Primary Care Provider + [phone] Carmina Iyer DO Primary Care Provider + [phone] Reason for Visit * Reason Comments Med Refill Encounter Details Date Type Department Care Team ([facility] st Contact Info) Description 05/27/2023 Refill [facility] MEDICINE [address] [place] [address] Carmina Iyer DO [address] [place] [address] Social History Tobacco Use Types Packs/Day Years [...] problems with any of the following? Lead [place] or Pipes 05/19/2023 Food Insecurity Answer Date [...] documented as of this encounter Care Teams Wharf Operator Relationship Specialty Start Date End Date Carmina Iyer DO [address] [place] [address] PCP - General Family Medicine 02/05/13 01/30/24 Carmina Iyer DO [address] [place] [address] PCP - General Family Medicine 05/01/24 documented as of this encounter
--- OUTSIDE RECORDS SUMMARY | 2025-04-23 18:07 | XMS_ITS | Encounter Summary ---
Author Organization [employer] Address [address] [facility] 7t [place] [address] Care Team Providers Care Trade Show Coordinator Name Role Phone Carmina Iyer DO Primary Care Provider [phone] Carmina Iyer DO Primary Care Provider +[phone] Reason for Visit * Reason Onset Date Comments Med Refill 08/16/2022 Encounter Details Date Type Department Care Team (Late st Contact Info) Description 08/16/[address] [facility] MEDICINE [address] [place] [address] Carmina Iyer DO [address] [place], [place] [phone] Anxiety Social History Tobacco Use Types Packs/Day [...] unspecified documented in this encounter Care Teams Trade Show Coordinator Relationship Specialty Start Date End Date Carmina Iyer DO [address] [place] [address] PCP - General Family Medicine 02/05/13 01/30/24 Carmina Iyer DO [address] [place] [address] PCP - General Family Medicine 05/01/24 documented as of this encounter
--- OUTSIDE RECORDS SUMMARY | 2025-04-23 18:07 | XMS_ITS | Encounter Summary ---
Author Organization [employer] Address [address] [facility] [address] 7t [place] [address] Care Team Providers Care Project Management Intern Name Role Phone Sandrajeremy Carmina Primary Care Provider +[phone] Encounter Details Date Type Department Care Team (Latest Contact Info) Description 04/23/2025 Travel Social History Tobacco Use Types Packs/Day [...] as of this encounter Care Teams Project Management Intern Relationship Specialty Start Date End Date Carmina Iyer DO [address] [place] [address] PCP - General Family Medicine 05/01/24 documented as of this encounter
--- OUTSIDE RECORDS SUMMARY | 2025-04-23 18:07 | XMS_ITS | Encounter Summary ---
Author Organization [employer] Address [address] 7[address] [place] [address] Care Team Providers Care Lobsterman Name Role Phone Carmina Iyer DO Primary Care Provider + [phone] Carmina Iyer DO Primary Care Provider + [phone] Reason for Visit * Reason Onset Date Comments Durable Medical Equipment 08/30/2023 Encounter Details Date Type Department Care Team (Late st Contact Info) Description 08/30/2023 Telephone [facility] MEDICINE [address] [place] [address] Carmina Iyer DO [address] [place], [place] [phone] Durable Medical Equipment Social History Tobacco Use [...] problems with any of the following? Lead [place] or Pipes 05/19/2023 Food Insecurity Answer Date [...] documented as of this encounter Care Teams Lobsterman Relationship Specialty Start Date End Date Camrina Iyer DO [address] [place] [address] PCP - General Family Medicine 02/05/13 01/30/24 Carmina Iyer DO [address] [place] [address] PCP - General Family Medicine 05/01/24 documented as of this encounter
--- OUTSIDE RECORDS SUMMARY | 2025-04-23 18:07 | XMS_ITS | Encounter Summary ---
Author Organization [employer] [facility] Address [address] [place] [address] 7 [place] [address] Care Team Providers Care Online Media Buyer Name Role Phone Carmina Iyer DO Primary Care Provider [phone] Carmina Iyer DO Primary Care Provider +[phone] Reason for Visit * Reason Comments Med Refill Encounter Details Date Type Department Care Team (Late st Contact Info) Description 10/15/2022 Refill [facility] MEDICINE [address] [place] [address] Carmina Iyer DO [address] [place] [address] Anxiety Social History Tobacco Use Types Packs/Day [...] unspecified documented in this encounter Care Teams Online Media Buyer Relationship Specialty Start Date End Date Carmina Iyer DO [address] [place] [address] PCP - General Family Medicine 02/05/13 01/30/24 Carmina Iyer DO [address] [place] [address] PCP - General Family Medicine 05/01/24 documented as of this encounter
--- OUTSIDE RECORDS SUMMARY | 2025-04-23 18:07 | XMS_ITS | Encounter Summary ---
Author Organization [employer] Address [address] [facility] 7 [place] [address] Care Team Providers Care Him Analyst Name Role Phone Carmina Iyer DO Primary Care Provider +[phone]- [phone] Reason for Visit * Reason Onset Date Comments Med Refill 03/07/2025 Encounter Details Date Type Department Care Team ([facility] st Contact Info) Description 03/07/2025 Telephone [facility] MEDICINE [address] [place] [address] Carmina Iyer DO [address] [place] [address] Med Refill Social History Tobacco Use Types [...] with others, in a hotel, in a detention, living outside on the street, on a [...] Telephone Encounter - Carmina Graham LPN - 03/07/2025 3:26 PM EDT Medications requested have refills please advise patient to call the pharmacy. * Telephone Encounter - Marques Marcano - 03/07/2025 3:24 PM EDT TC from pt requesting medication refill. Medications needing refill : Symbicort 160-4.5 MCG/ACT inhaler triamcinolone (Nasacort) 55 MCG/ACT nasal inhaler To be sent to: [facility] documented in this encounter Plan of Treatment Not on file documented as of this encounter Visit Diagnoses Not on filedocumented in this encounter Additional Health Concerns Assessment Noted Time PHQ-9 Depression Total Score: 0 06/08/20 10:04 AM EDT documented as of this encounter Care Teams Him Analyst Relationship Specialty Start Date End Date Carmina Iyer DO [address] [place] [address] PCP - General Family Medicine 05/01/24 documented as of this encounter
--- OUTSIDE RECORDS SUMMARY | 2025-04-23 18:07 | XMS_ITS | Encounter Summary ---
Author Organization [employer] Address [address] [facility] 7t [place] [address] Care Team Providers Care Solar Installer Technician Name Role Phone Carmina Iyer DO Primary Care Provider [phone] Carmina Iyer DO Primary Care Provider +[phone] Reason for Visit * Reason Onset Date Comments Med Refill 01/10/2023 Encounter Details Date Type Department Care Team (Late st Contact Info) Description 01/10/2023 Telephone [facility] MEDICINE [address] [place] [address] Carmina Iyer DO [address] [place], [place] [phone] Med Refill Social History Tobacco Use Types [...] (KlonoPIN) 0.5 MG tablet Please sent to [id number] - [place] - [address] [facility] documented in this encounter Plan of Treatment Not on file documented as of this encounter Visit Diagnoses Not on filedocumented in this encounter Additional Health Concerns Assessment Noted Time PHQ-9 Depression Total Score: 1 12/02/19 23 9:05 AM EDT documented as of this encounter Care Teams Solar Installer Technician Relationship Specialty Start Date End Date Carmina Iyer DO [address] [place] [address] PCP - General Family Medicine 02/05/13 01/30/24 Carmina Iyer DO [address] [place] [address] PCP - General Family Medicine 05/01/24 documented as of this encounter
--- OUTSIDE RECORDS SUMMARY | 2025-04-23 18:07 | XMS_ITS | Encounter Summary ---
Author Organization [employer] Address [address] [facility] 7t [place] [address] Care Team Providers Care Emergency Vehicle Driver Name Role Phone Carmina Iyer DO Primary Care Provider [phone]- [phone] Reason for Visit * Reason Comments Med Refill Encounter Details Date Type Department Care Team ([facility] Contact Info) Description 03/11/2025 Refill [facility] MEDICINE [address] [place] [address] Carmina Iyer DO [address] [place] [address] Social History Tobacco Use Types Packs/Day Years [...] documented as of this encounter Care Teams Emergency Vehicle Driver Relationship Specialty Start Date End Date Carmina Iyer DO [address] [place] [address] PCP - General Family Medicine 05/01/24 documented as of this encounter
--- OUTSIDE RECORDS SUMMARY | 2025-04-23 18:07 | XMS_ITS | Encounter Summary ---
Author Organization [employer] Address [address] [address] [facility] [address] 7t [place] [address] Care Team Providers Care Drill Runner Name Role Phone Carmina Iyer DO Primary Care Provider + [phone] Carmina Iyer DO Primary Care Provider + [phone] Reason for Visit * Reason Comments Med Refill Encounter Details Date Type Department Care Team ([facility] st Contact Info) Description 08/30/2023 Refill [facility] MEDICINE 230 [place] [address] Carmina Iyer DO 230 [place] [address] Anxiety Social History Tobacco Use Types Packs/Day [...] problems with any of the following? Lead [place] or Pipes 05/19/2023 Food Insecurity Answer Date [...] documented as of this encounter Care Teams Drill Runner Relationship Specialty Start Date End Date Carmina Iyer DO [address] [place] [address] PCP - General Family Medicine 02/05/13 01/30/24 Carmina Iyer DO [address] [place] [address] PCP - General Family Medicine 05/01/24 documented as of this encounter
== END 2025-04-23 14:20 | disposition home or self-care (01) ==
LOC: HO.HHCX 14:19
PROVIDERS: Visit Provider Internal Medicine
DX: J40 Bronchitis, not specified as acute or chronic (principal)
CPT/HCPCS: 71046

== ENCOUNTER → 2025-04-23 14:20 | Outpatient (BNV) | payer MEDICARE, SELFPAY | PROVIDERS: Visit Provider Radiology Diagnostic Radiology | DX: J84.9 Interstitial pulmonary disease, unspecified (principal) | CPT/HCPCS: 71046 ==

== ENCOUNTER 2025-04-30 09:43 | Outpatient (AMB) | payer MEDICARE, SELFPAY ==
[2025-04-30 09:45] VITALS: BP 108/58; PULSE 125; O2SAT 91; BMI 23.4
--- NOTE | 2025-04-30 09:45 | A.OFFVIS_ITS ---
Vital Signs 04/30/25 09:45 Height 5 ft 3 in Weight 132 lb BMI 23.4 BP 108/58 L Blood Pressure Location Rt brachial Position Sitting Pulse 125 H Pulse Source Pulse Oximeter Pulse Oximetry (%) 91 L Oxygen Delivery Method Room Air Intake Visit Reasons: discuss Xolair Media Planner / Buyer Required: Yes Media Planner / Buyer Name: Carmina Herbert Lepe Allergies No Known Allergies (No Known Allergies*) Allergy (Verified 04/30/25 09:51) HPI HPI discuss Xolair: Details: 65-year-old lady, nonsmoker, followed for asthma/COPD overlap syndrome and environmental allergies. She has been using Xolair, Symbicort, Spiriva, and albuterol MDI was good control of her asthma symptoms, however she has developed significant myalgias as a side effect from Xolair and does not want to continue it at this time. She is interested in another immunologic therapy. She also has been complain of bronchitic symptoms over the last week. [facility] Medical History (Updated 04/01/25 @ 13:17 by Velasquez Villarreal MD) Acute respiratory failure with hypoxia Asthma with COPD with exacerbation Leukocytosis Hyperlipidemia Anxiety Diabetes Hypertension Mass of upper lobe of left lung Allergic rhinitis Bronchial asthma COPD (chronic obstructive pulmonary disease) Surgical History H/O colonoscopy History of cataract surgery History of tubal ligation Family History Father No problems noted. Mother No problems noted. Social History Household Members: Children Household Members Other:: Son Housing: House Do you presently have visiting nurse or other home services: No Alcohol intake: never Patient Tobacco Use Status: Never used Tobacco e-Cigarette/Vaping Use: Never Used Second Hand Smoke Exposure: No service: No Sexual orientation: Straight/Heterosexual Review of Systems Const Denies daytime sleepiness, Denies excessive sweating, Denies fatigue, Denies fever(s), Denies lethargy, Denies malaise, Denies night sweats, Denies snoring and Denies weight loss Eyes Denies blurry vision and Denies itchy eyes ENT Denies nasal congestion, Denies post nasal drip, Denies sinus pain, Denies sinus pressure and Denies other ( Thrush) Card Denies chest pain, Denies pedal edema, Denies dyspnea, Denies orthopnea and Denies paroxysmal nocturnal dyspnea Resp Reports cough, Denies hemoptysis, Reports excessive phlegm production, Denies dyspnea, Denies snoring and Denies wheezing GI Denies abdominal pain and Denies heartburn Musc Denies myalgias, Denies arthralgias and Denies joint swelling Skin/Breast Denies rash Neuro Denies memory loss and Denies seizure-like activity Psych Denies abnormal sleep pattern, Denies anxiety and Denies memory loss Endo Denies excessive sweating, Denies fatigue and Denies heat intolerance Sha/Lymph Denies easy bruising Aller/Immun Denies itchy eyes, Denies seasonal rhinorrhea and Denies wheezing Physical Exam Vital Signs: Last Vital Signs Pulse 125 H 04/30/25 09:45 BP 108/58 L 04/30/25 09:45 Pulse Ox 91 L 04/30/25 09:45 Oxygen Delivery Method Room Air 04/30/25 09:45 BMI result Body Mass Index 23.4 Const General: no acute distress and alert Nutritional Appearance: not obese Orientation/consciousness: Other orientation findings ( oriented) HEENT Head: Yes atraumatic Eyes General: appearance normal, both eyes and all related structures Sclerae: sclerae normal EOM: EOMs intact bilaterally Neck Neck: Yes supple Lymphatic: no lymphadenopathy noted Resp Effort & Inspection: normal respiratory effort and no use of accessory muscles Auscultation: clear to auscultation bilaterally Cardio Rate: regular rate Rhythm: regular rhythm Heart sounds: no gallops, no murmurs and no rubs Skin General skin exam: other ( warm) Extrem General: No clubbing, No cyanosis and No edema Assessment & Plan Assessment & Plan (1) Environmental allergies: Code(s): Z91.09 - Other allergy status, other than to drugs and biological substances Category: Medical Plan: Suboptimal control of Xolair, expect to improve on Dupixent. (2) Asthma-COPD overlap syndrome: Code(s): J44.89 - Other specified chronic obstructive pulmonary disease Category: Medical Plan: Previously well controlled on Xolair, Symbicort, and Spiriva, recently has not been using Xolair secondary to significant myalgias after injections. Will switch Xolair to Dupixent. Continue Symbicort and Spiriva. Will treat acute bronchitic symptoms with a course of Levaquin. Coding Level of Care Code Est Pt Level 4 (37796) Complex EM visit Add On G2211 Diagnoses Environmental allergies Z91.09 Asthma-COPD overlap syndrome J44.89
--- OUTSIDE RECORDS SUMMARY | 2025-04-30 11:36 | XMS_ITS | Clinical Summary ---
Author Organization [employer] Address [address] [facility] 7t [place] [address] Care Team Providers Care Label Stamper Name Role Phone Carmina Iyer DO Primary [...] (90 Base) MCG/ACT inhalerIndication s:Asthma with COPD ([facility]) INHALE 2 PUFFS BY MOUTH EVERY 4 HOURS NEEDED FOR WHEEZING OR SHORTNESS OF BREATH 18 g 2 Active clonazePAM (KlonoPIN) 0.5 MG tabletIndications :Anxiety Take 1 tablet (0.5 mg) by mouth at bedtime for 28 days. 28 tablet 025 2024 Active neomycin-polymyxi n-hydrocortisone (Cortisporin) 3.5-55790-0 otic suspensionIndicat ions:Otitis of right ear Administer 3-4 drops into affected ear(s) 4 times daily for 10 days. 10 mL 025 2024 Active albuterol 108 (90 Base) MCG/ACT inhalerIndication s:Asthma with COPD ([facility]) INHALE 2 PUFFS BY MOUTH EVERY [...] eorder (will not trigger notification to Pharmacy)) levoFLOXacin (Levaquin) 250 MG tabletIndications :Bronchitis Take 2 tablets (500 mg) by mouth Once per day for 5 days. 10 tablet 025 2024 predniSONE (Deltasone) 20 MG tabletIndications :Bronchitis Take 3 tablets (60 mg) by mouth Once per day for 5 days. 15 tablet 025 2024 Active Problems Problem Noted Date Diagnosed Date [...] Description 04/23/2025 1:40 PM EDT Office Visit [facility] [address] [place] [address] Brandee Miller MD Viral URI; Bronchitis; Otitis of right ear 04/23/2025 Results Follow-Up [facility] [address] [place] [address] Brandee Miller MD XR Chest 2 Views 04/23/2025 Travel 04/16/2025 Telephone [facility] [address] [place] [address] Carmina Iyer, Medication Question 04/10/2025 Refill [facility] [address] [place] [address] Carmina Iyer, Asthma with COPD ([facility]) 04/10/2025 Refill [facility] [address] [place] [address] Carmina Iyer DO Anxiety 03/27/2025 Telephone [facility] [address] [place] [address] Carmina Iyer DO Med Refill 03/24/2025 Refill [facility] [address] [place] [address] Carmina Iyer, Severe persistent asthma with acute exacerbation 03/18/2025 Orders Only [facility] [address] [place] [address] Carmina Iyer DO 03/11/2025 Refill [facility] [address] [place] [address] Carmina Iyer, DO 03/07/2025 Refill [facility] [address] [place] [address] Carmina Iyer, DO Anxiety 03/07/2025 Telephone [facility] [address] [place] [address] Carmina Iyer, DO Med Refill 02/13/2025 Telephone [facility] [address] [place] [address] Carmina Iyer, DO Medication Question 02/04/2025 Telephone [facility] [address] [place] [address], [place] [address] Carmina Iyer, DO PHONE CALL - [employer] 02/04/[address] [address] Carmina Iyer, DO telephone call 02/04/2025 Refill [facility] [address] [place] [address], [place] [address] Brandee Miller MD Anxiety 02/04/2025 Results Follow-Up [facility] [address] [place] [phone] Kendal Bustamante, NADINE T4, Free, Vitamin D, 25-Hydroxy, Total, Immunoassay, Lipid Panel, Standard, Additional followed-up results: 6 02/01/2025 Telephone [facility] [address] [place] [phone] Carmina Iyer, Referral 01/31/2025 Telephone [facility] [address] [place] [address] Carmina Iyer, telephone call 01/30/2025 Refill [facility] [address] [place] [address] Carmina Iyer, DO Anxiety from Last 3 [...] 04/02/2022, Additional history exists Mammogram 03/18/2027 03/18/2025, 12/2023, 03/11/2023, Additional history exists DTaP/Tdap/Td Vaccines (3 [...] complication, without long-term current use of insulin ([facility]) HEMOGLOBIN A1C Routine 12/27/2024 8:46 AM EDT Type 2 diabetes mellitus without complication, without long-term current use of insulin ([facility]) LIPID PANEL, STANDARD Routine 12/27/2024 8:46 AM EDT Type 2 diabetes mellitus without complication, without long-term current use of insulin ([facility]) HPV MRNA E6/E7 REFLEX TO HPV 16, [...] PM EDT Narrative 04/23/2025 3:03 PM EDT [facility] [address] [place] [address] XRay Report Signed Patient: Salena Barlow MR#: [id number] 9 : 1960 Acct:[id number] Age/Sex: 65 / F ADM Date: 04/23/25 Loc: HO.CX Attending Dr: Brandee Patten MD Ordering Physician: Brandee Miller MD Date of Service: 04/23/25 Procedure(s): XR chest 2V Accession Number(s): [id number] cc: Brandee Miller MD Reason for Exam: [...] 04/23/25 1501 DD/ 1456 TD/TT: 04/23/25 1457 Corrosion Control Specialist: Procedure Note Donotuseinterpreter, Image - 04/23/2025 [facility] [address] [place] [address] XRay Report Signed Patient: Salena BarlowMR#: [id number] 9 : 1960cct:[id number] Age/Sex: 65 / FADM Date: 04/23/25 Loc: HO.CX Attending Dr: Brandee Patten MD Ordering Physician: Brandee Miller MD Date of Service: 04/23/25 Procedure(s): XR chest 2V Accession Number(s): [id number] cc: Brandee Miller MD Reason for Exam: [...] 04/23/25 1501 DD/ 1456 TD/TT: 04/23/25 1457 Corrosion Control Specialist: us Brandee Patten MD IMG XR PROCEDURES David sánchez Result - Final * Influenza B (ID NOW Rapid Molecular) (04/23/2025 1:52 PM EDT) Influenza B Negative Negative, Indeterminate [facility] Swab 04/23/2025 1:52 PM EDT us Brandee Patten MD POINT OF CARE TEST EN TER/EDIT ORDERABLES Final Result [facility] [address] [place] [address] [phone] * Influenza A (ID NOW Rapid Molecular) (04/23/2025 1:52 PM EDT) Influenza A Negative Negative, Indeterminate [facility] Swab 04/23/2025 1:52 PM EDT us Brandee Patten MD POINT OF CARE TEST EN TER/EDIT ORDERABLES Final Result Performing Organization Address City/[facility]/ZIP Co de Phone Number [facility] [address] [place] [address] [phone] * POCT Rapid COVID Ag (04/23/2025 1:52 PM EDT) Rapid COVID Ag Negative [facility] Swab 04/23/2025 1:52 PM EDT us Brandee Patten MD POINT OF CARE TEST EN TER/EDIT ORDERABLES Final Result Performing Organization Address [facility] Co de Phone Number [facility] [address] [place] [phone] * BI Mammogram Screening Tomosynthesis Bilateral (03/18/2025 12:46 PM EDT) Anatomical Region Laterality Modality Breast Bilateral Mammography 03/18/2025 12:4 6 PM EDT Narrative 03/26/2025 9:04 AM EDT [address] [place] [address] Mammography Report Signed Patient: Salena Barlow MR#: [id number] 9 : 1960 Acct:[id number] Age/Sex: 64 / F ADM Date: 03/18/25 Loc: HO.MAMMO Attending Dr: Carmina Iyer DO Ordering Physician: Carmina Iyer DO Results: 1N egative Date of Service: 03/18/25 Follow Up: 1 Year From Orig inal Mammogram Procedure(s): MM tomosynthesis screening BI Accession Number(s): [id number] cc: Carmina Iyer DO EXAMINATION: MM SCREENING [...] Tiny Bates DO 03/26/2025 09:01 AM EDT RP Dictated By: Tiny Bates DO Signed By: <Electronically signed by Tiny Bates DO in OV> 03/26/25 0901 DD/ 1246 TD/TT: 03/18/25 1315 Corrosion Control Specialist: Procedure Note Donotuseinterpreter, Image - 03/26/[facility] [address] [place] [address] Mammography Report Signed Patient: Callie Barlow#: [id number] 9 : 8Acct:[id number] Age/Sex: 64 / FADM Date: 03/18/25 Loc: HO.MAMMO Attending Dr: Carmina Iyer DO Ordering Physician: Carmina Iyer DOResults: 1N egative Date of Service: 03/18/25Follow Up: 1 Year From [facility] Mammogram Procedure(s): MM tomosynthesis screening BI Accession Number(s): [id number] cc: Carmina Iyer DO EXAMINATION: MM SCREENING [...] Tiny Bates DO 03/26/2025 09:01 AM EDT RP Dictated By: Tiny Bates DO Signed By: <Electronically signed by Tiny Bates DO in OV> 03/26/25 0901 DD/ 1246 TD/TT: 03/18/25 1315 Corrosion Control Specialist: Carmina Iyer DO IMG BI PROCEDURES Final Resu lt * Albumin, Random Urine W/Creatinine (12/27/2024 8:46 AM EDT) Creatinine, Urine 179.35 mg/dL [facility] Microalbumin Urine 9.0 mg/L [facility] Microalbum Creatinine Ratio Ur 5.0 <30 ug/mg cr [facility] Comment:Albumin/Creatinine R atio Reference Ranges: Normal: < 30 ug/mg creatinine Microalbuminuria: 30 - 300 ug/mg creatinineClinical Albuminuria: > 300 ug/mg creatinine Urine (Urine, Random) 12/27/2024 8:46 AM EDT 12/27/2024 11:06 AM EDT Carmina Iyer DO LAB URINE ORDERABLES Final R esult [facility] [address] [place] [phone] * Hemoglobin A1c (12/27/2024 8:46 AM EDT) Hemoglobin A1c 5.6 <6.0 % [facility] Comment:Hemoglobin A1C Refer ence Range Adults: 4.8 - 6.0 % Non diabetic: < 6.0 % Goal: < 7.0 %Additional Action Suggested: > 8.0 %Note: Hemoglobin A1c results are invalid for patients with abnormal amounts of HbF. Blood transfusions may impact the HbA1c concentration in the patient sample. Estimated Average Glucose 114 mg/dL [facility] Comment:eAG = Estimated ave rage glucose which is %A1C expressed asaverage glucose, using the formula of the Z4X-UsjanzwMpttuib Glucose study (ADAG), Diabetes Care, Vol.31,#8,Mar. 2007 Blood Venous blood specimen / Unknown 12/27/2024 8:46 AM EDT 12/27/2024 11:04 AM EDT us Carmina Iyer DO LAB BLOOD ORDERABLES Final R esult [facility] [address] [place] [phone] * (ABNORMAL) Lipid Panel, Standard (12/27/2024 8:46 AM EDT) Triglycerides 137 <150 mg/dL [facility] Comment:Desirable Triglyceri de: less than 150 mg/dLBorderline High Triglyceride 150-199 mg/dLHigh Triglyceride: 200-499 mg/dLVery High Triglyceride: greater than or equal to 5OO mg/dL Cholesterol 338(H) <200 mg/dL [facility] Comment:Desirable Cholestero l: less than 200 mg/dLBorderline High Cholesterol: 200-239 mg/dLHigh Cholesterol: greater than 239 mg/dL LDL Cholesterol Calculated 243(H) <100 mg/dL [facility] Comment:Desirable LDL: less than 100 mg/dLNear Optimal/Above Optimal LDL: 110- 129 mg/dLBorderline High LDL: 130-159 mg/dLHigh LDL: 160-189 mg/dLVery High LDL: greater than or equal to 190 mg/dL HDL Cholesterol 68 >40 mg/dL [facility] Comment:Desirable HDL: great er than 40 mg/dL Note: This HDL assay may give artificially low results in patients with liver disease. Blood Venous blood specimen / Unknown 12/27/2024 8:46 AM EDT 12/27/2024 11:04 AM EDT Carmina Iyer DO LAB BLOOD ORDERABLES Final R esult Performing Organization Address City/[facility]/ZIP Co de Phone Number [facility] [address] [place] [phone] * THINPREP TIS PAP (02/20/2021 9:24 [...] has been evaluated with computer assisted technology. [facility] [employer]: SEE COMMENT [facility] Comment: HJP, CT(ASCP) CT screening location: [place] [address] Interpretation/Res ult: SEE COMMENT [facility] Comment: Negative for intraepithelial lesion or malignancy. Atrophic pattern; predominantly parabasal cells LMP: NONE [facility] Prev. BX: NONE [facility] Prev. PAP: NONE [facility] SOURCE: Cervix [facility] Statement Of Adequacy: SATISFACTORY FOR EVALUATION [facility] 02/20/2021 9:24 AM EDT Carmina Iyer DO LAB PATHOLOGY ORDERABLES Fin al Result Performing Organization Address City/[facility]/ZIP Co de Phone Number [facility] [address] * HPV mRNA E6/E7 REFLEX TO HPV 16, 18/45 (02/20/2021 9:24 AM EDT) HPV nRNA E6/E7 Not Detected Not Detected [facility] Comment: Methodology: Comber Setter-Mediated Amplification This assay detects E6/E7 viral messenger RNA (mRNA) from 14 high-risk HPV types (16,18,31,33,35,39,45,51,52,56,58,59,66,68). The analytical performance characteristics of this assay have been determined by [employer]. The modifications have not been cleared or approved by the FDA. This assay has been validated pursuant to the CLIA regulations and is used for clinical purposes. For additional information, please refer to http://education.[employer].com/faq/KRW212h2 (This link if provided for information/ educational purposes only.) 02/20/2021 9:24 AM EDT Carmina Iyer DO LAB CYTOLOGY ORDERABLES Mandy chun Result [facility] [address] * Hm Colonoscopy (06/19/2015 2:13 PM EST) Historical Provider HEALTH MAINTENANCE Final Result from Last 3 Months or Most Recently Relevant to Health Maintenance Insurance [employer] MEDICARE REPLACEMENT [facility] Care Teams Label Stamper Relationship Specialty Start Date End Date Carmina Iyer DO [address] [place] [address] PCP - General Family Medicine 05/01/24
--- OUTSIDE RECORDS SUMMARY | 2025-04-30 11:36 | XMS_ITS | Encounter Summary ---
Author Organization [employer] Address [address] [facility] 7 [place] [address] Care Team Providers Care Revenue Accountant Name Role Phone Carmina Iyer DO Primary Care Provider [phone]- [phone] Reason for Visit * Reason Onset Date Comments Med Refill 03/27/2025 Encounter Details Date Type Department Care Team ([facility] st Contact Info) Description 03/27/2025 Telephone [facility] [address] [place] [address] Carmina Iyer DO [address] [place] [address] Med Refill Social History Tobacco Use Types [...] 2:06 PM EDT Medication was sent to [facility] on 12/25/24 with 11 refills. * Telephone Encounter - Lissett aHyes - 03/27/2025 2:02 PM EDT TC from pt requesting medication refill. Medications needing refill : triamcinolone (Nasacort) 55 MCG/ACT nasal inhaler To be sent to: [facility] [place] - [address] documented in this encounter Plan of Treatment Not on file documented as of this encounter Visit Diagnoses Not on filedocumented in this encounter Additional Health Concerns Assessment Noted Time PHQ-9 Depression Total Score: 0 06/08/20 10:04 AM EDT documented as of this encounter Care Teams Revenue Accountant Relationship Specialty Start Date End Date Carmina Iyer DO [address] [place] [address] PCP - General Family Medicine 05/01/24 documented as of this encounter
--- OUTSIDE RECORDS SUMMARY | 2025-04-30 11:37 | XMS_ITS | Encounter Summary ---
Author Organization [facility] [facility] Address [address] [place] [address] 7 [place] [address] Care Team Providers Care Senior Occupational Therapist Name Role Phone Carmina Iyer DO Primary Care Provider [phone] Carmina Iyer DO Primary Care Provider [phone] Reason for Visit * Reason Comments Med Refill Encounter Details Date Type Department Care Team (Late st Contact Info) Description 10/15/2022 Refill [facility] [address] [place] [address] Carmina Iyer DO [address] [place] [address] Anxiety Social History Tobacco Use Types Packs/Day [...] documented in this encounter Care Teams Senior Occupational Therapist Relationship Specialty Start Date End Date Carmina Iyer DO [address] [place] [address] PCP - General Family Medicine 02/05/13 01/30/24 Carmina Iyer DO [address] [place] [address] PCP - General Family Medicine 05/01/24 documented as of this encounter
--- OUTSIDE RECORDS SUMMARY | 2025-04-30 11:37 | XMS_ITS | Encounter Summary ---
Author Organization [employer] Address [address] 7t [place] [address] Care Team Providers Care Solar Fabrication Technician Name Role Phone Carmina Iyer DO Primary Care Provider + [phone] Carmina Iyer DO Primary Care Provider + [phone] Reason for Visit * Reason Comments Med Refill Encounter Details Date Type Department Care Team ([facility] st Contact Info) Description 05/27/[address] [facility] [address] [place] [address] Carmina Iyer DO [address] [place] [address] Social History Tobacco Use Types Packs/Day Years [...] problems with any of the following? Lead [place] or Pipes 05/19/2023 Food Insecurity Answer Date [...] as of this encounter Care Teams Solar Fabrication Technician Relationship Specialty Start Date End Date Carmina Iyer DO [address] [place] [address] PCP - General Family Medicine 02/05/13 01/30/24 Carmina Iyer DO [address] [place] [address] PCP - General Family Medicine 05/01/24 documented as of this encounter
--- OUTSIDE RECORDS SUMMARY | 2025-04-30 11:37 | XMS_ITS | Encounter Summary ---
Author Organization [employer] Address [address] [facility] 7t [place] [address] Care Team Providers Care Hog Man Name Role Phone Carmina Iyer DO Primary Care Provider [phone] Reason for Visit * Reason Onset Date Comments Results 04/23/2025 Encounter Details Date Type Department Care Team ([facility] Contact Info) Description 04/23/2025 Results Follow-Up [facility] [address] [place] [address] Brandee Miller MD [address] [place] [address] XR Chest 2 Views Social History Tobacco [...] Miscellaneous Notes * Telephone Encounter - Beth Góemz RN - 04/25/2025 8:49 AM EDT ----- Message from Brandee Patten MD sent at 04/23/2025 3:45 PM EDT ----- Please let patient know I reviewed her x-ray report. She has bronchitis I advised to finish her medication and follow-up with PCP and cotton chopper thank you ----- Message ----- From: Hanane Ris Results In Sent: 04/23/2025 3:04 PM EDT To: Brandee Patten MD * Telephone Encounter - Courtney Espino RN - 04/24/2025 1:35 PM EDT Telephone call x2 to pt via [facility] Samia [phone], no answer, left voicemail to call back [facility]. Will task to call again. * Telephone Encounter - Courtney Espino RN - 04/24/2025 9:04 AM EDT Telephone call x1 to pt via [email or web address] to advise of below result. No answer, left voicemail to call back. * Telephone Encounter - Courtney Espino RN - 04/24/2025 9:00 AM EDT ----- Message from Brandee Patten MD sent at 04/23/2025 3:45 PM EDT ----- Please let patient know I reviewed her x-ray report. She has bronchitis I advised to finish her medication and follow-up with PCP and cotton chopper thank you ----- Message ----- From: Interface, Ris Results In Sent: 04/23/2025 3:04 PM EDT To: Brandee Patten MD documented in this encounter Plan of Treatment Not on file documented as of this encounter Visit Diagnoses Not on filedocumented in this encounter Additional Health Concerns Assessment Noted Time PHQ-9 Depression Total Score: 0 06/08/20 10:04 AM EDT documented as of this encounter Care Teams Hog Man Relationship Specialty Start Date End Date Carmina Iyer DO [address] [place] [address] PCP - General Family Medicine 05/01/24 documented as of this encounter
--- OUTSIDE RECORDS SUMMARY | 2025-04-30 11:37 | XMS_ITS | Encounter Summary ---
Author Organization [employer] Address [address] 7[address] [place] [address] Care Team Providers Care Secretarial Teacher Name Role Phone Carmina Iyer DO Primary Care Provider + [phone] Carmina Iyer DO Primary Care Provider + [phone] Reason for Visit * Reason Comments Med Refill Encounter Details Date Type Department Care Team ([facility] st Contact Info) Description 08/30/2023 Refill [facility] [address] [place] [address] Carmina Iyer DO [address] [place] [address] Anxiety Social History Tobacco Use Types Packs/Day [...] problems with any of the following? Lead [place] or Pipes 05/19/2023 Food Insecurity Answer Date [...] documented as of this encounter Care Teams Secretarial Teacher Relationship Specialty Start Date End Date Carmina Iyer DO [address] [place] [address] PCP - General Family Medicine 02/05/13 01/30/24 Carmina Iyer DO [address] [place] [address] PCP - General Family Medicine 05/01/24 documented as of this encounter
--- OUTSIDE RECORDS SUMMARY | 2025-04-30 11:37 | XMS_ITS | Encounter Summary ---
Author Organization [employer] Address [address] [facility] 7t [place] [address] Care Team Providers Care Supervisor Lace Tearing Name Role Phone Carmina Iyer DO Primary Care Provider [phone] Carmina Iyer DO Primary Care Provider [phone] Reason for Visit * Reason Onset Date Comments Med Refill 08/16/2022 Encounter Details Date Type Department Care Team (Late st Contact Info) Description 08/16/2022 Refill [facility] [address] [place] [address] Carmina Iyer DO [address] [place], [place] [phone] Anxiety Social History Tobacco Use Types Packs/Day [...] unspecified documented in this encounter Care Teams Supervisor Lace Tearing Relationship Specialty Start Date End Date Carmina Iyer DO [address] [place] [address] PCP - General Family Medicine 02/05/13 01/30/24 Carmina Iyer DO [address] [place] [address] PCP - General Family Medicine 05/01/24 documented as of this encounter
--- OUTSIDE RECORDS SUMMARY | 2025-04-30 11:37 | XMS_ITS | Encounter Summary ---
Author Organization [employer] Address [address] [facility] 7t [place] [address] Care Team Providers Care Circular Knitter Name Role Phone Carmina Iyer DO Primary Care Provider [phone]- [phone] Reason for Visit * Reason Comments Med Refill Encounter Details Date Type Department Care Team ([facility] st Contact Info) Description 08/10/2024 Refill [facility] [address] [place] [address] Carmina Iyer DO [address] [place] [address] Anxiety Social History Tobacco Use Types Packs/Day [...] documented as of this encounter Care Teams Circular Knitter Relationship Specialty Start Date End Date Carmina Iyer DO [address] [place] [address] PCP - General Family Medicine 05/01/24 documented as of this encounter
--- OUTSIDE RECORDS SUMMARY | 2025-04-30 11:37 | XMS_ITS | Encounter Summary ---
Author Organization [employer] Address [address] [facility] 7t [place] [address] Care Team Providers Care Property Management Specialist Name Role Phone Carmina Iyer DO Primary Care Provider [phone] Carmina Iyer DO Primary Care Provider [phone] Reason for Visit * Reason Onset Date Comments Med Refill 01/10/2023 Encounter Details Date Type Department Care Team (Late st Contact Info) Description 01/10/2023 Telephone [facility] [address] [place] [address] Carmina Iyer DO [address] [place], [place] [phone] Med Refill Social History Tobacco Use Types [...] (KlonoPIN) 0.5 MG tablet Please sent to [id number] - [place] - [phone] [facility] documented in this encounter Plan of Treatment Not on file documented as of this encounter Visit Diagnoses Not on filedocumented in this encounter Additional Health Concerns Assessment Noted Time PHQ-9 Depression Total Score: 1 12/02/19 23 9:05 AM EDT documented as of this encounter Care Teams Property Management Specialist Relationship Specialty Start Date End Date Carmina Iyer DO [address] [place] [address] PCP - General Family Medicine 02/05/13 01/30/24 Carmina Iyer DO [address] [place] [address] PCP - General Family Medicine 05/01/24 documented as of this encounter
--- OUTSIDE RECORDS SUMMARY | 2025-04-30 11:37 | XMS_ITS | Encounter Summary ---
Author Organization [employer] Address [address] [facility] 7t [place] [address] Care Team Providers Care Event Manager Name Role Phone Carmina Iyer DO Primary Care Provider +[phone]- [phone] Reason for Visit * Reason Comments Med Refill Encounter Details Date Type Department Care Team ([facility] Contact Info) Description 01/14/2025 Refill [facility] MEDICINE [address] [place] [address] Carmina Iyer DO [address] [place] [address] Anxiety Social History Tobacco Use Types Packs/Day [...] documented as of this encounter Care Teams Event Manager Relationship Specialty Start Date End Date Carmina Iyer DO [address] [place] [address] PCP - General Family Medicine 05/01/24 documented as of this encounter
--- OUTSIDE RECORDS SUMMARY | 2025-04-30 11:37 | XMS_ITS | Encounter Summary ---
Author Organization [employer] Address [address] 7[address] [place] [address] Care Team Providers Care Rib Cutter Name Role Phone Carmina Iyer DO Primary Care Provider + [phone] Carmina Iyer DO Primary Care Provider + [phone] Encounter Details Date Type Department Care Team ([facility] st Contact Info) Description 08/25/2023 Telephone [facility] MEDICINE [address] [place] [address] Carmina Iyer DO [address] [place] [address] Social History Tobacco Use Types Packs/Day Years [...] problems with any of the following? Lead [place] or [employer] 05/19/2023 Food Insecurity Answer Date [...] documented as of this encounter Care Teams Rib Cutter Relationship Specialty Start Date End Date Carmina Iyer DO [address] [place] [address] PCP - General Family Medicine 02/05/13 01/30/24 Carmina Iyer DO [address] [place] [address] PCP - General Family Medicine 05/01/24 documented as of this encounter
--- OUTSIDE RECORDS SUMMARY | 2025-04-30 11:37 | XMS_ITS | Encounter Summary ---
Author Organization [employer] Address [address] 7[address] [place] [address] Care Team Providers Care Paper Inspector Name Role Phone Carmina Iyer DO Primary Care Provider + [phone] Carmina Iyer DO Primary Care Provider + [phone] Reason for Visit * Reason Onset Date Comments Results 09/05/2023 Encounter Details Date Type Department Care Team ([facility] st Contact Info) Description 09/05/2023 Telephone [facility] MEDICINE [address] [place] [address] Carmina Iyer DO [address] [place], [place] [phone] Results Social History Tobacco Use Types Packs/Day [...] problems with any of the following? Lead [employer] 05/19/2023 Food Insecurity Answer Date [...] results: labs Date when done: 09/02 Facility: [facility] Please contact pt at [phone] TC returned to pt and a message [...] results: labs Date when done: 09/02 Facility: [facility] Please contact pt at [phone] documented in this encounter Plan of Treatment Not on file documented as of this encounter Visit Diagnoses Not on filedocumented in this encounter Additional Health Concerns Assessment Noted Time PHQ-9 Depression Total Score: 1 12/02/19 23 9:05 AM EDT documented as of this encounter Care Teams Paper Inspector Relationship Specialty Start Date End Date Carmina Iyer DO [address] [place] [address] PCP - General Family Medicine 02/05/13 01/30/24 Carmina Iyer DO [address] [place] [address] PCP - General Family Medicine 05/01/24 documented as of this encounter
--- OUTSIDE RECORDS SUMMARY | 2025-04-30 11:37 | XMS_ITS | Encounter Summary ---
Author Organization [employer] Address [address] [facility] 7t [place] [address] Care Team Providers Care Textile Colorist Formulator Name Role Phone Carmina Iyer DO Primary Care Provider [phone]- [phone] Reason for Visit * Reason Comments Med Refill Encounter Details Date Type Department Care Team ([facility] Contact Info) Description 03/11/2025 Refill [facility] MEDICINE [address] [place] [address] Carmina Iyer DO 230 [place] [address] Social History Tobacco Use Types Packs/Day Years [...] documented as of this encounter Care Teams Textile Colorist Formulator Relationship Specialty Start Date End Date Carmina Iyer DO [address] [place] [address] PCP - General Family Medicine 05/01/24 documented as of this encounter
--- OUTSIDE RECORDS SUMMARY | 2025-04-30 11:37 | XMS_ITS | Encounter Summary ---
Author Organization [employer] Address [address] 7[address] [place] [address] Care Team Providers Care Cuff Runner Name Role Phone Carmina Iyer DO Primary Care Provider + [phone] Carmina Iyer DO Primary Care Provider + [phone] Reason for Visit * Reason Onset Date Comments Durable Medical Equipment 08/30/2023 Encounter Details Date Type Department Care Team (Late st Contact Info) Description 08/30/2023 Telephone [facility] MEDICINE [address] [place] [address] Carmina Iyer DO [address] [place], [place] [phone] Durable Medical Equipment Social History Tobacco Use [...] problems with any of the following? Lead [place] [employer] 05/19/2023 Food Insecurity Answer Date [...] documented as of this encounter Care Teams Cuff Runner Relationship Specialty Start Date End Date Carmina Iyer DO [address] [place] [address] PCP - General Family Medicine 02/05/13 01/30/24 Carmina Iyer DO [address] [place] [address] PCP - General Family Medicine 05/01/24 documented as of this encounter
--- OUTSIDE RECORDS SUMMARY | 2025-04-30 11:37 | XMS_ITS | Encounter Summary ---
Author Organization [email or web address] Address [address] [facility] 7t [place] [address] Care Team Providers Care Director Writing Name Role Phone Carmina Iyer DO Primary Care Provider [phone]- [phone] Reason for Visit * Reason Comments Med Refill Encounter Details Date Type Department Care Team ([facility] Contact Info) Description 08/02/2024 Refill [facility] MEDICINE [address] [place] [address] Carmina Iyer DO [address] [place] [address] Social History Tobacco Use Types Packs/Day Years [...] with others, in a hotel, in a [place] [facility] [place], living outside on the street, on a [...] documented as of this encounter Care Teams Director Writing Relationship Specialty Start Date End Date Carmina Iyer DO [address] [place] [id number] PCP - General Family Medicine 05/01/24 documented as of this encounter
--- OUTSIDE RECORDS SUMMARY | 2025-04-30 11:37 | XMS_ITS | Encounter Summary ---
Author Organization [employer] Address [address] [facility] 7t [place] [address] Care Team Providers Care Parliamentary Counsel Name Role Phone Carmina Iyer DO Primary Care Provider + [phone] Carmina Iyer DO Primary Care Provider + [phone] Reason for Visit * Reason Onset Date Comments Med Refill 02/10/2023 Encounter Details Date Type Department Care Team (Late st Contact Info) Description 02/10/2023 Telephone [facility] MEDICINE [address] [place] [address] Carmina Iyer DO [address] [place], [place] [phone] Med Refill Social History Tobacco Use Types [...] documented as of this encounter Care Teams Parliamentary Counsel Relationship Specialty Start Date End Date Carmina Iyer DO [address] [place] [address] PCP - General Family Medicine 02/05/13 01/30/24 Carmina Iyer DO [address] [place] [address] PCP - General Family Medicine 05/01/24 documented as of this encounter
--- OUTSIDE RECORDS SUMMARY | 2025-04-30 11:37 | XMS_ITS | Encounter Summary ---
Author Organization [employer] Address [address] [facility] 7 [place] [address] Care Team Providers Care Computer Systems Technology Instructor Name Role Phone Carmina Iyer DO Primary Care Provider [phone]- [phone] Reason for Visit * Reason Onset Date Comments Med Refill 03/07/2025 Encounter Details Date Type Department Care Team ([facility] st Contact Info) Description 03/07/2025 Telephone [facility] MEDICINE [address] [place] [address] Carmina Iyer DO [address] [place] [address] Med Refill Social History Tobacco Use Types [...] with others, in a hotel, in a half-way, living outside on the street, on a [...] inhaler To be sent to: [facility] documented in this encounter Plan of Treatment Not on file documented as of this encounter Visit Diagnoses Not on filedocumented in this encounter Additional Health Concerns Assessment Noted Time PHQ-9 Depression Total Score: 0 06/08/20 10:04 AM EDT documented as of this encounter Care Teams Computer Systems Technology Instructor Relationship Specialty Start Date End Date Carmina Iyer DO [address] [place] [address] PCP - General Family Medicine 05/01/24 documented as of this encounter
--- OUTSIDE RECORDS SUMMARY | 2025-04-30 11:37 | XMS_ITS | Encounter Summary ---
Author Organization [employer] Address [address] [facility] [address] [place] [address] Care Team Providers Care Small Engine Trainer Name Role Phone Carmina Iyer DO Primary Care Provider + [phone] Carmina Iyer DO Primary Care Provider + [phone] Encounter Details Date Type Department Care Team (Late st Contact Info) Description 11/17/[address] [facility] MEDICINE [address] [place] [address] ProviderJosh MD Social History Tobacco Use Types [...] problems with any of the following? Lead [place] or [employer]ipes 05/19/2023 Food Insecurity Answer Date [...] documented as of this encounter Care Teams Small Engine Trainer Relationship Specialty Start Date End Date Carmina Iyer DO [address] [place] [address] PCP - General Family Medicine 02/05/13 01/30/24 Carmina Iyer DO [address] [place] [address] PCP - General Family Medicine 05/01/24 documented as of this encounter
== END 2025-04-30 10:02 | disposition home or self-care (01) ==
LOC: HO.HPS 09:43
PROVIDERS: PCP Family Medicine; Visit Provider Internal Medicine Pulmonary Disease
DX: Z91.09 Other allergy status, other than to drugs and biological substances (principal); J44.89 Other specified chronic obstructive pulmonary disease
CPT/HCPCS: 99214; G2211

== ENCOUNTER → 2025-04-30 09:43 | Outpatient (BNVA) | payer MEDICARE, SELFPAY | PROVIDERS: PCP Family Medicine; Visit Provider Internal Medicine Pulmonary Disease | DX: J44.89 Other specified chronic obstructive pulmonary disease (principal); Z91.09 Other allergy status, other than to drugs and biological substances | CPT/HCPCS: 99212 ==

== ENCOUNTER 2025-08-05 08:49 | Outpatient (AMB) | payer MEDICARE, SELFPAY ==
--- OUTSIDE RECORDS SUMMARY | 2025-08-05 08:55 | XMS_ITS | Encounter Summary ---
Author Organization [employer] Address [address] [facility] 7t [place] [address] Care Team Providers Care Cryogenic Transport Driver Name Role Phone Carmina Iyer DO Primary Care Provider [phone]- [phone] Reason for Visit * Reason Comments Med Refill Encounter Details Date Type Department Care Team ([facility] Contact Info) Description 08/02/2024 Refill [facility] MEDICINE [address] [place] [address] Carmina Iyer DO [address] [place] [address] Social History Tobacco Use Types Packs/Day Years [...] documented as of this encounter Care Teams Cryogenic Transport Driver Relationship Specialty Start Date End Date Carmina Iyer DO [address] [place] [id number] PCP - General Family Medicine 05/01/24 documented as of this encounter
--- OUTSIDE RECORDS SUMMARY | 2025-08-05 08:55 | XMS_ITS | Encounter Summary ---
Author Organization [employer] Address [address] [facility] [address] [place] [address] Care Team Providers Care Force Variation Equipment Tender Name Role Phone Carmina Iyer DO Primary Care Provider + [phone] Carmina Iyer DO Primary Care Provider + [phone] Reason for Visit * Reason Comments Med Refill Encounter Details Date Type Department Care Team ([facility] st Contact Info) Description 08/30/2023 Refill [facility] MEDICINE [address] [place] [address] Carmina Iyer DO [address] [place] [address] Anxiety Social History Tobacco Use Types Packs/Day [...] problems with any of the following? Lead [place] or [employer]ipes 05/19/2023 Food Insecurity Answer Date [...] documented as of this encounter Care Teams Force Variation Equipment Tender Relationship Specialty Start Date End Date Carmina Iyer DO [address] [place] [address] PCP - General Family Medicine 02/05/13 01/30/24 Carmina Iyer DO [address] [place] [address] PCP - General Family Medicine 05/01/24 documented as of this encounter
--- OUTSIDE RECORDS SUMMARY | 2025-08-05 08:55 | XMS_ITS | Encounter Summary ---
Author Organization [employer] Address [address] [facility] [address] [place] [address] Care Team Providers Care Study Manager Name Role Phone Carmina Iyer DO Primary Care Provider + [phone] Carmina Iyer DO Primary Care Provider + [phone] Encounter Details Date Type Department Care Team (Late st Contact Info) Description 11/17/2023 Orders Only [facility] MEDICINE [address] [place] [address] ProviderJosh MD Social History Tobacco Use Types [...] problems with any of the following? Lead [place] or [place]ipes 05/19/2023 Food Insecurity Answer Date [...] documented as of this encounter Care Teams Study Manager Relationship Specialty Start Date End Date Carmina Iyer DO 230 [place] [address] PCP - General Family Medicine 02/05/13 01/30/24 Carmina Iyer DO [address] [place] [address] PCP - General Family Medicine 05/01/24 documented as of this encounter
--- OUTSIDE RECORDS SUMMARY | 2025-08-05 08:55 | XMS_ITS | Encounter Summary ---
Author Organization [employer] [facility] Address [address] [place] [address] 7 [place] [address] Care Team Providers Care Services Mgr Name Role Phone Carmina Iyer DO Primary Care Provider [phone] Carmina Iyer DO Primary Care Provider [phone] Reason for Visit * Reason Comments Med Refill Encounter Details Date Type Department Care Team (Late st Contact Info) Description 10/15/2022 Refill [facility] MEDICINE [address] [place] [address] Carmina Iyer DO [address] [place] [address] Anxiety Social History Tobacco Use Types Packs/Day [...] unspecified documented in this encounter Care Teams Services Mgr Relationship Specialty Start Date End Date Carmina Iyer DO [address] [place] [address] PCP - General Family Medicine 02/05/13 01/30/24 Carmina Iyer DO [address] [place] [address] PCP - General Family Medicine 05/01/24 documented as of this encounter
--- OUTSIDE RECORDS SUMMARY | 2025-08-05 08:55 | XMS_ITS | Clinical Summary ---
Author Organization [employer] Address [address] [facility] 7t [place] [address] Care Team Providers Care Barge Captain Name Role Phone Carmina Iyer DO Primary [...] by mouth Once per day. 024 Active Symbicort 160-4.5 MCG/ACT inhalerIndication s:Severe persistent asthma without complication (HCC) Inhale 2 puffs 2 times daily. 1 each 11 025 Active tiotropium (Spiriva HandiHaler) 18 MCG inhalation capsuleIndication s:Severe persistent asthma with acute exacerbation (HCC) Place 1 capsule (18 mcg) into inhaler and inhale in the morning. 30 capsule 11 025 2025 Active predniSONE (Deltasone) 10 MG [...] PO daily x 2 days 43 tablet 025 Active azithromycin (Zithromax) 250 MG tablet Take 2 tabs PO today then 1 tab PO daily x 4 days 6 tablet 025 Active triamcinolone (Nasacort) 55 MCG/ACT nasal inhaler Administer 2 sprays into each nostril Once per day. 16.5 g 11 5 1:22 PM EST 025 Active atorvastatin (Lipitor) 40 MG tabletIndications :Hyperlipidemia, unspecified hyperlipidemia type Take 1 tablet by mouth once daily 30 tablet 11 025 Active ipratropium-albut katharine (Duo-Neb) 0.5-2.5 mg/3 mL nebulizer solutionIndicatio ns:Severe persistent asthma with acute exacerbation (HCC) INHALE 1 AMPULE USING A NEBULIZER EVERY 4 TO 6 HOURS NEEDED FOR WHEEZING OR SHORTNESS OF BREATH 180 mL 3 5 1:22 PM EST 025 Active albuterol 108 (90 Base) MCG/ACT inhalerIndication s:Asthma with COPD (CMS/HCC) (HCC) INHALE 2 PUFFS BY MOUTH EVERY 4 HOURS NEEDED FOR WHEEZING OR SHORTNESS OF BREATH 18 g 2 025 Active cetirizine (ZyrTEC) 10 MG tablet TAKE 1 TABLET BY MOUTH EVERY DAY 30 tablet 11 025 Active albuterol (2.5 MG/3ML) 0.083% nebulizer solution INHALE 1 AMPULE USING A NEBULIZER EVERY 4 TO 6 HOURS NEEDED FOR WHEEZING OR SHORTNESS OF BREATH 90 mL 1 5 1:22 PM EST 025 Active clonazePAM (KlonoPIN) 0.5 MG tabletIndications :Anxiety Take 1 tablet (0.5 mg) by mouth if needed at bedtime for anxiety. 28 tablet 1:22 PM EST 025 Active clonazePAM (KlonoPIN) 0.5 MG tabletIndications :Anxiety TAKE 1 TABLET BY MOUTH EVERY DAY AT BEDTIME FOR 28 DAYS 28 tablet 025 2024 Discontinued(R eorder (will [...] Encounters Date Type Department Care Team Description 07/09/2025 Refill [facility] [address] [place] [address] Carmina Iyer, Anxiety 07/09/2025 Refill [facility] [address] [place] [address] Carmina Iyer DO Anxiety 06/28/2025 Telephone [facility] [address] [place] [address] Carmina Iyer, Recall Letter (Recall Letter sent 06/28/25.) 06/07/2025 Telephone [facility] [address] [place] [address] Carmina Iyer, DO Med Refill 06/07/2025 Refill [facility] [address] [place] [address] Carmina Iyer, DO Anxiety 05/08/2025 Refill [facility] [address] [place], [place] [phone] Carmina Iyer, DO 05/08/2025 Refill [facility] [address] [place] [address] Carmina Iyer, DO Anxiety from Last 3 [...] with others, in a hotel, in a snf, living outside on the street, on a [...] 60 years or older (1 - Risk 50-74 years 1-dose series) 2008 Colonoscopy 06/19/2020 06/19/2015 Colorectal Cancer Screening 06/19/2020 [...] on patient's age to complete this topic Goals Goal Patient Goal Type Associated Problems Recent Progress Patient-Stated? Author Help patients manage their type 2 diabetes Care Plan Help patients manage their type 2 diabetes No Sheila Cervantes MA Weekly blood pressure task Care Plan Weekly blood pressure task No Sheila Cervantes MA Help patients manage their type 2 diabetes Care Plan Help patients manage their type 2 diabetes No Sheila Cervantes MA Patient has chronic kidney disease Care Plan Patient has chronic kidney disease No Sheila Cervantes MA Weekly blood pressure task Care Plan Weekly blood pressure task No Sheila Cervantes MA Weekly blood pressure task Care Plan Weekly blood pressure task No Sheila Cervantes MA Patient has chronic kidney disease Care Plan Patient has chronic kidney disease No Sheila Cervantes MA Patient has chronic kidney disease Care Plan Patient has chronic kidney disease No Sheila Cervantes MA Weekly blood pressure task Care Plan Weekly blood pressure task No Sheila Cervantes MA Weekly blood pressure task Care Plan Weekly blood pressure task No Sheila Cervantes MA Patient has chronic kidney disease Care Plan Patient has chronic kidney disease No Sheila Cervantes MA Patient has chronic kidney disease Care Plan Patient has chronic kidney disease No Sheila Cervantes MA Weekly blood pressure task Care Plan Weekly blood pressure task No JeetMarques Weekly blood pressure task Care Plan Weekly blood pressure task No Jeet Marques Patient has chronic kidney disease Care Plan Patient has chronic kidney disease No Jeet Marques Patient has chronic kidney disease Care Plan Patient has chronic kidney disease No Marques Marcano Procedures Procedure Name Priority Date/Time Associated Diagnosis Comments BI MAMMOGRAM SCREENING TOMOSYNTHESIS BILATERAL Routine 03/18/2025 12:46 PM EDT ALBUMIN, RANDOM URINE W/CREATININE Routine 12/27/2024 8:46 AM EDT Type 2 diabetes mellitus without complication, without long-term current use of insulin ([facility]) HEMOGLOBIN A1C Routine 12/27/2024 8:46 AM EDT Type 2 diabetes mellitus without complication, without long-term current use of insulin ([facility]) LIPID PANEL, STANDARD Routine 12/27/2024 8:46 AM EDT Type 2 diabetes mellitus without complication, without long-term current use of insulin ([facility]) HPV MRNA E6/E7 REFLEX TO HPV 16, 18/45 Routine 02/20/2021 9:24 AM EDT THINPREP IMAGING SYSTEM PAP Routine 02/20/2021 9:24 AM EDT HM COLONOSCOPY Routine 06/19/2015 2:13 PM EST from Last 3 Months or Most Recently Relevant to Health Maintenance Results * BI Mammogram Screening Tomosynthesis Bilateral (03/18/2025 12:46 PM EDT) Anatomical Region Laterality Modality Breast Bilateral Mammography 03/18/2025 12:4 6 PM EDT Narrative 03/26/2025 9:04 AM EDT [facility] [address] [place] [address] [place] [address] Mammography Report Signed Patient: Salena Barlow MR#: [id number] 9 : 1960 Acct:[id number] Age/Sex: 64 / F ADM Date: 03/18/25 Loc: MAMMO Attending Dr: Carmina Iyer DO Ordering Physician: Carmina Iyer DO Results: 1N egative Date of Service: 03/18/25 Follow Up: 1 Year From Orig ina Mammogram Procedure(s): MM tomosynthesis screening BI Accession Number(s): [id number] cc: Carmina Iyer DO EXAMINATION: MM SCREENING [...] 03/26/25 0901 DD/ 1246 TD/TT: 03/18/25 [address] Repair Supervisor: Procedure Note Donotuseinterpreter, Image - [facility]/26/[facility] [address] [place], [place] [id number] Mammography Report Signed Patient: Callie Barlow#: [id number] 9 : 8Acct:[id number] Age/Sex: 64 / FADM Date: 03/18/25 Loc: MAMMO Attending Dr: Carmina Iyer DO Ordering Physician: Jurcsak,Carmina A DOResults: 1N egative Date of Service: 03/18/25Follow Up: 1 Year From Orig inal Mammogram Procedure(s): MM tomosynthesis screening BI Accession Number(s): [id number] cc: Carmina Iyer DO EXAMINATION: MM SCREENING [...] 03/26/25 0901 DD/ 1246 TD/TT: 03/18/25 [address] Repair Supervisor: Carmina Iyer DO IMG BI PROCEDURES Final Resu lt * Albumin, Random Urine W/Creatinine (12/27/2024 8:46 AM EDT) Creatinine, Urine 179.35 mg/dL [facility] Microalbumin Urine 9.0 mg/L [facility] Microalbum Creatinine Ratio Ur 5.0 <30 ug/mg cr [facility] Comment:Albumin/Creatinine R atio Reference Ranges: Normal: < 30 ug/mg creatinine Microalbuminuria: 30 - 300 ug/mg creatinineClinical Albuminuria: > 300 ug/mg creatinine Urine (Urine, Random) 12/27/2024 8:46 AM EDT 12/27/2024 11:06 AM EDT Carmina Iyer DO LAB URINE ORDERABLES Final R esult Performing Organization Address [facility] Co de Phone Number [facility] [address] [place] [phone] * Hemoglobin A1c (12/27/2024 8:46 AM EDT) Hemoglobin A1c 5.6 <6.0 % [facility] Comment:Hemoglobin A1C Refer ence Range Adults: 4.8 - 6.0 % Non diabetic: < 6.0 % Goal: < 7.0 %Additional Action Suggested: > 8.0 %Note: Hemoglobin A1c results are invalid for patients with abnormal amounts of HbF. Blood transfusions may impact the HbA1c concentration in the patient sample. Estimated Average Glucose 114 mg/dL [facility] Comment:eAG = Estimated ave rage glucose which is %A1C expressed asaverage glucose, using the formula of the B2W-HaizuycOyzhfey Glucose study (ADAG), Diabetes Care, Vol.31,#8,2007 Blood Venous blood specimen / Unknown 12/27/2024 8:46 AM EDT 12/27/2024 11:04 AM EDT us Carmina Iyer DO LAB BLOOD ORDERABLES Final R esult Performing Organization Address City/[facility]/ZIP Co de Phone Number [facility] [address] [place] [phone] * (ABNORMAL) Lipid Panel, Standard (12/27/2024 8:46 AM EDT) Triglycerides 137 <150 mg/dL [facility] Comment:Desirable Triglyceri de: less than 150 mg/dLBorderline High Triglyceride 150-199 mg/dLHigh Triglyceride: 200-499 mg/dLVery High Triglyceride: greater than or equal to 5OO mg/dL Cholesterol 338(H) <200 mg/dL [facility] Comment:Desirable Cholestero l: less than 200 mg/dLBorderline High Cholesterol: 200-239 mg/dLHigh Cholesterol: greater than 239 mg/dL LDL Cholesterol Calculated 243(H) <100 mg/dL [facility] Comment:Desirable LDL: less than 100 mg/dLNear Optimal/Above Optimal LDL: 110- 129 mg/dLBorderline High LDL: 130-159 mg/dLHigh LDL: 160-189 mg/dLVery High LDL: greater than or equal to 190 mg/dL HDL Cholesterol 68 >40 mg/dL [facility] Comment:Desirable HDL: great er than 40 mg/dL Note: This HDL assay may give artificially low results in patients with liver disease. Blood Venous blood specimen / Unknown 12/27/2024 8:46 AM EDT 12/27/2024 11:04 AM EDT us Carmina Iyer DO LAB BLOOD ORDERABLES Final R esult [facility] [address] [place] [phone] * THINPREP TIS PAP (02/20/2021 9:24 AM EDT) Clinical Information: None given [facility] COMMENT SEE COMMENT [facility]OUNDAT[facility] ON [...] along with historic and current clinical information. Comment: This Pap test has been evaluated with computer assisted technology. [facility] Business Integration Analyst: SEE COMMENT [facility] Comment: HJP, CT(ASCP) CT screening location: [place] [address] Interpretation/Res ult: SEE COMMENT [facility] Comment: Negative for intraepithelial lesion or malignancy. Atrophic pattern; predominantly parabasal cells LMP: NONE [facility] Prev. BX: NONE [facility] Prev. PAP: NONE [facility] SOURCE: Cervix [facility] Statement Of Adequacy: SATISFACTORY FOR EVALUATION [facility] 02/20/2021 9:24 AM EDT Carmina Iyer DO LAB PATHOLOGY ORDERABLES Fin al Result Performing Organization Address [facility] Co de Phone Number [facility] [address] * HPV mRNA E6/E7 REFLEX TO HPV 16, 18/45 (02/20/2021 9:24 AM EDT) HPV nRNA E6/E7 Not Detected Not Detected [facility] Comment: Methodology: Power Tool Repairer-Mediated Amplification This assay detects E6/E7 viral messenger RNA (mRNA) from 14 high-risk HPV types (16,18,31,33,35,39,45,51,52,56,58,59,66,68). The analytical performance characteristics of this assay have been determined by [employer]. The modifications have not been cleared or approved by the FDA. This assay has been validated pursuant to the CLIA regulations and is used for clinical purposes. For additional information, please refer to http://education.[employer].Symptom.ly/faq/DXV600y9 (This link if provided for information/ educational purposes only.) 02/20/2021 9:24 AM EDT Carmina Iyer DO LAB CYTOLOGY ORDERABLES Mandy l Result Performing Organization Address [facility] Co de Phone Number [facility] [address] [place] [address], * Hm Colonoscopy (06/19/2015 2:13 PM EST) Historical Provider MD HEALTH MAINTENANCE Final Result from Last 3 Months or Most Recently Relevant to Health Maintenance Additional Health Concerns Active Problems Noted Date Diagnosed Date Help patients manage their type 2 diabetes 06/28 Weekly blood pressure task 06/28/2025 Help patients manage their type 2 diabetes 06/28 Patient has chronic kidney disease 06/28/2025 Weekly blood pressure task 06/28/2025 Weekly blood pressure task 06/28/2025 Patient has chronic kidney disease 06/28/2025 Patient has chronic kidney disease 06/28/2025 Weekly blood pressure task 06/28/2025 Weekly blood pressure task 06/28/2025 Patient has chronic kidney disease 06/28/2025 Patient has chronic kidney disease 06/28/2025 Weekly blood pressure task 07/09/2025 Weekly blood pressure task 07/09/2025 Patient has chronic kidney disease 07/09/2025 Patient has chronic kidney disease 07/09/2025 Insurance [employer] MEDICARE REPLACEMENT [facility] Care Teams Barge Captain Relationship Specialty Start Date End Date Carmina Iyer DO [address] [place] [address] PCP - General Family Medicine 05/01/24
--- OUTSIDE RECORDS SUMMARY | 2025-08-05 08:55 | XMS_ITS | Encounter Summary ---
Author Organization [employer] Address [address] [facility] [address] 7[address] [place] [address] Care Team Providers Care Customer Service Driver Name Role Phone Carmina Iyer DO Primary Care Provider + [phone] Carmina Iyer DO Primary Care Provider + [phone] Reason for Visit * Reason Comments Med Refill Encounter Details Date Type Department Care Team ([facility] st Contact Info) Description 05/27/2023 Refill [facility] [address] [place] [address] Carmina Iyer DO [address] [place] [address] Social History Tobacco Use Types Packs/Day Years [...] problems with any of the following? Lead [place] or Pipes 05/19/2023 Food Insecurity Answer Date [...] documented as of this encounter Care Teams Customer Service Driver Relationship Specialty Start Date End Date Carmina Iyer DO [address] [place] [address] PCP - General Family Medicine 02/05/13 01/30/24 Carmina Iyer DO [address] [place] [address] PCP - General Family Medicine 05/01/24 documented as of this encounter
--- OUTSIDE RECORDS SUMMARY | 2025-08-05 08:55 | XMS_ITS | Encounter Summary ---
Author Organization [employer] Address [address] [facility] [facility] [address] 7[address] [place] [address] Care Team Providers Care Club Car Attendant Name Role Phone Carmina Iyer DO Primary Care Provider + [phone] Carmina Iyer DO Primary Care Provider + [phone] Reason for Visit * Reason Onset Date Comments Durable Medical Equipment 08/30/2023 Encounter Details Date Type Department Care Team (Late st Contact Info) Description 08/30/2023 Telephone [facility] [address] [place] [address] Carmina Iyre DO [address] [place], [place] [phone] Durable Medical Equipment Social History Tobacco Use [...] problems with any of the following? Lead [place] or Pipes 05/19/2023 Food Insecurity Answer Date [...] documented as of this encounter Care Teams Club Car Attendant Relationship Specialty Start Date End Date Carmina Iyer DO [address] [place] [address] PCP - General Family Medicine 02/05/13 01/30/24 Carmina Iyer DO [address] [place] [address] PCP - General Family Medicine 05/01/24 documented as of this encounter
--- OUTSIDE RECORDS SUMMARY | 2025-08-05 08:55 | XMS_ITS | Encounter Summary ---
Author Organization [employer] Address [address] [facility] 7 [place] [address] Care Team Providers Care Customer Operations Representative Name Role Phone Carmina Iyer DO Primary Care Provider [phone]- [phone] Reason for Visit * Reason Onset Date Comments Med Refill 03/07/2025 Encounter Details Date Type Department Care Team ([facility] st Contact Info) Description 03/07/2025 Telephone [facility] [address] [place] [address] Carmina Iyer DO [address] [place] [address] Med Refill Social History Tobacco Use Types [...] with others, in a hotel, in a retirement, living outside on the street, on a [...] MCG/ACT nasal inhaler To be sent to: [facility] documented in this encounter Plan of Treatment Not on file documented as of this encounter Visit Diagnoses Not on filedocumented in this encounter Additional Health Concerns Assessment Noted Time PHQ-9 Depression Total Score: 0 06/08/20 10:04 AM EDT documented as of this encounter Care Teams Customer Operations Representative Relationship Specialty Start Date End Date Carmina Iyer DO [address] [place] [address] PCP - General Family Medicine 05/01/24 documented as of this encounter
--- OUTSIDE RECORDS SUMMARY | 2025-08-05 08:55 | XMS_ITS | Encounter Summary ---
Author Organization [employer] Address [address] [facility] 7t [place] [address] Care Team Providers Care Fire Inspector Name Role Phone Carmina Iyer DO Primary Care Provider [phone] Reason for Visit * Reason Comments Med Refill Encounter Details Date Type Department Care Team ([facility] Contact Info) Description 01/14/2025 Refill [facility] [address] [place] [address] Carmina Iyer DO [address] [place] [address] Anxiety Social History Tobacco Use Types Packs/Day [...] documented as of this encounter Care Teams Fire Inspector Relationship Specialty Start Date End Date Carmina Iyer DO [address] [place] [address] PCP - General Family Medicine 05/01/24 documented as of this encounter
--- OUTSIDE RECORDS SUMMARY | 2025-08-05 08:55 | XMS_ITS | Encounter Summary ---
Author Organization [employer] Address [address] [facility] 7t [place] [address] Care Team Providers Care Hat Lacer Name Role Phone Carmina Iyer DO Primary Care Provider [phone] Carmina Iyer DO Primary Care Provider [phone] Reason for Visit * Reason Onset Date Comments Med Refill 08/16/2022 Encounter Details Date Type Department Care Team (Late st Contact Info) Description 08/16/2022 Refill [facility] [address] [place] [address] Carmina Iyer DO [address] [place], [place] [phone] Anxiety Social History Tobacco Use Types Packs/Day [...] unspecified documented in this encounter Care Teams Hat Lacer Relationship Specialty Start Date End Date Carmina Iyer DO [address] [place] [address] PCP - General Family Medicine 02/05/13 01/30/24 Carmina Iyer DO [address] [place] [address] PCP - General Family Medicine 05/01/24 documented as of this encounter
--- OUTSIDE RECORDS SUMMARY | 2025-08-05 08:55 | XMS_ITS | Encounter Summary ---
Author Organization [employer] Address [address] 7[address] [place] [address] Care Team Providers Care Glove Stitcher Name Role Phone Carmina Iyer DO Primary Care Provider + [phone] Carmina Iyer DO Primary Care Provider + [phone] Reason for Visit * Reason Onset Date Comments Results 09/05/2023 Encounter Details Date Type Department Care Team ([facility] st Contact Info) Description 09/05/2023 Telephone [facility] [address] [place] [address] Carmina Iyer DO [address] [place], [place] [phone] Results Social History Tobacco Use Types Packs/Day [...] problems with any of the following? Lead [place] or Pipes 05/19/2023 Food Insecurity Answer Date [...] results: labs Date when done: 09/02 Facility: [facility] Please contact pt at [phone] TC returned to pt and a message [...] results: labs Date when done: 09/02 Facility: [facility] Please contact pt at [phone] documented in this encounter Plan of Treatment Not on file documented as of this encounter Visit Diagnoses Not on filedocumented in this encounter Additional Health Concerns Assessment Noted Time PHQ-9 Depression Total Score: 1 12/02/19 23 9:05 AM EDT documented as of this encounter Care Teams Glove Stitcher Relationship Specialty Start Date End Date Carmina Iyer DO [address] [place] [address] PCP - General Family Medicine 02/05/13 01/30/24 Carmina Iyer DO [address] [place] [address] PCP - General Family Medicine 05/01/24 documented as of this encounter
--- OUTSIDE RECORDS SUMMARY | 2025-08-05 08:55 | XMS_ITS | Encounter Summary ---
Author Organization [employer] Address [address] [facility] 7t [place] [address] Care Team Providers Care Opera Singer Name Role Phone Carmina Iyer DO Primary Care Provider + [phone] Carmina Iyer DO Primary Care Provider + [phone] Reason for Visit * Reason Onset Date Comments Med Refill 02/10/2023 Encounter Details Date Type Department Care Team (Late st Contact Info) Description 02/10/2023 Telephone [facility] [address] [place] [address] Carmina Iyer DO [address] [place], [place] [phone] Med Refill Social History Tobacco Use Types [...] documented as of this encounter Care Teams Opera Singer Relationship Specialty Start Date End Date Carmina Iyer DO [address] [place] [address] PCP - General Family Medicine 02/05/13 01/30/24 Carmina Iyer DO [address] [place] [address] PCP - General Family Medicine 05/01/24 documented as of this encounter
--- OUTSIDE RECORDS SUMMARY | 2025-08-05 08:55 | XMS_ITS | Encounter Summary ---
Author Organization [employer] Address [address] [facility] 7 [place] [address] Care Team Providers Care Insurance Customer Service Specialist Name Role Phone Carmina Iyer DO Primary Care Provider [phone] Reason for Visit * Reason Onset Date Comments Med Refill 06/07/2025 Encounter Details Date Type Department Care Team ([facility] st Contact Info) Description 06/07/2025 Telephone [facility] [address] [place] [address] Carmina Iyer DO [address] [place] [address] Med Refill Social History Tobacco Use Types [...] with others, in a hotel, in a [facility], living outside on the street, on a [...] Telephone Encounter - Carmina Graham LPN - 06/07/2025 11:02 AM EDT Medication was sent to [facility] on 11/27/24 with 11 refills. * Telephone Encounter - Marques Marcano - 06/07/2025 11:00 AM EDT TC from pt requesting medication refill. Medications needing refill : Symbicort 160-4.5 MCG/ACT inhaler To be sent to: [facility] - [place], [place] - [address] documented in this encounter Plan of Treatment Not on file documented as of this encounter Visit Diagnoses Not on filedocumented in this encounter Additional Health Concerns Assessment Noted Time PHQ-9 Depression Total Score: 0 06/08/20 10:04 AM EDT documented as of this encounter Care Teams Insurance Customer Service Specialist Relationship Specialty Start Date End Date Carmina Iyer DO [address] [place] [address] PCP - General Family Medicine 05/01/24 documented as of this encounter
--- OUTSIDE RECORDS SUMMARY | 2025-08-05 08:55 | XMS_ITS | Encounter Summary ---
Author Organization [employer] Address [address] [facility] 7t [place] [address] Care Team Providers Care Blast Furnace Supervisor Name Role Phone Carmina Iyer DO Primary Care Provider [phone] Carmina Iyer DO Primary Care Provider + [phone] Reason for Visit * Reason Onset Date Comments Med Refill 01/10/2023 Encounter Details Date Type Department Care Team (Late st Contact Info) Description 01/10/2023 Telephone [facility] MEDICINE [address] [place] [address] Carmina Iyer DO [address] [place], [place] [phone] Med Refill Social History Tobacco Use Types [...] (KlonoPIN) 0.5 MG tablet Please sent to [id number] - [place] - [address] [facility] [place] documented in this encounter Plan of Treatment Not on file documented as of this encounter Visit Diagnoses Not on filedocumented in this encounter Additional Health Concerns Assessment Noted Time PHQ-9 Depression Total Score: 1 12/02/19 23 9:05 AM EDT documented as of this encounter Care Teams Blast Furnace Supervisor Relationship Specialty Start Date End Date Carmina Iyer DO [address] [place] [address] PCP - General Family Medicine 02/05/13 01/30/24 Carmina Iyer DO [address] [place] [address] PCP - General Family Medicine 05/01/24 documented as of this encounter
--- OUTSIDE RECORDS SUMMARY | 2025-08-05 08:55 | XMS_ITS | Encounter Summary ---
Author Organization [employer] Address [address] [facility] [address] 7[address] [place] [address] Care Team Providers Care Iron Melter Name Role Phone Carmina Iyer DO Primary Care Provider + [phone] Carmina Iyer DO Primary Care Provider + [phone] Encounter Details Date Type Department Care Team ([facility] st Contact Info) Description 08/25/2023 Telephone [facility] MEDICINE [address] [place] [address] Carmina Iyer DO [address] [place] [address] Social History Tobacco Use Types Packs/Day Years [...] problems with any of the following? Lead [place] or Pipes 05/19/2023 Food Insecurity Answer Date [...] documented as of this encounter Care Teams Iron Melter Relationship Specialty Start Date End Date Carmina Iyer DO [address] [place] [address] PCP - General Family Medicine 02/05/13 01/30/24 Carmina Iyer DO [address] [place] [address] PCP - General Family Medicine 05/01/24 documented as of this encounter
--- OUTSIDE RECORDS SUMMARY | 2025-08-05 08:55 | XMS_ITS | Encounter Summary ---
Author Organization [employer] Address [address] [facility] 7t [place] [address] Care Team Providers Care Craft Manager Name Role Phone Carmina Iyer DO Primary Care Provider [phone] Reason for Visit * Reason Comments Med Refill Encounter Details Date Type Department Care Team ([facility] Contact Info) Description 03/11/2025 Refill [facility] MEDICINE [address] [place] [address] Carmina Iyer DO [address] [place] [address] Social History Tobacco Use Types Packs/Day Years [...] with others, in a hotel, in a care home, living outside on the street, on [...] documented as of this encounter Care Teams Craft Manager Relationship Specialty Start Date End Date Carmina Iyer DO [address] [place] [id number] PCP - General Family Medicine 05/01/24 documented as of this encounter
--- OUTSIDE RECORDS SUMMARY | 2025-08-05 08:55 | XMS_ITS | Encounter Summary ---
Author Organization [employer] Address [address] [facility] 7t [place] [address] Care Team Providers Care Machinist Instructor Name Role Phone Carmina Iyer DO Primary Care Provider [phone] Reason for Visit * Reason Comments Med Refill Encounter Details Date Type Department Care Team ([facility] st Contact Info) Description 08/10/2024 Refill [facility] MEDICINE [address] [place] [address] Carmina Iyer DO [address] [place] [address] Anxiety Social History Tobacco Use Types Packs/Day [...] documented as of this encounter Care Teams Machinist Instructor Relationship Specialty Start Date End Date Carmina Iyer DO [address] [place] [address] PCP - General Family Medicine 05/01/24 documented as of this encounter
[2025-08-05 09:08] VITALS: BP 106/64; PULSE 131; O2SAT 87; BMI 20.5
--- NOTE | 2025-08-05 09:08 | MHC.OFFVIS ---
Vital Signs 08/05/25 09:08 Height 5 ft 3 in Weight 116 lb BMI 20.5 BP 106/64 Blood Pressure Location Rt brachial Position Sitting Pulse 131 H Pulse Source Pulse Oximeter Pulse Oximetry (%) 87 L Oxygen Delivery Method Room Air Intake Visit Reasons: Asthma Optoelectronics Engineer Required: Yes Optoelectronics Engineer Name: Carmina Herbert Lepe Information Interpreted: non-clinical & clinical Allergies No Known Allergies (No Known Allergies*) Allergy (Verified 08/05/25 09:15) HPI HPI Asthma: Details: 65-year-old lady, nonsmoker, followed for asthma/COPD overlap syndrome and environmental allergies. At the last office visit patient was switched from Xolair to Dupixent, however she has not started it yet and her symptoms are not as well controlled. She continues on Symbicort, albuterol MDI, and nebs. Today she has complain of bronchitic exacerbation symptomatic with wheezing and cough productive of greenish sputum. [facility] Medical History (Updated 04/01/25 @ 13:17 by Velasquez Villarreal MD) Acute respiratory failure with hypoxia Asthma with COPD with exacerbation Leukocytosis Hyperlipidemia Anxiety Diabetes Hypertension Mass of upper lobe of left lung Allergic rhinitis Bronchial asthma COPD (chronic obstructive pulmonary disease) Surgical History H/O colonoscopy History of cataract surgery History of tubal ligation Family History Father No problems noted. Mother No problems noted. Social History Household Members: Children Household Members Other:: Son Housing: House Do you presently have visiting nurse or other home services: No Alcohol intake: never Patient Tobacco Use Status: Never used Tobacco e-Cigarette/Vaping Use: Never Used Second Hand Smoke Exposure: No service: No Sexual orientation: Straight/Heterosexual Review of Systems Const Denies daytime sleepiness, Denies excessive sweating, Denies fatigue, Denies fever(s), Denies lethargy, Denies malaise, Denies night sweats, Denies snoring and Denies weight loss Eyes Denies blurry vision and Denies itchy eyes ENT Denies nasal congestion, Denies post nasal drip, Denies sinus pain, Denies sinus pressure and Denies other ( Thrush) Card Denies chest pain, Denies pedal edema, Denies dyspnea, Denies orthopnea and Denies paroxysmal nocturnal dyspnea Resp Reports cough, Denies hemoptysis, Reports excessive phlegm production, Denies dyspnea, Denies snoring and Denies wheezing GI Denies abdominal pain and Denies heartburn Musc Denies myalgias, Denies arthralgias and Denies joint swelling Skin/Breast Denies rash Neuro Denies memory loss and Denies seizure-like activity Psych Denies abnormal sleep pattern, Denies anxiety and Denies memory loss Endo Denies excessive sweating, Denies fatigue and Denies heat intolerance Sha/Lymph Denies easy bruising Aller/Immun Denies itchy eyes, Denies seasonal rhinorrhea and Denies wheezing Physical Exam Vital Signs: Last Vital Signs Pulse 131 H 08/05/25 09:08 BP 106/64 08/05/25 09:08 Pulse Ox 87 L 08/05/25 09:08 Oxygen Delivery Method Room Air 08/05/25 09:08 BMI result Body Mass Index 20.5 Const General: no acute distress and alert Nutritional Appearance: not obese Orientation/consciousness: Other orientation findings ( oriented) HEENT Head: Yes atraumatic Eyes General: appearance normal, both eyes and all related structures Sclerae: sclerae normal EOM: EOMs intact bilaterally Neck Neck: Yes supple Lymphatic: no lymphadenopathy noted Resp Effort & Inspection: normal respiratory effort and no use of accessory muscles Auscultation: clear to auscultation bilaterally Cardio Rate: regular rate Rhythm: regular rhythm Heart sounds: no gallops, no murmurs and no rubs Skin General skin exam: other ( warm) Extrem General: No clubbing, No cyanosis and No edema Assessment & Plan Assessment & Plan (1) Severe asthma: Code(s): J45.909 - Unspecified asthma, uncomplicated Category: Medical Plan: Suboptimal control as patient has not received her Dupixent, also with an acute bronchitic exacerbation. Will treat acute exacerbation with a course of Levaquin and prednisone. Continue baseline regimen of Symbicort and albuterol MDI. Expect to improve on Dupixent. (2) Environmental allergies: Code(s): Z91.09 - Other allergy status, other than to drugs and biological substances Category: Medical Plan: Suboptimal control off Dupixent. Expect to improve on Dupixent. Continue Zyrtec. Medications: New prednisone Take 4 tabs daily for 7 days, then go down by 1 tab every 7 days 10 mg PO DIRECTED 70 tabs 0RF Refilled levofloxacin 750 mg PO DAILY 14 tabs 0RF Coding Level of Care Code Est Pt Level 4 (22474) Diagnoses Severe asthma J45.909 Environmental allergies Z91.09
== END 2025-08-05 09:33 | disposition home or self-care (01) ==
LOC: HO.HPS 08:49
PROVIDERS: PCP Family Medicine; Visit Provider Internal Medicine Pulmonary Disease
DX: J45.909 Unspecified asthma, uncomplicated (principal); Z91.09 Other allergy status, other than to drugs and biological substances
CPT/HCPCS: 99214

== ENCOUNTER → 2025-08-05 08:49 | Outpatient (BNVA) | payer MEDICARE, SELFPAY | PROVIDERS: PCP Family Medicine; Visit Provider Internal Medicine Pulmonary Disease | DX: J45.909 Unspecified asthma, uncomplicated (principal); J20.9 Acute bronchitis, unspecified; Z91.09 Other allergy status, other than to drugs and biological substances; Z79.899 Other long term (current) drug therapy | CPT/HCPCS: 99212 ==